=== PATIENT | female | born 1985 | race Caucasian/White ===

== ENCOUNTER 2020-09-11 11:59 | Emergency (ER) | payer SELFPAY ==
--- OUTSIDE RECORDS SUMMARY | 2020-09-11 12:02 | XMS REPORT | Continuity of Care Document ---
:1985 Author Organization [facility] t Address [address] [place] [address] Care Team Providers Name Role Phone Tosin Mahoney NP Attending Clinician [place] Ramos Attending Clinician Problems This patient has no known problems. Allergies, Adverse Reactions, Alerts This patient has no known allergies or adverse reactions. Medications This patient has no known medications. Procedures This patient has no known procedures. Encounters Start End Encounter Admission Attending Care Care Encounter Source Date/Time Date/Time Type Type Clinicians Facility Department ID 2020-05-13 2020-05-13 Emergency Maru [facility] [id number] 18:03:00 21:00:00 Neisha Downing [id number] [place] [id number] [place] [id number] 2020-03-10 2020-03-10 Routine KELSEA Palacio [id number] 12:49:29 13:21:29 R[place] [facility] [id number] Visit [facility] [id number] MATERNAL [id number] & CHILD [address] [place] [address] Results This patient has no known results.
--- NOTE | 2020-09-11 13:31 | EDPHYS ---
Physician Documentation [facility] Name: Hema Coombs Age: 34 yrs Sex: Female : 1985 Arrival Date: 09/11/2020 Time: 12:02 Bed Waiting Private MD: ED Physician Luis Quiñones HPI: 09/11 17:29 This 34 yrs old Female presents to ER via Ambulatory with complaints of Covid jr8 Test. 17:29 Associated signs and symptoms: Pertinent positives: cough. The patient has not jr8 experienced similar symptoms in the past. The patient has not recently seen a physician. Patient stated that she has had mild cough. Someone at her work tested positive for COVID which they were exposed to. Patient sent from work to be tested. Historical: - Allergies: 12:08 No Known Allergies; sv - Immunization history:: Client reports having NOT received the Covid vaccine. - Social history:: Smoking status: Patient denies any tobacco usage or history of. ROS: 17:29 Eyes: Negative for injury, pain, redness, and discharge, ENT: Negative for injury, jr8 pain, and discharge, Neck: Negative for injury, pain, and swelling, Cardiovascular: Negative for chest pain, palpitations, and edema, Abdomen/GI: Negative for abdominal pain, nausea, vomiting, diarrhea, and constipation, Back: Negative for injury and pain, MS/Extremity: Negative for injury and deformity, Skin: Negative for injury, rash, and discoloration, Neuro: Negative for headache, weakness, numbness, tingling, and seizure. 17:29 Respiratory: Positive for cough, Negative for shortness of breath, sputum production, wheezing. Exam: 17:29 Eyes: Pupils equal round and reactive to light, extra-ocular motions intact. Lids and jr8 lashes normal. Conjunctiva and sclera are non-icteric and not injected. Cornea within normal limits. Periorbital areas with no swelling, redness, or edema. ENT: Nares patent. No nasal discharge, no septal abnormalities noted. Tympanic membranes are normal and external auditory canals are clear. Oropharynx with no redness, swelling, or masses, exudates, or evidence of obstruction, uvula midline. Mucous membranes moist. Neck: Trachea midline, no thyromegaly or masses palpated, and no cervical lymphadenopathy. Supple, full range of motion without nuchal rigidity, or vertebral point tenderness. No Meningismus. Cardiovascular: Regular rate and rhythm with a normal S1 and S2. No gallops, murmurs, or rubs. Normal PMI, no JVD. No pulse deficits. Respiratory: Lungs have equal breath sounds bilaterally, clear to auscultation and percussion. No rales, rhonchi or wheezes noted. No increased work of breathing, no retractions or nasal flaring. Abdomen/GI: Soft, non-tender, with normal bowel sounds. No distension or tympany. No guarding or rebound. No evidence of tenderness throughout. Back: No spinal tenderness. No costovertebral tenderness. Full range of motion. Skin: Warm, dry with normal turgor. Normal color with no rashes, no lesions, and no evidence of cellulitis. MS/ Extremity: Pulses equal, no cyanosis. Neurovascular intact. Full, normal range of motion. Neuro: Awake and alert, GCS 15, oriented to person, place, time, and situation. Cranial nerves II-XII grossly intact. Motor strength 5/5 in all extremities. Sensory grossly intact. Cerebellar exam normal. Normal gait. Vital Signs: 12:09 BP 139 / 94; Pulse 74; Resp 16; Temp 98; Pulse Ox 99% ; Height 5 ft. 4 in. (162.56 cm); sv Pain 0/10; MDM: 12:18 Patient medically screened. [facility] 13:30 Data reviewed: vital signs, nurses notes, lab test result(s), and as a result, I will [facility] discharge patient. Data interpreted: Pulse oximetry: on room air is 99 %. Interpretation: normal. Counseling: I had a detailed discussion with the patient and/or guardian regarding: the historical points, exam findings, and any diagnostic results supporting the discharge/admit diagnosis, lab results, the need for outpatient follow up, a family practitioner, to return to the emergency department if symptoms worsen or persist or if there are any questions or concerns that arise at home. 09/11 12:13 Order name: COVID-19 : Document "Date of Symptom Onset" if Symptomatic. sv 09/11 13:28 Order name: SARS-COV-2 RT PCR; Complete Time: 13:30 EDMS Administered Medications: No medications were administered Disposition: 15:34 Co-signature as Attending Physician, Luis Quiñones MD. rn Disposition Summary: 09/11/20 13:31 Discharge Ordered Location: Home jr8 Problem: new jr8 Symptoms: have improved jr8 Condition: Stable jr8 Diagnosis - Cough jr8 Followup: jr8 - With: Private Physician - When: As needed - Reason: Recheck today's complaints, Continuance of care, Re-evaluation by your physician Discharge Instructions: - Discharge Summary Sheet jr8 - Cough, Adult jr8 Forms: - Medication Reconciliation Form jr8 - Thank You Letter jr8 - Antibiotic Education jr8 - Work release form jr8 - Prescription Opioid Use jr8 Signatures: Dispatcher [employer] EDMS Lisy Short RN RN sv Nieto, Roman, MD MD rn Roszak, Josh, PA PA jr8 Corrections: (The following items were deleted from the chart) 12:30 12:14 CORONAVIRUS ordered. EDMD EDMS
--- NOTE | 2020-09-11 13:31 | ER ---
Nurse's Notes [facility] Name: Hema Coombs Age: 34 yrs Sex: Female : 1985 Arrival Date: 09/11/2020 Time: 12:02 Bed Waiting Private MD: Diagnosis: Cough Presentation: 09/11 12:08 Chief complaint: Patient states: sent by work to get tested for COVID. No symptoms at sv this time. Coronavirus screen: Client denies travel out of the [place] in the last 14 days. Ebola Screen: No symptoms or risks identified at this time. Risk Assessment: Do you want to hurt yourself or someone else? Patient reports no desire to harm self or others. Onset of symptoms was September 11, 2020. 12:08 Method Of Arrival: Ambulatory sv 12:08 Acuity: [id number] 4 sv 12:09 Initial Sepsis Screen: Does the patient meet any 2 criteria? No. Patient's initial sv sepsis screen is negative. Does the patient have a suspected source of infection? No. Patient's initial sepsis screen is negative. Triage Assessment: 12:10 General: Appears in no apparent distress. comfortable, Behavior is calm, cooperative, sv appropriate for age. Pain: Denies pain. Neuro: Level of Consciousness is awake, alert, obeys commands. Respiratory: Respiratory effort is even, unlabored, Respiratory pattern is regular, symmetrical. Historical: - Allergies: 12:08 No Known Allergies; sv - Immunization history:: Client reports having NOT received the Covid vaccine. - Social history:: Smoking status: Patient denies any tobacco usage or history of. Screenin:48 Abuse screen: Denies threats or abuse. Denies injuries from another. Nutritional sv screening: No deficits noted. Tuberculosis screening: No symptoms or risk factors identified. Fall Risk None identified. Assessment: 13:48 Reassessment: Patient appears in no apparent distress at this time. No changes from sv previously documented assessment. See triage assessment. Vital Signs: 12:09 BP 139 / 94; Pulse 74; Resp 16; Temp 98; Pulse Ox 99% ; Height 5 ft. 4 in. (162.56 cm); sv Pain 0/10; ED Course: 12:02 Patient arrived in ED. rg4 12:08 Triage completed. sv 12:09 Arm band placed on. sv 12:13 Nurse Practitioner and/or Physician Stone Gluer to see patient. sv 12:18 [facility]. jr8 12:18 Luis Quiñones MD is Attending Physician. jr8 13:48 Lisy Short, RUTH is Primary Nurse. sv 13:48 Patient has correct armband on for positive identification. sv 13:48 No provider procedures requiring assistance completed. Patient did not have IV access sv during this emergency room visit. Administered Medications: No medications were administered Outcome: 13:31 Discharge ordered by MD. jr8 13:48 Patient left the ED. sv 13:48 Discharged to home ambulatory. sv 13:48 Condition: stable 13:48 Discharge instructions given to patient, Instructed on discharge instructions, follow up and referral plans. Demonstrated understanding of instructions, follow-up care. Signatures: Lisy Short RN RN Js Harrison PA PA jr8 Sabrina Hayes rg4 Corrections: (The following items were deleted from the chart) 12:11 12:09 Pulse 74bpm; Resp 16bpm; Pulse Ox 99%; Temp 98F; Height 5 ft. 4 in.; Pain 0/10; svsv
[2020-09-11 13:53] VITALS: BP 139/94; TEMP 98; O2SAT 99
== END 2020-09-11 13:48 | disposition home or self-care (01) ==
LOC: ER 11:59
DX: R05 Cough (principal); Z20.822 Contact with and (suspected) exposure to COVID-19
CPT/HCPCS: 99281; U0003

== ENCOUNTER 2021-02-23 11:08 | Emergency (ER) | payer OTHER ==
--- OUTSIDE RECORDS SUMMARY | 2021-02-23 11:15 | XMS REPORT | Continuity of Care Document ---
:1985 Author Organization [facility] t Address [address] [place] [address] Care Team Providers Name Role Phone Tosin Mahoney NP Attending Clinician Angeles PALACIO Attending Clinician Unavailable Severiano GALVIN R Attending Clinician JAMI Attending Clinician Unavailable Lab, Fam Pob I Attending Clinician Unavailable Jami GALVIN Attending Clinician Beth MIRANDA Attending Clinician Unavailable Doctor Unassigned, Name Attending Clinician Unavailable 5, [facility] Usg Room Attending Clinician Unavailable Thom GOOD, F Attending Clinician Sidney GOOD Attending Clinician Payers Payer Name Policy Type Policy Number Effective Date Expiration Date Ritesh EMMANUEL [id number] 2019 HEALTH 00:00:00 CIGNA II [id number] 2019 00:00:00 Problems Condition Condition Condition Status Onset Resolution Last Treating Co mments Source Name Details Category Date Date Treatment Clinician Date Disease Active 2019-03 Univers (spontaneo (spontaneo 2-11 it y [place] vaginal [place] delivery[place] 00 Medi aileen Branch Liveborn Liveborn Disease Active 2019-03 Unive rs by infant by 2-11 ity of vaginal vaginal 00:00: [place] delivery delivery 00 Medica l Branch Tubal Tubal Disease Active 2019-03 [facility] ligation ligation 2-11 ity of evaluation evaluation 00:00: [place] 00 Medical Branch 37 weeks 37 weeks Disease Active 2019-03 Unive rs gestation gestation 2-10 ity of of of 00:00: [place] 00 [facility] Branch Labor and Labor and Disease Active 2019-03 Uni vers delivery delivery 2-10 ity of indication indication 00:00: [place] for care for care 00 Medica l or or Branch interventi interventi on on Anemia of Anemia of Disease Active 2019-03 Uni vers mother in mother in 2-02 ity of , , 00:00: [place] antepartum antepartum 00 Ar dical Branch Abnormal Abnormal Disease Active 2019-03 Unive rs laboratory laboratory 0-01 it y of test test 00:00: [place] result result 00 Medical Branch Need for Need for Disease Active 2019-03 Unive rs Tdap Tdap 0-01 ity of vaccinatio vaccinatio 00:00: [place] n n 00 Medical Branch Class 1 Class 1 Disease Active 2019-03 Univers obesity obesity 0-01 ity of due to due to 00:00: [place] excess excess 00 Medical calories calories Branch with body with body mass index mass index (BMI) of (BMI) of 30.0 to 30.0 to 30.9 in 30.9 in adult, adult, unspecifie unspecifie d whether d whether serious serious comorbidit comorbidit y present y present BMI BMI Disease Active 2019-03 Univers 32.0-32.9, 32.0-32.9, 0-01 it y of adult adult 00:00: [place] 00 Medical Branch Maternal Maternal Disease Active 2020- Overview: Un eric varicella, varicella, 9- Address i ty of non-immune non-immune 00:00: in [place] 00 postpartu Medical m. Branch Overweight Overweight Disease Active 2020-0 U nivers (BMI (BMI 9-17 ity of 25.0-29.9) 25.0-29.9) 00:00: [place] 00 [place] [facility] Flu Flu Disease Active 2020- Univers vaccine vaccine 9-17 ity of need need 00:00: [place] 00 Medical Branch H/O: H/O: Disease Active 2020-0 Univers depression depression 9-17 it y of 00:00: [place] 00 Medical Branch History of History of Disease Active 2020-0 U nivers anemia anemia 9-17 ity of 00:00: [place] 00 Medical Branch Multiparit Multiparit Disease Active 2020-0 U nivers y y 9-17 ity of 00:00: [address] Screening Screening Disease Active Uni vers for viral for viral 11-21 ity of disease disease 00:00: [address] Insufficie Insufficie Disease Active U nivers nt nt 11-21 ity of 00:00: [place] care in care in 00 Medical third third Branch trimester trimester Supervisio Supervisio Disease Active U nivers n of high n of high 11-21 ity of risk risk 00:00: [place] 00 Medi aileen in third in third Branch trimester trimester Right-side Right-side Disease Active U nivers d low back d low back 11-21 it y of pain with pain with [place] right-[place] right-side 00 Me dical d d Branch sciatica, sciatica, unspecifie unspecifie d d chronicity chronicity Normal Normal Disease Active Univers delivery delivery 1-14 ity of 00:00: [address] Allergies, Adverse Reactions, Alerts Allergy Allergy Status Severity Reaction(s) Onset Inactive Treating Comm ents Source Name Type Date Date Clinician NO KNOWN Drug Active Univers ALLERGIE Class ity of S [facility] Social History Social Habit Start Date Stop Date Quantity Comments Source ASSERTION 2019-06-08 University 00:00:00 [facility] Exposure to Not sure [facility] SARS-CoV-2 [facility] [place] [facility] (event) Branch Tobacco use and 2020-05-13 2020-05-13 Never used Universit y of exposure 00:00:00 00:00:00 [facility] Alcohol intake 2020-05-13 2020-05-13 Ex-drinker [facility] 00:00:00 00:00:00 (finding) [facility] Sex [birth year] Universit y of 00:00:00 00:00:00 [facility] Smoking Status Start Date Stop Date Source Never smoker [facility] Medications Ordered Filled Start Stop Current Ordering Indication Dosage Frequency Signature Comments Components Source Medication Medication Date Date Medication? Clinician (SIG) Name Name furosemide 2020- No [id number] 20mg Take 1 Univers 20 mg 05-13 tablet by ity of tablet 00:00: 04:59 mouth [place] 00 :00 every Medical morning Branch for 5 days. 2019-03 Yes [id number] 1{tbl} Take 1 Univers vitamin 2-12 tablet by ity of w/FA tablet 00:00: mouth [place] 00 daily. Medical Branch docusate 2019-03 Yes [id number] 240mg Take 1 U nivers calcium 240 2-12 capsule by it y of mg capsule 00:00: mouth [place] 00 daily as Medical needed for Branch Constipati on. ferrous 2019-03 Yes [id number] 325mg Take 1 Un eric sulfate 325 2-12 tablet by ity of mg (65 mg 00:00: mouth 2 [place] iron) 00 (two) Medical tablet times Branch daily. ibuprofen 2019-03 Yes [id number] 600mg Take 1 Univers 600 mg 2-12 tablet by ity of tablet 00:00: mouth [place] 00 every 6 Medical (six) Branch hours as needed (Pain). Take with food or milk. 2019-03 Yes [id number] 1{tbl} Take 1 Univers vitamin 2-12 tablet by ity of w/FA tablet 00:00: mouth [place] 00 daily. Medical Branch docusate 2019-03 Yes [id number] 240mg Take 1 U nivers calcium 240 2-12 capsule by it y of mg capsule 00:00: mouth [place] 00 daily as Medical needed for Branch Constipati on. ferrous 2019-03 Yes [id number] 325mg Take 1 Un eric sulfate 325 2-12 tablet by ity of mg (65 mg 00:00: mouth 2 [place] iron) 00 (two) Medical tablet times Branch daily. ibuprofen 2019-03 Yes [id number] 600mg Take 1 Univers 600 mg 2-12 tablet by ity of tablet 00:00: mouth [place] 00 every 6 Medical (six) Branch hours as needed (Pain). Take with food or milk. 2019-03 Yes [id number] 1{tbl} Take 1 Univers vitamin 2-12 tablet by ity of w/FA tablet 00:00: mouth [place] 00 daily. Medical Branch docusate 2019-03 Yes [id number] 240mg Take 1 U nivers calcium 240 2-12 capsule by it y of mg capsule 00:00: mouth [place] 00 daily as Medical needed for Branch Constipati on. ferrous 2019- Yes [id number] 325mg Take 1 Un eric sulfate 325 2-12 tablet by ity of mg (65 mg 00:00: mouth 2 [place] iron) 00 (two) Medical tablet times Branch daily. ibuprofen 2019-03 Yes [id number] 600mg Take 1 Univers 600 mg 2-12 tablet by ity of tablet 00:00: mouth [place] 00 every 6 Medical (six) Branch hours as needed (Pain). Take with food or milk. 2019-03 Yes [id number] 1{tbl} Take 1 Univers vitamin 2-12 tablet by ity of w/FA tablet 00:00: mouth [place] 00 daily. Medical Branch docusate 2019-03 Yes [id number] 240mg Take 1 U nivers calcium 240 2-12 capsule by it y of mg capsule 00:00: mouth [place] 00 daily as Medical needed for Branch Constipati on. ferrous 2019-03 Yes [id number] 325mg Take 1 Un eric sulfate 325 2-12 tablet by ity of mg (65 mg 00:00: mouth 2 [place] iron) 00 (two) Medical tablet times Branch daily. ibuprofen 2019-03 Yes [id number] 600mg Take 1 Univers 600 mg 2-12 tablet by ity of tablet 00:00: mouth [place] 00 every 6 Medical (six) Branch hours as needed (Pain). Take with food or milk. ferrous 2019-03 Yes [id number] 325mg Take 1 Un eric sulfate 325 2-02 tablet by ity of mg (65 mg 00:00: mouth 2 [place] iron) 00 (two) Medical tablet times Branch daily. ferrous 2019-03 Yes [id number] 325mg Take 1 Un eric sulfate 325 2-02 tablet by ity of mg (65 mg 00:00: mouth 2 [place] iron) 00 (two) Medical tablet times Branch daily. ferrous 2019-03 Yes [id number] 325mg Take 1 Un eric sulfate 325 2-02 tablet by ity of mg (65 mg 00:00: mouth 2 [place] iron) 00 (two) Medical tablet times Branch daily. ferrous 2019-03 Yes [id number] 325mg Take 1 Un eric sulfate 325 2-02 tablet by ity of mg (65 mg 00:00: mouth 2 [place] iron) 00 (two) Medical tablet times Branch daily. 2019-03 Yes [id number] 1{packe Take 1 Univers vit 1-30 t} Packet by ity of 33-iron-fol 00:00: mouth [place] ic-dha 00 daily. Medical (SELECT-OB Branch + DHA) 29 mg iron-1 mg -250 mg combo pack ascorbic 2019-03 Yes [id number] 500mg Take 1 U nivers acid, 1-30 tablet by ity of vitamin C, 00:00: mouth 3 [place] 500 mg 00 (three) Medical tablet times Branch daily. 2019-03 Yes [id number] 1{packe Take 1 Univers vit 1-30 t} Packet by ity of 33-iron-fol 00:00: mouth [place] ic-dha 00 daily. Medical (SELECT-OB Branch + DHA) 29 mg iron-1 mg -250 mg combo pack ascorbic 2019-03 Yes [id number] 500mg Take 1 U nivers acid, 1-30 tablet by ity of vitamin C, 00:00: mouth 3 [place] 500 mg 00 (three) Medical tablet times Branch daily. 2019-03 Yes [id number] 1{packe Take 1 Univers vit 1-30 t} Packet by ity of 33-iron-fol 00:00: mouth [place] ic-dha 00 daily. Medical (SELECT-OB Branch + DHA) 29 mg iron-1 mg -250 mg combo pack ascorbic 2019-03 Yes [id number] 500mg Take 1 U nivers acid, 1-30 tablet by ity of vitamin C, 00:00: mouth 3 [place] 500 mg 00 (three) Medical tablet times Branch daily. 2019-03 Yes [id number] 1{packe Take 1 Univers vit 1-30 t} Packet by ity of 33-iron-fol 00:00: mouth [place] ic-dha 00 daily. Medical (SELECT-OB Branch + DHA) 29 mg iron-1 mg -250 mg combo pack ascorbic 2019-03 Yes [id number] 500mg Take 1 U nivers acid, 1-30 tablet by ity of vitamin C, 00:00: mouth 3 [place] 500 mg 00 (three) Medical tablet times Branch daily. 2020- Yes [id number] 1{packe Take 1 Univers vit 1-30 t} Packet by ity of 33-iron-fol 00:00: mouth [place] ic-dha 00 daily. Medical (SELECT-OB Branch + DHA) 29 mg iron-1 mg -250 mg combo pack ascorbic 2019-03 Yes [id number] 500mg Take 1 U nivers acid, 1-30 tablet by ity of vitamin C, 00:00: mouth 3 [place] 500 mg 00 (three) Medical tablet times Branch daily. 2019-03 Yes [id number] 1{packe Take 1 Univers vit 1-30 t} Packet by ity of 33-iron-fol 00:00: mouth [place] ic-dha 00 daily. Medical (SELECT-OB Branch + DHA) 29 mg iron-1 mg -250 mg combo pack ascorbic 2019-03 Yes [id number] 500mg Take 1 U nivers acid, 1-30 tablet by ity of vitamin C, 00:00: mouth 3 [place] 500 mg 00 (three) Medical tablet times Branch daily. 2019-03 Yes [id number] 1{packe Take 1 Univers vit 1-30 t} Packet by ity of 33-iron-fol 00:00: mouth [place] ic-dha 00 daily. Medical (SELECT-OB Branch + DHA) 29 mg iron-1 mg -250 mg combo pack ascorbic 2019-03 Yes [id number] 500mg Take 1 U nivers acid, 1-30 tablet by ity of vitamin C, 00:00: mouth 3 [place] 500 mg 00 (three) Medical tablet times Branch daily. 2019-03 Yes [id number] 1{packe Take 1 Univers vit 1-30 t} Packet by ity of 33-iron-fol 00:00: mouth [place] ic-dha 00 daily. Medical (SELECT-OB Branch + DHA) 29 mg iron-1 mg -250 mg combo pack ascorbic 2019-03 Yes [id number] 500mg Take 1 U nivers acid, 1-30 tablet by ity of vitamin C, 00:00: mouth 3 [place] 500 mg 00 (three) Medical tablet times Branch daily. 2019-03 Yes [id number] 1{packe Take 1 Univers vit 1-12 t} Packet by ity of 33-iron-fol 00:00: mouth [place] ic-dha 00 daily. Medical (SELECT-OB Branch + DHA) 29 mg iron-1 mg -250 mg combo pack 2019-03 Yes [id number] 1{packe Take 1 Univers vit 1-12 t} Packet by ity of 33-iron-fol 00:00: mouth [place] ic-dha 00 daily. Medical (SELECT-OB Branch + DHA) 29 mg iron-1 mg -250 mg combo pack 2019-03 Yes [id number] 1{packe Take 1 Univers vit 1-12 t} Packet by ity of 33-iron-fol 00:00: mouth [place] ic-dha 00 daily. Medical (SELECT-OB Branch + DHA) 29 mg iron-1 mg -250 mg combo pack 2019-03 Yes [id number] 1{packe Take 1 Univers vit 1-12 t} Packet by ity of 33-iron-fol 00:00: mouth [place] ic-dha 00 daily. Medical (SELECT-OB Branch + DHA) 29 mg iron-1 mg -250 mg combo pack 2019-03 Yes [id number] 1{packe Take 1 Univers vit 1-12 t} Packet by ity of 33-iron-fol 00:00: mouth [place] ic-dha 00 daily. Medical (SELECT-OB Branch + DHA) 29 mg iron-1 mg -250 mg combo pack 2019-03 Yes [id number] 1{packe Take 1 Univers vit 1-12 t} Packet by ity of 33-iron-fol 00:00: mouth [place] ic-dha 00 daily. Medical (SELECT-OB Branch + DHA) 29 mg iron-1 mg -250 mg combo pack 2019-03 Yes [id number] 1{packe Take 1 Univers vit 1-12 t} Packet by ity of 33-iron-fol 00:00: mouth [place] ic-dha 00 daily. Medical (SELECT-OB Branch + DHA) 29 mg iron-1 mg -250 mg combo pack 2019-03 Yes [id number] 1{packe Take 1 Univers vit 1-12 t} Packet by ity of 33-iron-fol 00:00: mouth [place] ic-dha 00 daily. Medical (SELECT-OB Branch + DHA) 29 mg iron-1 mg -250 mg combo pack 2019-03 Yes [id number] 1{packe Take 1 Univers vit 1-12 t} Packet by ity of 33-iron-fol 00:00: mouth [place] ic-dha 00 daily. Medical (SELECT-OB Branch + DHA) 29 mg iron-1 mg -250 mg combo pack 2019-03 Yes [id number] 1{packe Take 1 Univers vit 1-12 t} Packet by ity of 33-iron-fol 00:00: mouth [place] ic-dha 00 daily. Medical (SELECT-OB Branch + DHA) 29 mg iron-1 mg -250 mg combo pack 2019-03 Yes [id number] 1{packe Take 1 Univers vit 1-12 t} Packet by ity of 33-iron-fol 00:00: mouth [place] ic-dha 00 daily. Medical (SELECT-OB Branch + DHA) 29 mg iron-1 mg -250 mg combo pack 2019-03 Yes [id number] 1{packe Take 1 Univers vit 1-12 t} Packet by ity of 33-iron-fol 00:00: mouth [place] ic-dha 00 daily. Medical (SELECT-OB Branch + DHA) 29 mg iron-1 mg -250 mg combo pack 2019-03 Yes [id number] 1{packe Take 1 Univers vit 1-12 t} Packet by ity of 33-iron-fol 00:00: mouth [place] ic-dha 00 daily. Medical (SELECT-OB Branch + DHA) 29 mg iron-1 mg -250 mg combo pack SERTraline 2019-0 Yes [id number] 25mg Take 25 mg Univers 25 mg 9-17 by mouth ity of tablet 15:41: daily. [address] SERTraline 2020-0 Yes [id number] 25mg Take 25 mg Univers 25 mg 9-17 by mouth ity of tablet 15:41: daily. [address] SERTraline 2020-0 Yes [id number] 25mg Take 25 mg Univers 25 mg 9-17 by mouth ity of tablet 15:41: daily. [address] SERTraline 2020-0 Yes [id number] 25mg Take 25 mg Univers 25 mg 9-17 by mouth ity of tablet 15:41: daily. [address] SERTraline 2020-0 Yes [id number] 25mg Take 25 mg Univers 25 mg 9-17 by mouth ity of tablet 15:41: daily. [address] SERTraline 2020-0 Yes [id number] 25mg Take 25 mg Univers 25 mg 9-17 by mouth ity of tablet 15:41: daily. [address] SERTraline 2020-0 Yes [id number] 25mg Take 25 mg Univers 25 mg 9-17 by mouth ity of tablet 15:41: daily. [address] SERTraline 2020-0 Yes [id number] 25mg Take 25 mg Univers 25 mg 9-17 by mouth ity of tablet 15:41: daily. [address] SERTraline 2020-0 Yes [id number] 25mg Take 25 mg Univers 25 mg 9-17 by mouth ity of tablet 15:41: daily. [address] SERTraline 2020-0 Yes [id number] 25mg Take 25 mg Univers 25 mg 9-17 by mouth ity of tablet 15:41: daily. [address] SERTraline 2020-0 Yes [id number] 25mg Take 25 mg Univers 25 mg 9-17 by mouth ity of tablet 15:41: daily. [address] SERTraline 2019-0 Yes [id number] 25mg Take 25 mg Univers 25 mg 9-17 by mouth ity of tablet 15:41: daily. [address] SERTraline 2019-0 Yes [id number] 25mg Take 25 mg Univers 25 mg 9-17 by mouth ity of tablet 15:41: daily. [address] SERTraline 2019-0 Yes [id number] 25mg Take 25 mg Univers 25 mg 9-17 by mouth ity of tablet 15:41: daily. [address] SERTraline 2019-0 Yes [id number] 25mg Take 25 mg Univers 25 mg 9-17 by mouth ity of tablet 15:41: daily. [address] SERTraline 2019-0 Yes [id number] 25mg Take 25 mg Univers 25 mg 9-17 by mouth ity of tablet 15:41: daily. [address] SERTraline 2019-0 Yes [id number] 25mg Take 25 mg Univers 25 mg 9-17 by mouth ity of tablet 15:41: daily. [address] SERTraline 2019-0 Yes [id number] 25mg Take 25 mg Univers 25 mg 9-17 by mouth ity of tablet 15:41: daily. [address] SERTraline 2020-0 Yes [id number] 25mg Take 25 mg Univers 25 mg 9-17 by mouth ity of tablet 15:41: daily. [address] SERTraline 2020-0 Yes [id number] 25mg Take 25 mg Univers 25 mg 9-17 by mouth ity of tablet 15:41: daily. [address] SERTraline 2020-0 Yes [id number] 25mg Take 25 mg Univers 25 mg 9-17 by mouth ity of tablet 15:41: daily. [address] SERTraline 2019-0 Yes [id number] 25mg Take 25 mg Univers 25 mg 9-17 by mouth ity of tablet 15:41: daily. [address] SERTraline 2019-0 Yes [id number] 25mg Take 25 mg Univers 25 mg 9-17 by mouth ity of tablet 15:41: daily. [address] SERTraline 2019-0 Yes [id number] 25mg Take 25 mg Univers 25 mg 9-17 by mouth ity of tablet 15:41: daily. [address] SERTraline 2019-0 Yes [id number] 25mg Take 25 mg Univers 25 mg 9-17 by mouth ity of tablet 15:41: daily. [address] SERTraline 2019-0 Yes [id number] 25mg Take 25 mg Univers 25 mg 9-17 by mouth ity of tablet 15:41: daily. [address] SERTraline 2019-0 Yes [id number] 25mg Take 25 mg Univers 25 mg 9-17 by mouth ity of tablet 15:41: daily. [address] SERTraline 2019-0 Yes [id number] 25mg Take 25 mg Univers 25 mg 9-17 by mouth ity of tablet 15:41: daily. [address] SERTraline 2019-0 Yes [id number] 25mg Take 25 mg Univers 25 mg 9-17 by mouth ity of tablet 15:41: daily. [address] SERTraline 2019-0 Yes [id number] 25mg Take 25 mg Univers 25 mg 9-17 by mouth ity of tablet 15:41: daily. [address] SERTraline 2019-0 Yes [id number] 25mg Take 25 mg Univers 25 mg 9-17 by mouth ity of tablet 15:41: daily. [address] 2020-0 Yes [id number] 1{packe Take 1 Univers vit 9-17 t} Packet by ity of 33-iron-fol 00:00: mouth [place] ic-dha 00 daily. Medical (SELECT-OB Branch + DHA) 29 mg iron-1 mg -250 mg combo pack 2020-0 Yes [id number] 1{packe Take 1 Univers vit 9-17 t} Packet by ity of 33-iron-fol 00:00: mouth [place] ic-dha 00 daily. Medical (SELECT-OB Branch + DHA) 29 mg iron-1 mg -250 mg combo pack 2020-0 Yes [id number] 1{packe Take 1 Univers vit 9-17 t} Packet by ity of 33-iron-fol 00:00: mouth [place] ic-dha 00 daily. Medical (SELECT-OB Branch + DHA) 29 mg iron-1 mg -250 mg combo pack 2020-0 Yes [id number] 1{packe Take 1 Univers vit 9-17 t} Packet by ity of 33-iron-fol 00:00: mouth [place] ic-dha 00 daily. Medical (SELECT-OB Branch + DHA) 29 mg iron-1 mg -250 mg combo pack 2020-0 Yes [id number] 1{packe Take 1 Univers vit 9-17 t} Packet by ity of 33-iron-fol 00:00: mouth [place] ic-dha 00 daily. Medical (SELECT-OB Branch + DHA) 29 mg iron-1 mg -250 mg combo pack 2020-0 Yes [id number] 1{packe Take 1 Univers vit 9-17 t} Packet by ity of 33-iron-fol 00:00: mouth [place] ic-dha daily. Medical (SELECT-OB Branch + DHA) 29 mg iron-1 mg -250 mg combo pack 2020-0 Yes [id number] 1{packe Take 1 Univers vit 9-17 t} Packet by ity of 33-iron-fol 00:00: mouth [place] ic-dha 00 daily. Medical (SELECT-OB Branch + DHA) 29 mg iron-1 mg -250 mg combo pack 2020-0 Yes [id number] 1{packe Take 1 Univers vit 9-17 t} Packet by ity of 33-iron-fol 00:00: mouth [place] ic-dha 00 daily. Medical (SELECT-OB Branch + DHA) 29 mg iron-1 mg -250 mg combo pack 2020-0 Yes [id number] 1{packe Take 1 Univers vit 9-17 t} Packet by ity of 33-iron-fol 00:00: mouth [place] ic-dha 00 daily. Medical (SELECT-OB Branch + DHA) 29 mg iron-1 mg -250 mg combo pack 2020-0 Yes [id number] 1{packe Take 1 Univers vit 9-17 t} Packet by ity of 33-iron-fol 00:00: mouth [place] ic-dha 00 daily. Medical (SELECT-OB Branch + DHA) 29 mg iron-1 mg -250 mg combo pack 2020-0 Yes [id number] 1{packe Take 1 Univers vit 9-17 t} Packet by ity of 33-iron-fol 00:00: mouth [place] ic-dha 00 daily. Medical (SELECT-OB Branch + DHA) 29 mg iron-1 mg -250 mg combo pack 2020-0 Yes [id number] 1{packe Take 1 Univers vit 9-17 t} Packet by ity of 33-iron-fol 00:00: mouth [place] ic-dha 00 daily. Medical (SELECT-OB Branch + DHA) 29 mg iron-1 mg -250 mg combo pack 2020-0 Yes [id number] 1{packe Take 1 Univers vit 9-17 t} Packet by ity of 33-iron-fol 00:00: mouth [place] ic-dha 00 daily. Medical ([facility] Branch + DHA) 29 mg iron-1 mg -250 mg combo pack 2020-0 Yes [id number] 1{packe Take 1 Univers vit 9-17 t} Packet by ity of 33-iron-fol 00:00: mouth [place] ic-dha 00 daily. Medical (SELECT-OB Branch + DHA) 29 mg iron-1 mg -250 mg combo pack 2020-0 Yes [id number] 1{packe Take 1 Univers vit 9-17 t} Packet by ity of 33-iron-fol 00:00: mouth [place] ic-dha 00 daily. Medical (SELECT-OB Branch + DHA) 29 mg iron-1 mg -250 mg combo pack 2020-0 Yes [id number] 1{packe Take 1 Univers vit 9-17 t} Packet by ity of 33-iron-fol 00:00: mouth [place] ic-dha 00 daily. Medical (SELECT-OB Branch + DHA) 29 mg iron-1 mg -250 mg combo pack 2020-0 Yes [id number] 1{packe Take 1 Univers vit 9-17 t} Packet by ity of 33-iron-fol 00:00: mouth [place] ic-dha 00 daily. Medical (SELECT-OB Branch + DHA) 29 mg iron-1 mg -250 mg combo pack 2020-0 Yes [id number] 1{packe Take 1 Univers vit 9-17 t} Packet by ity of 33-iron-fol 00:00: mouth [place] ic-dha 00 daily. Medical (SELECT-OB Branch + DHA) 29 mg iron-1 mg -250 mg combo pack 2020- No [id number] 1{packe Take 1 Univers vit 9-17 11-12 t} Packet by ity of 33-iron-fol 00:00: 00:00 [place] ic-dha 00 :00 daily. Medical (SELECT-OB Branch + DHA) 29 mg iron-1 mg -250 mg combo pack Yes Take one Unive rs VIT-IRON 1-15 tablet by ity of FUMARATE-FA 00:00: mouth [place] 65-1 MG 00 daily Medical ORAL TAB Branch DOCUSATE Yes Take one Unive rs CALCIUM 240 1-15 capsule by it y of MG ORAL CAP 00:00: mouth [place] 00 daily as Medical needed for Branch constipati on FERROUS Yes Take one Univer s SULFATE 325 1-15 tablet by ity of MG (65 MG 00:00: mouth [place] IRON) ORAL 00 twice Medical TAB daily Branch IBUPROFEN Yes Take one Univ ers 600 MG ORAL 1-15 tablet by ity of TAB 00:00: mouth [place] 00 every six Medical hours as Branch needed for pain 2020- No Take one Univ ers VIT-IRON 1-15 09-17 tablet by ity o f FUMARATE-FA 00:00: 00:00 [place] 65-1 MG 00 :00 daily Medical ORAL TAB Branch DOCUSATE 2020- No Take one Univ ers CALCIUM 240 1-15 09-17 capsule by i ty of MG ORAL CAP 00:00: 00:00 [place] 00 :00 daily as Medical needed for Branch constipati on FERROUS 2020- No Take one Unive rs SULFATE 325 1-15 09-17 tablet by it y of MG (65 MG 00:00: 00:00 mouth [place] IRON) ORAL 00 :00 twice Medical TAB daily Branch IBUPROFEN 2020- No Take one Uni vers 600 MG ORAL 1-15 09-17 tablet by it y of TAB 00:00: 00:00 mouth [place] 00 :00 every six Medical hours as Branch needed for pain 2020- No Take one Univ ers VIT-IRON 1-15 09-17 tablet by ity o f FUMARATE-FA 00:00: 00:00 mouth [place] 65-1 MG 00 :00 daily Medical ORAL TAB Branch DOCUSATE 2019- No Take one Univ ers CALCIUM 240 -15 -17 capsule by i ty of MG ORAL CAP 00:00: 00:00 [place] 00 :00 daily as Medical needed for Branch constipati on FERROUS 2019- No Take one Unive rs SULFATE 325 -15 -17 tablet by it y of MG (65 MG 00:00: 00:00 mouth [place] IRON) ORAL 00 :00 twice Medical TAB daily Branch IBUPROFEN 2019- No Take one Uni vers 600 MG ORAL 15 -17 tablet by it y of TAB 00:00: 00:00 mouth [place] 00 :00 every six Medical hours as Branch needed for pain 2019- No Take one Univ ers VIT-IRON -15 -17 tablet by ity o f FUMARATE-FA 00:00: 00:00 [place] 65-1 MG 00 :00 daily Medical ORAL TAB Branch DOCUSATE 2019- No Take one Univ ers CALCIUM 240 -15 -17 capsule by i ty of MG ORAL CAP 00:00: 00:00 [place] 00 :00 daily as Medical needed for Branch constipati on FERROUS 2019- No Take one Unive rs SULFATE 325 -15 -17 tablet by it y of MG (65 MG 00:00: 00:00 mouth [place] IRON) ORAL 00 :00 twice Medical TAB daily Branch IBUPROFEN 2019- No Take one Uni vers 600 MG ORAL -15 -17 tablet by it y of TAB 00:00: 00:00 mouth [place] 00 :00 every six Medical hours as Branch needed for pain 2019- No Take one Univ ers VIT-IRON -15 -17 tablet by ity o f FUMARATE-FA 00:[place] 65-1 [place] 00 :00 daily Medical ORAL TAB Branch DOCUSATE 2019- No Take one Univ ers CALCIUM 240 -15 -17 capsule by i ty of MG ORAL CAP 00:00[place] :[place] daily as Medical needed for Branch constipati on FERROUS 2019- No Take one Unive rs SULFATE 325 -15 -17 tablet by it y of MG (65 MG 00:00: 00:00 mouth [place] IRON) ORAL 00 :00 twice Medical TAB daily Branch IBUPROFEN 2020- No Take one Uni vers 600 MG ORAL 03-21 tablet by it y of TAB 00:00: 00:00 mouth [place] 00 :00 every six Medical hours as Branch needed for pain Immunizations Ordered Filled Immunization Date Status Comments Sour e Immunization Name Name TDAP 2019-12-06 Completed University of 00:00:00 [facility] [place] [facility] Branch TDAP 2019-12-06 Completed University of 00:00:00 [facility] TDAP 2019-12-06 Completed University of 00:00:00 [facility] TDAP 2019-12-06 Completed University of 00:00:00 [facility] TDAP 2019-12-06 Completed University of 00:00:00 [facility] TDAP 2019-12-06 Completed University of 00:00:00 [facility] TDAP 2019-12-06 Completed University of 00:00:00 [facility] TDAP 2019-12-06 Completed University of 00:00:00 [facility] TDAP 2019-12-06 Completed University of 00:00:00 [facility] TDAP 2019-12-06 Completed University of 00:00:00 [facility] TDAP 2019-12-06 Completed University of 00:00:00 [facility] TDAP 2019-12-06 Completed University of 00:00:00 [facility] TDAP 2019-12-06 Completed University of 00:00:00 [facility] TDAP 2019-12-06 Completed University of 00:00:00 [facility] TDAP 2019-12-06 Completed University of 00:00:00 [facility] TDAP 2019-12-06 Completed University of 00:00:00 [facility] TDAP 2019-12-06 Completed University of 00:00:00 [facility] TDAP 2019-12-06 Completed University of 00:00:00 [facility] TDAP 2019-12-06 Completed University of 00:00:00 [facility] TDAP 2019-12-06 Completed University of 00:00:00 [facility] [place] [facility] TDAP 2019-12-06 Completed University of 00:00:00 [facility] TDAP 2019-12-06 Completed University of 00:00:00 [facility] TDAP 2019-12-06 Completed University of 00:00:00 [facility] TDAP 2019-12-06 Completed University of 00:00:00 [place] [facility] Influenza Virus 2019-11-22 Completed Universit y of Vaccine [facility] .5 mL 00:00:00 [place] [facility] IM 6+ MO Branch Influenza Virus 2019-11-22 Completed Universit y of [facility] [place] .5 mL 00:00:00 [place] [facility] IM 6+ MO Branch Influenza Virus 2019-11-22 Completed Universit y of [facility] [place] .5 mL 00:00:00 [place] [facility] IM 6+ MO Branch Influenza Virus 2019-11-22 Completed Universit y of [facility] [place] .5 mL 00:00:00 [place] [facility] IM 6+ MO Branch Influenza Virus 2019-11-22 Completed Universit y of [facility] [place] .5 mL 00:00:00 [place] [facility] IM 6+ MO Branch Influenza Virus 2019-11-22 Completed Universit y of [facility] [place] .5 mL 00:00:00 [place] [facility] IM 6+ MO Branch Influenza Virus 2019-11-22 Completed Universit y of [facility] [place] .5 mL 00:00:00 [place] [facility] IM 6+ MO Branch Influenza Virus 2019-11-22 Completed Universit y of Vaccine [facility] .5 mL 00:00:00 [place] [facility] IM 6+ MO Branch Influenza Virus 2019-11-22 Completed Universit y of [facility] [place] .5 mL 00:00:00 [place] [facility] IM 6+ MO Branch Influenza Virus 2019-11-22 Completed Universit y of [facility] [place] .5 mL 00:00:00 [place] [facility] IM 6+ MO Branch Influenza Virus 2019-11-22 Completed Universit y of [facility] [place] .5 mL 00:00:00 [place] [facility] 6+ MO Branch Influenza Virus 2019-11-22 Completed Universit y of [facility] .5 mL 00:00:00 [place] [facility] IM 6+ MO Branch Influenza Virus 2019-11-22 Completed Universit y of [facility] [place] .5 mL 00:00:00 [place] [facility] IM 6+ MO Branch Influenza Virus 2019-11-22 Completed Universit y of [facility] [place] .5 mL 00:00:00 [place] [facility] IM 6+ MO Branch Influenza Virus 2019-11-22 Completed Universit y of [facility] [place] .5 mL 00:00:00 [place] [facility] IM 6+ MO Branch Influenza Virus 2019-11-22 Completed Universit y of [facility] [place] .5 mL 00:00:00 [place] [facility] IM 6+ MO Branch Influenza Virus 2019-11-22 Completed Universit y of [facility] [place] .5 mL 00:00:00 [place] [facility] IM 6+ MO Branch Influenza Virus 2019-11-22 Completed Universit y of [facility] [place] .5 mL 00:00:00 [place] [facility] IM 6+ MO Branch Influenza Virus 2019-11-22 Completed Universit y of [facility] [place] .5 mL 00:00:00 [place] [facility] IM 6+ MO Branch Influenza Virus 2019-11-22 Completed Universit y of [facility] [place] .5 mL 00:00:00 [place] [facility] IM 6+ MO Branch Influenza Virus 2019-11-22 Completed Universit y of [facility] [place] .5 mL 00:00:00 [place] [facility] IM 6+ MO Branch Influenza Virus 2019-11-22 Completed Universit y of [facility] .5 mL 00:00:00 [place] [facility] IM 6+ MO Branch Influenza Virus 2019-11-22 Completed Universit y of [facility] .5 mL 00:00:00 [place] [facility] IM 6+ MO Branch Influenza Virus 2019-11-22 Completed Universit y of [facility] .5 mL 00:00:00 [place] [facility] IM 6+ MO Branch Influenza Virus 2019-11-22 Completed Universit y of [facility] .5 mL 00:00:00 [place] [facility] IM 6+ MO Branch Influenza Virus 2019-11-22 Completed Universit y of [facility] .5 mL 00:00:00 [place] [facility] IM 6+ MO Branch Influenza Virus 2019-11-22 Completed Universit y of [facility] [place] .5 mL 00:00:00 [place] [facility] IM 6+ MO Branch Influenza Virus 2019-11-22 Completed Universit y of [facility] .5 mL 00:00:00 [place] [facility] IM 6+ MO Branch Influenza Virus 2019-11-22 Completed Universit y of [facility] [place] .5 mL 00:00:00 [place] [facility] IM 6+ MO Branch Influenza Virus 2019-11-22 Completed Universit y of [facility] .5 mL 00:00:00 [place] [facility] IM 6+ MO Branch Influenza Virus 2019-11-22 Completed Universit y of [facility] [place] .5 mL 00:00:00 [place] [facility] IM 6+ MO Branch Influenza Virus 2019-11-22 Completed Universit y of [facility] [place] .5 mL 00:00:00 [place] [facility] IM 6+ MO Branch Influenza Virus 2019-11-22 Completed Universit y of [facility] .5 mL 00:00:00 [place] [facility] IM 6+ MO Branch Influenza Virus 2019-11-22 Completed Universit y of [facility] .5 mL 00:00:00 [place] [facility] IM 6+ MO Branch Influenza Virus 2019-11-22 Completed Universit y of [facility] [place] .5 mL 00:00:00 [facility] [place] [facility] 6+ MO Branch Influenza Virus 2016-11-12 Completed Universit y of Vaccine (3+ yrs) 00:00:00 [facility]ics[facility] Branch Influenza Virus 2016-11-12 Completed Universit y of Vaccine (3+ yrs) 00:00:00 [facility] Branch Influenza Virus 2016-11-12 Completed Universit y of Vaccine (3+ yrs) 00:00:00 [facility] Branch Influenza Virus 2016-11-12 Completed Universit y of Vaccine (3+ yrs) 00:00:00 [facility] Branch Influenza Virus 2016-11-12 Completed Universit y of Vaccine (3+ yrs) 00:00:00 [facility] Branch Influenza Virus 2016-11-12 Completed Universit y of Vaccine (3+ yrs) 00:00:00 [facility]ics[facility] Branch Influenza Virus 2016-11-12 Completed Universit y of Vaccine (3+ yrs) 00:00:00 [facility] Branch Influenza Virus 2016-11-12 Completed Universit y of Vaccine (3+ yrs) 00:00:00 [facility] dics[facility] Branch Influenza Virus 2016-11-12 Completed Universit y of Vaccine (3+ yrs) 00:00:00 [facility] Branch Influenza Virus 2016-11-12 Completed Universit y of Vaccine (3+ yrs) 00:00:00 [facility] dics[facility] Branch Influenza Virus 2016-11-12 Completed Universit y of Vaccine (3+ yrs) 00:00:00 [facility] Branch Influenza Virus 2016-11-12 Completed Universit y of Vaccine (3+ yrs) 00:00:00 [facility] dics[facility] Branch Influenza Virus 2016-11-12 Completed Universit y of Vaccine (3+ yrs) 00:00:00 [facility] Branch Influenza Virus 2016-11-12 Completed Universit y of Vaccine (3+ yrs) 00:00:00 [facility] Branch Influenza Virus 2016-11-12 Completed Universit y of Vaccine (3+ yrs) 00:00:00 [facility] Branch Influenza Virus 2016-11-12 Completed Universit y of Vaccine (3+ yrs) 00:00:00 [facility] Branch Influenza Virus 2016-11-12 Completed Universit y of Vaccine (3+ yrs) 00:00:00 [facility] Branch Influenza Virus 2016-11-12 Completed Universit y of Vaccine (3+ yrs) 00:00:00 [facility] Influenza Virus 2016-11-12 Completed Universit y of Vaccine (3+ yrs) 00:00:00 [facility] TDAP 2015-03-12 Completed University of 00:00:00 [facility] TDAP 2015-03-12 Completed University of 00:00:00 [facility] TDAP 2015-03-12 Completed University of 00:00:00 [facility] TDAP 2015-03-12 Completed University of 00:00:00 [facility] TDAP 2015-03-12 Completed University of 00:00:00 [facility] TDAP 2015-03-12 Completed University of 00:00:00 [facility] TDAP 2015-03-12 Completed University of 00:00:00 [facility] TDAP 2015-03-12 Completed University of 00:00:00 [facility] TDAP 2015-03-12 Completed University of 00:00:00 [facility] TDAP 2015-03-12 Completed University of 00:00:00 [facility] TDAP 2015-03-12 Completed University of 00:00:00 [facility] TDAP 2015-03-12 Completed University of 00:00:00 [facility] TDAP 2015-03-12 Completed University of 00:00:00 [facility] TDAP 2015-03-12 Completed University of 00:00:00 [facility] TDAP 2015-03-12 Completed University of 00:00:00 [facility] TDAP 2015-03-12 Completed University of 00:00:00 [facility] TDAP 2015-03-12 Completed University of 00:00:00 [facility] TDAP 2015-03-12 Completed University of 00:00:00 [facility] TDAP 2015-03-12 Completed University of 00:00:00 [facility] Influenza Virus 2015-01-13 Completed Universit y of Vaccine (3+ yrs) 00:00:00 [facility] Influenza Virus 2015-01-13 Completed Universit y of Vaccine (3+ yrs) 00:00:00 [facility] Influenza Virus 2015-01-13 Completed Universit y of Vaccine (3+ yrs) 00:00:00 [facility] Influenza Virus 2015-01-13 Completed Universit y of Vaccine (3+ yrs) 00:00:00 [place] [facility] Influenza Virus 2015-01-13 Completed Universit y of Vaccine (3+ yrs) 00:00:00 [facility] Influenza Virus 2015-01-13 Completed Universit y of Vaccine (3+ yrs) 00:00:00 [facility]ics[facility] Branch Influenza Virus 2015-01-13 Completed Universit y of Vaccine (3+ yrs) 00:00:00 [facility] Branch Influenza Virus 2015-01-13 Completed Universit y of Vaccine (3+ yrs) 00:00:00 [facility] Influenza Virus 2015-01-13 Completed Universit y of Vaccine (3+ yrs) 00:00:00 [facility] Branch Influenza Virus 2015-01-13 Completed Universit y of Vaccine (3+ yrs) 00:00:00 [facility] Influenza Virus 2015-01-13 Completed Universit y of Vaccine (3+ yrs) 00:00:00 [facility] Influenza Virus 2015-01-13 Completed Universit y of Vaccine (3+ yrs) 00:00:00 [facility] Influenza Virus 2015-01-13 Completed Universit y of Vaccine (3+ yrs) 00:00:00 [facility] Influenza Virus 2015-01-13 Completed Universit y of Vaccine (3+ yrs) 00:00:00 [facility] Influenza Virus 2015-01-13 Completed Universit y of Vaccine (3+ yrs) 00:00:00 [facility] Influenza Virus 2015-01-13 Completed Universit y of Vaccine (3+ yrs) 00:00:00 [facility] Influenza Virus 2015-01-13 Completed Universit y of Vaccine (3+ yrs) 00:00:00 [facility] Influenza Virus 2015-01-13 Completed Universit y of Vaccine (3+ yrs) 00:00:00 [facility] Influenza Virus 2015-01-13 Completed Universit y of Vaccine (3+ yrs) 00:00:00 [facility] Vital Signs Vital Name Observation Time Observation Value Comments Source Systolic blood 2020-05-14 00:01:00 146 mm[Hg] Univer sity of pressure [facility] Diastolic blood 2020-05-14 00:01:00 99 mm[Hg] Unive rsity of pressure [facility] Heart rate 2020-05-14 00:01:00 80 /min [facility] [place] [facility] Body temperature 2020-05-14 00:01:00 36.44 Angella Univ ers[facility] [place] [facility] Respiratory rate 2020-05-14 00:01:00 16 /min Univ ers[facility] [place] [facility] Body height 2020-05-14 00:01:00 165.1 cm [facility] [place] [facility] Body weight 2020-05-14 00:01:00 70.308 kg [facility] [place] [facility] BMI 2020-05-14 00:01:00 25.79 kg/m2 [facility] [place] [facility] Oxygen saturation in 2020-05-14 00:01:00 100 /min University of Arterial blood by [place] S[facility] aileen Pulse oximetry Branch Systolic blood 2020-05-14 00:01:00 146 mm[Hg] Univer sity of pressure [place] [facility] Diastolic blood 2020-05-14 00:01:00 99 mm[Hg] Unive rsity of pressure [place] [facility] Heart rate 2020-05-14 00:01:00 80 /min [facility] [place] [facility] Body temperature 2020-05-14 00:01:00 36.44 Angella Univ ers[facility] [place] [facility] Respiratory rate 2020-05-14 00:01:00 16 /min Univ ers[facility] [place] [facility] Body height 2020-05-14 00:01:00 165.1 cm [facility] [place] [facility] Body weight 2020-05-14 00:01:00 70.308 kg [facility] [place] [facility] BMI 2020-05-14 00:01:00 25.79 kg/m2 [facility] [place] [facility] Oxygen saturation in 2020-05-14 00:01:00 100 /min University of Arterial blood by [place] S[facility] aileen Pulse oximetry Branch Systolic blood 2020-03-10 19:05:00 118 mm[Hg] Univer sity of pressure [place] [facility] Diastolic blood 2020-03-10 19:05:00 78 mm[Hg] Unive rsity of pressure [place] [facility] Heart rate 2020-03-10 19:05:00 65 /min [facility] [place] [facility] Body temperature 2020-03-10 19:05:00 36.89 Angella Univ [facility] [place] [facility] Respiratory rate 2020-03-10 19:05:00 16 /min Univ ers[facility] [place] [facility] Body height 2020-03-10 19:05:00 162.6 cm [facility] [place] [facility] Body weight 2020-03-10 19:05:00 78.019 kg [facility] [place] [facility] BMI 2020-03-10 19:05:00 29.52 kg/m2 [facility] [place] [facility] Systolic blood 2020-03-10 19:05:00 118 mm[Hg] Univer sity of pressure [place] [facility] Diastolic blood 2020-03-10 19:05:00 78 mm[Hg] Unive rsity of pressure [place] [facility] Heart rate 2020-03-10 19:05:00 65 /min [facility] [place] [facility] Body temperature 2020-03-10 19:05:00 36.89 Angella [facility] [place] [facility] Respiratory rate 2020-03-10 19:05:00 16 /min Univ ers[facility] [place] [facility] Body height 2020-03-10 19:05:00 162.6 cm [facility] [place] [facility] Body weight 2020-03-10 19:05:00 78.019 kg [facility] [place] [facility] BMI 2020-03-10 19:05:00 29.52 kg/m2 [facility] [place] [facility] Systolic blood 2020-02-13 13:58:00 122 mm[Hg] Univer sity of pressure [place] [facility] Diastolic blood 2020-02-13 13:58:00 73 mm[Hg] Unive rsity of pressure [place] [facility] Heart rate 2020-02-13 13:58:00 88 /min [facility] [place] [facility] Body temperature 2020-02-13 13:58:00 36.28 Angella [facility] [place] [facility] Respiratory rate 2020-02-13 13:58:00 16 /min Univ ers[facility] [place] [facility] Body height 2020-02-13 13:58:00 162.6 cm [facility] [place] [facility] Body weight 2020-02-13 13:58:00 86.592 kg [facility] [place] [facility] BMI 2020-02-13 13:58:00 32.77 kg/m2 [facility] [place] [facility] Systolic blood 2020-02-06 17:11:00 135 mm[Hg] Univer sity of pressure [place] [facility] Diastolic blood 2020-02-06 17:11:00 73 mm[Hg] Unive rsity of pressure [place] [facility] Heart rate 2020-02-06 17:11:00 89 /min [facility] [place] [facility] Body temperature 2020-02-06 17:11:00 36.17 Angella [facility] [place] [facility] Respiratory rate 2020-02-06 17:11:00 16 /min Univ ers[facility] [place] [facility] Body height 2020-02-06 17:11:00 162.6 cm [facility] [place] [facility] Body weight 2020-02-06 17:11:00 85.548 kg [facility] [place] [facility] BMI 2020-02-06 17:11:00 32.37 kg/m2 [facility] [place] [facility] Systolic blood 2020-01-30 14:00:00 104 mm[Hg] Univer sity of pressure [place] [facility] Diastolic blood 2020-01-30 14:00:00 67 mm[Hg] Unive rsity of pressure [place] [facility] Heart rate 2020-01-30 14:00:00 82 /min [facility] [place] [facility] Body temperature 2020-01-30 14:00:00 36.17 Angella [facility] [place] [facility] Respiratory rate 2020-01-30 14:00:00 16 /min [facility] [place] [facility] Body height 2020-01-30 14:00:00 162.6 cm [facility] [place] [facility] Body weight 2020-01-30 14:00:00 85.503 kg [facility] [place] [facility] BMI 2020-01-30 14:00:00 32.36 kg/m2 [facility] [place] [facility] Systolic blood 2020-01-17 13:51:00 109 mm[Hg] Univer sity of pressure [place] [facility] Diastolic blood 2020-01-17 13:51:00 69 mm[Hg] Unive rsity of pressure [place] [facility] Heart rate 2020-01-17 13:51:00 84 /min [facility] [place] [facility] Body temperature 2020-01-17 13:51:00 36.78 Angella [facility] [place] [facility] Respiratory rate 2020-01-17 13:51:00 16 /min Univ [facility] [place] [facility] Body height 2020-01-17 13:51:00 162.6 cm [facility] [place] [facility] Body weight 2020-01-17 13:51:00 83.054 kg [facility] [place] [facility] BMI 2020-01-17 13:51:00 31.43 kg/m2 [facility] [place] [facility] Systolic blood 2020-01-03 12:58:00 120 mm[Hg] Univer sity of pressure [place] [facility] Diastolic blood 2020-01-03 12:58:00 75 mm[Hg] Unive rsity of pressure [place] [facility] Heart rate 2020-01-03 12:58:00 83 /min [facility] [place] [facility] Body temperature 2020-01-03 12:58:00 36.22 Angella [facility] [place] [facility] Respiratory rate 2020-01-03 12:58:00 16 /min Univ [facility] [place] [facility] Body height 2020-01-03 12:58:00 162.6 cm [facility] [place] [facility] Body weight 2020-01-03 12:58:00 82.781 kg [facility] [place] [facility] BMI 2020-01-03 12:58:00 31.33 kg/m2 [facility] [place] [facility] Systolic blood 2019-12-20 12:58:00 117 mm[Hg] Univer sity of pressure [place] [facility] Diastolic blood 2019-12-20 12:58:00 74 mm[Hg] Unive rsity of pressure [place] [facility] Heart rate 2019-12-20 12:58:00 84 /min [facility] [place] [facility] Body temperature 2019-12-20 12:58:00 36.5 Angella [facility] [place] [facility] Respiratory rate 2019-12-20 12:58:00 16 /min [facility] [place] [facility] Body height 2019-12-20 12:58:00 162.6 cm [facility] [place] [facility] Body weight 2019-12-20 12:58:00 82.583 kg [facility] [place] [facility] BMI 2019-12-20 12:58:00 31.25 kg/m2 [facility] [place] [facility] Systolic blood 2019-12-06 14:27:00 116 mm[Hg] Univer sity of pressure [place] [facility] Diastolic blood 2019-12-06 14:27:00 66 mm[Hg] Unive rsity of pressure [place] [facility] Heart rate 2019-12-06 14:27:00 75 /min [facility] [place] [facility] Body temperature 2019-12-06 14:27:[address] [facility] Res[facility] 2019-12-06 14:27:00 16 /min Univ ersity [facility] Body height 2019-12-06 14:27:00 162.6 cm Universi ty of [facility] Body weight 2019-12-06 14:27:00 81.421 kg Universi ty of [facility] BMI 2019-12-06 14:27:00 30.81 kg/m2 Universi ty [facility] Systolic blood 2019-11-22 15:01:00 118 mm[Hg] Univer sity of pressure [facility] Diastolic blood 2019-11-22 15:01:00 75 mm[Hg] Unive rsity of [facility] Heart rate 2019-11-22 15:01:00 79 /min Universi ty of [facility] Body temperature 2019-11-22 15:01:[address] [facility] Respiratory rate 2019-11-22 15:01:00 16 /min [facility] Body height 2019-11-22 15:01:00 162.6 cm Universi ty of [facility] Body weight 2019-11-22 15:01:00 77.111 kg Universi ty [facility] BMI 2019-11-22 15:01:00 29.18 kg/m2 Universi ty [facility] Procedures Procedure Date / Time Performing Clinician Source Performed URINALYSIS 2020-05-14 00:23:00 Neisha Mahoney [facility] NOTICE OF PRIVACY 2020-05-13 23:48:24 Doctor Unassigned, [facility] PRACTICES [facility] [address] CONSENT/REFUSAL FOR 2020-05-13 23:48:03 Doctor Unassigned, [facility] DIAGNOSIS AND TREATMENT [place] [facility] POCT URINALYSIS 2020-03-10 00:00:00 Amanda Palacio [facility] POCT URINALYSIS 2020-02-13 13:58:00 Amanda Palacio [facility] POCT URINALYSIS 2020-02-06 17:12:00 Amanda Palacio [facility] CBC WITH DIFF 2020-01-30 13:59:00 Amanda Palacio [facility] GROUP B STREPTOCOCCUS BY 2020-01-30 13:59:00 Amanda Palacio [facility] PCR [facility] SARS-COV-2 IGG 2020-01-30 13:59:00 Amanda Palacio [facility] LAB ONLY COVID 2020-01-30 13:59:00 Amanda Palacio [facility] INTERPRETATION [facility] POCT URINALYSIS 2020-01-30 00:00:00 Amanda Palacio [facility] POCT URINALYSIS 2020-01-17 00:00:00 Amanda Palacio [facility] POCT URINALYSIS 2020-01-03 00:00:00 Amanda Palacio [facility] POCT URINALYSIS 2019-12-20 12:59:00 Amanda Palacio [facility] EXTERNAL PROVIDER RECORDS 2019-12-17 05:01:00 Doctor Unassigned, [facility] TDAP VACCINE, >11 YRS, IM 2019-12-06 14:33:55 Amanda Palacio [facility] POCT URINALYSIS 2019-12-06 14:29:00 Amanda Palacio [facility] STERILIZATION CONSENT 2019-11-30 05:01:00 Doctor Unassigned, Uni [facility] FORM [place] [facility] FLU VACC ([id number]), 6+ 2019-11-22 15:02:27 Amanda Palacio [facility] MONTHS, IM, QUAD Medical Branch ASSIGNMENT OF BENEFITS 2019-11-22 14:24:48 [facility] [place] [facility] POCT TEST 2019-11-22 00:00:[address] [facility] POCT URINALYSIS W/O 2019-11-22 00:00:00 Amanda Palacio [facility] SPECIFIC GRAVITY [facility] Encounters Start End Encounter Admission Attending Care Care Encounter Source Date/Time Date/Time Type Type Clinicians Facility Department ID 2021-01-04 Emergency [facility] [id number] Univers 04:40:57 ity of [facility] 2021-01-03 Emergency [facility] [id number] Univers 10:32:20 ity of [facility] 2020-05-13 2020-05-13 Emergency [facility] [id number] Univers 18:03:00 21:00:00 Neisha Downing 350.1.13.10 ity [facility] 4.2.7.2.686 [facility] [id number] [address] 2020-05-13 2020-05-13 Emergency [facility] [id number] 18:03:00 21:00:00 Neisha Downing 350.1.13.10 [place] 4.2.7.2.686 [place] [phone] [facility] 2020-04-02 2020-04-02 [place] [facility] [id number] -20 Univers 09:15:00 09:15:00 ROSHUNDA [id number] ity o f [facility] 2020-04-02 2020-04-02 Outpatient [place] [facility] [id number] Univers 09:15:00 09:15:00 ROSHUNDA ity o f [facility] 2020-03-10 2020-03-10 [facility] 1.2.840.114 [id number] Univers 12:49:29 13:21:29 Roshunda R TELEGRAPH DISPATCHER 350.1.13.10 ity of Visit REGIONAL 4.2.7.2.686 Song as MATERNAL [id number] Med ical & CHILD [address] [place] [address] 2020-03-10 2020-03-10 [facility] 1.2.840.114 [id number] 69 12:49:29 13:21:29 Roshunda R TELEGRAPH DISPATCHER 350.1.13.10 Visit REGIONAL 4.2.7.2.686 MATERNAL [id number] & CHILD [address] [place] [address] 2020-03-10 2020-03-10 Outpatient [place] PALACIO [facility] [id number] Univers 12:45:00 12:45:00 ROSHUNDA ity o f [facility] 2020-03-09 2020-03-09 Outpatient R [facility] [id number] -20 Univers 17:20:00 17:20:00 [id number] [facility] 2020-03-09 2020-03-09 Outpatient R JAMI [facility] [id number] Univers 17:20:00 17:20:00 LEOBARDO [facility] 2020-03-09 2020-03-09 Laboratory Lab, Adc Fam Pob I [facility] 1.2. 840.114 [id number] Univers 16:59:53 17:19:53 [facility] 350.1.13.10 ity of [place] 4.2.7.2.686 Song as Professio [id number] [address] Office [facility] 2020-02-20 2020-02-20 Outpatient [facility] [id number] -20 Univers 09:30:00 09:30:00 ROSLALITONDA [id number] ity o [facility] 2020-02-20 2020-02-20 Outpatient [facility] [id number] Univers 09:30:00 09:30:00 ROSLALITONDA florentinwilian o [facility] 2020-02-13 2020-02-13 Routine [facility] 1.2.840.114 [id number] Univers 07:50:59 08:05:59 Roshunda R TELEGRAPH DISPATCHER 350.1.13.10 ity of [facility] 4.2.7.2.686 Song as MATERNAL [id number] Med ical & CHILD [address] [place] [address] 2020-02-13 2020-02-13 Outpatient [facility] [id number] -20 Univers 08:00:00 08:00:00 ROSLALITONDA ity o [facility] 2020-02-13 2020-02-13 Outpatient R [facility] [id number] Univers 08:00:00 08:00:00 ROSHUNDA ity o [facility] 2020-02-06 2020-02-06 [facility] 1.2.840.114 [id number] Univers 10:45:02 11:00:02 Roshunda R TELEGRAPH DISPATCHER 350.1.13.10 ity of Visit REGIONAL 4.2.7.2.686 Song as MATERNAL [id number] [facility] & CHILD [address] [place] [address] 2020-02-06 2020-02-06 Outpatient R SEVERIANO [facility] [id number] -20 Univers 11:00:00 11:00:00 ROSHUNDA [id number] ity o f [facility] 2020-02-06 2020-02-06 Outpatient [facility] [id number] Univers 11:00:00 11:00:00 ROSHUNDA ity o f [facility] 2020-02-06 2020-02-06 Telephone [facility] [id number] [id number] Univers 00:00:00 00:00:00 Roshunda R TELEGRAPH DISPATCHER 350.1.13.10 ity of REGIONAL 4.2.7.2.686 Song as MATERNAL [id number] [facility] & CHILD [address] [place] [address] 2020-02-04 2020-02-04 Telephone [facility] [id number] Univers 00:00:00 00:00:00 Roshunda R TELEGRAPH DISPATCHER 350.1.13.10 ity of REGIONAL 4.2.7.2.686 Song as MATERNAL [id number] [facility] & CHILD [address] [place] [address] 2020-02-01 2020-02-01 Nurse JOHNNY Campos 1.2.840.114 [id number] Univers 00:00:00 00:00:00 Triage Tootie TREVINO 350.1.13.10 it y of HOSPITAL 4.2.7.2.686 Song as [id number] [address] 2020-01-30 2020-01-30 Routine [facility] 1.2.840.114 [id number] Univers 07:46:26 08:13:08 Roshunda R TELEGRAPH DISPATCHER 350.1.13.10 ity of Visit REGIONAL 4.2.7.2.686 Song as MATERNAL [id number] [facility] & CHILD [address] [place] [address] 2020-01-30 2020-01-30 Outpatient R SEVERIANO, [facility] [id number] -20 Univers 07:45:00 07:45:00 ROSHUNDA [id number] itwilian o sania [facility] 2020-01-30 2020-01-30 Outpatient [place] PALACIO [facility] [id number] Univers 07:45:00 07:45:00 ROSHUNDA itwilian o [place]ia [facility] 2020-01-17 2020-01-17 Routine Severiano [facility] 1.2.840.114 [id number] Univers 07:46:03 08:01:03 Roshunda R TELEGRAPH DISPATCHER 350.1.13.10 ity of Visit REGIONAL 4.2.7.2.686 Song as MATERNAL [id number] [facility] ical & CHILD [address] [place] [address] 2020-01-17 2020-01-17 Outpatient [place] PALACIO [facility] [id number] -20 Univers 07:45:00 07:45:00 ANIKANDA [id number] itwilian o [place]ia [facility] 2020-01-17 2020-01-17 Outpatient [place] [facility] [id number] Univers 07:45:00 07:45:00 ANIKANDA martha o [place] [facility] 2020-01-09 2020-01-09 Refill Doctor [facility] 1.2.840.114 [id number] Univers 00:00:00 00:00:00 Unassigned, TELEGRAPH DISPATCHER 350.1.13.10 ity of [place] REGIONAL 4.2.7.2.686 Song as MATERNAL [id number] [facility] & CHILD [address] [place] [address] 2020-01-03 2020-01-03 Routine Severiano [facility] 1.2.840.114 [id number] Univers 07:45:38 08:00:38 Roshunda R TELEGRAPH DISPATCHER 350.1.13.10 ity of Visit REGIONAL 4.2.7.2.686 Song as MATERNAL [id number] [facility] ical & CHILD [address] [place] [address] 2020-01-03 2020-01-03 Outpatient [place] PALACIO [facility] [id number] -20 Univers 08:00:00 08:00:00 ROSHUNDA [id number] ity o [place] [facility] 2020-01-03 2020-01-03 Outpatient [place] PALACIO [facility] [id number] Univers 08:00:00 08:00:00 ROSHUNDA ity o f [facility] 2019-12-20 2019-12-20 Routine Severiano [facility] 1.2.840.114 [id number] Univers 07:49:45 08:16:05 Roshunda R TELEGRAPH DISPATCHER 350.1.13.10 ity of Visit REGIONAL 4.2.7.2.686 Song as MATERNAL [id number] [facility] ical & CHILD [address] [place] [address] 2019-12-20 2019-12-20 Outpatient [place] PALACIO [facility] [id number] -20 Univers 08:00:00 08:00:00 ROSHUNDA [id number] ity o [place] [facility] 2019-12-20 2019-12-20 Outpatient [place] PALACIO [facility] [id number] Univers 08:00:00 08:00:00 ROSHUNDA ity o [facility] 2019-12-17 2019-12-17 [facility] 1.2.840.114 [id number] Univers 00:00:00 00:00:00 Roshunda R TELEGRAPH DISPATCHER 350.1.13.10 ity of REGIONAL 4.2.7.2.686 Song as MATERNAL [id number] [facility] & CHILD [address] [place] [address] 2019-12-17 2019-12-17 Orders Doctor JOHNNY 1.2.840.114 [id number] Univers 00:00:00 00:00:00 Only Unassigned, BELINDA 350.1.13.10 ity of [place] [facility] 4.2.7.2.686 Song as [id number] [address] 2019-12-06 2019-12-06 [facility] 1.2.840.114 [id number] Univers 09:01:18 09:16:18 Roshunda R TELEGRAPH DISPATCHER 350.1.13.10 ity of Visit [facility] 4.2.7.2.686 Song as MATERNAL [id number] [facility] & CHILD [address] [place] [address] 2019-12-06 2019-12-06 Outpatient [place] [facility] [id number] -20 Univers 09:00:00 09:00:00 ANIKANDA ity o f [facility] 2019-12-06 2019-12-06 Outpatient R PALACIO [facility] [id number] Univers 09:00:00 09:00:00 ROSHUNDA ity o f [facility] 2019-12-05 2019-12-05 Telephone Severiano [facility] 1.2.133.357 [id number] Univers 00:00:00 00:00:00 Roslalitonda R TELEGRAPH DISPATCHER 350.1.13.10 ity of [facility] 4.2.7.2.686 Song as MATERNAL [id number] Med ical & CHILD [address] [facility] 2019-11-30 2019-11-30 Orders Doctor JOHNNY 1.2.840.114 [id number] Univers 00:00:00 00:00:00 Only Unassigned, BELINDA 350.1.13.10 ity of [place] [facility] 4.2.7.2.686 Song as [id number] [facility] [address] 2019-11-22 2019-11-22 Second [place] 5, [facility] Room UNIVERSIT 1 .2.840.114 [id number] Univers 13:00:10 14:00:10 Visit Anika Palaciodiogo R HEALTH 350.1.13.1 0 ity of [place] 4.2.7.2.686 [place] [id number] [facility] [address] 2019-11-22 2019-11-22 Initial Severiano [facility] 1.2.840.114 [id number] Univers 09:40:11 11:14:29 Anikanda R TELEGRAPH DISPATCHER 350.1.13.10 ity of Visit [facility] 4.2.7.2.686 Song as MATERNAL [id number] [facility] ica & CHILD [address] [place] [address] 2019-11-22 2019-11-22 Outpatient [place] PALACIO [facility] [id number] -20 Univers 10:30:00 10:30:00 AMANDA [id number] ity o f [facility] 2019-11-22 2019-11-22 Outpatient R SEVERIANO [facility] [id number] Univers 09:45:00 09:45:00 ANIKANDA ity o f [facility] 2019-11-22 2019-11-22 Letter JUSTO [facility] [id number] Univers 00:00:00 00:00:00 (Out) [facility] 350.1.13.10 ity of [facility] 4.2.7.2.[place] [id number] [facility] [address] 2019-11-22 2019-11-22 Abstract [facility] 1.2.840.114 [id number] Univers 00:00:00 00:00:00 Amanda R TELEGRAPH DISPATCHER 350.1.13.10 ity of [facility] 4.2.7.2.686 Song as MATERNAL [id number] [facility] ical & CHILD [address] [place] [address] 2019-11-22 2019-11-22 Abstract [facility] 1.2.840.114 [id number] Univers 00:00:00 00:00:00 Amanda R TELEGRAPH DISPATCHER 350.1.13.10 ity of [facility] 4.2.7.2.686 Song as MATERNAL [id number] [facility] & CHILD [address] [place] [address] 2019-11-22 2019-11-22 Orders Doctor JOHNNY 1.2.840.114 [id number] Univers 00:00:00 00:00:00 Only Unassigned, BELINDA 350.1.13.10 ity of [place] [facility] 4.2.7.2.686 Song as [id number] [address] 2019-11-13 2019-11-13 Outpatient [facility] [id number] -20 Univers 13:15:00 13:15:00 AMANDA [id number] ity o f [facility] Results Test Description Test Time Test Comments Results Result Comments Source Urinalysis 2020-05-14 00:52:30 Test Item Value Reference Range Interpretation Comme nts APPEARANCE (test code = Clear Clear 6493086346) COLOR (test code = 7784397846) Yellow Yellow PH (test code = 0004414277) 4.8-8.0 SP GRAVITY (test code = 1.003-1.030 1662871789) GLU U QUAL (test code = Normal Normal 5655849559) BLOOD (test code = 9875531834) 1+ Negative A KETONES (test code = 9456537754) Negative Negative PROTEIN (test code = 2887-8) Negative Negative UROBILIN (test code = 4.0 mg/dL Normal A 8928202714) BILIRUBIN (test code = Negative Negative 3423477923) NITRITE (test code = 0454144355) Negative Negative LEUK SURYA (test code = Negative Negative 5813619927) RBC/HPF (test code = 8864101600) See_Comment H [Automated message] The system which ge nerated this result transmit efrain reference range: 0 - 3 HP F. The reference range was not used to interpret th is result as normal/abnormal . WBC/HPF (test code = 0048165895) See_Comment [Automated message] The system which ge nerated this result transmit efrain reference range: 0 - 5 HP F. The reference range was not used to interpret th is result as normal/abnormal . BACTERIA (test code = Few Negative A 6467922787) MUCOUS (test code = 9989843386) Slight Negative LPF A SQ EPITH (test code = HPF 6383394846) Lab Interpretation (test code = Abnormal 92767-3) [facility] URINALYSIS W SPECIFIC [id number] 19:08:00 Test Item Value Reference Range Interpretation Comments POCT U SP GRAV (test code = . 1.005-1.025 A 3255) POCT PH U (test code = 3254) 5 mg/dl 5-8 POCT U LEUK EST (test code = trace Negative - Negative 3263) POCT U NIT (test code = 3262) neg Negative - Negative POCT U PROT (test code = 3259) trace Negative - Negative POCT U GLU (test code = 3256) neg Negative - Negative POCT U KETONE (test code = 3258) small Negative - Negative POCT U UROBILI (test code = . 0.2-1 3260) POCT U BILI (test code = 3261) . Negative - Negative POCT U BLD (test code = 3257) trace Negative - Negative POCT U COLOR (test code = 3266) POCT U APPEAR (test code = 3267) Lab Interpretation (test code = Abnormal 01710-8) [facility] URINALYSIS W SPECIFIC [id number] 19:08:00 Test Item Value Reference Range Interpretation Comments POCT U SP GRAV (test code = . 1.005-1.025 A 3255) POCT PH U (test code = 3254) 5 mg/dl 5-8 POCT U LEUK EST (test code = trace Negative - Negative 3263) POCT U NIT (test code = 3262) neg Negative - Negative POCT U PROT (test code = 3259) trace Negative - Negative POCT U GLU (test code = 3256) neg Negative - Negative POCT U KETONE (test code = 3258) small Negative - Negative POCT U UROBILI (test code = . 0.2-1 3260) POCT U BILI (test code = 3261) . Negative - Negative POCT U BLD (test code = 3257) trace Negative - Negative POCT U COLOR (test code = 3266) POCT U APPEAR (test code = 3267) Lab Interpretation (test code = Abnormal 64907-7) [facility] URINALYSIS W SPECIFIC [id number] 13:59:00 Test Item Value Reference Range Interpretation Comments POCT U SP GRAV (test code = . 1.005-1.025 3255) POCT PH U (test code = 3254) 6 mg/dl 5-8 POCT U LEUK EST (test code = 1+ Negative - Negative 3263) POCT U NIT (test code = 3262) neg Negative - Negative POCT U PROT (test code = 3259) trace Negative - Negative POCT U GLU (test code = 3256) neg Negative - Negative POCT U KETONE (test code = 3258) neg Negative - Negative POCT U UROBILI (test code = . 0.2-1 3260) POCT U BILI (test code = 3261) . Negative - Negative POCT U BLD (test code = 3257) neg Negative - Negative POCT U COLOR (test code = 3266) POCT U APPEAR (test code = 3267) Lab Interpretation (test code = Abnormal 02633-4) [facility] URINALYSIS W SPECIFIC [id number] 17:13:00 Test Item Value Reference Range Interpretation Comments POCT U SP GRAV (test code = 3255) . 1.005-1.025 POCT PH U (test code = 3254) 6 mg/dl 5-8 POCT U LEUK EST (test code = trace Negative - Negative 3263) POCT U NIT (test code = 3262) neg Negative - Negative POCT U PROT (test code = 3259) trace Negative - Negative POCT U GLU (test code = 3256) neg Negative - Negative POCT U KETONE (test code = 3258) neg Negative - Negative POCT U UROBILI (test code = 3260) . 0.2-1 POCT U BILI (test code = 3261) . Negative - Negative POCT U BLD (test code = 3257) neg Negative - Negative POCT U COLOR (test code = 3266) POCT U APPEAR (test code = 3267) [facility] [id number] 14:22:00COVID DMT InterpretationInterpretation/Recommendation: Tests (PCR) for Active Infection by SARS-CoV-2 Virus: This patient was never tested for an active infection with the SARS-CoV-2 virus by PCR. Tests for IgM and/or IgG Antibodies to SARS-CoV-2 Virus: A. Two or more blood samples collected from this patient at different moments in time revealed negative test results for IgG antibodies to the SARS-CoV-2 virus. If the patient experienced symptoms more than 2 to 3 weeks earlier, this most likely indicates that the patient was not infected with the SARS-CoV-2 virus. ? B. IgG antibodies to the SARS-CoV-2 virus often appear after the presence of IgM antibodies. Therefore, another possible explanationis that it may be too early in the course of this patient's infection for the IgG response to occur if symptoms were within the past 2 to 3 weeks. It would be informative to test the patient at least 3to 4 weeks post onset of symptoms for both IgG and IgM antibodies. IgM antibodies may have developedsince the first IgG antibody test was performed. ?At this time, it is not known if production of antibodies indicates whether the patient is immune to future infections with the SARS-CoV-2 virus. C. Some patients who have been positive for SARS-CoV-2 with a nasopharyngeal swab specimen do not generateIgG antibodies to the virus. It is possible that patients with a positive PCR test who have no symptoms or mild symptoms do not generate antibodies. It is also possible that the antibodies were not detected because they were not present at the time the blood sample was taken. D. Although it is uncommon, some patients cannot ever mount an antibody response to infectious agents, such as SARS-CoV-2. If there are persistently negative results for IgM and IgG antibodies, this may be the explanation. ----- Interpretation Result Comments:These interpretation comments are based upon aggregate COVID-19 test results in [facility]. They apply to the following tests offered at [facility] and assume the acceptable specimen type(s) were used: A. Tests for the Identification of SARS-CoV-2 RNA (Molecular NAAT Tests): ? ? ?- SARS-CoV-2 PCR assays including Scotts Aptima, Scotts Fusion, Hogue RealTime, and LettuceThinner Xpert Xpress. ? ? ?- SARS-CoV-2 Rapid IDNOW by the ID NOW assay. ? B. Tests for the Identification of SARS-CoV-2 Antibodies: ? ? ?- Chemilu minescent immunoassays including Access SARS-CoV-2 IgM (DXI 600), VITROS Wnrv-IJVE-PpU-2 IgG (Mohdcr0280 and Vitros 3600), and Hogue SARS-CoV-2 IgG (FISHER TRAP ?I System). These interpretations are autopopulated into [facility] based on computerized algorithms matching an interpretation code to the patient's set of test results, and a clinical pathologist evaluates the comments for accuracy. However, these comments do not consider testing a patient may have had outside of the [facility] system. If results forCOVID-19 infection continue to be negative in the context of a suspected viral respiratory illness, it is possible the patient may have an infection with another respiratory virus. Influenza testing and a respiratory pathogen panel if clinically indicated may be beneficial in this setting. [facility] LABORATORY SERVICESCOVID ResultsCoV-2 IgG (no units) ? ? Date ? Value ? 01/30/2020 ? Negative ? 11/22/2019 ? Negative ? ? ? [facility] STREPTOCOCCUS BY [id number] 19:13:00 Test Item Value Reference Range Interpretation Comments Group B Streptococcus by PCR (test Negative Negative code = 43103-2) Lab Interpretation (test code = Normal 93574-4) [facility]-2 [id number] 08:06:00 Test Item Value Reference Range Interpretation Comments CoV-2 IgG (test code Negative Negative Negativ e result = 71831-1) does not rule o al acute SARS-CoV- 2 infection. Clinical correlation as well as molecul ar diagnostic test are recommended to rule out acu te infection if clinically indicated. ESTRADA (test code = ESTRADA) This test has been approved by FDA for emergency use. Lab Interpretation Normal (test code = 67529-9) [facility] WITH [id number] 04:47:00 Test Item Value Reference Range Interpretation Comments WBC (test code = See_Comment [Automated 5590-2) message] The sy stem which generated this result transmitted reference range : 4.30 - 11.10 10*3/?L. The reference range was not used to interpret this result as normal/abnormal . RBC (test code = See_Comment L [Automated 079-8) message] The sy stem which generated this result transmitted reference range : 3.93 - 5.25 10*6/?L. The reference range was not used to interpret this result as normal/abnormal . HGB (test code = 8.5 g/dL 11.6-15 L 718-7) HCT (test code = 27.1 % 35.7-45.2 L 4544-3) MCV (test code = 88.6 fL 80.6-95.5 787-2) MCH (test code = 27.8 pg 25.9-32.8 785-6) MCHC (test code = 31.4 g/dL 31.6-35.1 L 786-4) RDW-SD (test code = 40.2 fL 39-49.9 18419-7) RDW-CV (test code = 12.5 % 12-15.5 788-0) PLT (test code = See_Comment [Automated 777-3) message] The sy stem which generated this result transmitted reference range : 166 - 358 10*3/ ?L. The reference r edmar was not used to interpret this result as normal/abnormal . MPV (test code = 9.9 fL 9.5-12.9 62460-0) NRBC/100 WBC (test See_Comment [Automat ed code = 7323838307) message] The system which generated this result transmitted reference range : 0.0 - 10.0 /100 WBCs. The refer ence range was not u sed to interpret th is result as normal/abnormal . NRBC x10^3 (test code <0.01 See_Comment [Auto mated = 3377801704) message] The s ystem which generated this result transmitted reference range : 10*3/?L. The reference range was not used to interpret this result as normal/abnormal . GRAN MAT (NEUT) % 69.5 % (test code = 770-8) IMM GRAN % (test code 0.80 % = 6026257590) LYMPH % (test code = 20.0 % 736-9) MONO % (test code = 7.2 % 5905-5) EOS % (test code = 2.0 % 713-8) BASO % (test code = 0.5 % 706-2) GRAN MAT x10^3(ANC) 5.54 10*3/uL 1.88-7.09 (test code = 4252272780) IMM GRAN x10^3 (test 0.06 10*3/uL 0-0.06 code = 2551553729) LYMPH x10^3 (test code 1.59 10*3/uL 1.32-3.29 = 731-0) MONO x10^3 (test code 0.57 10*3/uL 0.33-0.92 = 742-7) EOS x10^3 (test code = 0.16 10*3/uL 0.03-0.39 711-2) BASO x10^3 (test code 0.04 10*3/uL 0.01-0.07 = 704-7) Lab Interpretation Abnormal (test code = 17354-2) [facility] URINALYSIS W SPECIFIC [id number] 14:03:00 Test Item Value Reference Range Interpretation Comments POCT U SP GRAV (test code = 3255) . 1.005-1.025 POCT PH U (test code = 3254) . 5-8 POCT U LEUK EST (test code = 3263) . Negative - Negative POCT U NIT (test code = 3262) . Negative - Negative POCT U PROT (test code = 3259) trace Negative - Negative POCT U GLU (test code = 3256) neg Negative - Negative POCT U KETONE (test code = 3258) . Negative - Negative POCT U UROBILI (test code = 3260) . 0.2-1 POCT U BILI (test code = 3261) . Negative - Negative POCT U BLD (test code = 3257) . Negative - Negative POCT U COLOR (test code = 3266) POCT U APPEAR (test code = 3267) [facility] URINALYSIS W SPECIFIC [id number] 14:03:00 Test Item Value Reference Range Interpretation Comments POCT U SP GRAV (test code = 3255) . 1.005-1.025 POCT PH U (test code = 3254) . 5-8 POCT U LEUK EST (test code = 3263) . Negative - Negative POCT U NIT (test code = 3262) . Negative - Negative POCT U PROT (test code = 3259) trace Negative - Negative POCT U GLU (test code = 3256) neg Negative - Negative POCT U KETONE (test code = 3258) . Negative - Negative POCT U UROBILI (test code = 3260) . 0.2-1 POCT U BILI (test code = 3261) . Negative - Negative POCT U BLD (test code = 3257) . Negative - Negative POCT U COLOR (test code = 3266) POCT U APPEAR (test code = 3267) [facility] URINALYSIS W SPECIFIC [id number] 14:03:00 Test Item Value Reference Range Interpretation Comments POCT U SP GRAV (test code = 3255) . 1.005-1.025 POCT PH U (test code = 3254) . 5-8 POCT U LEUK EST (test code = 3263) . Negative - Negative POCT U NIT (test code = 3262) . Negative - Negative POCT U PROT (test code = 3259) trace Negative - Negative POCT U GLU (test code = 3256) neg Negative - Negative POCT U KETONE (test code = 3258) . Negative - Negative POCT U UROBILI (test code = 3260) . 0.2-1 POCT U BILI (test code = 3261) . Negative - Negative POCT U BLD (test code = 3257) . Negative - Negative POCT U COLOR (test code = 3266) POCT U APPEAR (test code = 3267) [facility] URINALYSIS W SPECIFIC [id number] 13:52:00 Test Item Value Reference Range Interpretation Comments POCT U SP GRAV (test code = 3255) . 1.005-1.025 POCT PH U (test code = 3254) . 5-8 POCT U LEUK EST (test code = 3263) . Negative - Negative POCT U NIT (test code = 3262) . Negative - Negative POCT U PROT (test code = 3259) trace Negative - Negative POCT U GLU (test code = 3256) neg Negative - Negative POCT U KETONE (test code = 3258) . Negative - Negative POCT U UROBILI (test code = 3260) . 0.2-1 POCT U BILI (test code = 3261) . Negative - Negative POCT U BLD (test code = 3257) . Negative - Negative POCT U COLOR (test code = 3266) POCT U APPEAR (test code = 3267) [facility] URINALYSIS W SPECIFIC [id number] 13:00:00 Test Item Value Reference Range Interpretation Comments POCT U SP GRAV (test code = 3255) . 1.005-1.025 POCT PH U (test code = 3254) . 5-8 POCT U LEUK EST (test code = 3263) . Negative - Negative POCT U NIT (test code = 3262) . Negative - Negative POCT U PROT (test code = 3259) TRACE Negative - Negative POCT U GLU (test code = 3256) NEG Negative - Negative POCT U KETONE (test code = 3258) . Negative - Negative POCT U UROBILI (test code = 3260) . 0.2-1 POCT U BILI (test code = 3261) . Negative - Negative POCT U BLD (test code = 3257) . Negative - Negative POCT U COLOR (test code = 3266) POCT U APPEAR (test code = 3267) [facility] URINALYSIS W SPECIFIC [id number] 13:00:00 Test Item Value Reference Range Interpretation Comments POCT U SP GRAV (test code = 3255) . 1.005-1.025 POCT PH U (test code = 3254) . 5-8 POCT U LEUK EST (test code = 3263) . Negative - Negative POCT U NIT (test code = 3262) . Negative - Negative POCT U PROT (test code = 3259) trace Negative - Negative POCT U GLU (test code = 3256) neg Negative - Negative POCT U KETONE (test code = 3258) . Negative - Negative POCT U UROBILI (test code = 3260) . 0.2-1 POCT U BILI (test code = 3261) . Negative - Negative POCT U BLD (test code = 3257) . Negative - Negative POCT U COLOR (test code = 3266) POCT U APPEAR (test code = 3267) [facility] URINALYSIS W SPECIFIC [id number] 13:00:00 Test Item Value Reference Range Interpretation Comments POCT U SP GRAV (test code = 3255) . 1.005-1.025 POCT PH U (test code = 3254) . 5-8 POCT U LEUK EST (test code = 3263) . Negative - Negative POCT U NIT (test code = 3262) . Negative - Negative POCT U PROT (test code = 3259) trace Negative - Negative POCT U GLU (test code = 3256) neg Negative - Negative POCT U KETONE (test code = 3258) . Negative - Negative POCT U UROBILI (test code = 3260) . 0.2-1 POCT U BILI (test code = 3261) . Negative - Negative POCT U BLD (test code = 3257) . Negative - Negative POCT U COLOR (test code = 3266) POCT U APPEAR (test code = 3267) [facility] URINALYSIS W SPECIFIC [id number] 14:30:00 Test Item Value Reference Range Interpretation Comments POCT U SP GRAV (test code = 3255) . 1.005-1.025 POCT PH U (test code = 3254) . 5-8 POCT U LEUK EST (test code = 3263) . Negative - Negative POCT U NIT (test code = 3262) . Negative - Negative POCT U PROT (test code = 3259) trace Negative - Negative POCT U GLU (test code = 3256) neg Negative - Negative POCT U KETONE (test code = 3258) . Negative - Negative POCT U UROBILI (test code = 3260) . 0.2-1 POCT U BILI (test code = 3261) . Negative - Negative POCT U BLD (test code = 3257) . Negative - Negative POCT U COLOR (test code = 3266) POCT U APPEAR (test code = 3267) [facility] [id number] 15:04:00 Test Item Value Reference Range Interpretation Comments POCT PREG (test code = 1605) Positive On board controls acceptable with C Yes Line (test code = 3574) POCT PREG LOT # (test code = 3575) POCT PREG TEST DATE (test code = 357) [facility] URINALYSIS W/O SPECIFIC [id number] 15:04:00 Test Item Value Reference Range Interpretation Comments POCT PH U (test code = 3254) 5 mg/dl 5-8 POCT U LEUK EST (test code = neg Negative - Negative 3263) POCT U NIT (test code = 3262) neg Negative - Negative POCT U PROT (test code = 3259) trace Negative - Negative POCT U GLU (test code = 3256) neg Negative - Negative POCT U KETONE (test code = 3258) neg Negative - Negative POCT U BLD (test code = 3257) neg Negative - Negative [facility] [id number] 15:04:00 Test Item Value Reference Range Interpretation Comments POCT PREG (test code = 1605) Positive On board controls acceptable with C Yes Line (test code = 3574) POCT PREG LOT # (test code = 3575) POCT PREG TEST DATE (test code = 357) [facility] URINALYSIS W/O SPECIFIC [id number] 15:04:00 Test Item Value Reference Range Interpretation Comments POCT PH U (test code = 3254) 5 mg/dl 5-8 POCT U LEUK EST (test code = neg Negative - Negative 3263) POCT U NIT (test code = 3262) neg Negative - Negative POCT U PROT (test code = 3259) trace Negative - Negative POCT U GLU (test code = 3256) neg Negative - Negative POCT U KETONE (test code = 3258) neg Negative - Negative POCT U BLD (test code = 3257) neg Negative - Negative [facility] [id number] 15:04:00 Test Item Value Reference Range Interpretation Comments POCT PREG (test code = 1605) Positive On board controls acceptable with C Yes Line (test code = 3574) POCT PREG LOT # (test code = 3575) POCT PREG TEST DATE (test code = 357) [facility] URINALYSIS W/O SPECIFIC [id number] 15:04:00 Test Item Value Reference Range Interpretation Comments POCT PH U (test code = 3254) 5 mg/dl 5-8 POCT U LEUK EST (test code = neg Negative - Negative 3263) POCT U NIT (test code = 3262) neg Negative - Negative POCT U PROT (test code = 3259) trace Negative - Negative POCT U GLU (test code = 3256) neg Negative - Negative POCT U KETONE (test code = 3258) neg Negative - Negative POCT U BLD (test code = 3257) neg Negative - Negative [facility] [id number] 15:04:00 Test Item Value Reference Range Interpretation Comments POCT PREG (test code = 1605) Positive On board controls acceptable with C Yes Line (test code = 3574) POCT PREG LOT # (test code = 3575) POCT PREG TEST DATE (test code = 3576) [facility] URINALYSIS W/O SPECIFIC [id number] 15:04:00 Test Item Value Reference Range Interpretation Comments POCT PH U (test code = 3254) 5 mg/dl 5-8 POCT U LEUK EST (test code = neg Negative - Negative 3263) POCT U NIT (test code = 3262) neg Negative - Negative POCT U PROT (test code = 3259) trace Negative - Negative POCT U GLU (test code = 3256) neg Negative - Negative POCT U KETONE (test code = 3258) neg Negative - Negative POCT U BLD (test code = 3257) neg Negative - Negative [facility]
[2021-02-23] MEDS ORDERED: NA CHLORIDE 0.9% 1,000 ML ONE (12:13)
[2021-02-23] MEDS ORDERED: FOLIC ACID 5 MG/ML VIAL ONE ×2 (12:17→14:00)
--- NOTE | 2021-02-23 12:38 | RAD REPORT ---
EXAM DESCRIPTION: US - CP - 02/23/2021 12:18 pm CLINICAL HISTORY: DIZZINESS COMPARISON: Ct Stroke Brain Wo Cont dated 02/23/2021 TECHNIQUE: Real-time sonographic evaluation of both carotid systems was performed. Doppler interroga tion was performed with waveform tracing bilaterally. FINDINGS: Normal high resistance waveforms are noted in both external carotid arteries. The common c arotid arteries and internal carotid arteries show normal low resistance waveforms. No significant plaque formation is seen. Peak systolic and end diastolic velocity values and the ICA/ CCA ratios are in the non-hemodynamically significant range. Antegrade flow seen in both vertebral arteries. IMPRESSION: No significant atherosclerotic changes noted. No evidence of a hemodynamically significant stenosis.
--- NOTE | 2021-02-23 12:38 | RAD REPORT ---
EXAM DESCRIPTION: CT - Ct Stroke Brain Wo Cont - 02/23/2021 12:23 pm CLINICAL HISTORY: DIZZINESS COMPARISON: No comparisons TECHNIQUE: Axial 5 millimeter thick images of the head were obtained without IV contrast. All CT scans are performed using dose optimization technique as appropriate and may include automated exposure control or mA/KV adjustment according to patient size. FINDINGS: No intracranial hemorrhage, mass, or cerebral edema. No acute infarction identifiable. No extra-axial fluid collections. Cazares matter-white matter differentiation is preserved. Visualized portions of the mastoid air cells, paranasal sinuses, and orbits are unremarkable. Findings telephoned to doctor Guillermo 12:34 p.m. IMPRESSION: No CT evidence of acute intracranial process.
--- NOTE | 2021-02-23 12:53 | RAD REPORT ---
EXAM DESCRIPTION: MRI - Brain Wo Cont - 02/23/2021 12:43 pm CLINICAL HISTORY: TIA, right-sided weakness COMPARISON: Ct Stroke Brain Wo Cont dated 02/23/2021 TECHNIQUE: Sagittal T1-weighted images were obtained along with axial PD, heavily T2-weighted and T2 -FLAIR images. Axial DWI and ADC mapping sequences were also obtained along with coronal heavily T2-w eighted images. FINDINGS: No intracranial hemorrhage, mass or acute infarction. There is no edema or shift of midlin e structures. No extra-axial fluid collections. Cazares-matter/white matter junction is preserved. Signa l voids are seen as a normal finding in the major intracranial vessels. No globe or orbital content abnormality. No sella or supra sella abnormality. No tonsillar ectopia. Mastoid air cells and paranasal sinuses are clear. IMPRESSION: Negative non-contrast MRI of the Brain.
--- NOTE | 2021-02-23 13:18 | RAD REPORT ---
EXAM DESCRIPTION: RAD - Chest Single View - 02/23/2021 12:54 pm CLINICAL HISTORY: COUGH COMPARISON: None TECHNIQUE: AP portable chest image was obtained 02/23/2021 12:54 pm . FINDINGS: Lungs are clear. Heart and vasculature are normal. No measurable pleural effusion and no p neumothorax. No acute bony abnormality seen. No acute aortic findings suspected. IMPRESSION: No acute cardiopulmonary process.
[2021-02-23 13:23] LABS: Absolute Lymphocytes (CBC) 0.4 K/uL (0.7-4.9); Basophils % 0.2 % (0-1.3); Hematocrit 37.7 % (36.0-45.0); Lymphocytes % 6.5 % (15.3-44.8); MPV 7.7 fL (7.6-11.3); RBC Red Blood Cell Count 4.34 M/uL (3.86-4.86)
[2021-02-23 13:28] LABS: Protime INR 0.97
[2021-02-23 13:44] LABS: ALT/SGPT 13 U/L (12-78); AST/SGOT 16 U/L (15-37); Albumin 3.6 g/dL (3.4-5.0); Alkaline Phosphatase 102 U/L (45-117); BUN Blood Urea Nitrogen 14 mg/dL (7-18); Bicarbonate 26 mmol/L (21-32); Bilirubin Direct 0.2 mg/dL (0-0.2); Bilirubin Total 0.9 mg/dL (0.2-1.0); C-Reactive Protein 5.86 mg/L (<3.00); Glucose Level 90 mg/dL (74-106); Magnesium 2.2 mg/dL (1.8-2.4); NT PRO-BNP 51 pg/mL (<125); Potassium 3.6 mmol/L (3.5-5.1); Protein, Total 8.7 g/dL (6.4-8.2); Sodium Level 136 mmol/L (136-145); Troponin (Emerg Dept Use Only) < 0.02 ng/mL (0.0-0.045)
--- NOTE | 2021-02-23 13:57 | ER ---
Nurse's Notes [facility] Name: Hema Coombs Age: 35 yrs Sex: Female : 1985 Arrival Date: 02/23/2021 Time: 11:13 Bed 7 Private MD: Diagnosis: Weakness;Paresthesia of skin;Essential (primary) hypertension Presentation: 02/23 11:35 Chief complaint: Patient states: Right side numbness from neck to elbow and right knee ww to calf that started today at 0630 and was evaluated by EMS and sent here. Also has 2 nose bleeds this morning. Coronavirus screen: Vaccine status: Patient reports being unvaccinated. Client denies travel out of the [place] in the last 14 days. Ebola Screen: Patient negative for fever greater than or equal to 101.5 degrees Fahrenheit, and additional compatible Ebola Virus Disease symptoms Patient denies exposure to infectious person. Patient denies travel to an Ebola-affected area in the 21 days before illness onset. Initial Sepsis Screen: Does the patient meet any 2 criteria? No. Patient's initial sepsis screen is negative. Does the patient have a suspected source of infection? No. Patient's initial sepsis screen is negative. Risk Assessment: Do you want to hurt yourself or someone else? Patient reports no desire to harm self or others. Onset of symptoms was February 23, 2021 at 06:30. 11:35 Method Of Arrival: Ambulatory ww 11:35 Acuity: АНДРЕЙ 3 ww Triage Assessment: 11:38 General: Appears in no apparent distress. well developed, well nourished, Behavior is ww calm, cooperative, appropriate for age. Pain: Complains of pain in scalp. EENT: No signs and/or symptoms were reported regarding the EENT system. Neuro: Level of Consciousness is awake, alert, obeys commands, Oriented to person, place, time, situation, Moves all extremities. Gait is steady, Speech is normal, Facial symmetry appears normal, Reports numbness photophobia. Cardiovascular: Denies chest pain, Capillary refill < 3 seconds. Respiratory: Reports Airway is patent Respiratory effort is even, unlabored, Respiratory pattern is regular, symmetrical. GI: No deficits noted. No signs and/or symptoms were reported involving the gastrointestinal system. : No deficits noted. No signs and/or symptoms were reported regarding the genitourinary system. Derm: No deficits noted. No signs and/or symptoms reported regarding the dermatologic system. Skin is intact, Skin is pink, warm \T\ dry. Skin temperature is warm. 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 - Social history:: Smoking status: Patient/guardian denies using tobacco. - Family history:: not pertinent. Screenin:00 The patient is alert, able to follow commands. The patient does not exhibit slurred or al4 garbled speech The patient is not exhibiting difficulty speaking. The patient does not exhibit difficulty understanding words. The patient is able to swallow own secretions with no drooling or need for suction. Patient tolerated one teaspoon of water. No drooling, immediate coughing, gurgling, or clearing of the throat was noted. The patient tolerated 90mL of water. No drooling, immediate coughing, gurgling, or clearing of the throat was noted. The patient passed the bedside swallow screening. Oral medications may be given as ordered. Contact Physician for further diet orders. 12:08 Abuse screen: Denies threats or abuse. Nutritional screening: No deficits noted. al4 Tuberculosis screening: No symptoms or risk factors identified. Fall Risk No fall in past 12 months (0 pts). No IV (0 pts). Ambulatory Aid- None/Bed Rest/Nurse Assist (0 pts). Gait- Normal/Bed Rest/Wheelchair (0 pts) Mental Status- Oriented to own ability (0 pts). Total Beltran Fall Scale indicates No Risk (0-24 pts). Assessment: 12:02 General: Appears in no apparent distress. Behavior is calm, cooperative. Pain: al4 Complains of pain in right side of neck Pain currently is 8 out of 10 on a pain scale. Is intermittent. Neuro: Level of Consciousness is awake, alert, obeys commands, Oriented to person, place, time, situation, Speech is normal, Reports light sensitivity, numbness and tingling in the right arm and leg . Cardiovascular: Heart tones present Capillary refill < 3 seconds Patient's skin is warm and dry. Respiratory: Airway is patent Respiratory effort is even, unlabored, Respiratory pattern is regular, symmetrical, Breath sounds are clear bilaterally. GI: No signs and/or symptoms were reported involving the gastrointestinal system. : No signs and/or symptoms were reported regarding the genitourinary system. EENT: No signs and/or symptoms were reported regarding the EENT system. Derm: Skin is intact, Skin is normal. Musculoskeletal: No signs and/or symptoms reported regarding the musculoskeletal system. 13:00 Reassessment: No changes from previously documented assessment. Patient is alert, al4 oriented x 3, equal unlabored respirations, skin warm/dry/pink. 14:00 Reassessment: No changes from previously documented assessment. Patient and/or family al4 updated on plan of care and expected duration. Pain level reassessed. Patient is alert, oriented x 3, equal unlabored respirations, skin warm/dry/pink. 14:09 Reassessment: waiting for bolus to be completed before discharge. al4 15:00 Reassessment: No changes from previously documented assessment. Patient and/or family al4 updated on plan of care and expected duration. Pain level reassessed. Patient is alert, oriented x 3, equal unlabored respirations, skin warm/dry/pink. Vital Signs: 11:35 BP 139 / 100; Pulse 81; Resp 18; Temp 98.9(O); Pulse Ox 100% ; Weight 83.91 kg; Height ww 5 ft. 5 in. (165.10 cm); 12:00 BP 148 / 93; Pulse 81; Resp 18 S; Pulse Ox 96% on R/A; al4 14:40 BP 120 / 69; Pulse 85; Resp 18 S; Pulse Ox 96% on R/A; al4 15:26 BP 147 / 96; Pulse 85; Resp 18 S; Pulse Ox 96% on R/A; al4 11:35 Body Mass Index 30.78 (83.91 kg, 165.10 cm) ww NIH Stroke Scale Scores: 12:00 NIHSS Score: 1 al4 ED Course: 11:13 Patient arrived in ED. am2 11:38 Triage completed. ww 11:38 Arm band placed on right wrist. ww 11:46 Otis Guillermo MD is Attending Physician. [facility] 11:55 Isaias Mariano is Primary Nurse. al4 12:08 Bed in low position. Call light in reach. Side rails up X 1. Pulse ox on. NIBP on. al4 12:18 US Carotid Artery Bilateral In Process Unspecified. EDMS 12:23 CT Stroke Brain w/o Contrast In Process Unspecified. EDMS 12:43 Brain Wo Cont In Process Unspecified. EDMS 12:54 XRAY Chest (1 view) In Process Unspecified. EDMS 13:42 C Spine Ap/Lat XRAY In Process Unspecified. EDMS 13:57 Angel Maldonado MD is Referral Physician. larry 15:32 No provider procedures requiring assistance completed. IV discontinued, intact, al4 bleeding controlled, No redness/swelling at site. Pressure dressing applied. Administered Medications: 14:08 Drug: Aspirin Chewable Tablet 324 mg Route: PO; al4 15:08 Follow up: Response: No adverse reaction al4 14:09 Drug: foLIC Acid 1 mg Route: IVPB; Site: right antecubital; al4 15:09 Follow up: Response: No adverse reaction; IV Status: Completed infusion al4 14:09 Drug: NS 0.9% 1000 ml Route: IV; Rate: 1 bolus; Site: right antecubital; al4 15:09 Follow up: Response: No adverse reaction; IV Status: Completed infusion al4 Outcome: 13:57 Discharge ordered by . larry 15:32 Discharged to home ambulatory. al4 15:32 Condition: stable 15:32 Discharge instructions given to patient, Instructed on discharge instructions, follow up and referral plans. medication usage, Demonstrated understanding of instructions, follow-up care, medications. 15:36 Patient left the ED. al4 NIH Stroke Scale - NIH Stroke Score Date: 02/23/2021 Time: 12:00 Total Score = 1 1a. Level of Consciousness (LOC) - 0(Alert) 1b. Level of Consciousness (LOC) (Month \T\ Age) - 0(Both) 1c. LOC Commands (Open \T\ Closes Eyes/Recreation Superintendent) - 0(Both) 2. Best Gaze (Lateral Gaze Paresis) - 0(Normal) 3. Visual Field Loss - 0(No visual loss) 4. Facial Palsy - 0(Normal) 5a. Left Arm: Motor (10-second hold) - 0(No drift) 5b. Right Arm: Motor (10-second hold) - 0(No drift) 6a. Left Leg: Motor (5-second hold - always test supine) - 0(No drift) 6b. Right Leg: Motor (5-second hold - always test supine) - 0(No drift) 7. Limb Ataxia (finger/nose \T\ heel/cha - test with eyes open) - 0(Absent) 8. Sensory Loss (pinprick arms/legs/face) - 1(Mild to moderate loss) 9. Best Language: Aphasia (description/naming/reading) - 0(No aphasia) 10. Dysarthria (speech clarity - read or repeat words) - 0(Normal) 11. Extinction and Inattention (visual/tactile/auditory/spatial/personal) - 0(No abnormality) Initials: al4 Signatures: Dispatcher [employer] Otis Gilliam MD MD cha Moreno, Amanda am2 Isaias Mariano al4 Apple Summers, RN RN ww
--- NOTE | 2021-02-23 13:57 | EDPHYS ---
Physician Documentation [facility] Name: Hema Coombs Age: 35 yrs Sex: Female : 1985 Arrival Date: 02/23/2021 Time: 11:13 Bed 7 Private MD: ED Physician Otis Guillermo HPI: 02/23 13:08 This 35 yrs old Female presents to ER via Ambulatory with complaints of larry Numbness - right side of neck to arm/knee to calf and back. 13:08 The patient's problem is reported as paresthesias, in right upper extremity, in right larry lower extremity. Onset: The symptoms/episode began/occurred today. Duration: The episode is continuous. Context: the episode(s) was witnessed, by co-worker(s). The symptoms are alleviated by nothing. The symptoms are aggravated by nothing. Associated signs and symptoms: The patient has no apparent associated signs or symptoms. Severity of symptoms: At their worst the symptoms were mild in the emergency department the symptoms are unchanged. Patient's baseline: Neuro: alert and fully oriented. The patient has not experienced similar symptoms in the past. 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 - Social history:: Smoking status: Patient/guardian denies using tobacco. - Family history:: not pertinent. ROS: 13:08 Constitutional: Negative for fever, chills, and weight loss, Eyes: Negative for injury, larry pain, redness, and discharge, ENT: Negative for injury, pain, and discharge, Cardiovascular: Negative for chest pain, palpitations, and edema, Respiratory: Negative for shortness of breath, cough, wheezing, and pleuritic chest pain, Abdomen/GI: Negative for abdominal pain, nausea, vomiting, diarrhea, and constipation, Back: Negative for injury and pain, : Negative for injury, bleeding, discharge, and swelling, MS/Extremity: Negative for injury and deformity, Skin: Negative for injury, rash, and discoloration, Psych: Negative for depression, anxiety, suicide ideation, homicidal ideation, and hallucinations, Allergy/Immunology: Negative for hives, rash, and allergies, Endocrine: Negative for neck swelling, polydipsia, polyuria, polyphagia, and marked weight changes, Hematologic/Lymphatic: Negative for swollen nodes, abnormal bleeding, and unusual bruising. 13:08 Neck: Positive for pain with movement. 13:08 Neuro: Positive for tingling, weakness, of the right arm and right leg. Exam: 13:08 Radiologist reports: negative larry 13:08 Constitutional: This is a well developed, well nourished patient who is awake, alert, and in no acute distress. Head/Face: Normocephalic, atraumatic. Eyes: Pupils equal round and reactive to light, extra-ocular motions intact. Lids and lashes normal. Conjunctiva and sclera are non-icteric and not injected. Cornea within normal limits. Periorbital areas with no swelling, redness, or edema. ENT: Nares patent. No nasal discharge, no septal abnormalities noted. Tympanic membranes are normal and external auditory canals are clear. Oropharynx with no redness, swelling, or masses, exudates, or evidence of obstruction, uvula midline. Mucous membranes moist. Neck: Trachea midline, no thyromegaly or masses palpated, and no cervical lymphadenopathy. Supple, full range of motion without nuchal rigidity, or vertebral point tenderness. No Meningismus. Chest/axilla: Normal chest wall appearance and motion. Nontender with no deformity. No lesions are appreciated. Cardiovascular: Regular rate and rhythm with a normal S1 and S2. No gallops, murmurs, or rubs. Normal PMI, no JVD. No pulse deficits. Respiratory: Lungs have equal breath sounds bilaterally, clear to auscultation and percussion. No rales, rhonchi or wheezes noted. No increased work of breathing, no retractions or nasal flaring. Abdomen/GI: Soft, non-tender, with normal bowel sounds. No distension or tympany. No guarding or rebound. No evidence of tenderness throughout. Back: No spinal tenderness. No costovertebral tenderness. Full range of motion. Skin: Warm, dry with normal turgor. Normal color with no rashes, no lesions, and no evidence of cellulitis. MS/ Extremity: Pulses equal, no cyanosis. Neurovascular intact. Full, normal range of motion. Neuro: Awake and alert, GCS 15, oriented to person, place, time, and situation. Cranial nerves II-XII grossly intact. Motor strength 5/5 in all extremities. Sensory grossly intact. Cerebellar exam normal. Normal gait. Psych: Awake, alert, with orientation to person, place and time. Behavior, mood, and affect are within normal limits. 13:57 ECG was reviewed by the Attending Physician. [facility] Vital Signs: 11:35 BP 139 / 100; Pulse 81; Resp 18; Temp 98.9(O); Pulse Ox 100% ; Weight 83.91 kg; Height ww 5 ft. 5 in. (165.10 cm); 12:00 BP 148 / 93; Pulse 81; Resp 18 S; Pulse Ox 96% on R/A; al4 14:40 BP 120 / 69; Pulse 85; Resp 18 S; Pulse Ox 96% on R/A; al4 15:26 BP 147 / 96; Pulse 85; Resp 18 S; Pulse Ox 96% on R/A; al4 11:35 Body Mass Index 30.78 (83.91 kg, 165.10 cm) ww NIH Stroke Scale Scores: 12:00 NIHSS Score: 1 al4 MDM: 11:46 Patient medically screened. larry 13:10 Differential diagnosis: CVA, TIA, paralysis. Data reviewed: vital signs, nurses notes, [facility] lab test result(s), EKG, radiologic studies, CT scan, doppler, MRI, plain films. Data interpreted: Pulse oximetry: on is 100 %. Test interpretation: by ED physician or midlevel provider: ECG, plain radiologic studies. Counseling: I had a detailed discussion with the patient and/or guardian regarding: the historical points, exam findings, and any diagnostic results supporting the discharge/admit diagnosis, the presence of at least one elevated blood pressure reading (>120/80) during this emergency department visit, radiology results, the need for outpatient follow up, for definitive care, a family practitioner, a neurologist. 02/23 11:57 Order name: Basic Metabolic Panel larry 02/23 11:57 Order name: CBC with Diff 02/23 11:57 Order name: LFT's 02/23 11:57 Order name: Magnesium larry 02/23 11:57 Order name: NT PRO-BNP larry 02/23 11:57 Order name: PT-INR [facility] 02/23 11:57 Order name: Troponin (emerg Dept Use Only); Complete Time: 13:53 [facility] 02/23 11:57 Order name: Sed Rate [facility] 02/23 11:57 Order name: CRP; Complete Time: 13:53 [facility] 02/23 11:57 Order name: Basic Metabolic Panel; Complete Time: 13:53 EDMD 02/23 11:57 Order name: CBC with Automated Diff EDMD 02/23 11:57 Order name: Liver (Hepatic) Function; Complete Time: 13:53 EDMD 02/23 11:57 Order name: Magnesium; Complete Time: 13:53 EDMD 02/23 11:57 Order name: NT PRO-BNP; Complete Time: 13:53 EDMD 02/23 11:57 Order name: XRAY Chest (1 view); Complete Time: 13:53 [facility] 02/23 11:57 Order name: EKG; Complete Time: 11:57 [facility] 02/23 11:57 Order name: Cardiac monitoring; Complete Time: 13:27 [facility] 02/23 11:57 Order name: EKG - Nurse/Tech; Complete Time: 13:54 [facility] 02/23 11:57 Order name: IV Saline Lock; Complete Time: 13:27 [facility] 02/23 11:57 Order name: Labs collected and sent; Complete Time: 13:27 [facility] 02/23 11:57 Order name: CT Stroke Brain w/o Contrast; Complete Time: 13:53 [facility] 02/23 11:57 Order name: US Carotid Artery Bilateral; Complete Time: 13:53 [facility] 02/23 11:57 Order name: Protime (+INR); Complete Time: 13:53 [facility] 02/23 12:28 Order name: Brain Wo Cont; Complete Time: 13:53 [facility] 02/23 13:08 Order name: C Spine Ap/Lat XRAY; Complete Time: 15:26 [facility] 02/23 13:26 Order name: CBC Smear Scan EDMD 02/23 11:57 Order name: O2 Per Protocol; Complete Time: 13:27 [facility] 02/23 11:57 Order name: O2 Sat Monitoring; Complete Time: 13:27 [facility] EC:57 Rate is 75 beats/min. Rhythm is regular. QRS [place] is Normal. FL interval is normal. QRS larry interval is normal. QT interval is normal. No Q waves. T waves are Normal. No ST changes noted. Clinical impression: NSR w/ Non-specific ST/T Changes and No evidence of ischemia. Interpreted by me. Reviewed by me. Administered Medications: 14:08 Drug: Aspirin Chewable Tablet 324 mg Route: PO; al4 15:08 Follow up: Response: No adverse reaction al4 14:09 Drug: foLIC Acid 1 mg Route: IVPB; Site: right antecubital; al4 15:09 Follow up: Response: No adverse reaction; IV Status: Completed infusion al4 14:09 Drug: NS 0.9% 1000 ml Route: IV; Rate: 1 bolus; Site: right antecubital; al4 15:09 Follow up: Response: No adverse reaction; IV Status: Completed infusion al4 Disposition Summary: 02/23/21 13:57 Discharge Ordered Location: Home larry Problem: new larry Symptoms: have improved larry Condition: Stable larry Diagnosis - Weakness larry - Paresthesia of skin larry - Essential (primary) hypertension larry Followup: larry - With: Private Physician - When: 2 - 3 days - Reason: Recheck today's complaints, Continuance of care, Re-evaluation by your physician Followup: larry - With: - When: 2 - 3 days - Reason: Recheck today's complaints, Re-evaluation by your physician Discharge Instructions: - Discharge Summary Sheet larry - Paresthesia larry - Weakness larry - Weakness, [id number] larry - Aspirin and Your Heart larry - Paresthesia, [id number] larry Forms: - Medication Reconciliation Form larry - Thank You Letter larry - Antibiotic Education larry - Prescription Opioid Use larry - Work release form [id number] Prescriptions: - Folic Acid 1 mg Oral Tablet - take 1 tablet by ORAL route once daily; 30 tablet; Refills: 0, Product larry Selection Permitted NIH Stroke Scale - NIH Stroke Score Date: 02/23/2021 Time: 12:00 Total Score = 1 1a. Level of Consciousness (LOC) - 0(Alert) 1b. Level of Consciousness (LOC) (Month \T\ Age) - 0(Both) 1c. LOC Commands (Open \T\ Closes Eyes/Facilities Engineering Manager) - 0(Both) 2. Best Gaze (Lateral Gaze Paresis) - 0(Normal) 3. Visual Field Loss - 0(No visual loss) 4. Facial Palsy - 0(Normal) 5a. Left Arm: Motor (10-second hold) - 0(No drift) 5b. Right Arm: Motor (10-second hold) - 0(No drift) 6a. Left Leg: Motor (5-second hold - always test supine) - 0(No drift) 6b. Right Leg: Motor (5-second hold - always test supine) - 0(No drift) 7. Limb Ataxia (finger/nose \T\ heel/cha - test with eyes open) - 0(Absent) 8. Sensory Loss (pinprick arms/legs/face) - 1(Mild to moderate loss) 9. Best Language: Aphasia (description/naming/reading) - 0(No aphasia) 10. Dysarthria (speech clarity - read or repeat words) - 0(Normal) 11. Extinction and Inattention (visual/tactile/auditory/spatial/personal) - 0(No abnormality) Initials: franklin Signatures: Dispatcher [employer] Otis Gilliam MD MD cha Ledbetter, Alexis al4 Wood, Whitney, RN RN ww Corrections: (The following items were deleted from the chart) 12:28 11:57 MR STROKE PROTOCOL+MRI.RAD.ALFONZO ordered. ED EDMS
[2021-02-23] MEDS ORDERED: ASPIRIN 81 MG CHEWABLE TABLET ONE (13:58)
--- NOTE | 2021-02-23 14:40 | RAD REPORT ---
EXAM DESCRIPTION: RAD - C Spine Ap/Lat - 02/23/2021 1:42 pm CLINICAL HISTORY: PAIN COMPARISON: No comparisons FINDINGS: Cervical bodies are normal in height and alignment. No fracture or acute bony process seen . C5-6 disc space narrowing is present. No measurable posterior endplate spurring. There is no prevertebral soft tissue thickening or other suspicious soft tissue finding. IMPRESSION: C5-6 disc space narrowing. No acute bone finding. Concerns for disc herniation, central canal abnormality or occult bone process can be addressed with MR imaging.
[2021-02-23 15:41] VITALS: TEMP 98.9
[2021-02-23 15:43] VITALS: O2SAT 96
[2021-02-23 15:47] VITALS: BP 147/96
[2021-02-23 16:45] LABS: Anisocytosis 1+; Blood Morphology Comment NOTED (NOT SEEN); Platelet Estimate ADEQ; Poikilocytosis 1+; White Blood Cell Scan OK (OK)
--- NOTE | 2021-02-24 07:36 | EKG ---
Test Date: 2021-02-23 Test Time: 13:44:36 Rake Operator: YUDY MEASUREMENT RESULTS: Intervals: Rate: 75 NE: 138 QRSD: 86 QT: 382 QTc: 426 [place]: P: 15 NE: 138 QRS: -27 T: 5 INTERPRETIVE STATEMENTS: Normal sinus rhythm Voltage criteria for left ventricular hypertrophy Abnormal ECG No previous ECG available for comparison Electronically Signed On 02-24-21 07:34:57 DIAMOND EXPERT by Fermín Yanez
== END 2021-02-23 15:36 | disposition home or self-care (01) ==
LOC: ER 11:08
DX: R53.1 Weakness (principal); I10 Essential (primary) hypertension
CPT/HCPCS: 96365; 93005; 85025; 80048; 36415; 83735; 85610; 80076; 85652; 84484; 83880; 86140; 70450; 71045; 72040; 93880; 70551; 99284; J7030

== ENCOUNTER 2021-11-18 21:27 | Emergency (ER) | payer OTHER ==
--- OUTSIDE RECORDS SUMMARY | 2021-11-18 21:37 | XMS REPORT | Continuity of Care Document ---
:1985 Author Organization [facility] t Address [address] [place] [id number] Care Team Providers Name Role Phone PCP, PATIENT DOES NOT HAVE A Primary Care Physician Unavaila vick BARRERA IIIHALINA Attending Clinician Unavailable Doctor Unassigned, [place] Attending Clinician Unavailable SUDHEER RAMIREZ Attending Clinician Unavailable Sudheer Carson Attending Clinician Nurse, [facility] Attending Clinician Unavailable Tori Benedict Attending Clinician TORI GALEANA Attending Clinician Unavailable Maru HEEL BUFFER, Neisha Leahy Attending Clinician AMANDA العلي Attending Clinician Unavailable Amanda Ramos Attending Clinician EARNESTINE FARRELL Attending Clinician Unavailable Lab, [facility] Attending Clinician Unavailable Earnestine Cabello Attending Clinician Beth MIRANDA, Tootie Attending Clinician Unavailable 5, [facility] Us Room Attending Clinician Unavailable Thom GOOD, Irving Walker Attending Clinician Sidney GOOD, Vandana Attending Clinician Payers Payer Name Policy Type Policy Number Effective Date Expiration Date Ritesh [employer] [id number] 2019 HEALTH 00:00:00 [facility] [id number] 2021 [facility] MEDICAID 00:00:00 CIGNA II [id number] 2019 00:00:00 Problems Condition Condition Condition Status Onset Resolution Last Treating Co mments Source Name Details Category Date Date Treatment Clinician Date Disease Active 2019-03 Univers (spontaneo (spontaneo 2-11 it y [place] vaginal [place] 00 [facility] Liveborn Liveborn Disease Active 2019-03 Unive rs by by 2-11 ity of vaginal vaginal 00:00: [place] delivery delivery 00 Medica l Branch Tubal Tubal Disease Active 2019-03 Univers ligation ligation 2-11 ity of evaluation evaluation 00:00: [place] 00 Medical Branch 37 weeks 37 weeks Disease Active 2019-03 Unive rs gestation gestation 2-10 ity of of of 00:00: [place] 00 [facility] Labor and Labor and Disease Active 2019-03 Uni vers delivery delivery 2-10 ity of indication indication 00:00: [place] for care for care 00 Medica l or or Branch interventi interventi on on Labor and Labor and Disease Active 2019-03 Uni vers delivery delivery 2-10 ity of indication indication 00:00: [place] for care for care 00 Medica l or or Branch interventi interventi on on Anemia of Anemia of Disease Active 2019-03 Uni vers mother in mother in 2-02 ity of , , 00:00: [place] antepartum antepartum 00 Ca dical Branch Abnormal Abnormal Disease Active 2019-03 [...] 0-01 it y of adult adult 00:00: [place] 00 Medical Branch Maternal Maternal Disease Active 2020-0 Overview: Un eric varicella, varicella, 9-21 Formattin ity of non-immune non-immune 00:00: g of this [place] 00 note Medical might be Branch different from the original. Address in postpartu m. Overweight Overweight Disease Active 2020-0 U nivers (BMI (BMI 9-17 ity of 25.0-29.9) 25.0-29.9) 00:00: [place] Flu Flu Disease Active 2020-0 Univers vaccine vaccine 17 ity of need need 00:00: [place] 00 Medical Branch H/O: H/O: Disease Active 2020-0 Univers depression depression 9-17 it y of 00:00: [place] [address] Medical Branch History of History of Disease Active 2020-0 U nivers anemia anemia 17 ity of 00:00: [address] Branch Multiparit Multiparit Disease Active 2020-0 U nivers y y -17 ity of 00:00: [address] Branch Screening Screening Disease Active 2020-0 Uni vers for viral for viral -17 ity of disease disease 00:00: [address] Branch Insufficie Insufficie Disease Active 2020-0 U nivers nt nt 9-17 ity of 00:00: [place] care in care in 00 Medical third third Branch trimester trimester Supervisio Supervisio Disease Active 2020-0 U nivers n of high n of high 9-17 ity of risk risk 00:00: [place] 00 Medi aileen in third in third Branch trimester trimester Right-side Right-side Disease Active 2020-0 U nivers d low back d low back 9-17 it y of pain with pain with 00:00: Óscar bahena right-side right-side 00 Me dical d d Branch sciatica, sciatica, unspecifie unspecifie d d chronicity chronicity Normal Normal Disease Active Univers delivery delivery 1-14 ity of 00:00: [place] [address] Medical Branch Allergies, Adverse Reactions, Alerts Allergy Allergy Status Severity Reaction(s) Onset Inactive Treating Comm ents Source Name Type Date Date Clinician NO KNOWN Drug Active Univers ALLERGIE Class ity of S [facility] Social History Social Habit Start Date Stop Date Quantity Comments Source ASSERTION 2019-06-08 University of 00:00:00 [facility] Exposure to Not sure University of SARS-CoV-2 [facility] (event) Branch Alcohol intake 2021-02-25 2021-02-25 Ex-drinker University 00:00:00 00:00:00 (finding) [facility] Tobacco use and 2019-11-22 2019-11-22 Never used Universit y of exposure 00:00:00 00:00:00 [facility] [birth year] Universit y of 00:00:00 00:00:00 [facility] Smoking Status Start Date Stop Date Source Never smoker [facility] Unknown if ever smoked [facility] Medications Ordered Filled Start Stop Current Ordering Indication Dosage Frequency Signature Comments Components Source Medication Medication Date Date Medication? Clinician (SIG) Name Name furosemide 2020- No [id number] 20mg Take 1 Univers 20 mg 3 03-15 tablet by ity of tablet 00:00: 04:59 mouth [place] 00 :00 every Medical morning Branch for 5 days. 2019-03 Yes [id number] 1{tbl} Take 1 Univers vitamin 2-12 tablet by ity of w/FA tablet 00:00: mouth [place] 00 daily. Medical Branch docusate 2019-03 Yes [id number] 240mg Take 1 U nivers calcium 240 2-12 capsule by it y of mg capsule 00:00: mouth [place] 00 daily as Medical needed for Branch Constipati on. ferrous 2019- Yes [id number] 325mg Take 1 Un eric sulfate 325 2-12 tablet by ity of mg (65 mg 00:00: mouth 2 [place] iron) 00 (two) Medical tablet times Branch daily. ibuprofen 2019-03 Yes [id number] 600mg Take 1 Univers 600 mg 2-12 tablet by ity of tablet 00:00: mouth [place] 00 every 6 Medical (six) Branch hours as needed (Pain). Take with food or milk. 2019-03 Yes [id number] 1{tbl} Take 1 Univers vitamin 2-12 tablet by ity of w/FA tablet 00:00: mouth [place] 00 daily. Medical Branch docusate 2019-03 Yes [id number] 240mg Take 1 U nivers calcium 240 2-12 capsule by it y of mg capsule 00:00: mouth [place] 00 daily as Medical needed for Branch Constipati on. ferrous 2019-03 Yes [id number] 325mg Take 1 Un eric sulfate 325 2-12 tablet by ity of mg (65 mg 00:00: mouth 2 [place] iron) 00 (two) Medical tablet times Branch daily. ibuprofen 2019-03 Yes [id number] 600mg Take 1 Univers 600 mg 2-12 tablet by ity of tablet 00:00: mouth [place] 00 every 6 Medical (six) Branch hours as needed (Pain). Take with food or milk. 2019-03 Yes [id number] 1{tbl} Take 1 Univers vitamin 2-12 tablet by ity of w/FA tablet 00:00: mouth [place] 00 daily. Medical Branch docusate 2019-03 Yes [id number] 240mg Take 1 U nivers calcium 240 2-12 capsule by it y of mg capsule 00:00: mouth once [place] 00 daily as Medical needed for Branch Constipati on. ferrous 2019-03 Yes [id number] 325mg Take 1 Un eric sulfate 325 2-12 tablet by ity of mg (65 mg 00:00: mouth 2 [place] iron) 00 (two) Medical tablet times Branch daily. ibuprofen 2019-03 Yes [id number] 600mg Take 1 Univers 600 mg 2-12 tablet by ity of tablet 00:00: mouth [place] 00 every 6 Medical (six) Branch hours as needed (Pain). Take with food or milk. 2019-03 Yes [id number] 1{tbl} Take 1 Univers vitamin 2-12 tablet by ity of w/FA tablet 00:00: mouth [place] 00 daily. Medical Branch docusate 2019-03 Yes [id number] 240mg Take 1 U nivers calcium 240 2-12 capsule by it y of mg capsule 00:00: mouth [place] 00 daily as Medical needed for Branch Constipati on. ferrous 2019-03 Yes [id number] 325mg Take 1 Un eric sulfate 325 2-12 tablet by ity of mg (65 mg 00:00: mouth 2 [place] iron) 00 (two) Medical tablet times Branch daily. ibuprofen 2019-03 Yes [id number] 600mg Take 1 Univers 600 mg 2-12 tablet by ity of tablet 00:00: mouth [place] 00 every 6 Medical (six) Branch hours as needed (Pain). Take with food or milk. 2019-03 Yes [id number] 1{tbl} Take 1 Univers vitamin 2-12 tablet by ity of w/FA tablet 00:00: mouth [place] 00 daily. Medical Branch docusate 2019-03 Yes [id number] 240mg Take 1 U nivers calcium 240 2-12 capsule by it y of mg capsule 00:00: mouth once [place] 00 daily as Medical needed for Branch Constipati on. ferrous 2019-03 Yes [id number] 325mg Take 1 Un eric sulfate 325 2-12 tablet by ity of mg (65 mg 00:00: mouth 2 [place] iron) 00 (two) Medical tablet times Branch daily. ibuprofen 2019-03 Yes [id number] 600mg Take 1 Univers 600 mg 2-12 tablet by ity of tablet 00:00: mouth [place] 00 every 6 Medical (six) Branch hours as needed (Pain). Take with food or milk. 2019-03 Yes [id number] 1{tbl} Take 1 Univers vitamin 2-12 tablet by ity of w/FA tablet 00:00: mouth [place] 00 daily. Medical Branch docusate 2019-03 Yes [id number] 240mg Take 1 U nivers calcium 240 2-12 capsule by it y of mg capsule 00:00: mouth once [place] 00 daily as Medical needed for Branch Constipati on. ferrous 2019-03 Yes [id number] 325mg Take 1 Un eric sulfate 325 2-12 tablet by ity of mg (65 mg 00:00: mouth 2 [place] iron) 00 (two) Medical tablet times Branch daily. ibuprofen 2019-03 Yes [id number] 600mg Take 1 Univers 600 mg 2-12 tablet by ity of tablet 00:00: mouth [place] 00 every 6 Medical (six) Branch hours as needed (Pain). Take with food or milk. 2019-03 Yes [id number] 1{tbl} Take 1 Univers vitamin 2-12 tablet by ity of w/FA tablet 00:00: mouth [place] 00 daily. Medical Branch docusate 2019-03 Yes [id number] 240mg Take 1 U nivers calcium 240 2-12 capsule by it y of mg capsule 00:00: mouth once [place] 00 daily as Medical needed for Branch Constipati on. ferrous 2019-03 Yes [id number] 325mg Take 1 Un eric sulfate 325 2-12 tablet by ity of mg (65 mg 00:00: mouth 2 [place] iron) 00 (two) Medical tablet times Branch daily. ibuprofen 2019-03 Yes [id number] 600mg Take 1 Univers 600 mg 2-12 tablet by ity of tablet 00:00: mouth [place] 00 every 6 Medical (six) Branch hours as needed (Pain). Take with food or milk. ferrous 2019-03 Yes 325mg Take 1 Un eric sulfate 325 2-02 tablet by ity of mg (65 mg 00:00: mouth 2 [place] iron) 00 (two) Medical tablet times Branch daily. ferrous 2019-03 Yes 325mg Take 1 Un eirc sulfate 325 2-02 tablet by ity of mg (65 mg 00:00: mouth 2 [place] iron) 00 (two) Medical tablet times Branch daily. ferrous 2019-03 Yes 325mg Take 1 Un eric sulfate 325 2-02 tablet by ity of mg (65 mg 00:00: mouth 2 [place] iron) 00 (two) Medical tablet times Branch daily. ferrous 2019-03 Yes 325mg Take 1 Un eric sulfate 325 2-02 tablet by ity of mg (65 mg 00:00: mouth 2 [place] iron) 00 (two) Medical tablet times Branch daily. 2019-03 Yes 1{packe Take 1 Univers vit 1-30 t} Packet by ity of 33-iron-fol 00:00: mouth [place] ic-dha 00 daily. Medical ([facility] Branch + DHA) 29 mg iron-1 mg -250 mg combo pack ascorbic 2019-03 Yes 500mg Take 1 U nivers acid, 1-30 tablet by ity of vitamin C, 00:00: [place] 00 (three) Medical tablet times Branch daily. 2019-03 Yes 1{packe Take 1 Univers vit 1-30 t} Packet by ity of 33-iron-fol 00:00: mouth [place] ic-dha 00 daily. Medical ([facility] Branch + DHA) 29 mg iron-1 mg -250 mg combo pack ascorbic 2019-03 Yes 500mg Take 1 U nivers acid, 1-30 tablet by ity of vitamin C, 00:00: mouth [place] mg 00 (three) Medical tablet times Branch daily. 2019-03 Yes 1{packe Take 1 Univers vit 1-30 t} Packet by ity of 33-iron-fol 00:00: mouth [place] ic-dha 00 daily. Medical ([facility] Branch + DHA) 29 mg iron-1 mg -250 mg combo pack ascorbic 2020 Yes [id number] 500mg Take 1 U nivers acid, 1-30 tablet by ity of vitamin C, 00:00: mouth 3 [place] 500 mg 00 (three) Medical tablet times Branch daily. 2020- Yes [id number] 1{packe Take 1 Univers vit 1-30 t} Packet by ity of 33-iron-fol 00:00: mouth [place] ic-dha 00 daily. Medical ([facility] Branch + DHA) 29 mg iron-1 mg -250 mg combo pack ascorbic 2019- Yes [id number] 500mg Take 1 U nivers acid, 1-30 tablet by ity of vitamin C, 00:00: mouth 3 [place] 500 mg 00 (three) Medical tablet times Branch daily. 2020- Yes [id number] 1{packe Take 1 Univers vit 1-30 t} Packet by ity of 33-iron-fol 00:00: mouth [place] ic-dha 00 daily. Medical ([facility] Branch + DHA) 29 mg iron-1 mg -250 mg combo pack ascorbic 2019-03 Yes [id number] 500mg Take 1 U nivers acid, 1-30 tablet by ity of vitamin C, 00:00: mouth 3 [place] 500 mg 00 (three) Medical tablet times Branch daily. 2020- Yes [id number] 1{packe Take 1 Univers vit 1-30 t} Packet by ity of 33-iron-fol 00:00: mouth [place] ic-dha 00 daily. Medical ([facility] Branch + DHA) 29 mg iron-1 mg -250 mg combo pack ascorbic 2019- Yes [id number] 500mg Take 1 U nivers acid, 1-30 tablet by ity of vitamin C, 00:00: mouth 3 [place] 500 mg 00 (three) Medical tablet times Branch daily. 2020- Yes [id number] 1{packe Take 1 Univers vit 1-30 t} Packet by ity of 33-iron-fol 00:00: mouth [place] ic-dha 00 daily. Medical ([facility] Branch + DHA) 29 mg iron-1 mg -250 mg combo pack ascorbic 2019- Yes [id number] 500mg Take 1 U nivers acid, 1-30 tablet by ity of vitamin C, 00:00: mouth 3 [place] 500 mg 00 (three) Medical tablet times Branch daily. 2019-03 Yes [id number] 1{packe Take 1 Univers vit 1-30 t} Packet by ity of 33-iron-fol 00:00: mouth [place] ic-dha 00 daily. Medical ([facility] Branch + DHA) 29 mg iron-1 mg -250 mg combo pack ascorbic 2020 Yes [id number] 500mg Take 1 U nivers acid, 1-30 tablet by ity of vitamin C, 00:00: mouth 3 [place] 500 mg 00 (three) Medical tablet times Branch daily. 2019-03 Yes [id number] 1{packe Take 1 Univers vit 1-12 t} Packet by ity of 33-iron-fol 00:00: mouth [place] ic-dha 00 daily. Medical ([facility] Branch + DHA) 29 mg iron-1 mg -250 mg combo pack 2019-03 Yes [id number] 1{packe Take 1 Univers vit 1-12 t} Packet by ity of 33-iron-fol 00:00: mouth [place] ic-dha 00 daily. Medical ([facility] Branch + DHA) 29 mg iron-1 mg -250 mg combo pack 2019-03 Yes [id number] 1{packe Take 1 Univers vit 1-12 t} Packet by ity of 33-iron-fol 00:00: mouth [place] ic-dha 00 daily. Medical ([facility] Branch + DHA) 29 mg iron-1 mg -250 mg combo pack 2019-03 Yes [id number] 1{packe Take 1 Univers vit 1-12 t} Packet by ity of 33-iron-fol 00:00: mouth [place] ic-dha 00 daily. Medical ([facility] Branch + DHA) 29 mg iron-1 mg -250 mg combo pack 2019-03 Yes [id number] 1{packe Take 1 Univers vit 1-12 t} Packet by ity of 33-iron-fol 00:00: mouth [place] ic-dha 00 daily. Medical ([facility] Branch + DHA) 29 mg iron-1 mg -250 mg combo pack 2019-03 Yes [id number] 1{packe Take 1 Univers vit 1-12 t} Packet by ity of 33-iron-fol 00:00: mouth [place] ic-dha 00 daily. Medical ([facility] Branch + DHA) 29 mg iron-1 mg -250 mg combo pack 2020- Yes [id number] 1{packe Take 1 Univers vit 1-12 t} Packet by ity of 33-iron-fol 00:00: mouth [place] ic-dha 00 daily. Medical ([facility] Branch + DHA) 29 mg iron-1 mg -250 mg combo pack 2020- Yes [id number] 1{packe Take 1 Univers vit 1-12 t} Packet by ity of 33-iron-fol 00:00: mouth [place] ic-dha 00 daily. Medical ([facility] Branch + DHA) 29 mg iron-1 mg -250 mg combo pack 2019- Yes [id number] 1{packe Take 1 Univers vit 1-12 t} Packet by ity of 33-iron-fol 00:00: mouth [place] ic-dha 00 daily. Medical ([facility] Branch + DHA) 29 mg iron-1 mg -250 mg combo pack 2019-03 Yes [id number] 1{packe Take 1 Univers vit 1-12 t} Packet by ity of 33-iron-fol 00:00: mouth [place] ic-dha 00 daily. Medical ([facility] Branch + DHA) 29 mg iron-1 mg -250 mg combo pack 2019- Yes [id number] 1{packe Take 1 Univers vit 1-12 t} Packet by ity of 33-iron-fol 00:00: mouth [place] ic-dha 00 daily. Medical ([facility] Branch + DHA) 29 mg iron-1 mg -250 mg combo pack 2020- Yes [id number] 1{packe Take 1 Univers vit 1-12 t} Packet by ity of 33-iron-fol 00:00: mouth [place] ic-dha 00 daily. Medical ([facility] Branch + DHA) 29 mg iron-1 mg -250 mg combo pack 2020- Yes [id number] 1{packe Take 1 Univers vit 1-12 t} Packet by ity of 33-iron-fol 00:00: mouth [place] ic-dha 00 daily. Medical ([facility] Branch + DHA) 29 mg iron-1 mg -250 mg combo pack SERTraline 2020-0 Yes [id number] 25mg Take 25 mg Univers 25 mg 9-17 by mouth ity of tablet 15:41: daily. [address] SERTraline 2020-0 Yes [id number] 25mg Take 25 mg Univers 25 mg 9-17 by mouth ity of tablet 15:41: daily. [address] SERTraline 2020-0 Yes [id number] 25mg Take 25 mg Univers 25 mg 9-17 by mouth ity of tablet 15:41: daily. [address] SERTraline 2020-0 Yes [id number] 25mg Take 25 mg Univers 25 mg 9-17 by mouth ity of tablet 15:41: daily. [address] SERTraline 2020-0 Yes [id number] 25mg Take 25 mg Univers 25 mg 9-17 by mouth ity of tablet 15:41: daily. [address] SERTraline 2019-0 Yes [id number] 25mg Take 25 mg Univers 25 mg 9-17 by mouth ity of tablet 15:41: daily. [address] SERTraline 2020-0 Yes [id number] 25mg Take 25 mg Univers 25 mg 9-17 by mouth ity of tablet 15:41: daily. [address] SERTraline 2019-0 Yes [id number] 25mg Take 25 mg Univers 25 mg 9-17 by mouth ity of tablet 15:41: daily. [address] SERTraline 2020-0 Yes [id number] 25mg Take 25 mg Univers 25 mg 9-17 by mouth ity of tablet 15:41: daily. [address] SERTraline 2020-0 Yes [id number] 25mg Take 25 mg Univers 25 mg 9-17 by mouth ity of tablet 15:41: daily. [address] SERTraline 2020-0 Yes [id number] 25mg Take 25 mg Univers 25 mg 9-17 by mouth ity of tablet 15:41: daily. [address] SERTraline 2020-0 Yes [id number] 25mg Take 25 mg Univers 25 mg 9-17 by mouth ity of tablet 15:41: daily. [address] SERTraline 2020-0 Yes [id number] 25mg Take 25 mg Univers 25 mg 9-17 by mouth ity of tablet 15:41: daily. [address] SERTraline 2020-0 Yes [id number] 25mg Take 25 mg Univers 25 mg 9-17 by mouth ity of tablet 15:41: daily. [address] SERTraline 2020-0 Yes [id number] 25mg Take 25 mg Univers 25 mg 9-17 by mouth ity of tablet 15:41: daily. [address] SERTraline 2020-0 Yes [id number] 25mg Take 25 mg Univers 25 mg 9-17 by mouth ity of tablet 15:41: daily. [address] SERTraline 2020-0 Yes [id number] 25mg Take 25 mg Univers 25 mg 9-17 by mouth ity of tablet 15:41: daily. [address] SERTraline 2020-0 Yes [id number] 25mg Take 25 mg Univers 25 mg 9-17 by mouth ity of tablet 15:41: daily. [address] SERTraline 2020-0 Yes [id number] 25mg Take 25 mg Univers 25 mg 9-17 by mouth ity of tablet 15:41: daily. [address] SERTraline 2019-0 Yes [id number] 25mg Take 25 mg Univers 25 mg 9-17 by mouth ity of tablet 15:41: daily. [address] SERTraline 2020-0 Yes [id number] 25mg Take 25 mg Univers 25 mg 9-17 by mouth ity of tablet 15:41: daily. [address] SERTraline 2020-0 Yes [id number] 25mg Take 25 mg Univers 25 mg 9-17 by mouth ity of tablet 15:41: daily. [address] SERTraline 2019-0 Yes [id number] 25mg Take 25 mg Univers 25 mg 9-17 by mouth ity of tablet 15:41: daily. [address] SERTraline 2020-0 Yes [id number] 25mg Take 25 mg Univers 25 mg 9-17 by mouth ity of tablet 15:41: daily. [address] SERTraline 2020-0 Yes [id number] 25mg Take 25 mg Univers 25 mg 9-17 by mouth ity of tablet 15:41: daily. [address] SERTraline 2020-0 Yes [id number] 25mg Take 25 mg Univers 25 mg 9-17 by mouth ity of tablet 15:41: daily. [address] SERTraline 2020-0 Yes [id number] 25mg Take 25 mg Univers 25 mg 9-17 by mouth ity of tablet 15:41: daily. [address] SERTraline 2020-0 Yes [id number] 25mg Take 25 mg Univers 25 mg 9-17 by mouth ity of tablet 15:41: daily. [address] SERTraline 2020-0 Yes [id number] 25mg Take 25 mg Univers 25 mg 9-17 by mouth ity of tablet 15:41: daily. [address] SERTraline 2020-0 Yes [id number] 25mg Take 25 mg Univers 25 mg 9-17 by mouth ity of tablet 15:41: daily. [address] SERTraline 2020-0 Yes [id number] 25mg Take 25 mg Univers 25 mg 9-17 by mouth ity of tablet 15:41: daily. [address] 2019-0 Yes [id number] 1{packe Take 1 Univers vit 9-17 t} Packet by ity of 33-iron-fol 00:00: mouth [place] ic-dha 00 daily. Medical ([facility] Branch + DHA) 29 mg iron-1 mg -250 mg combo pack 2019-0 Yes [id number] 1{packe Take 1 Univers vit 9-17 t} Packet by ity of 33-iron-fol 00:00: mouth [place] ic-dha 00 daily. [facility] 29 mg iron-1 mg -250 mg combo pack 2019-0 Yes [id number] 1{packe Take 1 Univers vit 9-17 t} Packet by ity of 33-iron-fol 00:00: mouth [place] ic-dha 00 daily. [facility] 29 mg iron-1 mg -250 mg combo pack 2019-0 Yes [id number] 1{packe Take 1 Univers vit 9-17 t} Packet by ity of 33-iron-fol 00:00: mouth [place] ic-dha 00 daily. [facility] 29 mg iron-1 mg -250 mg combo pack 2019-0 Yes [id number] 1{packe Take 1 Univers vit 9-17 t} Packet by ity of 33-iron-fol 00:00: mouth [place] ic-dha 00 daily. [facility] 29 mg iron-1 mg -250 mg combo pack 2019-0 Yes [id number] 1{packe Take 1 Univers vit 9-17 t} Packet by ity of 33-iron-fol 00:00: mouth [place] ic-dha 00 daily. Medical ([facility] Branch + DHA) 29 mg iron-1 mg -250 mg combo pack 2020-0 Yes [id number] 1{packe Take 1 Univers vit 9-17 t} Packet by ity of 33-iron-fol 00:00: mouth [place] ic-dha 00 daily. Medical ([facility] Branch + DHA) 29 mg iron-1 mg -250 mg combo pack 2020-0 Yes [id number] 1{packe Take 1 Univers vit 9-17 t} Packet by ity of 33-iron-fol 00:00: mouth [place] ic-dha 00 daily. Medical ([facility] Branch + DHA) 29 mg iron-1 mg -250 mg combo pack 2020-0 Yes [id number] 1{packe Take 1 Univers vit 9-17 t} Packet by ity of 33-iron-fol 00:00: mouth [place] ic-dha 00 daily. Medical ([facility] Branch + DHA) 29 mg iron-1 mg -250 mg combo pack 2020-0 Yes [id number] 1{packe Take 1 Univers vit 9-17 t} Packet by ity of 33-iron-fol 00:00: mouth [place] ic-dha 00 daily. Medical ([facility] Branch + DHA) 29 mg iron-1 mg -250 mg combo pack 2020-0 Yes [id number] 1{packe Take 1 Univers vit 9-17 t} Packet by ity of 33-iron-fol 00:00: mouth [place] ic-dha 00 daily. Medical ([facility] Branch + DHA) 29 mg iron-1 mg -250 mg combo pack 2020-0 Yes [id number] 1{packe Take 1 Univers vit 9-17 t} Packet by ity of 33-iron-fol 00:00: mouth [place] ic-dha 00 daily. Medical ([facility] Branch + DHA) 29 mg iron-1 mg -250 mg combo pack 2020-0 Yes [id number] 1{packe Take 1 Univers vit 9-17 t} Packet by ity of 33-iron-fol 00:00: mouth [place] ic-dha 00 daily. Medical ([facility] Branch + DHA) 29 mg iron-1 mg -250 mg combo pack 2020-0 Yes [id number] 1{packe Take 1 Univers vit 9-17 t} Packet by ity of 33-iron-fol 00:00: mouth [place] ic-dha 00 daily. Medical ([facility] Branch + DHA) 29 mg iron-1 mg -250 mg combo pack Yes [id number] 1{packe Take 1 Univers vit 9-17 t} Packet by ity of 33-iron-fol 00:00: mouth [place] ic-dha 00 daily. Medical ([facility] Branch + DHA) 29 mg iron-1 mg -250 mg combo pack Yes [id number] 1{packe Take 1 Univers vit 9-17 t} Packet by ity of 33-iron-fol 00:00: mouth [place] ic-dha 00 daily. Medical ([facility] Branch + DHA) 29 mg iron-1 mg -250 mg combo pack Yes [id number] 1{packe Take 1 Univers vit 9-17 t} Packet by ity of 33-iron-fol 00:00: mouth [place] ic-dha 00 daily. Medical ([facility] Branch + DHA) 29 mg iron-1 mg -250 mg combo pack Yes [id number] 1{packe Take 1 Univers vit 9-17 t} Packet by ity of 33-iron-fol 00:00: mouth [place] ic-dha 00 daily. Medical ([facility] Branch + DHA) 29 mg iron-1 mg -250 mg combo pack 2020- No [id number] 1{packe Take 1 Univers vit 9-17 11-12 [...] 2019- No Take one Univ ers VIT-IRON 1-15 -17 tablet by ity o f FUMARATE-FA [...] one Uni vers 600 MG ORAL 1-15 -17 tablet by it y of TAB 00:00: 00:00 mouth [place] 00 :00 every six Medical hours as Branch needed for pain 2020- No Take one Univ ers VIT-IRON 1-15 -17 tablet by ity o f FUMARATE-FA [...] one Uni vers 600 MG ORAL 1-15 -17 tablet by it y of TAB 00:00: 00:00 mouth [place] 00 :00 every six Medical hours as Branch needed for pain 2019- No Take one Univ ers VIT-IRON 1-15 -17 tablet by ity o f FUMARATE-FA 00:00: 00:00 [place] 65-1 [place] 00 :00 daily Medical ORAL TAB Branch DOCUSATE 2020- No Take one Univ ers CALCIUM 240 1-15 11-21 capsule by i ty of [place] ORAL CAP [place] needed for Branch constipati on FERROUS 2019- No Take one Unive rs SULFATE 325 15 11-21 tablet by it y of MG (65 MG 00:00: 00:00 mouth [place] IRON) ORAL 00 :00 twice Medical TAB daily Branch IBUPROFEN 2019- No Take one Uni vers 600 MG ORAL 03-21 tablet by it y of TAB 00:00: 00:00 mouth [place] 00 :00 every six Medical hours as Branch needed for pain 2019- No Take one Univ ers VIT-IRON 03-21 tablet by ity o f FUMARATE-FA 00:00: 00:[place] 65-1 MG 00 :00 daily Medical ORAL TAB Branch DOCUSATE 2019- No Take one Univ ers CALCIUM 240 15 11-21 capsule by i ty of [place] ORAL CAP 00:00[place] daily as Medical needed for Branch constipati on FERROUS 2019- No Take one Unive rs SULFATE 325 03-21 tablet by it y of MG (65 [...] Status Comments Sour e Immunization Name Name TD 2019-12-06 Completed University of 00:00:00 [facility] TDAP 2019-12-06 Completed University of 00:00: [facility] TDAP 2019-12-06 Completed University of 00:00:00 [facility] TDAP 2019-12-06 Completed University of 00:00: [facility] TDAP 2019-12-06 Completed University of 00:00:00 [facility] TDAP 2019-12-06 Completed University of 00:00:00 [facility] TDAP 2019-12-06 Completed University of 00:00:00 [facility] TDAP 2019-12-06 Completed University of 00:00:00 [facility] TDAP 2019-12-06 Completed University of 00:00:00 [facility] TDAP 2019-12-06 Completed University of 00:00:00 [facility] TDAP 2019-12-06 Completed University of 00:00:00 [facility] TDAP 2019-12-06 Completed University of 00:00:00 [facility] TDAP 2019-12-06 Completed University of 00:00:00 [facility] TDAP 2019-12-06 Completed University of 00:00:00 [facility] TDAP 2019-12-06 Completed University of 00:00:00 [facility] TDAP 2019-12-06 Completed University of 00:00:00 [facility] TDAP 2019-12-06 Completed University of 00:00:00 [facility] TDAP 2019-12-06 Completed University of 00:00:00 [facility] TDAP 2019-12-06 Completed University of 00:00:00 [facility] TDAP 2019-12-06 Completed University of 00:00:00 [facility] TDAP 2019-12-06 Completed University of 00:00:00 [facility] TDAP 2019-12-06 Completed University of 00:00:00 [facility] TDAP 2019-12-06 Completed University of 00:00:00 [facility] TDAP 2019-12-06 Completed University of 00:00:00 [facility] TDAP 2019-12-06 Completed University of 00:00:00 [facility] TDAP 2019-12-06 Completed University of 00:00:00 [facility] TDAP 2019-12-06 Completed University of 00:00:00 [facility] Influenza Virus 2019-11-22 Completed Universit y of Vaccine [place] .5 mL 00:00:00 [place] [facility] 6+ MO Branch Influenza Virus 2019-11-22 Completed Universit y of [facility] [place] .5 mL 00:00:00 [place] [facility] 6+ MO [facility] Influenza Virus 2019-11-22 Completed Universit y of [facility] [place] .5 mL 00:00:00 [place] [facility] 6+ MO Branch Influenza Virus 2019-11-22 Completed Universit y of [facility] [place] .5 mL 00:00:00 [place] [facility] 6+ MO [facility] Influenza Virus 2019-11-22 Completed Universit y of [facility] [place] .5 mL 00:00:00 [place] [facility] 6+ MO Branch Influenza Virus [...] y of Vaccine [place] .5 mL 00:00:00 [place] [facility] 6+ MO [facility] Influenza Virus 2019-11-22 Completed Universit y of [facility] [place] .5 mL 00:00:00 [place] [facility] 6+ MO Branch Influenza Virus 2019-11-22 Completed Universit y of [facility] [place] .5 mL 00:00:00 [place] [facility] 6+ MO Branch Influenza Virus 2019-11-22 Completed Universit y of [facility] [place] .5 mL 00:00:00 [place] [facility] 6+ MO Branch Influenza Virus 2019-11-22 Completed Universit y of [facility] [place] .5 mL 00:00:00 [facility] 6+ MO Branch Influenza Virus 2019-11-22 Completed Universit y of [place] .5 mL 00:00:00 [facility] 6+ MO Branch Influenza Virus 2019-11-22 Completed Universit y of [facility] [place] .5 mL 00:00:00 [facility] 6+ MO Branch Influenza Virus 2019-11-22 Completed Universit y of [facility] [place] .5 mL 00:00:00 [facility] 6+ MO Branch Influenza Virus 2019-11-22 Completed Universit y of [facility] [place] .5 mL 00:00:00 [facility] 6+ MO Branch Influenza Virus 2019-11-22 Completed Universit y of [facility] [place] .5 mL 00:00:00 [facility] 6+ MO Branch Influenza Virus 2019-11-22 Completed Universit y of [facility] [place] .5 mL 00:00:00 [place] [facility] 6+ MO Branch Influenza Virus 2019-11-22 Completed Universit y of [facility] [place] .5 mL 00:00:00 [facility] 6+ MO Branch Influenza Virus 2019-11-22 Completed Universit y of [facility] [place] .5 mL 00:00:00 [facility] 6+ MO Branch Influenza Virus 2019-11-22 Completed Universit y of [facility] [place] .5 mL 00:00:00 [facility] 6+ MO Branch Influenza Virus 2016-11-12 Completed Universit y of Vaccine (3+ yrs) 00:00:00 [facility] Influenza Virus 2016-11-12 Completed Universit y of Vaccine (3+ yrs) 00:00:00 [facility] Influenza Virus 2016-11-12 Completed Universit y of Vaccine (3+ yrs) 00:00:00 [facility] Influenza Virus 2016-11-12 Completed Universit y of Vaccine (3+ yrs) 00:00:00 [facility] Influenza Virus 2016-11-12 Completed Universit y of Vaccine (3+ yrs) 00:00:00 [facility] Influenza Virus 2016-11-12 Completed Universit y of Vaccine (3+ yrs) 00:00:00 [facility] Influenza Virus 2016-11-12 Completed Universit y of Vaccine (3+ yrs) 00:00:00 [facility] Influenza Virus 2016-11-12 Completed Universit y of Vaccine (3+ yrs) 00:00:00 [facility] Influenza Virus 2016-11-12 Completed Universit y of Vaccine (3+ yrs) 00:00:00 [facility] Influenza Virus 2016-11-12 Completed Universit y of Vaccine (3+ yrs) 00:00:00 [facility] Influenza Virus 2016-11-12 Completed Universit y of Vaccine (3+ yrs) 00:00:00 [facility] Influenza Virus 2016-11-12 Completed Universit y of Vaccine (3+ yrs) 00:00:00 [facility] Influenza Virus 2016-11-12 Completed Universit y of Vaccine (3+ yrs) 00:00:00 [facility] Influenza Virus 2016-11-12 Completed Universit y of Vaccine (3+ yrs) 00:00:00 [facility] Influenza Virus 2016-11-12 Completed Universit y of Vaccine (3+ yrs) 00:00:00 [facility] Influenza Virus 2016-11-12 Completed Universit y of Vaccine (3+ yrs) 00:00:00 [facility] Influenza Virus 2016-11-12 Completed Universit y of Vaccine (3+ yrs) 00:00:00 [facility] Influenza Virus 2016-11-12 Completed Universit y of Vaccine (3+ yrs) 00:00:00 [facility] Influenza Virus 2016-11-12 Completed Universit y of Vaccine (3+ yrs) 00:00:00 [facility] Influenza Virus 2016-11-12 Completed Universit y of Vaccine (3+ yrs) 00:00:00 [facility] Influenza Virus 2016-11-12 Completed Universit y of Vaccine (3+ yrs) 00:00:00 [facility] Influenza Virus 2016-11-12 Completed Universit y of Vaccine (3+ yrs) 00:00:00 [facility] TDAP 2015-03-12 Completed University of 00:00:00 [facility] TDAP 2015-03-12 Completed University of 00:00:00 [facility] TDAP 2015-03-12 Completed University of 00:00:00 [facility] TDAP 2015-03-12 Completed University of 00:00:00 [facility] TDAP 2015-03-12 Completed University of 00:00:00 [facility] TDAP 2015-03-12 Completed University of 00:00:00 [facility] TDAP 2015-03-12 Completed University of 00:00:00 [facility] TDAP 2015-03-12 Completed University of 00:00:00 [facility] TDAP 2015-03-12 Completed University of 00:00:00 [facility] TDAP 2015-03-12 Completed University of 00:00:00 [facility] TDAP 2015-03-12 Completed University of 00:00:00 [facility] TDAP 2015-03-12 Completed University of 00:00:00 [facility] TDAP 2015-03-12 Completed University of 00:00:00 [facility] TDAP 2015-03-12 Completed University of 00:00:00 [facility] TDAP 2015-03-12 Completed University of 00:00:00 [facility] TDAP 2015-03-12 Completed University of 00:00:00 [facility] TDAP 2015-03-12 Completed University of 00:00:00 [facility] TDAP 2015-03-12 Completed University of 00:00:00 [facility] TDAP 2015-03-12 Completed University of 00:00:00 [facility] TDAP 2015-03-12 Completed University of 00:00:00 [facility] TDAP 2015-03-12 Completed University of 00:00:00 [facility] TDAP 2015-03-12 Completed University of 00:00:00 [facility] Influenza Virus 2015-01-13 Completed Universit y of Vaccine (3+ yrs) 00:00:00 [facility] Influenza Virus 2015-01-13 Completed Universit y of Vaccine (3+ yrs) 00:00:00 [facility] Influenza Virus 2015-01-13 Completed Universit y of Vaccine (3+ yrs) 00:00:00 [facility] Branch Influenza Virus 2015-01-13 Completed Universit y of Vaccine (3+ yrs) 00:00:00 [facility] Branch Influenza Virus 2015-01-13 Completed Universit y of Vaccine (3+ yrs) 00:00:00 [facility] Branch Influenza Virus 2015-01-13 Completed Universit y of Vaccine (3+ yrs) 00:00:00 [facility] Influenza Virus 2015-01-13 Completed Universit y of Vaccine (3+ yrs) 00:00:00 [facility] Branch Influenza Virus 2015-01-13 Completed Universit y of Vaccine (3+ yrs) 00:00:00 [facility] Branch Influenza Virus 2015-01-13 Completed Universit y of Vaccine (3+ yrs) 00:00:00 [facility] Influenza Virus 2015-01-13 Completed Universit y of Vaccine (3+ yrs) 00:00:00 [facility] Influenza Virus 2015-01-13 Completed Universit y of Vaccine (3+ yrs) 00:00:00 [facility] Influenza Virus 2015-01-13 Completed Universit y of Vaccine (3+ yrs) 00:00:00 [facility] Influenza Virus 2015-01-13 Completed Universit y of Vaccine (3+ yrs) 00:00:00 [facility] Influenza Virus 2015-01-13 Completed Universit y of Vaccine (3+ yrs) 00:00:00 [facility] Influenza Virus 2015-01-13 Completed Universit y of Vaccine (3+ yrs) 00:00:00 [facility] Influenza Virus 2015-01-13 Completed Universit y of Vaccine (3+ yrs) 00:00:00 [facility] Influenza Virus 2015-01-13 Completed Universit y of Vaccine (3+ yrs) 00:00:00 [facility] Branch Influenza Virus 2015-01-13 Completed Universit y of Vaccine (3+ yrs) 00:00:00 [facility] Influenza Virus 2015-01-13 Completed Universit y of Vaccine (3+ yrs) 00:00:00 [facility] Branch Influenza Virus 2015-01-13 Completed Universit y of Vaccine (3+ yrs) 00:00:00 [facility] 2015-01-13 Completed Universit y of Vaccine (3+ yrs) 00:00:00 [facility] Branch Influenza Virus 2015-01-13 Completed Universit y of Vaccine (3+ yrs) 00:00:00 [facility] Vital Signs Vital Name Observation Time Observation Value Comments Source Systolic blood 2021-02-25 23:39:00 150 mm[Hg] Univer sity of pressure [facility] Diastolic blood 2021-02-25 23:39:00 98 mm[Hg] Unive rsity of pressure [facility] Heart rate 2021-02-25 23:39:00 75 /min Universi ty of [facility] Body temperature 2021-02-25 23:39:00 37.44 Angella Univ ersity of [facility] Respiratory rate 2021-02-25 23:39:00 18 /min Univ ersity of [facility] Body height 2021-02-25 23:39:00 165.1 cm Universi ty of [facility] [place] Body weight 2021-02-25 23:39:00 83.915 kg Universi ty of [place] [facility] BMI 2021-02-25 23:39:00 30.79 kg/m2 Universi ty of [place] [facility] Oxygen saturation in 2021-02-25 23:39:00 100 /min [facility] Arterial blood by [facility] Pulse oximetry Branch Systolic blood 2021-02-25 23:22:00 139 mm[Hg] Univer sity of pressure [facility] Diastolic blood 2021-02-25 23:22:00 91 mm[Hg] Unive rsity of pressure [facility] Heart rate 2021-02-25 23:21:00 73 /min Universi ty of [facility] Body temperature 2021-02-25 23:21:00 37.17 Angella Univ ersity of [facility] Respiratory rate 2021-02-25 23:21:00 19 /min Univ ersity of [facility] Body height 2021-02-25 23:21:00 165.1 cm Universi ty of [facility] Body weight 2021-02-25 23:21:00 83.915 kg Universi ty of [facility] BMI 2021-02-25 23:21:00 30.79 kg/m2 Universi [facility] of [place] [facility] Oxygen saturation in 2021-02-25 23:21:00 99 /min University of Arterial blood by [place] [facility] Pulse oximetry [facility] Systolic blood 2020-05-14 00:01:00 146 mm[Hg] Univer sity of pressure [facility] Diastolic blood 2020-05-14 00:01:00 99 mm[Hg] Unive rsity of pressure [facility] Heart rate 2020-05-14 00:01:00 80 /min Universi ty of [facility] Body temperature 2020-05-14 00:01:00 36.44 Angella Univ ersity of [place] [facility] Respiratory rate 2020-05-14 00:01:00 16 /min Univ ersity of [place] [facility] Body height 2020-05-14 00:01:00 165.1 cm Universi ty of [facility] Body weight 2020-05-14 00:01:00 70.308 kg Universi ty of [place] [facility] BMI 2020-05-14 00:01:00 25.79 kg/m2 Universi ty of [facility] Oxygen saturation in 2020-05-14 00:01:00 100 /min University of Arterial blood by [place] [facility] [facility] Pulse oximetry [facility] Systolic blood 2020-05-14 00:01:00 146 mm[Hg] Univer sity of pressure [facility] Diastolic blood 2020-05-14 00:01:00 99 mm[Hg] Unive rsity of pressure [facility] Heart rate 2020-05-14 00:01:00 80 /min Universi ty of [place] [facility] Body temperature 2020-05-14 00:01:00 36.44 Angella Univ ersity of [place] [facility] Respiratory rate 2020-05-14 00:01:00 16 /min Univ ersity of [place] [facility] Body height 2020-05-14 00:01:00 165.1 cm Universi ty of [place] [facility] Body weight 2020-05-14 00:01:00 70.308 kg Universi ty of [place] [facility] BMI 2020-05-14 00:01:00 25.79 kg/m2 Universi ty of [place] [facility] Oxygen saturation in 2020-05-14 00:01:00 100 /min University of Arterial blood by [place] [facility] Pulse oximetry [facility] Systolic blood 2020-03-10 19:05:00 118 mm[Hg] Univer sity of pressure [facility] Diastolic blood 2020-03-10 19:05:00 78 mm[Hg] Unive rsity of pressure [place] [facility] Heart rate 2020-03-10 19:05:00 65 /min Universi ty of [facility] Body temperature 2020-03-10 19:05:00 36.89 Angella Univ ersity of [facility] Respiratory rate 2020-03-10 19:05:00 16 /min Univ ersity of [facility] Body height 2020-03-10 19:05:00 162.6 cm Universi ty of [facility] Body weight 2020-03-10 19:05:00 78.019 kg Universi ty of [place] [facility] BMI 2020-03-10 19:05:00 29.52 kg/m2 Universi ty of [place] [facility] Systolic blood 2020-03-10 19:05:00 118 mm[Hg] Univer sity of pressure [facility] Diastolic blood 2020-03-10 19:05:00 78 mm[Hg] Unive rsity of pressure [facility] Heart rate 2020-03-10 19:05:00 65 /min Universi ty of [place] [facility] Body temperature 2020-03-10 19:05:00 36.89 Angella Univ ersity of [place] [facility] Respiratory rate 2020-03-10 19:05:00 16 /min Univ ersity of [facility] Body height 2020-03-10 19:05:00 162.6 cm Universi ty of [facility] Body weight 2020-03-10 19:05:00 78.019 kg Universi ty of [place] [facility] BMI 2020-03-10 19:05:00 29.52 kg/m2 Universi ty of [place] [facility] Systolic blood 2020-02-13 13:58:00 122 mm[Hg] Univer sity of pressure [place] [facility] Diastolic blood 2020-02-13 13:58:00 73 mm[Hg] Unive rsity of pressure [place] [facility] Heart rate 2020-02-13 13:58:00 88 /min Universi ty of [facility] Body temperature 2020-02-13 13:58:00 36.28 Angella Univ ersity of [facility] Respiratory rate 2020-02-13 13:58:00 16 /min Univ ersity of [place] [facility] Body height 2020-02-13 13:58:00 162.6 cm Universi ty of [facility] Body weight 2020-02-13 13:58:00 86.592 kg Universi ty of [place] [facility] BMI 2020-02-13 13:58:00 32.77 kg/m2 Univers[facility] ty of [place] [facility] Systolic blood 2020-02-06 17:11:00 135 mm[Hg] Univer sity of pressure [facility] Diastolic blood 2020-02-06 17:11:00 73 mm[Hg] Unive rsity of pressure [facility] Heart rate 2020-02-06 17:11:00 89 /min Universi ty of [place] [facility] Body temperature 2020-02-06 17:11:00 36.17 Angella Univ ersity of [place] [facility] Respiratory rate 2020-02-06 17:11:00 16 /min Univ ersity of [place] [facility] Body height 2020-02-06 17:11:00 162.6 cm Universi ty of [place] [facility] Body weight 2020-02-06 17:11:00 85.548 kg Universi ty of [place] [facility] BMI 2020-02-06 17:11:00 32.37 kg/m2 [facility] ty of [place] [facility] Systolic blood 2020-01-30 14:00:00 104 mm[Hg] Univer sity of pressure [facility] Diastolic blood 2020-01-30 14:00:00 67 mm[Hg] Unive rsity of pressure [facility] Heart rate 2020-01-30 14:00:00 82 /min Universi ty of [place] [facility] Body temperature 2020-01-30 14:00:00 36.17 Angella Univ ersity of [place] [facility] Respiratory rate 2020-01-30 14:00:00 16 /min Univ ersity of [place] [facility] Body height 2020-01-30 14:00:00 162.6 cm Universi ty of [place] [facility] Body weight 2020-01-30 14:00:00 85.503 kg [facility]i ty of [place] [facility] BMI 2020-01-30 14:00:00 32.36 kg/m2 [facility] ty [facility] [place] [facility] Systolic blood 2020-01-17 13:51:00 109 mm[Hg] Univer sity of pressure [facility] Diastolic blood 2020-01-17 13:51:00 69 mm[Hg] Unive rsity of pressure [facility] Heart rate 2020-01-17 13:51:00 84 /min Universi ty of [facility] Body temperature 2020-01-17 13:51:00 36.78 Angella Univ ersity of [facility] Respiratory rate 2020-01-17 13:51:00 16 /min Univ ersity of [facility] Body height 2020-01-17 13:51:00 162.6 cm [facility]i ty [facility] Body weight 2020-01-17 13:51:00 83.054 kg [facility]i ty of [facility] BMI 2020-01-17 13:51:00 31.43 kg/m2 [facility] Systolic blood 2020-01-03 12:58:00 120 mm[Hg] Univer sity of pressure [facility] Diastolic blood 2020-01-03 12:58:00 75 mm[Hg] Unive rsity of pressure [facility] Heart rate 2020-01-03 12:58:00 83 /min Universi ty of [facility] Body temperature 2020-01-03 12:58:00 36.22 Angella Univ ersity of [facility] Respiratory rate 2020-01-03 12:58:00 16 /min Univ ersity of [facility] Body height 2020-01-03 12:58:00 162.6 cm [facility]i ty of [facility] Body weight 2020-01-03 12:58:00 82.781 kg [facility]i ty of [facility] BMI 2020-01-03 12:58:00 31.33 kg/m2 [facility] ty [facility] Systolic blood 2019-12-20 12:58:00 117 mm[Hg] Univer sity of pressure [facility] Diastolic blood 2019-12-20 12:58:00 74 mm[Hg] Unive rsity of pressure [facility] Heart rate 2019-12-20 12:58:00 84 /min Universi ty of [facility] Body temperature 2019-12-20 12:58:00 36.5 Angella Univ ersity of [facility] Respiratory rate 2019-12-20 12:58:00 16 /min Univ ersity of [facility] Body height 2019-12-20 12:58:00 162.6 cm [facility]i ty of [facility] Body weight 2019-12-20 12:58:00 82.583 kg Universi ty of [facility] BMI 2019-12-20 12:58:00 31.25 kg/m2 [facility] ty [facility] Systolic blood 2019-12-06 14:27:00 116 mm[Hg] Univer sity of pressure [facility] Diastolic blood 2019-12-06 14:27:00 66 mm[Hg] Unive rsity of pressure [facility] Heart rate 2019-12-06 14:27:00 75 /min Universi ty of [facility] Body temperature 2019-12-06 14:27:00 36.5 Angella Univ ersity of [facility] Respiratory rate 2019-12-06 14:27:00 16 /min Univ ersity of [facility] Body height 2019-12-06 14:27:00 162.6 cm [facility]i ty of [facility] [place] Body weight 2019-12-06 14:27:00 81.421 kg Universi ty of [facility] BMI 2019-12-06 14:27:00 30.81 kg/m2 [facility]i ty [facility] Systolic blood 2019-11-22 15:01:00 118 mm[Hg] Univer sity of pressure [facility] Diastolic blood 2019-11-22 15:01:00 75 mm[Hg] Unive rsity of pressure [facility] Heart rate 2019-11-22 15:01:00 79 /min Universi ty of [facility] Body temperature 2019-11-22 15:01:00 36.72 Angella Univ ersity of [facility] Respiratory rate 2019-11-22 15:01:00 16 /min Univ ersity of [facility] Body height 2019-11-22 15:01:00 162.6 cm [facility]i ty of [facility] [place] Body weight 2019-11-22 15:01:00 77.111 kg Universi ty of [facility] BMI 2019-11-22 15:01:00 29.18 kg/m2 Universi ty of [facility] Procedures Procedure Date / Time Performing Clinician Source Performed ASSIGNMENT OF BENEFITS 2021-05-07 17:36:18 [facility]REFUSAL FOR 2021-02-25 23:18:45 Doctor Unassigned, [facility] DIAGNOSIS AND TREATMENT [facility] URINALYSIS 2020-05-14 00:23:00 Neisha Mahoney [facility] NOTICE OF PRIVACY 2020-05-13 23:48:24 Doctor Unassigned, [facility] CONSENT/REFUSAL FOR 2020-05-13 23:48:03 Doctor Unassigned, [facility] DIAGNOSIS AND TREATMENT [facility] [place] POCT URINALYSIS 2020-03-10 00:00:00 Amanda العلي [facility] POCT URINALYSIS 2020-02-13 13:58:00 Amanda العلي [facility] POCT URINALYSIS 2020-02-06 17:12:00 Amanda العلي [facility] CBC WITH DIFF 2020-01-30 13:59:00 Amanda العلي [facility] GROUP B STREPTOCOCCUS BY 2020-01-30 13:59:00 Amanda العلي [facility] SARS-COV-2 IGG 2020-01-30 13:59:00 Amanda العلي [facility] LAB ONLY COVID 2020-01-30 13:59:00 Amanda العلي [facility] INTERPRETATION [facility] POCT URINALYSIS 2020-01-30 00:00:00 Amanda العلي [facility] POCT URINALYSIS 2020-01-17 00:00:00 Amanda العلي [facility] POCT URINALYSIS 2020-01-03 00:00:00 Amanda العلي [facility] POCT URINALYSIS 2019-12-20 12:59:00 Amanda العلي [facility] EXTERNAL PROVIDER RECORDS 2019-12-17 05:01:00 Doctor Gabby, [facility] [place] [facility] TDAP VACCINE, >11 YRS, IM 2019-12-06 14:33:55 Amanda العلي [facility] POCT URINALYSIS 2019-12-06 14:29:00 Amanda العلي [facility] STERILIZATION CONSENT 2019-11-30 05:01:00 Doctor Unassigned, [facility] FORM [facility] [place] FLU VACC ([id number]), 6+ 2019-11-22 15:02:27 Amanda العلي [facility] MONTHS, IM, QUAD Medical Branch ASSIGNMENT OF BENEFITS 2019-11-22 14:24:48 [facility], [facility] [place] [facility] POCT TEST 2019-11-22 00:00:00 [facility] POCT URINALYSIS W/O 2019-11-22 00:00:00 [facility] SPECIFIC GRAVITY [facility] Encounters Start End Encounter Admission Attending Care Care Encounter Source Date/Time Date/Time Type Type Clinicians Facility Department ID 2021-01-04 Emergency [facility] [id number] Univers 04:40:57 ity [facility] 2021-01-03 Emergency [facility] [id number] Univers 10:32:20 ity [facility] 2021-05-07 2021-05-07 Outpatient R [facility] [id number] -[id number] Univers 11:40:00 11:40:00 [id number] ity [facility] 2021-05-07 2021-05-07 Outpatient R [facility] [id number] Univers 11:40:00 11:40:00 HALINA ity [facility] 2021-05-07 2021-05-07 Orders Doctor TURNER 1.2.840.114 [id number] Univers 00:00:00 00:00:00 Only Unassigned, BELINDA 350.1.13.10 ity of [place] [facility] 4.2.7.2.686 Song as [phone] [facility] 009 Branch 2021-02-25 2021-02-25 Emergency X [facility] ERT [id number] Univers 17:40:00 18:13:00 SUDHEER ity [facility] 2021-02-25 2021-02-25 Emergency [facility] [id number] [id number] Univers 17:40:00 18:13:00 Sudheer SHAY 350.1.13.10 i ty [place] [phone] [facility] 084 Branch 2021-02-25 2021-02-25 Outpatient R [facility] [id number] -[id number] Univers 17:40:00 17:40:00 [id number] [facility] 2021-02-25 2021-02-25 Nurse Nurse, [facility] 1.2.840.114 [id number] Univers 17:00:00 17:25:39 Visit Tori Galeana [facility] 350.1.13.10 ity of [place] 4.2.7.2.686 Song as NORAH?BLEA [phone] [address] MEDICAL OFFICE BUILDING 2021-02-25 2021-02-25 Outpatient R ALAINA [facility] [id number] Univers 17:00:00 17:00:00 [facility] 2020-05-13 2020-05-13 Emergency [facility] [id number] Univers 18:03:00 21:00:00 Neisha Shay 350.1.13.10 ity of [place] 4.2.7.2.686 [facility] [phone] [address] 2020-05-13 2020-05-13 Emergency [facility] [id number] [id number] 18:03:00 21:00:00 Neisha Shay 350.1.13.10 [place] 4.2.7.2.686 [place] [id number] 084 2020-04-02 2020-04-02 Outpatient R [facility] [id number] -[id number] Univers 09:15:00 09:15:00 ANIKANDA [id number] ity o f [facility] 2020-04-02 2020-04-02 Outpatient R [facility] [id number] Univers 09:15:00 09:15:00 ROSHUNDA ity o f [facility] 2020-03-10 2020-03-10 [facility] 1.2.840.114 [id number] Univers 12:49:29 13:21:29 Rosangelonda R [place] 350.1.13.10 ity of Visit [facility] 4.2.7.2.686 Song as MATERNAL [phone] Med ical & CHILD [address] [place] [address] 2020-03-10 2020-03-10 [facility] 1.2.840.114 [id number] 12:49:29 13:21:29 Roshunda R [place] 350.1.13.10 Visit REGIONAL 4.2.7.2.686 MATERNAL [phone] & CHILD [address] [place] [address] 2020-03-10 2020-03-10 Outpatient R [facility] [id number] Univers 12:45:00 12:45:00 ROSHUNDA ity o [facility] 2020-03-09 2020-03-09 Outpatient R [facility] [id number] -[id number] Univers 17:20:00 17:20:00 [id number] [facility] 2020-03-09 2020-03-09 Outpatient R [facility] [id number] Univers 17:20:00 17:20:00 [facility] 2020-03-09 2020-03-09 Laboratory Lab, [facility] Fam Pob I [facility] 1.2. 840.114 [id number] Univers 16:59:53 17:19:53 Only [facility] 350.1.13.10 ity [facility] 4.2.7.2.686 Song as Professio [phone] [address] Office Building One 2020-02-20 2020-02-20 Outpatient R [facility] [id number] -20 Univers 09:30:00 09:30:00 ROSHUNDA [id number] ity o [facility] 2020-02-20 2020-02-20 Outpatient R [facility] [id number] Univers 09:30:00 09:30:00 ROSHUNDA ity o [facility] 2020-02-13 2020-02-13 Routine [facility] 1.2.840.114 [id number] Univers 07:50:59 08:05:59 Roshunda R [place] 350.1.13.10 ity of Visit REGIONAL 4.2.7.2.686 Song as MATERNAL [phone] Med ical & CHILD [address] [place] [address] [place] 2020-02-13 2020-02-13 Outpatient [place] العلي [facility] [id number] -[id number] Univers 08:00:00 08:00:00 ANIKANDA itwilian o sania [facility] 2020-02-13 2020-02-13 Outpatient [place] [facility] [id number] Univers 08:00:00 08:00:00 ANIKANDA martha o [place] [facility] 2020-02-06 2020-02-06 Routine [facility] 1.2.840.114 [id number] Univers 10:45:02 11:00:02 Roshunda R [place] 350.1.13.10 ity of Visit REGIONAL 4.2.7.2.686 Song as MATERNAL [phone] [facility] & [address] 2020-02-06 2020-02-06 Outpatient [place] العلي [facility] [id number] -20 Univers 11:00:00 11:00:00 ANIKANDA itwilian o sania [facility] 2020-02-06 2020-02-06 Outpatient [place] [facility] [id number] Univers 11:00:00 11:00:00 ANIKANDA martha o [place] [facility] 2020-02-06 2020-02-06 Telephone [facility] 1.2.177.231 [id number] Univers 00:00:00 00:00:00 Roshunda R [place] 350.1.13.10 ity of REGIONAL 4.2.7.2.686 Song as MATERNAL [phone] [facility] & [address] 2020-02-04 2020-02-04 Telephone [facility] [id number] Univers 00:00:00 00:00:00 Roshunda R [place] 350.1.13.10 ity of REGIONAL 4.2.7.2.686 Song as MATERNAL [phone] [facility] & CHILD [address] [place] [address] 2020-02-01 2020-02-01 Nurse JOHNNY Campos 1.2.840.114 [id number] Univers 00:00:00 00:00:00 Triage Tootie TREVINO 350.1.13.10 it y of HOSPITAL 4.2.7.2.686 Song as [phone] [address] 2020-01-30 2020-01-30 Routine [facility] 1.2.840.114 [id number] Univers 07:46:26 08:13:08 Roshunda R [place] 350.1.13.10 ity of Visit REGIONAL 4.2.7.2.686 Song as MATERNAL [phone] [facility] ical & CHILD [address] [place] [address] 2020-01-30 2020-01-30 Outpatient R SEVERIANO [facility] [id number] -[id number] Univers 07:45:00 07:45:00 ANIKANDDax [id number] ity o [facility] 2020-01-30 2020-01-30 Outpatient [place] العلي [facility] [id number] Univers 07:45:00 07:45:00 LANANDA martha o [facility] 2020-01-17 2020-01-17 Routine [facility] 1.2.840.114 [id number] Univers 07:46:03 08:01:03 Roshunda R [place] 350.1.13.10 ity of Visit REGIONAL 4.2.7.2.686 Song as MATERNAL [phone] [facility] & [address] 2020-01-17 2020-01-17 Outpatient [place] العلي [facility] [id number] -20 Univers 07:45:00 07:45:00 ANIKANDDax [id number] ity o f [facility] 2020-01-17 2020-01-17 Outpatient R SEVERIANO [facility] [id number] Univers 07:45:00 07:45:00 ROSNDA ity o [facility] 2020-01-09 2020-01-09 Refill Doctor [facility] 1.2.840.114 [id number] Univers 00:00:00 00:00:00 Unassigned, [place] 350.1.13.10 ity of [place] REGIONAL 4.2.7.2.686 Song as MATERNAL [id number] [facility] ical & CHILD [address] [place] [address] 2020-01-03 2020-01-03 Routine Severiano [facility] 1.2.840.114 [id number] Univers 07:45:38 08:00:38 Roshunda R [place] 350.1.13.10 ity of Visit REGIONAL 4.2.7.2.686 Song as MATERNAL [id number] Med ical & CHILD [address] [place] [address] 2020-01-03 2020-01-03 Outpatient R [facility] [id number] -[id number] Univers 08:00:00 08:00:00 ROSHUNDA [id number] ity o f [facility] 2020-01-03 2020-01-03 Outpatient R SEVERIANO [facility] [id number] Univers 08:00:00 08:00:00 ROSHUNDA ity o f [facility] 2019-12-20 2019-12-20 Routine [facility] 1.2.840.114 [id number] Univers 07:49:45 08:16:05 Roshunda R [place] 350.1.13.10 ity of Visit REGIONAL 4.2.7.2.686 Song as MATERNAL [id number] [facility] ical & CHILD [address] [place] [address] 2019-12-20 2019-12-20 Outpatient R [facility] [id number] -[id number] Univers 08:00:00 08:00:00 ROSHUNDA [id number] ity o sania [facility] 2019-12-20 2019-12-20 Outpatient R [facility] [id number] Univers 08:00:00 08:00:00 ROSHUNDA ity o [facility] 2019-12-17 2019-12-17 Abstract [facility] 1.2.840.114 [id number] Univers 00:00:00 00:00:00 Roshunda R [place] 350.1.13.10 ity of REGIONAL 4.2.7.2.686 Song as MATERNAL [id number] [facility] ical & CHILD [address] [place] [address] 2019-12-17 2019-12-17 Orders Doctor TURNER 1.2.840.114 [id number] Univers 00:00:00 00:00:00 Only Unassigned, BELINDA 350.1.13.10 ity of [place] [facility] 4.2.7.2.686 Song as [phone] [facility] 009 [place] 2019-12-06 2019-12-06 Routine [facility] 1.2.840.114 [id number] Univers 09:01:18 09:16:18 Roshunda R [place] 350.1.13.10 ity of Visit REGIONAL 4.2.7.2.686 Song as MATERNAL [id number] [facility] ical & CHILD [address] [place] [address] 2019-12-06 2019-12-06 Outpatient R [facility] [id number] -20 Univers 09:00:00 09:00:00 ROSHUNDA ity o f [facility] 2019-12-06 2019-12-06 Outpatient R [facility] [id number] Univers 09:00:00 09:00:00 ROSHUNDA ity o f [facility] 2019-12-05 2019-12-05 [facility] [id number] [id number] Univers 00:00:00 00:00:00 Roshunda R [place] 350.1.13.10 ity of REGIONAL 4.2.7.2.686 Song as MATERNAL [id number] [facility] CHILD [address] [place] [address] 2019-11-30 2019-11-30 Orders Doctor JOHNNY 1.2.840.114 [id number] Univers 00:00:00 00:00:00 Only Unassigned, BELINDA 350.1.13.10 ity of [place] [facility] 4.2.7.2.686 Song as [id number] [facility] 00[address] [place] 2019-11-22 2019-11-22 Film Editor 5, [facility] Us Room UNIVERSIT 1 .2.840.114 [id number] Univers 13:00:10 14:00:10 Visit Amanda العلي R Y HEALTH 350.1.13.1 0 ity of [place] [facility] 4.2.7.2.686 [place] [phone] [facility] 104 [place] 2019-11-22 2019-11-22 Initial [facility] 1.2.840.114 [id number] Univers 09:40:11 11:14:29 Roshunda R [place] 350.1.13.10 ity of Visit REGIONAL 4.2.7.2.686 Song as MATERNAL [phone] [facility] & CHILD [address] [place] [address] 2019-11-22 2019-11-22 Outpatient R SEVERIANO [facility] [id number] -[id number] Univers 10:30:00 10:30:00 AMANDA [id number] ity o f [facility] 2019-11-22 2019-11-22 Outpatient R [facility] [id number] Univers 09:45:00 09:45:00 FORESTA ity o f [facility] 2019-11-22 2019-11-22 Letter JUSTO [facility] 1.2.382.338 [id number] Univers 00:00:00 00:00:00 (Out) [facility] 350.1.13.10 ity of [place] [id number] [facility] 104 [place] 2019-11-22 2019-11-22 Abstract [facility] 1.2.840.114 [id number] Univers 00:00:00 00:00:00 Rosnda R [place] 350.1.13.10 ity of REGIONAL 4.2.7.2.686 Song as MATERNAL [phone] [facility] & CHILD [address] [place] [address] 2019-11-22 2019-11-22 Kathryn [facility] 1.2.840.114 [id number] Univers 00:00:00 00:00:00 Rosnda R [place] 350.1.13.10 ity of REGIONAL 4.2.7.2.686 Song as MATERNAL [id number] [facility] & CHILD [address] [place] [address] 2019-11-22 2019-11-22 Orders Doctor TURNER 1.2.840.114 [id number] Univers 00:00:00 00:00:00 Only Unassigned, BELINDA 350.1.13.10 ity of [place] [facility] 4.2.7.2.686 Song as [phone] [facility] 00[address] [place] 2019-11-13 2019-11-13 Outpatient R [facility] [id number] -20 Univers 13:15:00 13:15:00 AMANDA [id number] ity o f [facility] Results Test Description Test Time Test Comments Results Result Comments Source Urinalysis 2020-05-14 00:52:30 Test Item Value Reference Range Interpretation Comme nts APPEARANCE (test code = Clear Clear 0581153923) COLOR (test code = 7680530198) Yellow Yellow PH (test code = 1968203601) 4.8-8.0 SP GRAVITY (test code = 1.003-1.030 2281417919) GLU U QUAL (test code = Normal Normal 9051886126) BLOOD (test code = 6099345463) 1+ Negative A KETONES (test code = 4636045901) Negative Negative PROTEIN (test code = 2887-8) Negative Negative UROBILIN (test code = 4.0 mg/dL Normal A 7916349242) BILIRUBIN (test code = Negative Negative 3894927566) NITRITE (test code = 1335330206) Negative Negative LEUK SURYA (test code = Negative Negative 3709071439) RBC/HPF (test code = 8223692712) See_Comment H [Automated message] The system which ge nerated this result transmit efrain reference range: 0 - 3 HP F. The reference range was not used to interpret th is result as normal/abnormal . WBC/HPF (test code = 0306645037) See_Comment [Automated message] The system which ge nerated this result transmit efrain reference range: 0 - 5 HP F. The reference range was not used to interpret th is result as normal/abnormal . BACTERIA (test code = Few Negative A 2781165489) MUCOUS (test code = 7532428791) Slight Negative LPF A SQ EPITH (test code = HPF 9878696200) Lab Interpretation (test code = Abnormal 03384-0) [facility] [id number] 19:08:00 Test Item Value Reference Range Interpretation [...] 3267) Lab Interpretation (test code = Abnormal 22779-2) [facility] URINALYSIS W SPECIFIC [id number] 19:08:00 Test Item Value Reference Range Interpretation [...] 3267) Lab Interpretation (test code = Abnormal 45700-9) [facility] URINALYSIS W SPECIFIC [id number] 13:59:00 Test Item Value Reference Range Interpretation [...] 3267) Lab Interpretation (test code = Abnormal 85077-8) [facility] W SPECIFIC [id number] 17:13:00 Test Item Value Reference Range Interpretation [...] POCT U APPEAR (test code = 3267) [facility] COVID [id number] 14:22:00COVID DMT InterpretationInterpretation/Recommendation: Tests (PCR) for Active [...] presence of IgM antibodies. Therefore, another possible explanation is that it may be too early in the course of this patient's infection for the IgG response to occur if symptoms were within the past 2 to 3 weeks. It would be informative to test the patient at least 3 to 4 weeks post onset of symptoms for both IgG and IgM antibodies. IgM antibodies may have developed since the first IgG antibody test was performed. ?At this time, it is not known if production of antibodies indicates whether the patient is immune to future infections with the SARS-CoV-2 virus. C. Some patients who have been positive for SARS-CoV-2 with a nasopharyngeal swab specimen do not generate IgG antibodies to the virus. It is possible [...] IgG antibodies, this may be the explanation. ------ Interpretation Result Comments:These interpretation comments are based upon aggregate COVID-19 test results in [facility]. They apply to thefollowing tests offered at [facility] and assume the acceptable specimen type(s) were used: A. Tests for the Identification of SARS-CoV-2 RNA (Molecular NAAT Tests): ? ? ?- SARS-CoV-2 PCR assays including [place] Aptima, [place] Fusion, Hogue RealTime, and CloudByte Xpert Xpress. ? ? ?- SARS-CoV-2 Rapid ID NOW by the ID NOW assay. ? B. Tests for the Identification of SARS-CoV-2 Antibodies: ? ? ?- Chemilumine scent immunoassays including Access SARS-CoV-2 IgM (DXI 600), VITROS Xxum-MNYF-RwZ-2 IgG (Vitros 5600 and Vitros 3600), and Hogue SARS-CoV-2 IgG (MOVIE EXTRA ?I System). These interpretations are autopopulated into e[employer]eter based on computerized algorithms matching an interpretation code to the patient's set of test results, and a clinical pathologist evaluates the comments for accuracy. However, these comments do not consider testing a patient may have had outside of the [facility] system. If results for COVID-19 infection continue to be negative in the context of a suspected viral respiratory illness, it ispossible the patient may have an infection with another respiratory virus. Influenza testing and a re spiratory pathogen panel if clinically indicated may be beneficial in this setting. [facility] LABORATORY SERVICESCOVID ResultsCoV-2 IgG (no units) ? ? Date ? Value ? 01/30/2020? Negative ? 11/22/2019 ? Negative ? ? ? [facility]ORAT[facility] SERVICES [facility] B STREPTOCOCCUS BY [id number] 19:13:00 Test Item Value Reference Range Interpretation Comments Group B Streptococcus by PCR (test Negative Negative code = 62655-8) Lab Interpretation (test code = Normal 91424-0) [facility] Hospital[facility]ARS-COV-2 [id number] 08:06:00 Test Item Value Reference Range Interpretation Comments CoV-2 IgG (test code Negative Negative Negativ e result = 46668-5) does not rule o vt acute SARS-CoV- 2 infection. Clinical correlation as well as molecul ar diagnostic test are recommended to rule out acu te infection if clinically indicated. ESTRADA (test code = ESTRADA) This test has been approved by FDA for emergency use. Lab Interpretation Normal (test code = 46109-2) [facility] WITH [id number] 04:47:00 Test Item Value Reference Range Interpretation Comments WBC (test code = See_Comment [Automated 3797-2) message] The sy stem which generated this result transmitted reference range : 4.30 - 11.10 10*3/?L. The reference range was not used to interpret this result as normal/abnormal . RBC (test code = See_Comment L [Automated 652-8) message] The sy stem which generated this [...] RDW-SD (test code = 40.2 fL 39-49.9 61593-5) RDW-CV (test code = 12.5 % 12-15.5 788-0) PLT (test code = See_Comment [Automated 777-3) message] The sy stem which generated this result transmitted reference range : 166 - 358 10*3/ ?L. The reference r edmar was not used to interpret this result as normal/abnormal . MPV (test code = 9.9 fL 9.5-12.9 66516-5) NRBC/100 WBC (test See_Comment [Automat ed code = 1891729162) message] The system which generated this result transmitted reference range : 0.0 - 10.0 /100 WBCs. The refer ence range was not u sed to interpret th is result as normal/abnormal . NRBC x10^3 (test code <0.01 See_Comment [Auto mated = 3525274847) message] The s ystem which generated this result transmitted reference range : 10*3/?L. The reference range was not used to interpret this result as normal/abnormal . GRAN MAT (NEUT) % 69.5 % (test code = 770-8) IMM GRAN % (test code 0.80 % = 6004564368) LYMPH % (test code = 20.0 % 736-9) MONO % (test code = 7.2 % 5905-5) EOS % (test code = 2.0 % 713-8) BASO % (test code = 0.5 % 706-2) GRAN MAT x10^3(ANC) 5.54 10*3/uL 1.88-7.09 (test code = 8046195053) IMM GRAN x10^3 (test 0.06 10*3/uL 0-0.06 code = 6683931346) LYMPH x10^3 (test code 1.59 10*3/uL 1.32-3.29 = 731-0) MONO x10^3 (test code 0.57 10*3/uL 0.33-0.92 = 742-7) EOS x10^3 (test code = 0.16 10*3/uL 0.03-0.39 711-2) BASO x10^3 (test code 0.04 10*3/uL 0.01-0.07 = 704-7) Lab Interpretation Abnormal (test code = 00080-4) [facility] URINALYSIS W SPECIFIC [id number] 14:03:00 Test Item Value Reference Range Interpretation [...] POCT U APPEAR (test code = 3267) [facility] URINALYSIS W SPECIFIC [id number] 14:03:00 Test Item Value Reference Range Interpretation [...] POCT U APPEAR (test code = 3267) [facility] URINALYSIS W SPECIFIC [id number] 14:03:00 Test Item Value Reference Range Interpretation [...] POCT U APPEAR (test code = 3267) [facility] URINALYSIS W SPECIFIC [id number] 13:52:00 Test Item Value Reference Range Interpretation [...] POCT U APPEAR (test code = 3267) [facility] URINALYSIS W SPECIFIC [id number] 13:00:00 Test Item Value Reference Range Interpretation [...] POCT U APPEAR (test code = 3267) [facility] URINALYSIS W SPECIFIC [id number] 13:00:00 Test Item Value Reference Range Interpretation [...] POCT U APPEAR (test code = 3267) [facility] URINALYSIS W SPECIFIC [id number] 13:00:00 Test Item Value Reference Range Interpretation [...] POCT U APPEAR (test code = 3267) [facility] URINALYSIS W SPECIFIC [id number] 14:30:00 Test Item Value Reference Range Interpretation [...] POCT U APPEAR (test code = 3267) [facility] [id number] 15:04:00 Test Item Value Reference Range Interpretation Comments POCT PREG (test code = 1605) Positive On board controls acceptable with C Yes Line (test code = 3574) POCT PREG LOT # (test code = 3575) POCT PREG TEST DATE (test code = 3576) [facility] URINALYSIS W/O SPECIFIC [id number] 15:04:00 Test Item Value Reference Range Interpretation [...] code = 3257) neg Negative - Negative [facility] [id number] 15:04:00 Test Item Value Reference Range Interpretation Comments POCT PREG (test code = 1605) Positive On board controls acceptable with C Yes Line (test code = 3574) POCT PREG LOT # (test code = 3575) POCT PREG TEST DATE (test code = 357) [facility] URINALYSIS W/O SPECIFIC [id number] 15:04:00 Test Item Value Reference Range Interpretation [...] code = 3257) neg Negative - Negative [facility] [id number] 15:04:00 Test Item Value Reference Range Interpretation Comments POCT PREG (test code = 1605) Positive On board controls acceptable with C Yes Line (test code = 3574) POCT PREG LOT # (test code = 3575) POCT PREG TEST DATE (test code = 357) [facility] URINALYSIS W/O SPECIFIC [id number] 15:04:00 Test Item Value Reference Range Interpretation [...] code = 3257) neg Negative - [id number] 15:04:00 Test Item Value Reference Range Interpretation Comments POCT PREG (test code = 1605) Positive On board controls acceptable with C Yes Line (test code = 3574) POCT PREG LOT # (test code = 3575) POCT PREG TEST DATE (test code = 3576) [facility] [id number] 15:04:00 Test Item Value Reference Range Interpretation [...] code = 3257) neg Negative - Negative [facility]
--- NOTE | 2021-11-18 23:24 | ER ---
Nurse's Notes [facility] Name: Hema Coombs Age: 35 yrs Sex: Female : 1985 Arrival Date: 11/18/2021 Time: 21:29 Bed 6 Private MD: Diagnosis: Acute upper respiratory infection, unspecified Presentation: 11/18 21:40 Chief complaint: Patient states: Pt reports dry cough, body aches, chills, sore throat kb3 x5 days. Pt reports diarrhea x1 episode that began today. Unknown fever. Coronavirus screen: Vaccine status: Patient reports being unvaccinated. Client denies travel out of the [place] in the last 14 days. chills, congestion, cough unrelated to allergies, diarrhea, fatigue, headache, muscle pain, shaking with chills, sore throat, Client presents with at least one sign or symptom that may indicate coronavirus-19. Standard/surgical mask placed on the client. Ebola Screen: Patient negative for fever greater than or equal to 101.5 degrees Fahrenheit, and additional compatible Ebola Virus Disease symptoms Patient denies exposure to infectious person. Patient denies travel to an Ebola-affected area in the 21 days before illness onset. No symptoms or risks identified at this time. Initial Sepsis Screen: Does the patient meet any 2 criteria? No. Patient's initial sepsis screen is negative. Does the patient have a suspected source of infection? No. Patient's initial sepsis screen is negative. Risk Assessment: Do you want to hurt yourself or someone else? Patient reports no desire to harm self or others. Onset of symptoms was November 14, 2021. 21:40 Method Of Arrival: Ambulatory kb3 21:40 Acuity: АНДРЕЙ 4 kb3 Triage Assessment: 21:43 General: Appears in no apparent distress. uncomfortable, Behavior is calm, cooperative. kb3 Pain: Complains of pain in head, chest, abdomen, right arm, left arm, right leg and left leg Pain does not radiate. EENT: Throat is clear is pink. BUNG REMOVER: 21:43 LMP 11/11/2021 kb3 Historical: - Allergies: 21:43 No Known Allergies; kb3 - Home Meds: 21:43 None [Active]; kb3 - PMHx: 21:43 None; kb3 - PSHx: 21:43 None; kb3 - Immunization history:: Adult Immunizations up to date, Client reports having NOT received the Covid vaccine. Last tetanus immunization: unknown. - Social history:: Smoking status: Patient denies any tobacco usage or history of. Screenin:42 Abuse screen: Denies threats or abuse. Denies injuries from another. ha1 22:42 Nutritional screening: No deficits noted. Tuberculosis screening: No symptoms or risk ha1 factors identified. Fall Risk None identified. Assessment: 22:48 General: Appears in no apparent distress. Behavior is calm, cooperative. Neuro: Level ha1 of Consciousness is awake, alert, obeys commands, Oriented to person, place, time, situation. Respiratory: Airway is patent Respiratory effort is even, unlabored, Breath sounds are clear bilaterally. 23:38 Reassessment: Patient appears in no apparent distress at this time. Patient and/or ha1 family updated on plan of care and expected duration. Pain level reassessed. Patient is alert, oriented x 3, equal unlabored respirations, skin warm/dry/pink. Vital Signs: 21:40 BP 167 / 113; Pulse 81; Resp 20; Temp 98.2; Pulse Ox 100% ; Weight 88.45 kg; Height 5 kb3 ft. 4 in. (162.56 cm); Pain 8/10; 22:48 BP 150 / 101; Pulse 67; Resp 19; Pulse Ox 100% on R/A; ha1 22:50 BP 140 / 97; ha1 23:39 BP 144 / 99; Pulse 67; Resp 17 S; Pulse Ox 99% on R/A; ha1 21:40 Body Mass Index 33.47 (88.45 kg, 162.56 cm) kb3 ED Course: 21:29 Patient arrived in ED. jj6 21:42 Gertrude Dunaway FNP-C [facility] kb 21:42 Pacheco August MD is Attending Physician. kb 21:43 Triage completed. kb3 21:43 Arm band placed on right wrist. kb3 21:51 Strep Sent. kb3 21:51 COVID-19 SARS RT PCR (Document "Date of Onset" if Symptomatic) Sent. kb3 21:51 Flu Sent. kb3 22:42 Patient has correct armband on for positive identification. Bed in low position. Call ha1 light in reach. Side rails up X 1. 22:46 Yokasta Mcgregor, RN is Primary Nurse. ha1 23:40 No provider procedures requiring assistance completed. Patient did not have IV access ha1 during this emergency room visit. Administered Medications: No medications were administered Medication: 23:41 VIS not applicable for this client. ha1 Outcome: 23:23 Discharge ordered by . kb 23:38 Patient left the ED. ha1 23:40 Discharged to home ambulatory. ha1 23:40 Condition: stable 23:40 Discharge instructions given to patient, Instructed on discharge instructions, follow up and referral plans. Demonstrated understanding of instructions, follow-up care. Signatures: Gertrude Dunaway, NEW AUTOS DELIVERY DRIVER-C NEW AUTOS DELIVERY DRIVER-Ckb Pallavi Simpson [email or web address] Yokasta Mcgregor, RN RN 1 Lesvia Garber, RUTH RN kb3
--- NOTE | 2021-11-18 23:24 | EDPHYS ---
Physician Documentation [facility] Name: Hema Coombs Age: 35 yrs Sex: Female : 1985 Arrival Date: 11/18/2021 Time: 21:29 Bed 6 Private MD: ED Physician Pacheco August HPI: 11/19 00:52 This 35 yrs old Female presents to ER via Ambulatory with complaints of Cough, Sore kb Throat, Chest Tightness. 00:52 The patient or guardian reports cough, that is intermittent, described as mild, flu kb symptoms, myalgias. Onset: The symptoms/episode began/occurred 5 day(s) ago. Severity of symptoms: At their worst the symptoms were moderate, in the emergency department the symptoms are unchanged. Modifying factors: The symptoms are alleviated by nothing, the symptoms are aggravated by nothing. Associated signs and symptoms: Pertinent positives: diarrhea, rhinorrhea, sore throat. The patient has not experienced similar symptoms in the past. The patient has not recently seen a physician. Patient reports cough, body aches, chills, sore throat for 5 days. Reports diarrhea x1 today.. 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 Last tetanus immunization: unknown. - Social history:: Smoking status: Patient denies any tobacco usage or history of. ROS: 11/19 00:51 Cardiovascular: Negative for chest pain, palpitations, and edema. kb Constitutional: Positive for body aches, chills, fatigue, malaise. ENT: Positive for sinus congestion, sore throat. Respiratory: Positive for cough. Abdomen/GI: Positive for diarrhea. All other systems are negative. Exam: 00:50 Constitutional: This is a well developed, well nourished patient who is awake, alert, kb and in no acute distress. Head/Face: Normocephalic, atraumatic. ENT: Moist Mucous membranes Cardiovascular: Regular rate and rhythm with a normal S1 and S2. No gallops, murmurs, or rubs. No pulse deficits. Respiratory: Respirations even and unlabored. No increased work of breathing. Talking in full sentences Abdomen/GI: Soft, non-tender. No distention Skin: Warm, dry with normal turgor. Normal color. MS/ Extremity: Pulses equal, no cyanosis. Neurovascular intact. Full, normal range of motion. Neuro: Awake and alert, GCS 15, oriented to person, place, time, and situation. Moves all extremities. Normal gait. Psych: Awake, alert, with orientation to person, place and time. Behavior, mood, and affect are within normal limits. Vital Signs: 11/18 21:40 BP 167 / 113; Pulse 81; Resp 20; Temp 98.2; Pulse Ox 100% ; Weight 88.45 kg; Height 5 kb3 ft. 4 in. (162.56 cm); Pain 8/10; 22:48 BP 150 / 101; Pulse 67; Resp 19; Pulse Ox 100% on R/A; ha1 22:50 BP 140 / 97; ha1 23:39 BP 144 / 99; Pulse 67; Resp 17 S; Pulse Ox 99% on R/A; ha1 21:40 Body Mass Index 33.47 (88.45 kg, 162.56 cm) kb3 MDM: 21:42 Patient medically screened. kb 11/19 00:50 Data reviewed: vital signs, nurses notes. Data interpreted: Pulse oximetry: on room air kb is 99 %. Interpretation: normal. Counseling: I had a detailed discussion with the patient and/or guardian regarding: the historical points, exam findings, and any diagnostic results supporting the discharge/admit diagnosis, lab results, the need for outpatient follow up, a family practitioner, to return to the emergency department if symptoms worsen or persist or if there are any questions or concerns that arise at home. 11/18 21:46 Order name: Flu; Complete Time: 23:16 kb 11/18 21:46 Order name: COVID-19 SARS RT PCR (Document "Date of Onset" if Symptomatic); Complete kb Time: 23:11 11/18 21:46 Order name: Strep; Complete Time: 23:15 kb 11/18 23:17 Order name: Throat Culture EDMS Administered Medications: No medications were administered Disposition: 05:54 Co-signature as Attending Physician, Pacheco August MD I agree with the assessment and kdr plan of care. Disposition Summary: 11/18/21 23:23 Discharge Ordered Location: Home kb Condition: Stable kb Diagnosis - Acute upper respiratory infection, unspecified kb Followup: kb - With: Emergency Department - When: As needed - Reason: Worsening of condition Followup: kb - With: Private Physician - When: 2 - 3 days - Reason: Recheck today's complaints, Continuance of care, Re-evaluation by your physician Discharge Instructions: - Discharge Summary Sheet kb - Upper Respiratory Infection, Adult, [id number] kb - Viral Respiratory Infection, [id number] kb - Form - Return To Work bb - Form - Late to Work or School ha1 Forms: - Medication Reconciliation Form kb - Thank You Letter kb - Antibiotic Education kb - Prescription Opioid Use kb - Work release form bb Signatures: Dispatcher [employer] EDMS Gertrude Dunaway, CO FOUNDER AND CHAIRMAN-C CO FOUNDER AND CHAIRMAN-Pacheco Thompson MD MD kdr Bradberry, Kelly, RN RN kb3
[2021-11-20 00:48] VITALS: TEMP 98.2; O2SAT 100
[2021-11-20 01:24] VITALS: BP 140/97
== END 2021-11-18 23:38 | disposition home or self-care (01) ==
LOC: ER 21:27
DX: J06.9 Acute upper respiratory infection, unspecified (principal); Z20.822 Contact with and (suspected) exposure to COVID-19
CPT/HCPCS: 87070; 87081; 87804 ×2; 99283; U0003

== ENCOUNTER 2021-12-01 16:43 | Emergency (ER) | payer OTHER ==
--- OUTSIDE RECORDS SUMMARY | 2021-12-01 16:51 | XMS REPORT | Continuity of Care Document ---
:1985 Author Organization [facility] t Address [address] [place] [address] Dr. Panchal [address] [place] [id number] Care Team Providers Name Role Phone Pcp, Patient Does Not Have A Primary Care Physician +[phone] 00-0000 CLARKE VALERIO Attending Clinician Unavailable ELENA LEE Attending Clinician Unavailable Elena Lee MD Attending Clinician HALINA BARRERA III Attending Clinician Unavailable Doctor Unassigned, [place] Attending Clinician Unavailable SUDHEER RAMIREZ Attending Clinician Unavailable Sudheer Carson Attending Clinician Nurse, [facility] Attending Clinician Unavailable Tori Benedict Attending Clinician TORI GALEANA Attending Clinician Unavailable Neisha Mahoney NP Attending Clinician AMANDA العلي Attending Clinician Unavailable Amanda Ramos Attending Clinician EARNESTINE FARRELL Attending Clinician Unavailable Lab, [facility] Attending Clinician Unavailable Earnestine Cabello Attending Clinician Beth MIRANDA, Tootie Attending Clinician Unavailable 5, [facility] Us Room Attending Clinician Unavailable Irving Tomas MD Attending Clinician Vandana Little MD Attending Clinician Payers Payer Name Policy Type Policy Number Effective Date Expiration Date S elie SÁNCHEZS [id number] 2019 HEALTH 00:00:00 [facility] HEALTH [id number] 2021 [place] STAR 00:00:00 MICHELLE PETER [id number] 2019 00:00:00 Problems Condition Condition Condition Status Onset Resolution Last Treating Co mments Source Name Details Category Date Date Treatment Clinician Date Disease Active 2019-03 Univers (spontaneo (spontaneo 2-11 [place] vaginal [place] 00 [facility] Liveborn Liveborn Disease Active 2019-03 Unive rs by by 2-11 ity of vaginal vaginal 00:00: [place] delivery delivery 00 Medica l Branch Tubal Tubal Disease Active 2019-03 [facility] ligation ligation 2-11 [place] of evaluation [place] 00 Medical Branch 37 weeks 37 weeks Disease Active 2019-03 Unive rs gestation gestation 2-10 ity of of of 00:00: [place] 00 [facility] Labor and Labor and Disease Active 2019-03 [...] , [place] antepartum antepartum 00 Me dical Branch Abnormal Abnormal Disease Active 2019-03 [...] present y present BMI BMI Disease Active 2019- Univers 32.0-32.9, 32.0-32.9, 0-01 it y of adult adult 00:00: [place] [address] Medical Branch Maternal Maternal Disease Active Overview: Un eric varicella, varicella, 9-21 Formattin ity of non-immune non-immune 00:00: g of this [place] 00 note Medical might be Branch different from the original. Address in postpartu m. Overweight Overweight Disease Active 2020-0 U nivers (BMI (BMI 9-17 ity of 25.0-29.9) 25.0-29.9) [place] Flu Flu Disease Active Univers vaccine vaccine 9-17 ity of need need 00:00: [place] [address] Medical Branch H/O: H/O: Disease Active 2020-0 Univers depression depression 9-17 it y of 00:00: [place] [address] Medical Branch History of History of Disease Active 2020-0 U nivers anemia anemia 9-17 ity of 00:00: [place] [address] Medical Branch Multiparit Multiparit Disease Active 2020-0 U nivers y y 9-17 ity of 00:00: [place] [address] Medical Branch Screening Screening Disease Active Uni vers for viral for viral 9-17 ity of disease disease 00:00: [address] Insufficie Insufficie Disease Active 2020-0 U nivers nt nt 9-17 ity of 00:00: [place] care in care in 00 Medical third third Branch trimester trimester Supervisio Supervisio Disease Active 2020-0 U nivers n of high n of high 9-17 ity of risk risk 00:00: [place] 00 Medi aileen in third in third Branch trimester trimester Right-side Right-side Disease Active 2020-0 U nivers d low back d low back 9-17 it y of pain with pain with 00:00: [place] s right-side right-side 00 Me dical d d Branch sciatica, sciatica, unspecifie unspecifie d d chronicity chronicity Normal Normal Disease Active Univers delivery delivery 1-14 ity of 00:00: [place] [address] Medical Branch Allergies, Adverse Reactions, Alerts Allergy Allergy Status Severity Reaction(s) Onset Inactive Treating Comm ents Source Name Type Date Date Clinician NO KNOWN Drug Active [facility] ALLERGIE Class ity of S [facility] Social History Social Habit Start Date Stop Date Quantity Comments Source ASSERTION 2019-06-08 [facility] 00:00:00 [facility] Exposure to 2021-11-15 2021-11-25 Not sure [facility] SARS-CoV-2 00:00:00 18:50:00 [facility] (event) [place] Tobacco use and 2021-11-25 2021-11-25 Smokeless tobacco Un iversity of exposure 00:00:00 00:00:00 non-user [facility] Alcohol intake 2021-11-25 2021-11-25 Ex-drinker [facility] 00:00:00 00:00:00 (finding) [facility] Sex [birth year] [facility] y of 00:00:00 00:00:00 [facility] Smoking Status Start Date Stop Date Source Never smoked tobacco [facility] Unknown if ever smoked [facility] Medications Ordered Filled Start Stop Current Ordering Indication Dosage Frequency Signature Comments Components Source Medication Medication Date Date Medication? Clinician (SIG) Name Name albuterol Yes [id number] 2{puff} Inhale 2 Univers 90 9-21 Puffs ity of mcg/actuati 00:00: every 6 [place] as on inhaler 00 (six) Medical hours as Branch needed for Wheezing. guaiFENesin Yes [id number] 400mg Take 1 Univers 400 mg 9-21 tablet by ity of tablet 00:00: mouth [place] 00 every 4 Medical (four) Branch hours as needed for Cough. promethazin Yes [id number] 5mL Take 5 mL Univers e-dextromet 9-21 by mouth 4 it y of horphan 00:00: (four) [place] 6.25-15 00 times Medical mg/5 mL daily as Branch syrup needed for Cough. famotidine Yes [id number] 40mg Take 1 U nivers 40 mg 9-21 tablet by ity of tablet 00:00: mouth in [place] 00 the Medical morning. Branch albuterol Yes [id number] 2{puff} Inhale 2 Univers 90 9-21 Puffs ity of mcg/actuati 00:00: every 6 [place] as on inhaler 00 (six) Medical hours as Branch needed for Wheezing. guaiFENesin 2022-0 Yes [id number] 400mg Take 1 Univers 400 mg 9-21 tablet by ity of tablet 00:00: mouth [place] 00 every 4 Medical (four) Branch hours as needed for Cough. promethazin 2022-0 Yes [id number] 5mL Take 5 mL Univers e-dextromet 9-21 by mouth 4 it y of horphan 00:00: (four) [place] 6.25-15 00 times Medical mg/5 mL daily as Branch syrup needed for Cough. famotidine 2-0 Yes [id number] 40mg Take 1 U nivers 40 mg 9-21 tablet by ity of tablet 00:00: mouth in [place] 00 the Medical morning. Branch albuterol 2021-0 Yes [id number] 2{puff} Inhale 2 Univers 90 9-21 Puffs ity of mcg/actuati 00:00: every 6 [place] on inhaler 00 (six) Medical hours as Branch needed for Wheezing. guaiFENesin 2-0 Yes [id number] 400mg Take 1 Univers 400 mg 9-21 tablet by ity of tablet 00:00: mouth [place] 00 every 4 Medical (four) Branch hours as needed for Cough. promethazin 2-0 Yes [id number] 5mL Take 5 mL Univers e-dextromet 9-21 by mouth 4 it y of horphan 00:00: (four) [place] 6.25-15 00 times Medical mg/5 mL daily as Branch syrup needed for Cough. famotidine 2-0 Yes [id number] 40mg Take 1 U nivers 40 mg 9-21 tablet by ity of tablet 00:00: mouth in [place] 00 the Medical morning. Branch ondansetron 2-0 Yes [id number] 4mg Take 1 Univers 4 mg tablet 3-03 tablet by ity of 00:00: mouth [place] 00 every 8 Medical (eight) Branch hours as needed for Nausea and Vomiting (N/V). ondansetron 2022-0 Yes [id number] 4mg Take 1 Univers 4 mg tablet 3-03 tablet by ity of 00:00: mouth [place] 00 every 8 Medical (eight) Branch hours as needed for Nausea and Vomiting (N/V). ondansetron 2022-0 Yes [id number] 4mg Take 1 Univers 4 mg tablet 3-03 tablet by ity of 00:00: mouth [place] 00 every 8 Medical (eight) Branch hours as needed for Nausea and Vomiting (N/V). furosemide 2020-0 202- No [id number] 20mg Take 1 Univers 20 mg 3-09 03-15 tablet by ity of tablet 00:00: 04:59 mouth [place] 00 :00 every Medical morning Branch for 5 days. 2019-03 Yes [id number] 1{tbl} Take 1 Univers vitamin 2-12 tablet by ity of w/FA tablet 00:00: mouth [place] 00 daily. Medical Branch docusate 2019-03 Yes [id number] 240mg Take 1 U nivers calcium 240 2-12 capsule by it y of mg capsule 00:00: mouth [place] 00 daily as Medical needed for Branch Constipati on. ferrous 2019-03 Yes [id number] 325mg Take 1 Un eric sulfate 325 2-12 tablet by ity of mg (65 mg 00:00: mouth 2 [place] iron) 00 (two) Medical tablet times Branch daily. ibuprofen 2019-03 Yes [id number] 600mg Take 1 Univers 600 mg 2-12 tablet by ity of tablet 00:00: mouth [place] 00 every 6 Medical (six) Branch hours as needed (Pain). Take with food or milk. 2019-03 Yes [id number] 1{tbl} Take 1 Univers vitamin 2-12 tablet by ity of w/FA tablet 00:00: mouth [place] 00 daily. Medical Branch docusate 2019-03 Yes [id number] 240mg Take 1 U nivers calcium 240 2-12 capsule by it y of mg capsule 00:00: mouth [place] 00 daily as Medical needed for Branch Constipati on. ferrous 2019-03 Yes [id number] 325mg Take 1 Un eric sulfate 325 2-12 tablet by ity of mg (65 mg 00:00: mouth 2 [place] iron) 00 (two) Medical tablet times Branch daily. ibuprofen 2019-03 Yes [id number] 600mg Take 1 Univers 600 mg 2-12 tablet by ity of tablet 00:00: mouth [place] 00 every 6 Medical (six) Branch hours as needed (Pain). Take with food or milk. 2019-03 Yes [id number] 1{tbl} Take 1 Univers vitamin 2-12 tablet by ity of w/FA tablet 00:00: mouth [place] 00 daily. Medical Branch docusate 2019-03 Yes [id number] 240mg Take 1 U nivers calcium 240 2-12 capsule by it y of mg capsule 00:00: mouth [place] 00 daily as Medical needed for Branch Constipati on. ferrous 2019-03 Yes [id number] 325mg Take 1 Un eric sulfate 325 2-12 tablet by ity of mg (65 mg 00:00: mouth 2 [place] iron) 00 (two) Medical tablet times Branch daily. ibuprofen 2019-03 Yes [id number] 600mg Take 1 Univers 600 mg 2-12 tablet by ity of tablet 00:00: mouth [place] 00 every 6 Medical (six) Branch hours as needed (Pain). Take with food or milk. 2019-03 Yes [id number] 1{tbl} Take 1 Univers vitamin 2-12 tablet by ity of w/FA tablet 00:00: mouth [place] 00 daily. Medical Branch docusate 2019-03 Yes [id number] 240mg Take 1 U nivers calcium 240 2-12 capsule by it y of mg capsule 00:00: mouth [place] 00 daily as Medical needed for Branch Constipati on. ferrous 2019-03 Yes [id number] 325mg Take 1 Un eric sulfate 325 2-12 tablet by ity of mg (65 mg 00:00: mouth 2 [place] iron) 00 (two) Medical tablet times Branch daily. ibuprofen 2019-03 Yes [id number] 600mg Take 1 Univers 600 mg 2-12 tablet by ity of tablet 00:00: mouth [place] 00 every 6 Medical (six) Branch hours as needed (Pain). Take with food or milk. 2019-03 Yes [id number] 1{tbl} Take 1 Univers vitamin 2-12 tablet by ity of w/FA tablet 00:00: mouth [place] 00 daily. Medical Branch docusate 2019-03 Yes [id number] 240mg Take 1 U nivers calcium 240 2-12 capsule by it y of mg capsule 00:00: mouth [place] 00 daily as Medical needed for Branch Constipati on. ferrous 2019-03 Yes [id number] 325mg Take 1 Un eric sulfate 325 2-12 tablet by ity of mg (65 mg 00:00: mouth 2 [place] iron) 00 (two) Medical tablet times Branch daily. ibuprofen 2019-03 Yes [id number] 600mg Take 1 Univers 600 mg 2-12 tablet by ity of tablet 00:00: mouth [place] 00 every 6 Medical (six) Branch hours as needed (Pain). Take with food or milk. 2019-03 Yes [id number] 1{tbl} Take 1 Univers vitamin 2-12 tablet by ity of w/FA tablet 00:00: mouth [place] 00 daily. Medical Branch docusate 2019-03 Yes [id number] 240mg Take 1 U nivers calcium 240 2-12 capsule by it y of mg capsule 00:00: mouth [place] 00 daily as Medical needed for Branch Constipati on. ferrous 2019-03 Yes [id number] 325mg Take 1 Un eric sulfate 325 2-12 tablet by ity of mg (65 mg 00:00: mouth 2 [place] iron) 00 (two) Medical tablet times Branch daily. ibuprofen 2019-03 Yes [id number] 600mg Take 1 Univers 600 mg 2-12 tablet by ity of tablet 00:00: mouth [place] 00 every 6 Medical (six) Branch hours as needed (Pain). Take with food or milk. 2019-03 Yes [id number] 1{tbl} Take 1 Univers vitamin 2-12 tablet by ity of w/FA tablet 00:00: mouth [place] 00 daily. Medical Branch docusate 2019-03 Yes [id number] 240mg Take 1 U nivers calcium 240 2-12 capsule by it y of mg capsule 00:00: mouth once [place] 00 daily as Medical needed for Branch Constipati on. ferrous 2019-03 Yes [id number] 325mg Take 1 Un eric sulfate 325 2-12 tablet by ity of mg (65 mg 00:00: mouth 2 [place] iron) 00 (two) Medical tablet times Branch daily. ibuprofen 2019-03 Yes [id number] 600mg Take 1 Univers 600 mg 2-12 tablet by ity of tablet 00:00: mouth [place] 00 every 6 Medical (six) Branch hours as needed (Pain). Take with food or milk. 2019-03 Yes [id number] 1{tbl} Take 1 Univers vitamin 2-12 tablet by ity of w/FA tablet 00:00: mouth [place] 00 daily. Medical Branch docusate 2019-03 Yes [id number] 240mg Take 1 U nivers calcium 240 2-12 capsule by it y of mg capsule 00:00: mouth [place] 00 daily as Medical needed for Branch Constipati on. ferrous 2019-03 Yes [id number] 325mg Take 1 Un eric sulfate 325 2-12 tablet by ity of mg (65 mg 00:00: mouth 2 [place] iron) 00 (two) Medical tablet times Branch daily. ibuprofen 2019-03 Yes [id number] 600mg Take 1 Univers 600 mg 2-12 tablet by ity of tablet 00:00: mouth [place] 00 every 6 Medical (six) Branch hours as needed (Pain). Take with food or milk. 2019-03 Yes [id number] 1{tbl} Take 1 Univers vitamin 2-12 tablet by ity of w/FA tablet 00:00: mouth [place] 00 daily. Medical Branch docusate 2019-03 Yes [id number] 240mg Take 1 U nivers calcium 240 2-12 capsule by it y of mg capsule 00:00: mouth once [place] 00 daily as Medical needed for Branch Constipati on. ferrous 2019-03 Yes [id number] 325mg Take 1 Un eric sulfate 325 2-12 tablet by ity of mg (65 mg 00:00: mouth 2 [place] iron) 00 (two) Medical tablet times Branch daily. ibuprofen 2019-03 Yes [id number] 600mg Take 1 Univers 600 mg 2-12 tablet by ity of tablet 00:00: mouth [place] 00 every 6 Medical (six) Branch hours as needed (Pain). Take with food or milk. 2019-03 Yes [id number] 1{tbl} Take 1 Univers vitamin 2-12 tablet by ity of w/FA tablet 00:00: mouth [place] 00 daily. Medical Branch docusate 2019-03 Yes [id number] 240mg Take 1 U nivers calcium 240 2-12 capsule by it y of mg capsule 00:00: mouth once [place] 00 daily as Medical needed for Branch Constipati on. ferrous 2019-03 Yes [id number] 325mg Take 1 Un eric sulfate 325 2-12 tablet by ity of mg (65 mg 00:00: mouth 2 [place] iron) 00 (two) Medical tablet times Branch daily. ibuprofen 2019-03 Yes [id number] 600mg Take 1 Univers 600 mg 2-12 tablet by ity of tablet 00:00: mouth [place] 00 every 6 Medical (six) Branch hours as needed (Pain). Take with food or milk. ferrous 2019-03 Yes [id number] 325mg Take 1 Un eric sulfate 325 2-02 tablet by ity of mg (65 mg 00:00: mouth 2 [place] iron) 00 (two) Medical tablet times Branch daily. ferrous 2020 Yes [id number] 325mg Take 1 Un eric sulfate 325 2-02 tablet by ity of mg (65 mg 00:00: mouth 2 [place] iron) 00 (two) Medical tablet times Branch daily. ferrous 2020- Yes [id number] 325mg Take 1 Un eric sulfate 325 2-02 tablet by ity of mg (65 mg 00:00: mouth 2 [place] iron) 00 (two) Medical tablet times Branch daily. ferrous 2019-03 Yes [id number] 325mg Take 1 Un eric sulfate 325 2-02 tablet by ity of mg (65 mg 00:00: mouth 2 [place] iron) 00 (two) Medical tablet times Branch daily. 2019-03 Yes 1{packe Take 1 Univers vit 1-30 t} Packet by ity of 33-iron-fol 00:00: mouth [place] ic-dha 00 daily. Medical (SELECT-OB Branch + DHA) 29 mg iron-1 mg -250 mg combo pack ascorbic 2019-03 Yes [id number] 500mg Take 1 U nivers acid, 1-30 tablet by ity of vitamin C, 00:00: [place] 500 mg 00 (three) Medical tablet times Branch daily. 2019-03 Yes [id number] 1{packe Take 1 Univers vit 1-30 t} Packet by ity of 33-iron-fol 00:00: mouth [place] ic-dha 00 daily. Medical (SELECT-OB Branch + DHA) 29 mg iron-1 mg -250 mg combo pack ascorbic 2019-03 Yes [id number] 500mg Take 1 U nivers acid, 1-30 tablet by ity of vitamin C, 00:00: mouth [place] 500 mg 00 (three) Medical tablet times Branch daily. 2019-03 Yes [id number] 1{packe Take 1 Univers vit 1-30 t} Packet by ity of 33-iron-fol 00:00: mouth [place] ic-dha 00 daily. Medical (SELECT-OB Branch + DHA) 29 mg iron-1 mg -250 mg combo pack ascorbic 2019-03 Yes [id number] 500mg Take 1 U nivers acid, 1-30 tablet by ity of vitamin C, 00:00: mouth [place] 500 mg 00 (three) Medical tablet times Branch daily. 2020 Yes 1{packe Take 1 Univers vit 1-30 t} Packet by ity of 33-iron-fol 00:00: mouth [place] ic-dha 00 daily. Medical (SELECT-OB Branch + DHA) 29 mg iron-1 mg -250 mg combo pack ascorbic 2019-03 Yes [id number] 500mg Take 1 U nivers acid, 1-30 tablet by ity of vitamin C, 00:00: mouth 3 [place] 500 mg 00 (three) Medical tablet times Branch daily. 2019-03 Yes [id number] 1{packe Take 1 Univers vit 1-30 t} Packet by ity of 33-iron-fol 00:00: mouth [place] ic-dha 00 daily. Medical (SELECT-OB Branch + DHA) 29 mg iron-1 mg -250 mg combo pack ascorbic 2019-03 Yes [id number] 500mg Take 1 U nivers acid, 1-30 tablet by ity of vitamin C, 00:00: mouth 3 [place] 500 mg 00 (three) Medical tablet times Branch daily. 2019-03 Yes 1{packe Take 1 Univers vit 1-30 t} Packet by ity of 33-iron-fol 00:00: mouth [place] ic-dha 00 daily. Medical (SELECT-OB Branch + DHA) 29 mg iron-1 mg -250 mg combo pack ascorbic 2019-03 Yes [id number] 500mg Take 1 U nivers acid, 1-30 tablet by ity of vitamin C, 00:00: mouth 3 [place] 500 mg 00 (three) Medical tablet times Branch daily. 2019-03 Yes 1{packe Take 1 Univers vit 1-30 t} Packet by ity of 33-iron-fol 00:00: mouth [place] ic-dha 00 daily. Medical (SELECT-OB Branch + DHA) 29 mg iron-1 mg -250 mg combo pack ascorbic 2019-03 Yes [id number] 500mg Take 1 U nivers acid, 1-30 tablet by ity of vitamin C, 00:00: mouth 3 [place] 500 mg 00 (three) Medical tablet times Branch daily. 2019-03 Yes [id number] 1{packe Take 1 Univers vit 1-30 t} Packet by ity of 33-iron-fol 00:00: mouth [place] ic-dha 00 daily. Medical (SELECT-OB Branch + DHA) 29 mg iron-1 mg -250 mg combo pack ascorbic 2019- Yes [id number] 500mg Take 1 U nivers acid, 1-30 tablet by ity of vitamin C, 00:00: mouth 3 [place] 500 mg 00 (three) Medical tablet times Branch daily. 2019-03 Yes [id number] 1{packe Take 1 Univers vit 1-12 t} Packet by ity of 33-iron-fol 00:00: mouth [place] ic-dha daily. Medical (SELECT-OB Branch + DHA) 29 mg iron-1 mg -250 mg combo pack 2019-03 Yes [id number] 1{packe Take 1 Univers vit 1-12 t} Packet by ity of 33-iron-fol 00:00: mouth [place] ic-dha daily. Medical (SELECT-OB Branch + DHA) 29 mg iron-1 mg -250 mg combo pack 2019-03 Yes [id number] 1{packe Take 1 Univers vit 1-12 t} Packet by ity of 33-iron-fol 00:00: mouth [place] ic-dha daily. Medical (SELECT-OB Branch + DHA) 29 mg iron-1 mg -250 mg combo pack 2019-03 Yes [id number] 1{packe Take 1 Univers vit 1-12 t} Packet by ity of 33-iron-fol 00:00: mouth [place] ic-dha daily. Medical (SELECT-OB Branch + DHA) 29 mg iron-1 mg -250 mg combo pack 2019-03 Yes [id number] 1{packe Take 1 Univers vit 1-12 t} Packet by ity of 33-iron-fol 00:00: mouth [place] ic-dha daily. Medical (SELECT-OB Branch + DHA) 29 mg iron-1 mg -250 mg combo pack 2019-03 Yes [id number] 1{packe Take 1 Univers vit 1-12 t} Packet by ity of 33-iron-fol 00:00: mouth [place] ic-dha 00 daily. Medical (SELECT-OB Branch + DHA) 29 mg iron-1 mg -250 mg combo pack 2019-03 Yes [id number] 1{packe Take 1 Univers vit 1-12 t} Packet by ity of 33-iron-fol 00:00: mouth [place] ic-dha 00 daily. Medical (SELECT-OB Branch + DHA) 29 mg iron-1 mg -250 mg combo pack 2020- Yes [id number] 1{packe Take 1 Univers vit 1-12 t} Packet by ity of 33-iron-fol 00:00: mouth [place] ic-dha 00 daily. [facility] 29 mg iron-1 mg -250 mg combo pack 2020- Yes [id number] 1{packe Take 1 Univers vit 1-12 t} Packet by ity of 33-iron-fol 00:00: mouth [place] ic-dha 00 daily. [facility] 29 mg iron-1 mg -250 mg combo pack 2020 Yes [id number] 1{packe Take 1 Univers vit 1-12 t} Packet by ity of 33-iron-fol 00:00: mouth [place] ic-dha 00 daily. [facility] 29 mg iron-1 mg -250 mg combo pack 2019-03 Yes [id number] 1{packe Take 1 Univers vit 1-12 t} Packet by ity of 33-iron-fol 00:00: mouth [place] ic-dha 00 daily. [facility] 29 mg iron-1 mg -250 mg combo pack 2019-03 Yes [id number] 1{packe Take 1 Univers vit 1-12 t} Packet by ity of 33-iron-fol 00:00: mouth [place] ic-dha 00 daily. [facility] 29 mg iron-1 mg -250 mg combo pack 2020 Yes [id number] 1{packe Take 1 Univers vit 1-12 t} Packet by ity of 33-iron-fol 00:00: mouth [place] ic-dha 00 daily. [facility] 29 mg iron-1 mg -250 mg combo pack SERTraline 2020-0 Yes [id number] 25mg Take 25 mg Univers 25 mg 9-17 by mouth ity of tablet 15:41: daily. [address] SERTraline 2020-0 Yes [id number] 25mg Take 25 mg Univers 25 mg 9-17 by mouth ity of tablet 15:41: daily. [address] SERTraline 2020-0 Yes [id number] 25mg Take 25 mg Univers 25 mg 9-17 by mouth ity of tablet 15:41: daily. [address] SERTraline 2020-0 Yes [id number] 25mg Take 25 mg Univers 25 mg 9-17 by mouth ity of tablet 15:41: daily. [address] SERTraline 2020-0 Yes [id number] 25mg Take 25 mg Univers 25 mg 9-17 by mouth ity of tablet 15:41: daily. [address] SERTraline 2020-0 Yes [id number] 25mg Take 25 mg Univers 25 mg 9-17 by mouth ity of tablet 15:41: daily. [address] SERTraline 2020-0 Yes [id number] 25mg Take 25 mg Univers 25 mg 9-17 by mouth ity of tablet 15:41: daily. [address] SERTraline 2019-0 Yes [id number] 25mg Take 25 mg Univers 25 mg 9-17 by mouth ity of tablet 15:41: daily. [address] SERTraline 2019-0 Yes [id number] 25mg Take 25 mg Univers 25 mg 9-17 by mouth ity of tablet 15:41: daily. [address] SERTraline 2019-0 Yes [id number] 25mg Take 25 mg Univers 25 mg 9-17 by mouth ity of tablet 15:41: daily. [address] SERTraline 2020-0 Yes [id number] 25mg Take 25 mg Univers 25 mg 9-17 by mouth ity of tablet 15:41: daily. [address] SERTraline 2019-0 Yes [id number] 25mg Take 25 mg Univers 25 mg 9-17 by mouth ity of tablet 15:41: daily. [address] SERTraline 2020-0 Yes [id number] 25mg Take 25 mg Univers 25 mg 9-17 by mouth ity of tablet 15:41: daily. [address] SERTraline 2020-0 Yes [id number] 25mg Take 25 mg Univers 25 mg 9-17 by mouth ity of tablet 15:41: daily. [address] SERTraline 2020-0 Yes [id number] 25mg Take 25 mg Univers 25 mg 9-17 by mouth ity of tablet 15:41: daily. [address] SERTraline 2020-0 Yes [id number] 25mg Take 25 mg Univers 25 mg 9-17 by mouth ity of tablet 15:41: daily. [address] SERTraline 2020-0 Yes [id number] 25mg Take 25 mg Univers 25 mg 9-17 by mouth ity of tablet 15:41: daily. [address] SERTraline 2020-0 Yes [id number] 25mg Take 25 mg Univers 25 mg 9-17 by mouth ity of tablet 15:41: daily. [address] SERTraline 2020-0 Yes [id number] 25mg Take 25 mg Univers 25 mg 9-17 by mouth ity of tablet 15:41: daily. [address] SERTraline 2019-0 Yes [id number] 25mg Take 25 mg Univers 25 mg 9-17 by mouth ity of tablet 15:41: daily. [address] SERTraline 2019-0 Yes [id number] 25mg Take 25 mg Univers 25 mg 9-17 by mouth ity of tablet 15:41: daily. [address] SERTraline 2019-0 Yes [id number] 25mg Take 25 mg Univers 25 mg 9-17 by mouth ity of tablet 15:41: daily. [address] SERTraline 2019-0 Yes [id number] 25mg Take 25 mg Univers 25 mg 9-17 by mouth ity of tablet 15:41: daily. [address] SERTraline 2019-0 Yes [id number] 25mg Take 25 mg Univers 25 mg 9-17 by mouth ity of tablet 15:41: daily. [address] SERTraline 2019-0 Yes [id number] 25mg Take 25 mg Univers 25 mg 9-17 by mouth ity of tablet 15:41: daily. [address] SERTraline 2020-0 Yes [id number] 25mg Take 25 mg Univers 25 mg 9-17 by mouth ity of tablet 15:41: daily. [address] SERTraline 2020-0 Yes [id number] 25mg Take 25 mg Univers 25 mg 9-17 by mouth ity of tablet 15:41: daily. [address] SERTraline 2020-0 Yes [id number] 25mg Take 25 mg Univers 25 mg 9-17 by mouth ity of tablet 15:41: daily. [address] SERTraline 2019-0 Yes [id number] 25mg Take 25 mg Univers 25 mg 9-17 by mouth ity of tablet 15:41: daily. [address] SERTraline 2020-0 Yes [id number] 25mg Take 25 mg Univers 25 mg 9-17 by mouth ity of tablet 15:41: daily. [address] SERTraline 2020-0 Yes [id number] 25mg Take 25 mg Univers 25 mg 9-17 by mouth ity of tablet 15:41: daily. [address] 2020-0 Yes [id number] 1{packe Take 1 Univers vit 9-17 t} Packet by ity of 33-iron-fol 00:00: mouth [place] [facility]dha 00 [facility]. [facility] 29 mg iron-1 mg -250 mg combo pack 2020-0 Yes [id number] 1{packe Take 1 [facility] vit 9-17 t} Packet by ity of 33-iron-fol 00:00: mouth [place] ic-dha 00 daily. [facility] 29 mg iron-1 mg -250 mg combo pack 2020-0 Yes [id number] 1{packe Take 1 Univers vit 9-17 t} Packet by ity of 33-iron-fol 00:00: mouth [place] ic-dha 00 daily. [facility] 29 mg iron-1 mg -250 mg combo pack 2020-0 Yes [id number] 1{packe Take 1 Univers vit 9-17 t} Packet by ity of 33-iron-fol 00:00: mouth [place] ic-dha 00 daily. [facility] 29 mg iron-1 mg -250 mg combo pack 2020-0 Yes [id number] 1{packe Take 1 [facility] vit 9-17 t} Packet by ity of 33-iron-fol 00:00: mouth [place] ic-dha 00 daily. [facility] 29 mg iron-1 mg -250 mg combo pack 2020-0 Yes [id number] 1{packe Take 1 Univers vit 9-17 t} Packet by ity of 33-iron-fol 00:00: mouth [place] ic-dha 00 daily. [facility] 29 mg iron-1 mg -250 mg combo pack 2020-0 Yes [id number] 1{packe Take 1 Univers vit 9-17 t} Packet by ity of 33-iron-fol 00:00: mouth [place] ic-dha 00 daily. [facility] 29 mg iron-1 mg -250 mg combo pack 2020-0 Yes [id number] 1{packe Take 1 [facility] vit 9-17 t} Packet by ity of 33-iron-fol 00:00: mouth [place] ic-dha 00 daily. [facility] ([facility] + [facility]) 29 mg iron-1 mg -250 mg combo pack 2020-0 Yes [id number] 1{packe Take 1 [facility] vit 9-17 t} Packet by ity of 33-iron-fol 00:00: mouth [place] ic-dha 00 daily. [facility] ([facility] + [facility]) 29 mg iron-1 mg -250 mg combo pack 2020-0 Yes [id number] 1{packe Take 1 [facility] vit 9-17 t} Packet by ity of 33-iron-fol 00:00: mouth [place] ic-dha 00 daily. [facility] ([facility] + [facility]) 29 mg iron-1 mg -250 mg combo pack 2020-0 Yes [id number] 1{packe Take 1 [facility] vit 9-17 t} Packet by ity of 33-iron-fol 00:00: mouth [place] ic-dha 00 daily. [facility] ([facility] + [facility]) 29 mg iron-1 mg -250 mg combo pack 2020-0 Yes [id number] 1{packe Take 1 [facility] vit 9-17 t} Packet by ity of 33-iron-fol 00:00: mouth [place] ic-dha 00 daily. [facility] ([facility] + [facility]) 29 mg iron-1 mg -250 mg combo pack 2020-0 Yes [id number] 1{packe Take 1 [facility] vit 9-17 t} Packet by ity of 33-iron-fol 00:00: mouth [place] ic-dha 00 daily. Medical ([facility] + D[facility]) 29 mg iron-1 mg -250 mg combo pack 2020-0 Yes [id number] 1{packe Take 1 [facility] vit 9-17 t} Packet by ity of 33-iron-fol 00:00: mouth [place] ic-dha 00 daily. Medical ([facility] + D[facility]) 29 mg iron-1 mg -250 mg combo pack 2020-0 Yes [id number] 1{packe Take 1 [facility] vit 9-17 t} Packet by ity of 33-iron-fol 00:00: mouth [place] ic-dha 00 daily. Medical ([facility] + D[facility]) 29 mg iron-1 mg -250 mg combo pack Yes [id number] 1{packe Take 1 [facility] vit 9-17 t} Packet by ity of 33-iron-fol 00:00: mouth [place] ic-dha 00 daily. Medical ([facility] + D[facility]) 29 mg iron-1 mg -250 mg combo pack Yes [id number] 1{packe Take 1 [facility] vit 9-17 t} Packet by ity of 33-iron-fol 00:00: mouth [place] ic-dha 00 daily. Medical ([facility] + D[facility]) 29 mg iron-1 mg -250 mg combo pack Yes [id number] 1{packe Take 1 [facility] vit 9-17 t} Packet by ity of 33-iron-fol 00:00: mouth [place] ic-dha 00 daily. Medical ([facility] + D[facility]) 29 mg iron-1 mg -250 mg combo pack 2020- No [id number] 1{packe Take 1 Univers vit 9-17 11-12 [...] 2019- No Take one Univ ers VIT-IRON 15 11-21 tablet by ity o f FUMARATE-FA 00:00: [place]1 [place] 00 :00 daily Medical ORAL TAB Branch DOCUSATE 2019- No Take one Univ ers CALCIUM 240 15 - capsule by i ty of MG ORAL [...] No Take one Univ ers CALCIUM 240 03-21 capsule by i ty of MG ORAL [...] Name TDAP 2019-12-06 Completed University of 00:00:00 [facility] TDAP 2019-12-06 Completed University of 00:00:00 [facility] TDAP 2019-12-06 Completed University of 00:00:00 [facility] TDAP 2019-12-06 Completed University of 00:00:00 [facility] TDAP 2019-12-06 Completed University of 00:00:00 [facility] TDAP 2019-12-06 Completed University of 00:00:00 [facility] TDAP 2019-12-06 Completed University of 00:00:00 [facility] TDAP 2019-12-06 Completed University of 00:00:00 [facility] TDAP 2019-12-06 Completed University of 00:00:00 [facility] TDAP 2019-12-06 Completed University of 00:00:00 [facility] TDAP 2019-12-06 Completed University of 00:00:00 [facility] TDAP 2019-12-06 Completed University of 00:00:00 [facility] TDAP 2019-12-06 Completed University of 00:00:00 [facility] TDAP 2019-12-06 Completed University of 00:00:00 [facility] TDAP 2019-12-06 Completed University of 00:00:00 [facility] TDAP 2019-12-06 Completed University of 00:00:00 [facility] TDAP 2019-12-06 Completed University of 00:00:00 [facility] TDAP 2019-12-06 Completed University of 00:00:00 [facility] TDAP 2019-12-06 Completed University of 00:00:00 [facility] TDAP 2019-12-06 Completed University of 00:00:00 [facility] TDAP 2019-12-06 Completed University of 00:00:00 [facility] TDAP 2019-12-06 Completed University of 00:00:00 [facility] TDAP 2019-12-06 Completed University of 00:00:00 [facility] TDAP 2019-12-06 Completed University of 00:00:00 [facility] TDAP 2019-12-06 Completed University of 00:00:00 [facility] TDAP 2019-12-06 Completed University of 00:00:00 [facility] TDAP 2019-12-06 Completed University of 00:00:00 [facility] TDAP 2019-12-06 Completed University of 00:00:00 [facility] TDAP 2019-12-06 Completed University of 00:00:00 [facility] TDAP 2019-12-06 Completed University of 00:00:00 [facility] Influenza Virus 2019-11-22 Completed Universit y of Vaccine Quad .5 mL 00:00:00 [place] [facility] 6+ MO Branch Influenza Virus [...] y of Vaccine Quad .5 mL 00:00:00 [place] [facility] 6+ MO [facility] Influenza Virus 2019-11-22 [...] Medical IM 6+ MO Branch Influenza Virus 2016-11-12 Completed Universit y of Vaccine (3+ yrs) 00:00:00 [facility] Influenza Virus 2016-11-12 Completed Universit y of Vaccine (3+ yrs) 00:00:00 [facility] Influenza Virus 2016-11-12 Completed Universit y of Vaccine (3+ yrs) 00:00:00 [facility] Influenza Virus 2016-11-12 Completed Universit y of Vaccine (3+ yrs) 00:00:00 [facility] Influenza Virus 2016-11-12 Completed Universit y of Vaccine (3+ yrs) 00:00:00 [facility] Influenza Virus 2016-11-12 Completed Universit y of Vaccine (3+ yrs) 00:00:00 [facility] Influenza Virus 2016-11-12 Completed Universit y of Vaccine (3+ yrs) 00:00:00 [facility] Influenza Virus 2016-11-12 Completed Universit y of Vaccine (3+ yrs) 00:00:00 [facility] Influenza Virus 2016-11-12 Completed Universit y of Vaccine (3+ yrs) 00:00:00 [facility] Influenza Virus 2016-11-12 Completed Universit y of Vaccine (3+ yrs) 00:00:00 [facility] Influenza Virus 2016-11-12 Completed Universit y of Vaccine (3+ yrs) 00:00:00 [facility] Influenza Virus 2016-11-12 Completed Universit y of Vaccine (3+ yrs) 00:00:00 [facility] Influenza Virus 2016-11-12 Completed Universit y of Vaccine (3+ yrs) 00:00:00 [facility] Influenza Virus 2016-11-12 Completed Universit y of Vaccine (3+ yrs) 00:00:00 [facility] Influenza Virus 2016-11-12 Completed Universit y of Vaccine (3+ yrs) 00:00:00 [facility] Influenza Virus 2016-11-12 Completed Universit y of Vaccine (3+ yrs) 00:00:00 [facility] Influenza Virus 2016-11-12 Completed Universit y of Vaccine (3+ yrs) 00:00:00 [facility] Influenza Virus 2016-11-12 Completed Universit y of Vaccine (3+ yrs) 00:00:00 [facility] Influenza Virus 2016-11-12 Completed Universit y of Vaccine (3+ yrs) 00:00:00 [facility] Influenza Virus 2016-11-12 Completed Universit y of Vaccine (3+ yrs) 00:00:00 [facility] Influenza Virus 2016-11-12 Completed Universit y of Vaccine (3+ yrs) 00:00:00 [facility] Influenza Virus 2016-11-12 Completed Universit y of Vaccine (3+ yrs) 00:00:00 [facility] Influenza Virus 2016-11-12 Completed Universit y of Vaccine (3+ yrs) 00:00:00 [facility] Influenza Virus 2016-11-12 Completed Universit y of Vaccine (3+ yrs) 00:00:00 [facility] Influenza Virus 2016-11-12 Completed Universit y of Vaccine (3+ yrs) 00:00:00 [facility] TDAP 2015-03-12 Completed University of 00:00:00 [facility] TDAP 2015-03-12 Completed University of 00:00:00 [facility] TDAP 2015-03-12 Completed University of 00:00:00 [facility] TDAP 2015-03-12 Completed University of 00:00:00 [facility] TDAP 2015-03-12 Completed University of 00:00:00 [facility] TDAP 2015-03-12 Completed University of 00:00:00 [facility] TDAP 2015-03-12 Completed University of 00:00:00 [facility] TDAP 2015-03-12 Completed University of 00:00:00 [facility] TDAP 2015-03-12 Completed University of 00:00:00 [facility] TDAP 2015-03-12 Completed University of 00:00:00 [facility] TDAP 2015-03-12 Completed University of 00:00:00 [facility] TDAP 2015-03-12 Completed University of 00:00:00 [facility] TDAP 2015-03-12 Completed University of 00:00:00 [facility] TDAP 2015-03-12 Completed University of 00:00:00 [facility] TDAP 2015-03-12 Completed University of 00:00:00 [facility] TDAP 2015-03-12 Completed University of 00:00:00 [facility] TDAP 2015-03-12 Completed University of 00:00:00 [facility] TDAP 2015-03-12 Completed University of 00:00:00 [facility] TDAP 2015-03-12 Completed University of 00:00:00 [facility] TDAP 2015-03-12 Completed University of 00:00:00 [facility] TDAP 2015-03-12 Completed University of 00:00:00 [facility] TDAP 2015-03-12 Completed University of 00:00:00 [facility] TDAP 2015-03-12 Completed University of 00:00:00 [facility] TDAP 2015-03-12 Completed University of 00:00:00 [facility] TDAP 2015-03-12 Completed University of 00:00:00 [facility] Influenza Virus 2015-01-13 Completed Universit y of Vaccine (3+ yrs) 00:00:00 [facility] Influenza Virus 2015-01-13 Completed Universit y of Vaccine (3+ yrs) 00:00:00 [facility] Influenza Virus 2015-01-13 Completed Universit y of Vaccine (3+ yrs) 00:00:00 [facility] Influenza Virus 2015-01-13 Completed Universit y of Vaccine (3+ yrs) 00:00:00 [facility] Influenza Virus 2015-01-13 Completed Universit y of Vaccine (3+ yrs) 00:00:00 [facility] Influenza Virus 2015-01-13 Completed Universit y of Vaccine (3+ yrs) 00:00:00 [facility] Influenza Virus 2015-01-13 Completed Universit y of Vaccine (3+ yrs) 00:00:00 [facility] Influenza Virus 2015-01-13 Completed Universit y of Vaccine (3+ yrs) 00:00:00 [facility] Influenza Virus 2015-01-13 Completed Universit y of Vaccine (3+ yrs) 00:00:00 [facility] Influenza Virus 2015-01-13 Completed Universit y of Vaccine (3+ yrs) 00:00:00 [facility] Influenza Virus 2015-01-13 Completed Universit y of Vaccine (3+ yrs) 00:00:00 [facility] Influenza Virus 2015-01-13 Completed Universit y of Vaccine (3+ yrs) 00:00:00 [facility] Influenza Virus 2015-01-13 Completed Universit y of Vaccine (3+ yrs) 00:00:00 [facility] Influenza Virus 2015-01-13 Completed Universit y of Vaccine (3+ yrs) 00:00:00 [facility] Branch Influenza Virus 2015-01-13 Completed Universit y of Vaccine (3+ yrs) 00:00:00 [facility] Influenza Virus 2015-01-13 Completed Universit y of Vaccine (3+ yrs) 00:00:00 [facility] Influenza Virus 2015-01-13 Completed Universit y of Vaccine (3+ yrs) 00:00:00 [facility] Influenza Virus 2015-01-13 Completed Universit y of Vaccine (3+ yrs) 00:00:00 [facility] [place] [facility] Branch Influenza Virus 2015-01-13 Completed Universit y of Vaccine (3+ yrs) 00:00:00 [facility] Influenza Virus 2015-01-13 Completed Universit y of Vaccine (3+ yrs) 00:00:00 [facility] Influenza Virus 2015-01-13 Completed Universit y of Vaccine (3+ yrs) 00:00:00 [facility] Influenza Virus 2015-01-13 Completed Universit y of Vaccine (3+ yrs) 00:00:00 [facility] Influenza Virus 2015-01-13 Completed Universit y of Vaccine (3+ yrs) 00:00:00 [facility] Influenza Virus 2015-01-13 Completed Universit y of Vaccine (3+ yrs) 00:00:00 [facility] Influenza Virus 2015-01-13 Completed Universit y of Vaccine (3+ yrs) 00:00:00 [facility] Vital Signs Vital Name Observation Time Observation Value Comments Source Systolic blood 2021-11-25 23:56:00 128 mm[Hg] Univer sity of pressure [facility] Diastolic blood 2021-11-25 23:56:00 94 mm[Hg] Unive rsity of pressure [facility] Heart rate 2021-11-25 23:55:00 95 /min [facility] Body temperature 2021-11-25 23:55:00 36.78 Angella [facility] ersity of [facility] Respiratory rate 2021-11-25 23:55:00 18 /min Univ ersity [facility] Body height 2021-11-25 23:55:00 162.6 cm Universi ty [facility] [place] [facility] Body weight 2021-11-25 23:55:00 89.841 kg [facility] [place] [facility] BMI 2021-11-25 23:55:00 34.00 kg/m2 [facility] [place] [facility] Oxygen saturation in 2021-11-25 23:55:00 97 /min University of Arterial blood by [facility] Pulse oximetry Branch Systolic blood 2021-02-25 23:39:00 150 mm[Hg] Univer sity of pressure [place] [facility] Diastolic blood 2021-02-25 23:39:00 98 mm[Hg] Unive rsity of pressure [place] [facility] Heart rate 2021-02-25 23:39:00 75 /min Universi [facility] [place] [facility] Body temperature 2021-02-25 23:39:00 37.44 Angella Univ ersity of [place] [facility] Respiratory rate 2021-02-25 23:39:00 18 /min Univ ersity of [place] [facility] Body height 2021-02-25 23:39:00 165.1 cm [facility] [place] [facility] Body weight 2021-02-25 23:39:00 83.915 kg [facility] [place] [facility] BMI 2021-02-25 23:39:00 30.79 kg/m2 [facility] [place] [facility] Oxygen saturation in 2021-02-25 23:39:00 100 /min University of Arterial blood by [facility] Pulse oximetry Branch Systolic blood 2021-02-25 23:22:00 139 mm[Hg] Univer sity of pressure [facility] Diastolic blood 2021-02-25 23:22:00 91 mm[Hg] Unive rsity of pressure [facility] Heart rate 2021-02-25 23:21:00 73 /min [facility] [place] [facility] Body temperature 2021-02-25 23:21:00 37.17 Angella Univ ersity [facility] [place] [facility] Respiratory rate 2021-02-25 23:21:00 19 /min Univ ersity of [place] [facility] Body height 2021-02-25 23:21:00 165.1 cm [facility] [place] [facility] Body weight 2021-02-25 23:21:00 83.915 kg [facility] [place] [facility] BMI 2021-02-25 23:21:00 30.79 kg/m2 [facility] [place] [facility] Oxygen saturation in 2021-02-25 23:21:00 99 /min [facility]terial blood by [place] [facility] Systolic blood 2020-05-14 00:01:00 146 mm[Hg] Univer sity of pressure [place] [facility] Diastolic blood 2020-05-14 00:01:00 99 mm[Hg] Unive rsity of pressure [place] [facility] Heart rate 2020-05-14 00:01:00 80 /min [facility]i ty [facility] [place] [facility] Body temperature 2020-05-14 00:01:00 36.44 Angella Univ ersity of [place] [facility] Respiratory rate 2020-05-14 00:01:00 16 /min Univ ersity of [place] [facility] Body height 2020-05-14 00:01:00 165.1 cm [facility]i [facility] [place] [facility] Body weight 2020-05-14 00:01:00 70.308 kg [facility] [place] [facility] BMI 2020-05-14 00:01:00 25.79 kg/m2 [facility] [place] [facility] Oxygen saturation in 2020-05-14 00:01:00 100 /min University of Arterial blood by [place] [facility] Systolic blood 2020-05-14 00:01:00 146 mm[Hg] Univer sity of pressure [place] [facility] Diastolic blood 2020-05-14 00:01:00 99 mm[Hg] Unive rsity of pressure [place] [facility] Heart rate 2020-05-14 00:01:00 80 /min [facility]i [facility] [place] [facility] Body temperature 2020-05-14 00:01:00 36.44 Angella Univ ersity [facility] [place] [facility] Respiratory rate 2020-05-14 00:01:00 16 /min Univ ersity [facility] [place] [facility] Body height 2020-05-14 00:01:00 165.1 cm [facility] [place] [facility] Body weight 2020-05-14 00:01:00 70.308 kg [facility] [place] [facility] BMI 2020-05-14 00:01:00 25.79 kg/m2 [facility] [place] [facility] Oxygen saturation in 2020-05-14 00:01:00 100 /min University of Arterial blood by [place] [facility] Pulse oxim[facility] Systolic blood 2020-03-10 19:05:00 118 mm[Hg] Univer sity of pressure [place] [facility] Diastolic blood 2020-03-10 19:05:00 78 mm[Hg] Unive rsity of pressure [place] [facility] Heart rate 2020-03-10 19:05:00 65 /min [facility]i [facility] [place] [facility] Body temperature 2020-03-10 19:05:00 36.89 Angella Univ ersity of [place] [facility] Respiratory rate 2020-03-10 19:05:00 16 /min Univ ersity [facility] [place] [facility] Body height 2020-03-10 19:05:00 162.6 cm [facility] [place] [facility] Body weight 2020-03-10 19:05:00 78.019 kg [facility] [place] [facility] BMI 2020-03-10 19:05:00 29.52 kg/m2 [facility] [place] [facility] Systolic blood 2020-03-10 19:05:00 118 mm[Hg] Univer sity of pressure [facility] Diastolic blood 2020-03-10 19:05:00 78 mm[Hg] Unive rsity of pressure [facility] Heart rate 2020-03-10 19:05:00 65 /min [facility]i [facility] [place] [facility] Body temperature 2020-03-10 19:05:00 36.89 Angella Univ ersity [facility] [place] [facility] Respiratory rate 2020-03-10 19:05:00 16 /min Univ ersity [facility] [place] [facility] Body height 2020-03-10 19:05:00 162.6 cm [facility] [place] [facility] Body weight 2020-03-10 19:05:00 78.019 kg [facility] [place] [facility] BMI 2020-03-10 19:05:00 29.52 kg/m2 [facility] [place] [facility] Systolic blood 2020-02-13 13:58:00 122 mm[Hg] Univer sity of pressure [place] [facility] Diastolic blood 2020-02-13 13:58:00 73 mm[Hg] Unive rsity of pressure [place] [facility] Heart rate 2020-02-13 13:58:00 88 /min [facility] [place] [facility] Body temperature 2020-02-13 13:58:00 36.28 Angella Univ ersity [facility] [place] [facility] Respiratory rate 2020-02-13 13:58:00 16 /min Univ ersity [facility] [place] [facility] Body height 2020-02-13 13:58:00 162.6 cm [facility] [place] [facility] Body weight 2020-02-13 13:58:00 86.592 kg [facility] [place] [facility] BMI 2020-02-13 13:58:00 32.77 kg/m2 [facility] [place] [facility] Systolic blood 2020-02-06 17:11:00 135 mm[Hg] Univer sity of pressure [facility] Diastolic blood 2020-02-06 17:11:00 73 mm[Hg] Unive rsity of pressure [facility] Heart rate 2020-02-06 17:11:00 89 /min [facility] [place] [facility] Body temperature 2020-02-06 17:11:00 36.17 Angella Univ ersity [facility] [place] [facility] Respiratory rate 2020-02-06 17:11:00 16 /min Univ ersity [facility] [place] [facility] Body height 2020-02-06 17:11:00 162.6 cm [facility] [place] [facility] Body weight 2020-02-06 17:11:00 85.548 kg [facility] [place] [facility] BMI 2020-02-06 17:11:00 32.37 kg/m2 [facility] [place] [facility] Systolic blood 2020-01-30 14:00:00 104 mm[Hg] Univer sity of pressure [facility] Diastolic blood 2020-01-30 14:00:00 67 mm[Hg] Unive rsity of pressure [facility] Heart rate 2020-01-30 14:00:00 82 /min [facility] [place] [facility] Body temperature 2020-01-30 14:00:00 36.17 Angella Univ ersity [facility] [place] [facility] Respiratory rate 2020-01-30 14:00:00 16 /min Univ ersity [facility] [place] [facility] Body height 2020-01-30 14:00:00 162.6 cm [facility] [place] [facility] Body weight 2020-01-30 14:00:00 85.503 kg [facility] [place] [facility] BMI 2020-01-30 14:00:00 32.36 kg/m2 [facility] [place] [facility] Systolic blood 2020-01-17 13:51:00 109 mm[Hg] Univer sity of pressure [facility] Diastolic blood 2020-01-17 13:51:00 69 mm[Hg] Unive rsity of pressure [facility] Heart rate 2020-01-17 13:51:00 84 /min [facility] [place] [facility] Body temperature 2020-01-17 13:51:00 36.78 Angella Univ ersity [facility] [place] [facility] Respiratory rate 2020-01-17 13:51:00 16 /min Univ ersity of [facility] Body height 2020-01-17 13:51:00 162.6 cm [facility] Body weight 2020-01-17 13:51:00 83.054 kg [facility] [place] [facility] BMI 2020-01-17 13:51:00 31.43 kg/m2 [facility] [place] [facility] Systolic blood 2020-01-03 12:58:00 120 mm[Hg] Univer sity of pressure [facility] Diastolic blood 2020-01-03 12:58:00 75 mm[Hg] Unive rsity of pressure [facility] Heart rate 2020-01-03 12:58:00 83 /min [facility] [place] [facility] Body temperature 2020-01-03 12:58:00 36.22 Angella Univ ersity [facility] [place] [facility] Respiratory rate 2020-01-03 12:58:00 16 /min Univ ersity of [facility] Body height 2020-01-03 12:58:00 162.6 cm [facility] [place] [facility] Body weight 2020-01-03 12:58:00 82.781 kg [facility] [place] [facility] BMI 2020-01-03 12:58:00 31.33 kg/m2 [facility] Systolic blood 2019-12-20 12:58:00 117 mm[Hg] Univer sity of pressure [facility] Diastolic blood 2019-12-20 12:58:00 74 mm[Hg] Unive rsity of pressure [facility] Heart rate 2019-12-20 12:58:00 84 /min [facility] Body temperature 2019-12-20 12:58:00 36.5 Angella Univ ersity [facility] Respiratory rate 2019-12-20 12:58:00 16 /min Univ ersity [facility] Body height 2019-12-20 12:58:00 162.6 cm [facility] [place] [facility] Body weight 2019-12-20 12:58:00 82.583 kg [facility] [place] [facility] BMI 2019-12-20 12:58:00 31.25 kg/m2 [facility] [place] [facility] Systolic blood 2019-12-06 14:27:00 116 mm[Hg] [facility] [place] [facility] Diastolic blood 2019-12-06 14:27:00 66 mm[Hg] [facility] [place] [facility] Heart rate 2019-12-06 14:27:00 75 /min [facility] [place] [facility] Body temperature 2019-12-06 14:27:00 36.5 Angella [facility] [place] [facility] Respiratory rate 2019-12-06 14:27:00 16 /min [facility] [place] [facility] Body height 2019-12-06 14:27:00 162.6 cm [facility] [place] [facility] Body weight 2019-12-06 14:27:00 81.421 kg [facility] [place] [facility] BMI 2019-12-06 14:27:00 30.81 kg/m2 [facility] [place] [facility] Systolic blood 2019-11-22 15:01:00 118 mm[Hg] [facility] [place] [facility] Diastolic blood 2019-11-22 15:01:00 75 mm[Hg] [facility] [place] [facility] Heart rate 2019-11-22 15:01:00 79 /min [facility] [place] [facility] Body temperature 2019-11-22 15:01:00 36.72 Angella [facility] [place] [facility] Respiratory rate 2019-11-22 15:01:00 16 /min [facility] [place] [facility] Body height 2019-11-22 15:01:00 162.6 cm [facility] [place] [facility] Body weight 2019-11-22 15:01:00 77.111 kg [facility] [place] [facility] BMI 2019-11-22 15:01:00 29.18 kg/m2 [facility] [place] [facility] Procedures Procedure Date / Time Performing Clinician Source Performed XR CHEST 2 VW 2021-11-26 00:20:00 Elena Lee o f [facility] ASSIGNMENT OF BENEFITS 2021-05-07 17:36:18 Doctor Unassigned, [facility] [place] [facility] [place] CONSENT/REFUSAL FOR 2021-02-25 23:18:45 Doctor Unassigned, Unive [facility] DIAGNOSIS AND TREATMENT [place] [facility] URINALYSIS 2020-05-14 00:23:00 Neisha Mah[facility] NOTICE OF PRIVACY 2020-05-13 23:48:24 Doctor Unassigned, [facility]US[facility] FOR 2020-05-13 23:48:03 Doctor Unassigned, [facility] 2020-03-10 00:00:00 Amanda العلي [facility] POCT URINALYSIS 2020-02-13 13:58:00 Amanda العلي [facility] POCT URINALYSIS 2020-02-06 17:12:00 Amanda العلي [facility] CBC WITH DIFF 2020-01-30 13:59:00 Amanda العلي [facility] GROUP B STREPTOCOCCUS BY 2020-01-30 13:59:00 Amanda العلي [facility] SARS-COV-2 IGG 2020-01-30 13:59:00 Amanda العلي [facility] LAB ONLY COVID 2020-01-30 13:59:00 Amanda العلي [facility] INTERPRETATION [facility] POCT URINALYSIS 2020-01-30 00:00:00 Amanda العلي [facility] POCT URINALYSIS 2020-01-17 00:00:00 Amanda لاعلي [facility] POCT URINALYSIS 2020-01-03 00:00:00 Amanda العلي [facility] POCT URINALYSIS 2019-12-20 12:59:00 Amanda العلي [facility] EXTERNAL PROVIDER RECORDS 2019-12-17 05:01:00 Doctor Unassigned, [facility] TDAP VACCINE, >11 YRS, IM 2019-12-06 14:33:55 Amanda العلي [facility] POCT URINALYSIS 2019-12-06 14:29:00 Amanda العلي [facility] STERILIZATION CONSENT 2019-11-30 05:01:00 Doctor Unassigned, [facility] [place] [facility] [place] [facility] [place] FLU VACC ([phone]), 6+ 2019-11-22 15:02:27 Amanda العلي [facility] MONTHS, IM, QUAD Medical Branch ASSIGNMENT OF BENEFITS 2019-11-22 14:24:48 Doctor Unassigned, [facility] [place] [facility] POCT TEST 2019-11-22 00:00:00 [facility] URINALYSIS W/O 2019-11-22 00:00:00 Amanda [facility]ي [facility] SPECIFIC GRAVITY [facility] Encounters Start End Encounter Admission Attending Care Care Encounter Source Date/Time Date/Time Type Type Clinicians Facility Department ID 2021-01-04 Emergency [facility] [id number] Univers 04:40:57 ity [facility] 2021-01-03 Emergency [facility] [id number] Univers 10:32:20 ity [facility] 2021-12-25 2021-12-25 [facility] [id number] -[id number] Univers 13:00:00 13:00:00 CLARKE [id number] ity [facility] 2021-11-25 2021-11-25 Outpatient [facility] [id number] Univers 19:06:37 23:59:00 ELENA ity [facility] 2021-11-25 2021-11-25 [facility] 1.2.840.114 [id number] Univers 19:06:37 23:59:00 [facility] 350.1.13.10 ity of [place] 4.2.7.2.686 Song as NORAH?BLEA [id number] Fl len TIJERINA [address] [place] MEDICAL OFFICE BUILDING 2021-11-25 2021-11-25 Urgent [facility] 1.2.840.114 [id number] Univers 18:40:00 19:09:40 Care Elena HEALTH 350.1.13.10 it y of [place] 4.2.7.2.686 Song as NORAH?BLEA [id number] Fl dical [address] MEDICAL OFFICE BUILDING 2021-11-25 2021-11-25 Outpatient R [facility] [id number] -[id number] Univers 18:40:00 18:40:00 [id number] ity [facility] 2021-05-07 2021-05-07 Outpatient R [facility] [id number] -[id number] Univers 11:40:00 11:40:00 [id number] ity [facility] 2021-05-07 2021-05-07 Outpatient R [facility] [id number] Univers 11:40:00 11:40:00 HALINA ity [facility] 2021-05-07 2021-05-07 Orders Doctor JOHNNY 1.2.840.114 [id number] Univers 00:00:00 00:00:00 Only Unassigned, BELINDA 350.1.13.10 ity of [place] [facility] 4.2.7.2.686 Song as [phone] [address] 2021-02-25 2021-02-25 Emergency X [facility] [id number] Univers 17:40:00 18:13:00 [facility] 2021-02-25 2021-02-25 Emergency [facility] [id number] Univers 17:40:00 18:13:00 Sudheer SHAY 350.1.13.10 i [facility] 4.2.7.2.686 [place] [facility] [id number] [place] [id number] [place] 2021-02-25 2021-02-25 Outpatient R [facility] [id number] -[id number] Univers 17:40:00 17:40:00 [id number] ity [facility] 2021-02-25 2021-02-25 Nurse Nurse, [facility] 1.2.840.114 [id number] Univers 17:00:00 17:25:39 Visit Tori Galeana [facility] 350.1.13.10 itwilian [facility] 4.2.7.2.686 Song as NORAH?BLEA [id number] Fl len [address] MEDICAL OFFICE [facility] 2021-02-25 2021-02-25 Outpatient R [facility] [id number] Univers 17:00:00 17:00:00 MARINAIA ity [facility] 2020-05-13 2020-05-13 Emergency [facility] [id number] Univers 18:03:00 21:00:00 Neisha Shay 350.1.13.10 ity of [place] 4.2.7.2.686 [facility] [place] [id number] [address] 2020-05-13 2020-05-13 Emergency [facility] [id number] 18:03:00 21:00:00 Neisha Shay 350.1.13.10 [place] 4.2.7.2.686 [place] [id number] [facility] 2020-04-02 2020-04-02 Outpatient Angeles [facility] [id number] -[id number] Univers 09:15:00 09:15:[address] [id number] mar[address] o [facility] 2020-04-02 2020-04-02 Outpatient [place] [facility] [id number] Univers 09:15:00 09:15:[address] [facility] 2020-03-10 2020-03-10 [facility] 1.2.840.114 [id number] Univers 12:49:29 13:21:29 Roshunda R RISK AND COMPLIANCE ANALYTICS DIRECTOR 350.1.13.10 ity of Visit REGIONAL 4.2.7.2.686 Song as MATERNAL [id number] Med ical & CHILD [address] [place] [address] 2020-03-10 2020-03-10 [facility] 1.2.840.114 [id number] 12:49:29 13:21:29 Roshunda R RISK AND COMPLIANCE ANALYTICS DIRECTOR 350.1.13.10 Visit REGIONAL 4.2.7.2.686 MATERNAL [phone] & CHILD [address] [place] [address] 2020-03-10 2020-03-10 Outpatient [place] [facility] [id number] Univers 12:45:00 12:45:[address] [facility] 2020-03-09 2020-03-09 Outpatient R [facility] [id number] -[id number] Univers 17:20:00 17:20:00 [id number] itwilian [facility] 2020-03-09 2020-03-09 Outpatient R JAMI [facility] [id number] Univers 17:20:00 17:20:00 [facility] 2020-03-09 2020-03-09 Laboratory Lab, Adc Fam Pob I [facility] 1.2. [id number] [id number] Univers 16:59:53 17:19:53 [facility] 350.1.13.10 ity [facility] 4.2.7.2.686 Song as Professio [id number] Fl dic[address] Office [facility] 2020-02-20 2020-02-20 Outpatient [facility] [id number] -[id number] Univers 09:30:00 09:30:00 [address]ITONDA [id number] ity o [facility] 2020-02-20 2020-02-20 Outpatient [facility] [id number] Univers 09:30:00 09:30:[address] [facility] 2020-02-13 2020-02-13 [facility] 1.2.840.114 [id number] Univers 07:50:59 08:05:59 Roshunda R RISK AND COMPLIANCE ANALYTICS DIRECTOR 350.1.13.10 ity of Visit [facility] 4.2.7.2.686 Song as MATERNAL [phone] Med ical & CHILD [address] [place] [address] 2020-02-13 2020-02-13 Outpatient R SEVERIANO [facility] [id number] -[id number] Univers 08:00:00 08:00:[address] [facility] 2020-02-13 2020-02-13 Outpatient [facility] [id number] Univers 08:00:00 08:00:[address] [facility] 2020-02-06 2020-02-06 Routine [facility] 1.2.840.114 [id number] Univers 10:45:02 11:00:02 Roshunda R RISK AND COMPLIANCE ANALYTICS DIRECTOR 350.1.13.10 ity of Visit REGIONAL 4.2.7.2.686 Song as MATERNAL [phone] [facility] & CHILD [address] [place] [address] 2020-02-06 2020-02-06 Outpatient R SEVERIANO [facility] [id number] -[id number] Univers 11:00:00 11:00:00 ROSHUNDA [id number] ity o f [facility] 2020-02-06 2020-02-06 Outpatient R SEVERIANO [facility] [id number] Univers 11:00:00 11:00:00 ROSHUNDA ity o f [facility] 2020-02-06 2020-02-06 Telephone [facility] [id number] Univers 00:00:00 00:00:00 Roslalitonda R RISK AND COMPLIANCE ANALYTICS DIRECTOR 350.1.13.10 ity of [facility] 4.2.7.2.686 Song as MATERNAL [phone] [address] 2020-02-04 2020-02-04 Tele[facility] [id number] Univers 00:00:00 00:00:00 Roshunda R RISK AND COMPLIANCE ANALYTICS DIRECTOR 350.1.13.10 ity of REGIONAL 4.2.7.2.686 Song as MATERNAL [phone] [facility] & [address] 2020-02-01 2020-02-01 Nurse JOHNNY Campos 1.2.840.114 [id number] Univers 00:00:00 00:00:00 Triage Tootie TREVINO 350.1.13.10 it y of HOSPITAL 4.2.7.2.686 Song as [id number] [address] 2020-01-30 2020-01-30 Routine [facility] 1.2.840.114 [id number] Univers 07:46:26 08:13:08 Roshunda R RISK AND COMPLIANCE ANALYTICS DIRECTOR 350.1.13.10 ity of Visit [facility] 4.2.7.2.686 Song as MATERNAL [id number] [facility] & CHILD [address] [place] [address] 2020-01-30 2020-01-30 Outpatient Angeles العلي [facility] [id number] -[id number] Univers 07:45:00 07:45:00 ROSHUWARD [id number] ity o sania [facility] 2020-01-30 2020-01-30 Outpatient Angeles العلي [facility] [id number] Univers 07:45:00 07:45:[address] [facility] 2020-01-17 2020-01-17 Routine Severiano [facility] 1.2.840.114 [id number] Univers 07:46:03 08:01:03 Roshunda R RISK AND COMPLIANCE ANALYTICS DIRECTOR 350.1.13.10 ity of Visit [facility] 4.2.7.2.686 Song as MATERNAL [id number] [facility] & CHILD [address] [place] [address] 2020-01-17 2020-01-17 Outpatient Angeles العلي [facility] [id number] -[id number] Univers 07:45:00 07:45:00 AMANDA [id number] itwilian o sania [facility] 2020-01-17 2020-01-17 Outpatient Angeles العلي [facility] [id number] Univers 07:45:00 07:45:[address] [facility] 2020-01-09 2020-01-09 Refill Doctor [facility] 1.2.840.114 [id number] Univers 00:00:00 00:00:00 Unassigned, RISK AND COMPLIANCE ANALYTICS DIRECTOR 350.1.13.10 ity of [place] [facility] 4.2.7.2.686 Song as MATERNAL [id number] [facility] & [address] 2020-01-03 2020-01-03 Routine Severiano [facility] 1.2.840.114 [id number] Univers 07:45:38 08:00:38 Roshunda R RISK AND COMPLIANCE ANALYTICS DIRECTOR 350.1.13.10 ity of Visit [facility] 4.2.7.2.686 Song as MATERNAL [id number] [facility] & CHILD [address] [place] [address] 2020-01-03 2020-01-03 Outpatient Angeles العلي [facility] [id number] Univers 08:00:00 08:00:[address] AMANDA [id number] itwilian o [facility] 2020-01-03 2020-01-03 Outpatient [place] [facility] [id number] Univers 08:00:00 08:00:00 ROSHUNDA ity o f [facility] 2019-12-20 2019-12-20 Routine [facility] 1.2.840.114 [id number] Univers 07:49:45 08:16:05 Roshunda R RISK AND COMPLIANCE ANALYTICS DIRECTOR 350.1.13.10 ity of Visit REGIONAL 4.2.7.2.686 Song as MATERNAL [id number] [facility] ical & CHILD [address] [place] [address] 2019-12-20 2019-12-20 Out[facility] [id number] -[id number] Univers 08:00:00 08:00:00 ANIK[address]Dax [id number] ity o [facility] 2019-12-20 2019-12-20 Outpatient [place] [facility] [id number] Univers 08:00:00 08:00:[address] [facility] 2019-12-17 2019-12-17 Abstract [facility] 1.2.840.114 [id number] Univers 00:00:00 00:00:00 Roshunda R RISK AND COMPLIANCE ANALYTICS DIRECTOR 350.1.13.10 ity of REGIONAL 4.2.7.2.686 Song as MATERNAL [id number] [facility] & CHILD [address] [place] [address] 2019-12-17 2019-12-17 Orders Doctor JOHNNY 1.2.840.114 [id number] Univers 00:00:00 00:00:00 Only Unassigned, BELINDA 350.1.13.10 ity of [place] [facility] 4.2.7.2.686 Song as [id number] [address] 2019-12-06 2019-12-06 Routine [facility] 1.2.840.114 [id number] Univers 09:01:18 09:16:18 Roshunda R RISK AND COMPLIANCE ANALYTICS DIRECTOR 350.1.13.10 ity of Visit REGIONAL 4.2.7.2.686 Song as MATERNAL [id number] [facility] & CHILD [address] [place] [address] 2019-12-06 2019-12-06 Outpatient [facility] [id number] -[id number] Univers 09:00:00 09:00:00 ANIKANDA ity o f [facility] 2019-12-06 2019-12-06 Outpatient R SEVERIANO [facility] [id number] Univers 09:00:00 09:00:00 ROSHUNDA ity o f [facility] 2019-12-05 2019-12-05 Telephone Severiano [facility] [id number] Univers 00:00:00 00:00:00 Roslalitonda R RISK AND COMPLIANCE ANALYTICS DIRECTOR 350.1.13.10 ity of [facility] 4.2.7.2.686 Song as MATERNAL [id number] Med ical & CHILD [address] [place] [address] 2019-11-30 2019-11-30 Orders Doctor JOHNNY 1.2.840.114 [id number] Univers 00:00:00 00:00:00 Only Unassigned, BELINDA 350.1.13.10 ity of [place] [facility] 4.2.7.2.686 Song as [phone] [facility] [address] [place] 2019-11-22 2019-11-22 Product Safety Technician 5, [facility] Room UNIVERSIT 1 .2.840.114 [id number] Univers 13:00:10 14:00:10 Visit Amanda العلي [facility] 350.1.13.1 0 ity of [place] T[place] [facility] 4.2.7.2.686 [place] [id number] [facility] [address] [place] 2019-11-22 2019-11-22 Initial Severiano [facility] 1.2.840.114 [id number] Univers 09:40:11 11:14:29 Roslalitonda R RISK AND COMPLIANCE ANALYTICS DIRECTOR 350.1.13.10 ity of Visit [facility] 4.2.7.2.686 Song as MATERNAL [id number] [facility] & CHILD [address] [place] [address] 2019-11-22 2019-11-22 Outpatient R العلي [facility] [id number] -[id number] Univers 10:30:00 10:30:00 ANIKANDA [id number] ity o sania [facility] 2019-11-22 2019-11-22 Outpatient R SEVERIANO [facility] [id number] Univers 09:45:00 09:45:00 ROSHUNDA ity o f [facility] 2019-11-22 2019-11-22 Letter Little, UNIVERSIT [id number] Univers 00:00:00 00:00:00 (Out) [facility] 350.1.13.10 ity of CLINICS 4.2.7.2.[place] [id number] [facility] [address] [place] 2019-11-22 2019-11-22 Abstract [facility] 1.2.840.114 [id number] Univers 00:00:00 00:00:00 Amanda R RISK AND COMPLIANCE ANALYTICS DIRECTOR 350.1.13.10 ity of [facility] 4.2.7.2.686 Song as MATERNAL [phone] [facility] & CHILD [address] [place] [address] 2019-11-22 2019-11-22 Abstract [facility] 1.2.840.114 [id number] Univers 00:00:00 00:00:00 Amanda Reynoso RISK AND COMPLIANCE ANALYTICS DIRECTOR 350.1.13.10 ity of [facility] 4.2.7.2.686 Song as MATERNAL [id number] [facility] & CHILD [address] [place] [address] 2019-11-22 2019-11-22 Orders Doctor JOHNNY 1.2.840.114 [id number] Univers 00:00:00 00:00:00 Only Unassigned, BELINDA 350.1.13.10 ity of [place] [facility] 4.2.7.2.686 Song as [id number] [address] 2019-11-13 2019-11-13 Out[facility] [id number] -[id number] Univers 13:15:00 13:15:00 AMANDA [id number] ity o f [facility] Results Test Description Test Time Test Comments Results Result Comments Source Urinalysis 2020-05-14 00:52:30 Test Item Value Reference Range Interpretation Comme nts APPEARANCE (test code = Clear Clear 9165674196) COLOR (test code = 1939085116) Yellow Yellow PH (test code = 1604801123) 4.8-8.0 SP GRAVITY (test code = 1.003-1.030 4611832850) GLU U QUAL (test code = Normal Normal 8697457863) BLOOD (test code = 3339851342) 1+ Negative A KETONES (test code = 8322972811) Negative Negative PROTEIN (test code = 2887-8) Negative Negative UROBILIN (test code = 4.0 mg/dL Normal A 6529693128) BILIRUBIN (test code = Negative Negative 8447954782) NITRITE (test code = 8900938300) Negative Negative LEUK SURYA (test code = Negative Negative 8074977910) RBC/HPF (test code = 0276290674) See_Comment H [Automated message] The system which ge nerated this result transmit efrain reference range: 0 - 3 HP F. The reference range was not used to interpret th is result as normal/abnormal . WBC/HPF (test code = 8528600619) See_Comment [Automated message] The system which ge nerated this result transmit efrain reference range: 0 - 5 HP F. The reference range was not used to interpret th is result as normal/abnormal . BACTERIA (test code = Few Negative A 7957452894) MUCOUS (test code = 8386715695) Slight Negative LPF A SQ EPITH (test code = HPF 2287425979) Lab Interpretation (test code = Abnormal 96301-3) [facility] URINALYSIS W SPECIFIC [id number] 19:08:00 Test Item Value Reference Range Interpretation [...] 3267) Lab Interpretation (test code = Abnormal 06536-3) [facility] URINALYSIS W SPECIFIC [id number] 19:08:00 Test Item Value Reference Range Interpretation [...] 3267) Lab Interpretation (test code = Abnormal 05590-8) [facility] URINALYSIS W SPECIFIC [id number] 13:59:00 Test Item Value Reference Range Interpretation [...] 3267) Lab Interpretation (test code = Abnormal 05777-9) [facility] URINALYSIS W SPECIFIC [id number] 17:13:00 Test Item Value Reference Range Interpretation [...] POCT U APPEAR (test code = 3267) [facility] COVID [id number] 14:22:00COVID DMT InterpretationInterpretation/Recommendation: Tests (PCR) for Active [...] based upon aggregate COVID-19 test results in [facility]. They apply to thefollowing tests offered at [facility] and assume the acceptable specimen type(s) were used: A. Tests for the Identification of SARS-CoV-2 RNA (Molecular NAAT Tests): ? ? ?- SARS-CoV-2 PCR assays including Shiloh Aptima, Shiloh Fusion, Hogue RealTime, and Cinetraffic Xpert Xpress. ? ? ?- SARS-CoV-2 Rapid ID NOW by the ID NOW assay. ? B. Tests for the Identification of SARS-CoV-2 Antibodies: ? ? ?- Chemilumine scent immunoassays including Access SARS-CoV-2 IgM (DXI 600), VITROS Uadm-WMAU-QoW-2 IgG (Vitros 5600 and Vitros 3600), and Hogue SARS-CoV-2 IgG (TEA LEAF READER ?I System). These interpretations are autopopulated into waygum based on computerized algorithms matching an interpretation code to the patient's set of test results, and a clinical pathologist evaluates the comments for accuracy. However, these comments do not consider testing a patient may have had outside of the [facility] system. If results for COVID-19 infection continue to be negative in the context of a suspected viral respiratory illness, it ispossible the patient may have an infection with another respiratory virus. Influenza testing and a re spiratory pathogen panel if clinically indicated may be beneficial in this setting. [facility] LABORATORY SERVICESCOVID ResultsCoV-2 IgG (no units) ? ? Date ? Value ? 01/30/2020? Negative ? 11/22/2019 ? Negative ? ? ? [facility] LABORATORY SERVICES [facility] B STREPTOCOCCUS BY [id number] 19:13:00 Test Item Value Reference Range Interpretation Comments Group B Streptococcus by PCR (test Negative Negative code = 23915-4) Lab Interpretation (test code = Normal 95672-2) [facility]ville[facility]ARS-[facility]OV-2 [id number] 08:06:00 Test Item Value Reference Range Interpretation Comments CoV-2 IgG (test code Negative Negative Negativ e result = 38008-0) does not rule o fl acute SARS-CoV- 2 infection. Clinical correlation as well as molecul ar diagnostic test are recommended to rule out acu te infection if clinically indicated. ESTRADA (test code = ESTRADA) This test has been approved by FDA for emergency use. Lab Interpretation Normal (test code = 21092-1) [facility] WITH [id number] 04:47:00 Test Item Value Reference Range Interpretation Comments WBC (test code = See_Comment [Automated 9290-2) message] The sy stem which generated this result transmitted reference range : 4.30 - 11.10 10*3/?L. The reference range was not used to interpret this result as normal/abnormal . RBC (test code = See_Comment L [Automated 319-8) message] The sy stem which generated this [...] RDW-SD (test code = 40.2 fL 39-49.9 31538-4) RDW-CV (test code = 12.5 % 12-15.5 788-0) PLT (test code = See_Comment [Automated 777-3) message] The sy stem which generated this result transmitted reference range : 166 - 358 10*3/ ?L. The reference r edmar was not used to interpret this result as normal/abnormal . MPV (test code = 9.9 fL 9.5-12.9 34836-7) NRBC/100 WBC (test See_Comment [Automat ed code = [id number]) message] The system which generated this result transmitted reference range : 0.0 - 10.0 /100 WBCs. The refer ence range was not u sed to interpret th is result as normal/abnormal . NRBC x10^3 (test code <0.01 See_Comment [Auto mated = [id number]) message] The s ystem which generated this result transmitted reference range : 10*3/?L. The reference range was not used to interpret this result as normal/abnormal . GRAN MAT (NEUT) % 69.5 % (test code = 770-8) IMM GRAN % (test code 0.80 % = 3685547201) LYMPH % (test code = 20.0 % 736-9) MONO % (test code = 7.2 % 5905-5) EOS % (test code = 2.0 % 713-8) BASO % (test code = 0.5 % 706-2) GRAN MAT x10^3(ANC) 5.54 10*3/uL 1.88-7.09 (test code = 7926877284) IMM GRAN x10^3 (test 0.06 10*3/uL 0-0.06 code = 5977660820) LYMPH x10^3 (test code 1.59 10*3/uL 1.32-3.29 = 731-0) MONO x10^3 (test code 0.57 10*3/uL 0.33-0.92 = 742-7) EOS x10^3 (test code = 0.16 10*3/uL 0.03-0.39 711-2) BASO x10^3 (test code 0.04 10*3/uL 0.01-0.07 = 704-7) Lab Interpretation Abnormal (test code = 21055-4) [facility] URINALYSIS W SPECIFIC [id number] 14:03:00 Test Item Value Reference Range Interpretation [...] POCT U APPEAR (test code = 3267) [facility] URINALYSIS W SPECIFIC [id number] 14:03:00 Test Item Value Reference Range Interpretation [...] POCT U APPEAR (test code = 3267) [facility] URINALYSIS W SPECIFIC [id number] 14:03:00 Test Item Value Reference Range Interpretation [...] POCT U APPEAR (test code = 3267) [facility] URINALYSIS W SPECIFIC [id number] 13:52:00 Test Item Value Reference Range Interpretation [...] POCT U APPEAR (test code = 3267) [facility] URINALYSIS W SPECIFIC [id number] 13:00:00 Test Item Value Reference Range Interpretation [...] POCT U APPEAR (test code = 3267) [facility] URINALYSIS W SPECIFIC [id number] 13:00:00 Test Item Value Reference Range Interpretation [...] POCT U APPEAR (test code = 3267) [facility] URINALYSIS W SPECIFIC [id number] 13:00:00 Test Item Value Reference Range Interpretation [...] POCT U APPEAR (test code = 3267) [facility] URINALYSIS W SPECIFIC [id number] 14:30:00 Test Item Value Reference Range Interpretation [...] POCT U APPEAR (test code = 3267) [facility] [id number] 15:04:00 Test Item Value Reference Range Interpretation Comments POCT PREG (test code = 1605) Positive On board controls acceptable with C Yes Line (test code = 3574) POCT PREG LOT # (test code = 3575) POCT PREG TEST DATE (test code = 3576) [facility] URINALYSIS W/O SPECIFIC [id number] 15:04:00 Test Item Value Reference Range Interpretation [...] code = 3257) neg Negative - Negative [facility] [id number] 15:04:00 Test Item Value Reference Range Interpretation Comments POCT PREG (test code = 1605) Positive On board controls acceptable with C Yes Line (test code = 3574) POCT PREG LOT # (test code = 3575) POCT PREG TEST DATE (test code = 3576) [facility] URINALYSIS W/O SPECIFIC [id number] 15:04:00 Test Item Value Reference Range Interpretation [...] code = 3257) neg Negative - Negative [facility] [id number] 15:04:00 Test Item Value Reference Range Interpretation Comments POCT PREG (test code = 1605) Positive On board controls acceptable with C Yes Line (test code = 3574) POCT PREG LOT # (test code = 3575) POCT PREG TEST DATE (test code = 357) [facility] URINALYSIS W/O SPECIFIC [id number] 15:04:00 Test Item Value Reference Range Interpretation [...] code = 3257) neg Negative - Negative [facility] [id number] 15:04:00 Test Item Value Reference Range Interpretation Comments POCT PREG (test code = 1605) Positive On board controls acceptable with C Yes Line (test code = 3574) POCT PREG LOT # (test code = 3575) POCT PREG TEST DATE (test code = 3576) [facility] URINALYSIS W/O SPECIFIC [id number] 15:04:00 Test Item Value Reference Range Interpretation Comments POCT PH U (test code = 3254) 5 mg/dl 5-8 POCT U LEUK EST (test code = neg Negative - Negative 3263) POCT U NIT (test code = 3262) neg Negative - Negative POCT U PROT (test code = 3259) trace Negative - Negative POCT U GLU (test code = 1136) neg Negative - Negative POCT U KETONE (test code = 3648) neg Negative - Negative POCT U BLD (test code = 3257) neg Negative - Negative [facility]
[2021-12-01] MEDS ORDERED: HYDROCODONE/CHLORPHEN 5 ML/OSYR ONE (18:03)
--- NOTE | 2021-12-01 18:38 | RAD REPORT ---
EXAM DESCRIPTION: Mathieu Cardoso And Lat (2 Views)12/01/2021 6:15 pm CLINICAL HISTORY: Cough COMPARISON: 2020 FINDINGS: Lung bases are not entirely included in the field of view on frontal film. The visualized lungs appear clear of acute infiltrate. The heart is normal size
[2021-12-01] MEDS ORDERED: IPRATROPIUM BROM 0.5MG/2.5ML ONE (19:02)
[2021-12-01] MEDS ORDERED: ALBUTEROL 2.5 MG/3 ML NEB SOL ONE (19:02)
[2021-12-01] MEDS ORDERED: dexAMETHasone 10 MG/ML VIAL ONE (19:02)
--- NOTE | 2021-12-01 20:29 | ER ---
Nurse's Notes [facility] Name: Hema Coombs Age: 36 yrs Sex: Female : 1985 Arrival Date: 12/01/2021 Time: 16:47 Bed 10 Private MD: Diagnosis: Acute upper respiratory infection, unspecified Presentation: 12/01 17:18 Chief complaint: Patient states: I have had a cough and been short of breath for two bm7 weeks. I came here and they gave me medication but its not working. Coronavirus screen: Client presents with at least one sign or symptom that may indicate coronavirus-19. Standard/surgical mask placed on the client. Ebola Screen: No symptoms or risks identified at this time. Initial Sepsis Screen: Does the patient meet any 2 criteria? No. Patient's initial sepsis screen is negative. Does the patient have a suspected source of infection? No. Patient's initial sepsis screen is negative. Risk Assessment: Do you want to hurt yourself or someone else? Patient reports no desire to harm self or others. Onset of symptoms is unknown. 17:18 Method Of Arrival: Ambulatory 7 17:18 Acuity: АНДРЕЙ 4 bm7 Triage Assessment: 17:20 General: Appears in no apparent distress. uncomfortable, Behavior is calm, cooperative, bm7 appropriate for age. Pain: Complains of pain in face, back and neck. EENT: No deficits noted. No signs and/or symptoms were reported regarding the EENT system. Neuro: No deficits noted. Cardiovascular: No deficits noted. Respiratory: Reports cough that is productive, hacking, persistent pain with cough pain with respiration Airway is patent Respiratory effort is even, unlabored, Respiratory pattern is regular, symmetrical, Breath sounds are clear bilaterally. GI: No deficits noted. No signs and/or symptoms were reported involving the gastrointestinal system. : No deficits noted. No signs and/or symptoms were reported regarding the genitourinary system. Derm: No deficits noted. No signs and/or symptoms reported regarding the dermatologic system. Musculoskeletal: Reports pain in face, back and neck. 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 - Social history:: Smoking status: Patient denies any tobacco usage or history of. Screenin:08 Abuse screen: Denies threats or abuse. Denies injuries from another. Nutritional hb screening: No deficits noted. Tuberculosis screening: No symptoms or risk factors identified. Fall Risk None identified. Assessment: 18:08 General: Appears in no apparent distress. Behavior is calm, cooperative. Pain: Denies hb pain. Neuro: Level of Consciousness is awake, alert, obeys commands, Oriented to person, place, time, situation. Cardiovascular: Patient's skin is warm and dry. Respiratory: Reports shortness of breath cough that is Respiratory effort is even, unlabored, Respiratory pattern is regular, symmetrical. GI: No signs and/or symptoms were reported involving the gastrointestinal system. : No signs and/or symptoms were reported regarding the genitourinary system. EENT: No signs and/or symptoms were reported regarding the EENT system. Derm: Skin is pink, warm \\T\\ dry. Musculoskeletal: No signs and/or symptoms reported regarding the musculoskeletal system. 20:46 Reassessment: Patient is alert, oriented x 3, equal unlabored respirations, skin bb warm/dry/pink. pt verbalized understanding of and agrees to plan of care discharge instructions given pt ambulated with steady gait to exit. Vital Signs: 17:18 BP 138 / 90; Pulse 88; Resp 18; Temp 97.9(TE); Pulse Ox 100% on R/A; Weight 90.26 kg bm7 (R); Height 5 ft. 4 in. (162.56 cm); Pain 10/10; 17:18 Body Mass Index 34.16 (90.26 kg, 162.56 cm) bm7 ED Course: 16:47 Patient arrived in ED. mr 17:20 Triage completed. bm7 17:20 Arm band placed on right wrist. bm7 17:34 John Chadwick NP is PHCP. pm1 17:34 Otis Guillermo MD is Attending Physician. pm1 18:08 Patient has correct armband on for positive identification. hb 18:12 Jennifer Robison, RUTH is Primary Nurse. hb 18:16 Chest Pa And Lat (2 Views) XRAY In Process Unspecified. EDMS 19:21 COVID-19 SARS RT PCR (Document "Date of Onset" if Symptomatic) Sent. hb 19:21 Flu Sent. hb 20:46 No provider procedures requiring assistance completed. Patient did not have IV access bb during this emergency room visit. Administered Medications: 18:08 Drug: Tussionex Pennkinetic ER (chlorpheniramine-hydrocodone) Suspension 5 ml Route: PO;hb 19:20 Follow up: Response: No adverse reaction hb 19:11 Drug: Decadron (dexamethasone) 10 mg Route: IM; Site: right deltoid; hb 19:11 Drug: Albuterol - atroVENT (ipratropium) (3:1) (2.5 mg - 0.5 mg) 3 ml Route: Nebulizer; hb Medication: 18:08 VIS not applicable for this client. hb Outcome: 20:28 Discharge ordered by MD. pm1 20:47 Discharged to home ambulatory. bb 20:47 Condition: stable 20:47 Discharge instructions given to patient, Instructed on discharge instructions, follow up and referral plans. medication usage, Demonstrated understanding of instructions, follow-up care, medications, Prescriptions given X 3. 20:47 Patient left the ED. bb Signatures: Dispatcher [employer] EDCO ZuletaJeny mr Isis Ellis RN RN bb John Chadwick, GAS MAKER HELPER GAS MAKER HELPER pm1 Jennifer Robison RN RN Bianka Jaeger, RUTH RN bm7 Corrections: (The following items were deleted from the chart) 17:20 17:20 Home Meds: Unable to obtain; bm7 bm7
--- NOTE | 2021-12-01 20:29 | EDPHYS ---
Physician Documentation [facility] Name: Hema Coombs Age: 36 yrs Sex: Female : 1985 Arrival Date: 12/01/2021 Time: 16:47 Bed 10 Private MD: ED Physician Otis Guillermo HPI: 12/01 18:39 This 36 yrs old Female presents to ER via Ambulatory with complaints of Cough. pm1 18:39 The patient or guardian reports cough. Onset: The symptoms/episode began/occurred 1 pm1 month(s) ago. Severity of symptoms: in the emergency department the symptoms are actually worse. Modifying factors: The symptoms are alleviated by nothing, the symptoms are aggravated by nothing. Associated signs and symptoms: Pertinent positives: chest pain, with cough, Pertinent negatives: fever. The patient has been recently seen at the [facility] Department, a couple of weeks ago, for similar complaints. 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 - Social history:: Smoking status: Patient denies any tobacco usage or history of. ROS: 18:39 Constitutional: Negative for fever, chills, and weight loss. pm1 18:39 Abdomen/GI: Negative for abdominal pain, nausea, vomiting, diarrhea, and constipation, Back: Negative for injury and pain, MS/Extremity: Negative for injury and deformity, Skin: Negative for injury, rash, and discoloration, Neuro: Negative for headache, weakness, numbness, tingling, and seizure. 18:39 Cardiovascular: Positive for chest pain, with cough. 18:39 Respiratory: Positive for cough, "sounds productive", Negative for shortness of breath. 18:39 All other systems are negative. Exam: 18:39 Constitutional: This is a well developed, well nourished patient who is awake, alert, pm1 and in no acute distress. Head/Face: Normocephalic, atraumatic. 18:39 Back: No spinal tenderness. No costovertebral tenderness. Full range of motion. Skin: Warm, dry with normal turgor. Normal color with no rashes, no lesions, and no evidence of cellulitis. MS/ Extremity: Pulses equal, no cyanosis. Neurovascular intact. Full, normal range of motion. 18:39 Eyes: Exam is negative for acute changes, Periorbital structures: appear normal, Pupils: no acute changes, Extraocular movements: no acute changes, Conjunctiva: no acute changes. 18:39 ENT: Exam is negative for acute changes, Mouth: no acute changes, Lips: normal, moist, Oral mucosa: normal, pink and intact, moist. 18:39 Cardiovascular: Exam negative for acute changes, Rate: normal, Rhythm: regular, Pulses: no pulse deficits are appreciated. 18:39 Respiratory: Exam negative for acute changes, respiratory distress, shortness of breath, Breath sounds: bronchial sounds, that are mild, are heard diffusely. 18:39 Neuro: Exam negative for acute changes, Orientation: is normal, Mentation: is normal, Motor: is normal, moves all fours. Vital Signs: 17:18 BP 138 / 90; Pulse 88; Resp 18; Temp 97.9(TE); Pulse Ox 100% on R/A; Weight 90.26 kg bm7 (R); Height 5 ft. 4 in. (162.56 cm); Pain 10/10; 17:18 Body Mass Index 34.16 (90.26 kg, 162.56 cm) bm7 MDM: 17:35 Patient medically screened. [facility] 20:26 Data reviewed: vital signs. Data interpreted: Pulse oximetry: on room air is 100 %. pm1 Interpretation: normal. Counseling: I had a detailed discussion with the patient and/or guardian regarding: the historical points, exam findings, and any diagnostic results supporting the discharge/admit diagnosis, lab results, radiology results, the need for outpatient follow up, to return to the emergency department if symptoms worsen or persist or if there are any questions or concerns that arise at home, Patient is feeling better with the medications given here and will therefore send her home with similar medication . 12/01 18:39 Order name: COVID-19 (Coronavirus) Document "Date of Onset" if Symptomatic pm1 12/01 18:39 Order name: Flu; Complete Time: 20:11 pm1 12/01 17:26 Order name: Chest Pa And Lat (2 Views) XRAY; Complete Time: 18:43 pm1 12/01 19:05 Order name: COVID-19 SARS RT PCR (Document "Date of Onset" if Symptomatic); Complete pm1 Time: 20:11 Administered Medications: 18:08 Drug: Tussionex Pennkinetic ER (chlorpheniramine-hydrocodone) Suspension 5 ml Route: PO;hb 19:20 Follow up: Response: No adverse reaction hb 19:11 Drug: Decadron (dexamethasone) 10 mg Route: IM; Site: right deltoid; hb 19:11 Drug: Albuterol - atroVENT (ipratropium) (3:1) (2.5 mg - 0.5 mg) 3 ml Route: Nebulizer; hb Disposition Summary: 12/01/21 20:28 Discharge Ordered Location: Home pm1 Problem: new pm1 Symptoms: have improved pm1 Condition: Stable pm1 Diagnosis - Acute upper respiratory infection, unspecified pm1 Followup: pm1 - With: Emergency Department - When: As needed - Reason: Worsening of condition Followup: pm1 - With: Private Physician - When: 2 - 3 days - Reason: Recheck today's complaints, Continuance of care, Re-evaluation by your physician Discharge Instructions: - Discharge Summary Sheet pm1 - Upper Respiratory Infection, Adult pm1 Forms: - Medication Reconciliation Form pm1 - Thank You Letter pm1 - Antibiotic Education pm1 - Prescription Opioid Use pm1 Prescriptions: - Ventolin HFA 90 mcg/actuation Inhalation HFA aerosol inhaler - inhale 2 puff by INHALATION route every 4-6 hours As needed; 1 Inhaler; pm1 Refills: 0, Product Selection Permitted - Medrol (Danny) 4 mg Oral Tablets, Dose Pack - take 1 tablet by ORAL route as directed - follow package instructions; 1 pm1 packet; Refills: 0, Product Selection Permitted - Guaifenesin AC 10-100 mg/5 mL Oral Liquid - take 10 milliliters by ORAL route every 4 hours As needed; 240 milliliter; pm1 Refills: 0, Product Selection Permitted Signatures: Dispatcher [employer] EDOtis Morejon MD MD cha Marinas, Patrick, NP RAILROAD DESIGN CONSULTANT pm1 Jennifer Robison RN RN Bianka Jaeger RN RN bm7 Corrections: (The following items were deleted from the chart) 17:20 17:20 Home Meds: Unable to obtain; bmCodie bm7
[2021-12-04 00:41] VITALS: BP 138/90; TEMP 97.9; O2SAT 100
== END 2021-12-01 20:47 | disposition home or self-care (01) ==
LOC: ER 16:43
DX: J06.9 Acute upper respiratory infection, unspecified (principal); Z20.822 Contact with and (suspected) exposure to COVID-19
CPT/HCPCS: 87804 ×2; 71046; U0003; J1100; 94640; 96372; 99284

== ENCOUNTER 2022-03-14 23:33 | Inpatient (IN) | payer OTHER ==
--- OUTSIDE RECORDS SUMMARY | 2022-03-14 23:39 | XMS REPORT | Continuity of Care Document ---
:1985 Author Organization [facility] t Address [address] Panchal [address] [place] [id number] Care Team Providers Name Role Phone PCP, PATIENT DOES NOT HAVE A Primary Care Physician UnavailCLARKE Mendoza Attending Clinician Unavailable Elena Lee MD Attending Clinician ELENA LEE Attending Clinician Unavailable HALINA BARRERA III Attending Clinician Unavailable Doctor Unassigned, [place] Attending Clinician Unavailable SUDHEER RAMIREZ Attending Clinician Unavailable Sudheer Carson Attending Clinician Nurse, [facility] Attending Clinician Unavailable EbTori Schneider Attending Clinician TORI GALEANA Attending Clinician Unavailable Maru MELGOZA, Neisha Leahy Attending Clinician AMANDA العلي Attending Clinician Unavailable Amanda Ramos Attending Clinician EARNESTINE FARRELL Attending Clinician Unavailable Lab, [facility] Attending Clinician Unavailable Earnestine Cabello Attending Clinician Beth MIRANDA, Tootie Attending Clinician Unavailable 5, [facility] Attending Clinician Unavailable Irving Tomas MD Attending Clinician Vandana Little MD Attending Clinician Payers Payer Name Policy Type Policy Number Effective Date Expiration Date Rtiesh SÁNCHEZS [id number] 2019 HEALTH 00:00:00 [facility] [id number] 2021 CHOICE [place] STAR 00:00:00 CIGNA II [id number] 2019 00:00:00 Problems Condition Condition Condition Status Onset Resolution Last Treating Co mments Source Name Details Category Date Date Treatment Clinician Date Disease Active 2019-03 Univers (spontaneo (spontaneo 2-11 [place] vaginal [place] 00 [facility] Liveborn Liveborn Disease Active 2019-03 Unive rs by by 2-11 ity of vaginal vaginal 00:00: [place] delivery delivery [facility] Tubal Tubal Disease Active 2019-03 [facility] ligation ligation 2-11 [place] [facility] 37 weeks 37 weeks Disease Active 2019-03 Unive rs gestation gestation 2-10 ity of of of 00:00: [place] 00 [facility] Labor and Labor and Disease Active 2019-03 [...] , 00:00[place] antepartum antepartum 00 Vt dical Branch Abnormal Abnormal Disease Active 2019-03 [...] present y present BMI BMI Disease Active 2020- Univers 32.0-32.9, 32.0-32.9, 0-01 it y of adult adult 00:00: [place] 00 Medical Branch Maternal Maternal Disease Active 2020-0 Overview: Un eric varicella, varicella, 9-21 Formattin ity of non-immune non-immune 00:00: g of this [place] 00 note Medical might be Branch different from the original. Address in postpartu m. Overweight Overweight Disease Active 2020-0 U nivers (BMI (BMI 9-17 ity of 25.0-29.9) 25.0-29.9) [place] 00 [place] Flu Flu Disease Active 0 Univers vaccine vaccine 17 ity of need need 00:00: [place] 00 Medical Branch H/O: H/O: Disease Active 2020-0 Univers depression depression 9-17 it y of 00:00: [place] [address] Medical Branch History of History of Disease Active 2020-0 U nivers anemia anemia -17 ity of 00:00: [place] [address] Medical Branch Multiparit Multiparit Disease Active 2020-0 U nivers y y 9-17 ity of 00:00: [place] [address] Medical Branch Screening Screening Disease Active 2019-0 Uni vers for viral for viral 9-17 ity of disease disease 00:00: [address] Branch Insufficie Insufficie Disease Active 2020-0 [...] Univers delivery delivery 1-14 ity of 00:00: [place] [address] Medical Branch Allergies, Adverse Reactions, Alerts Allergy Allergy Status Severity Reaction(s) Onset Inactive Treating Comm ents Source Name Type Date Date Clinician NO KNOWN Drug Active Univers ALLERGIE Class ity of S [facility] Social History Social Habit Start Date Stop Date Quantity Comments Source ASSERTION 2019-06-08 [facility] 00:00:00 [facility] Exposure to 2021-11-15 2021-11-25 Not sure [facility] SARS-CoV-2 00:00:00 18:50:00 [facility] (event) [place] Tobacco use and 2021-11-25 2021-11-25 Smokeless tobacco Un iversity of exposure 00:00:00 00:00:00 non-user [facility] Alcohol intake 2021-11-25 2021-11-25 Ex-drinker [facility] 00:00:00 00:00:00 (finding) [facility] Sex Ass[birth year] At [birth year] Univers y of 00:00:00 00:00:00 [facility] Smoking Status Start Date Stop Date Source Never smoked tobacco [facility] Unknown if ever smoked [facility] Medications Ordered Filled Start Stop Current Ordering Indication Dosage Frequency Signature Comments Components Source Medication Medication Date Date Medication? Clinician (SIG) Name Name albuterol Yes [id number] 2{puff} Inhale 2 Univers 90 9-21 Puffs ity of mcg/actuati 00:00: every 6 [place] as on inhaler 00 (six) Medical hours as Branch needed for Wheezing. guaiFENesin Yes [id number] 400mg Take 1 Univers 400 mg 9-21 tablet by ity of tablet 00:00: mouth [place] 00 every 4 Medical (four) Branch hours as needed for Cough. promethazin Yes [id number] 5mL Take 5 mL Univers e-dextromet 9-21 by mouth 4 it y of horphan 00:00: (four) [place] 6.25-15 00 times Medical mg/5 mL daily as Branch syrup needed for Cough. famotidine Yes [id number] 40mg Take 1 U nivers 40 mg 9-21 tablet by ity of tablet 00:00: mouth in [place] 00 the Medical morning. Branch albuterol Yes [id number] 2{puff} Inhale 2 Univers 90 9-21 Puffs ity of mcg/actuati 00:00: every 6 [place] as on inhaler 00 (six) Medical hours as Branch needed for Wheezing. guaiFENesin 2021-0 Yes [id number] 400mg Take 1 Univers 400 mg 9-21 tablet by ity of tablet 00:00: mouth [place] 00 every 4 Medical (four) Branch hours as needed for Cough. promethazin 2-0 Yes [id number] 5mL Take 5 mL Univers e-dextromet 9-21 by mouth 4 it y of horphan 00:00: (four) [place] 6.25-15 00 times Medical mg/5 mL daily as Branch syrup needed for Cough. famotidine 2-0 Yes [id number] 40mg Take 1 U nivers 40 mg 9-21 tablet by ity of tablet 00:00: mouth in [place] 00 the Medical morning. Branch albuterol 2021-0 Yes [id number] 2{puff} Inhale 2 Univers 90 9-21 Puffs ity of mcg/actuati 00:00: every 6 [place] on inhaler 00 (six) Medical hours as Branch needed for Wheezing. guaiFENesin 2-0 Yes [id number] 400mg Take 1 Univers 400 mg 9-21 tablet by ity of tablet 00:00: mouth [place] 00 every 4 Medical (four) Branch hours as needed for Cough. promethazin 2-0 Yes [id number] 5mL Take 5 mL Univers e-dextromet 9-21 by mouth 4 it y of horphan 00:00: (four) [place] 6.25-15 00 times Medical mg/5 mL daily as Branch syrup needed for Cough. famotidine 2-0 Yes [id number] 40mg Take 1 U nivers 40 mg 9-21 tablet by ity of tablet 00:00: mouth in [place] 00 the Medical morning. Branch ondansetron 2-0 Yes [id number] 4mg Take 1 Univers 4 mg tablet 3-03 tablet by ity of 00:00: mouth [place] 00 every 8 Medical (eight) Branch hours as needed for Nausea and Vomiting (N/V). ondansetron 2022-0 Yes [id number] 4mg Take 1 Univers 4 mg tablet 3-03 tablet by ity of 00:00: mouth [place] 00 every 8 Medical (eight) Branch hours as needed for Nausea and Vomiting (N/V). ondansetron 2022-0 Yes [id number] 4mg Take 1 Univers 4 mg tablet 3-03 tablet by ity of 00:00: mouth [place] 00 every 8 Medical (eight) Branch hours as needed for Nausea and Vomiting (N/V). furosemide 2020-0 2020- No [id number] 20mg Take 1 Univers 20 mg 3-09 03-15 tablet by ity of tablet 00:00: 04:59 mouth [place] 00 :00 every Medical morning Branch for 5 days. 2019-03 Yes [id number] 1{tbl} Take 1 Univers vitamin 2-12 tablet by ity of w/FA tablet 00:00: mouth [place] 00 daily. Medical Branch docusate 2019-03 Yes [id number] 240mg Take 1 U nivers calcium 240 2-12 capsule by it y of mg capsule 00:00: mouth [place] 00 daily as Medical needed for Branch Constipati on. ferrous 2019-03 Yes [id number] 325mg Take 1 Un eric sulfate 325 2-12 tablet by ity of mg (65 mg 00:00: mouth 2 [place] iron) 00 (two) Medical tablet times Branch daily. ibuprofen 2019-03 Yes [id number] 600mg Take 1 Univers 600 mg 2-12 tablet by ity of tablet 00:00: mouth [place] 00 every 6 Medical (six) Branch hours as needed (Pain). Take with food or milk. 2019-03 Yes [id number] 1{tbl} Take 1 Univers vitamin 2-12 tablet by ity of w/FA tablet 00:00: mouth [place] 00 daily. Medical Branch docusate 2019-03 Yes [id number] 240mg Take 1 U nivers calcium 240 2-12 capsule by it y of mg capsule 00:00: mouth [place] 00 daily as Medical needed for Branch Constipati on. ferrous 2019-03 Yes [id number] 325mg Take 1 Un eric sulfate 325 2-12 tablet by ity of mg (65 mg 00:00: mouth 2 [place] iron) 00 (two) Medical tablet times Branch daily. ibuprofen 2019-03 Yes [id number] 600mg Take 1 Univers 600 mg 2-12 tablet by ity of tablet 00:00: mouth [place] 00 every 6 Medical (six) Branch hours as needed (Pain). Take with food or milk. 2019-03 Yes [id number] 1{tbl} Take 1 Univers vitamin 2-12 tablet by ity of w/FA tablet 00:00: mouth [place] 00 daily. Medical Branch docusate 2019-03 Yes [id number] 240mg Take 1 U nivers calcium 240 2-12 capsule by it y of mg capsule 00:00: mouth [place] 00 daily as Medical needed for Branch Constipati on. ferrous 2020 Yes [id number] 325mg Take 1 Un eric sulfate 325 2-12 tablet by ity of mg (65 mg 00:00: mouth 2 [place] iron) 00 (two) Medical tablet times Branch daily. ibuprofen 2019-03 Yes [id number] 600mg Take 1 Univers 600 mg 2-12 tablet by ity of tablet 00:00: mouth [place] 00 every 6 Medical (six) Branch hours as needed (Pain). Take with food or milk. 2019-03 Yes [id number] 1{tbl} Take 1 Univers vitamin 2-12 tablet by ity of w/FA tablet 00:00: mouth [place] 00 daily. Medical Branch docusate 2019-03 Yes [id number] 240mg Take 1 U nivers calcium 240 2-12 capsule by it y of mg capsule 00:00: mouth [place] 00 daily as Medical needed for Branch Constipati on. ferrous 2019-03 Yes [id number] 325mg Take 1 Un eric sulfate 325 2-12 tablet by ity of mg (65 mg 00:00: mouth 2 [place] iron) 00 (two) Medical tablet times Branch daily. ibuprofen 2019-03 Yes [id number] 600mg Take 1 Univers 600 mg 2-12 tablet by ity of tablet 00:00: mouth [place] 00 every 6 Medical (six) Branch hours as needed (Pain). Take with food or milk. 2019-03 Yes [id number] 1{tbl} Take 1 Univers vitamin 2-12 tablet by ity of w/FA tablet 00:00: mouth [place] 00 daily. Medical Branch docusate 2019-03 Yes [id number] 240mg Take 1 U nivers calcium 240 2-12 capsule by it y of mg capsule 00:00: mouth [place] 00 daily as Medical needed for Branch Constipati on. ferrous 2019-03 Yes [id number] 325mg Take 1 Un eric sulfate 325 2-12 tablet by ity of mg (65 mg 00:00: mouth 2 [place] iron) 00 (two) Medical tablet times Branch daily. ibuprofen 2019-03 Yes [id number] 600mg Take 1 Univers 600 mg 2-12 tablet by ity of tablet 00:00: mouth [place] 00 every 6 Medical (six) Branch hours as needed (Pain). Take with food or milk. 2019-03 Yes [id number] 1{tbl} Take 1 Univers vitamin 2-12 tablet by ity of w/FA tablet 00:00: mouth [place] 00 daily. Medical Branch docusate 2019-03 Yes [id number] 240mg Take 1 U nivers calcium 240 2-12 capsule by it y of mg capsule 00:00: mouth once [place] 00 daily as Medical needed for Branch Constipati on. ferrous 2019-03 Yes [id number] 325mg Take 1 Un eric sulfate 325 2-12 tablet by ity of mg (65 mg 00:00: mouth 2 [place] iron) 00 (two) Medical tablet times Branch daily. ibuprofen 2019-03 Yes [id number] 600mg Take 1 Univers 600 mg 2-12 tablet by ity of tablet 00:00: mouth [place] 00 every 6 Medical (six) Branch hours as needed (Pain). Take with food or milk. 2019-03 Yes [id number] 1{tbl} Take 1 Univers vitamin 2-12 tablet by ity of w/FA tablet 00:00: mouth [place] 00 daily. Medical Branch docusate 2019-03 Yes [id number] 240mg Take 1 U nivers calcium 240 2-12 capsule by it y of mg capsule 00:00: mouth once [place] 00 daily as Medical needed for Branch Constipati on. ferrous 2019-03 Yes [id number] 325mg Take 1 Un eric sulfate 325 2-12 tablet by ity of mg (65 mg 00:00: mouth 2 [place] iron) 00 (two) Medical tablet times Branch daily. ibuprofen 2019-03 Yes [id number] 600mg Take 1 Univers 600 mg 2-12 tablet by ity of tablet 00:00: mouth [place] 00 every 6 Medical (six) Branch hours as needed (Pain). Take with food or milk. 2019-03 Yes [id number] 1{tbl} Take 1 Univers vitamin 2-12 tablet by ity of w/FA tablet 00:00: mouth [place] 00 daily. Medical Branch docusate 2019-03 Yes [id number] 240mg Take 1 U nivers calcium 240 2-12 capsule by it y of mg capsule 00:00: mouth once [place] 00 daily as Medical needed for Branch Constipati on. ferrous 2019- Yes [id number] 325mg Take 1 Un eric sulfate 325 2-12 tablet by ity of mg (65 mg 00:00: mouth 2 [place] iron) 00 (two) Medical tablet times Branch daily. ibuprofen 2019-03 Yes [id number] 600mg Take 1 Univers 600 mg 2-12 tablet by ity of tablet 00:00: mouth [place] 00 every 6 Medical (six) Branch hours as needed (Pain). Take with food or milk. 2019-03 Yes [id number] 1{tbl} Take 1 Univers vitamin 2-12 tablet by ity of w/FA tablet 00:00: mouth [place] 00 daily. Medical Branch docusate 2019-03 Yes [id number] 240mg Take 1 U nivers calcium 240 2-12 capsule by it y of mg capsule 00:00: mouth once [place] 00 daily as Medical needed for Branch Constipati on. ferrous 2019-03 Yes [id number] 325mg Take 1 Un eric sulfate 325 2-12 tablet by ity of mg (65 mg 00:00: mouth 2 [place] iron) 00 (two) Medical tablet times Branch daily. ibuprofen 2019-03 Yes [id number] 600mg Take 1 Univers 600 mg 2-12 tablet by ity of tablet 00:00: mouth [place] 00 every 6 Medical (six) Branch hours as needed (Pain). Take with food or milk. 2019-03 Yes [id number] 1{tbl} Take 1 Univers vitamin 2-12 tablet by ity of w/FA tablet 00:00: mouth [place] 00 daily. Medical Branch docusate 2019-03 Yes [id number] 240mg Take 1 U nivers calcium 240 2-12 capsule by it y of mg capsule 00:00: mouth once [place] 00 daily as Medical needed for Branch Constipati on. ferrous 2019-03 Yes [id number] 325mg Take 1 Un eric sulfate 325 2-12 tablet by ity of mg (65 mg 00:00: mouth 2 [place] iron) 00 (two) Medical tablet times Branch daily. ibuprofen 2019-03 Yes [id number] 600mg Take 1 Univers 600 mg 2-12 tablet by ity of tablet 00:00: mouth [place] 00 every 6 Medical (six) Branch hours as needed (Pain). Take with food or milk. ferrous 2019-03 Yes [id number] 325mg Take 1 Un eric sulfate 325 2-02 tablet by ity of mg (65 mg 00:00: mouth 2 [place] iron) 00 (two) Medical tablet times Branch daily. ferrous 2019-03 Yes [id number] 325mg Take 1 Un eric sulfate 325 2-02 tablet by ity of mg (65 mg 00:00: mouth 2 [place] iron) 00 (two) Medical tablet times Branch daily. ferrous 2019-03 Yes [id number] 325mg Take 1 Un eric sulfate 325 2-02 tablet by ity of mg (65 mg 00:00: mouth 2 [place] iron) 00 (two) Medical tablet times Branch daily. ferrous 2019-03 Yes [id number] 325mg Take 1 Un eric sulfate 325 2-02 tablet by ity of mg (65 mg 00:00: mouth 2 [place] iron) 00 (two) Medical tablet times Branch daily. 2019-03 Yes [id number] 1{packe Take 1 Univers vit 1-30 t} Packet by ity of 33-iron-fol 00:00: mouth [place] ic-dha 00 daily. Medical ([facility] Branch + DHA) 29 mg iron-1 mg -250 mg combo pack ascorbic 2019-03 Yes [id number] 500mg Take 1 U nivers acid, 1-30 tablet by ity of vitamin C, 00:00: [place] 500 mg 00 (three) Medical tablet times Branch daily. 2019-03 Yes [id number] 1{packe Take 1 Univers vit 1-30 t} Packet by ity of 33-iron-fol 00:00: mouth [place] ic-dha 00 daily. Medical ([facility]-OB Branch + DHA) 29 mg iron-1 mg -250 mg combo pack ascorbic 2019-03 Yes [id number] 500mg Take 1 U nivers acid, 1-30 tablet by ity of vitamin C, 00:00: [place] 500 mg 00 (three) Medical tablet times Branch daily. 2019-03 Yes [id number] 1{packe Take 1 Univers vit 1-30 t} Packet by ity of 33-iron-fol 00:00: mouth [place] ic-dha 00 daily. Medical ([facility] Branch + DHA) 29 mg iron-1 mg -250 mg combo pack ascorbic 2019-03 Yes [id number] 500mg Take 1 U nivers acid, 1-30 tablet by ity of vitamin C, 00:00: mouth 3 [place] 500 mg 00 (three) Medical tablet times Branch daily. 2019-03 Yes [id number] 1{packe Take 1 Univers vit 1-30 t} Packet by ity of 33-iron-fol 00:00: mouth [place] ic-dha 00 daily. Medical ([facility] Branch + DHA) 29 mg iron-1 mg -250 mg combo pack ascorbic 2019-03 Yes [id number] 500mg Take 1 U nivers acid, 1-30 tablet by ity of vitamin C, 00:00: mouth 3 [place] 500 mg 00 (three) Medical tablet times Branch daily. 2019-03 Yes 1{packe Take 1 Univers vit 1-30 t} Packet by ity of 33-iron-fol 00:00: mouth [place] ic-dha 00 daily. Medical ([facility] Branch + DHA) 29 mg iron-1 mg -250 mg combo pack ascorbic 2019-03 Yes [id number] 500mg Take 1 U nivers acid, 1-30 tablet by ity of vitamin C, 00:00: mouth 3 [place] 500 mg 00 (three) Medical tablet times Branch daily. 2019-03 Yes 1{packe Take 1 Univers vit 1-30 t} Packet by ity of 33-iron-fol 00:00: mouth [place] ic-dha 00 daily. Medical ([facility] Branch + DHA) 29 mg iron-1 mg -250 mg combo pack ascorbic 2019-03 Yes [id number] 500mg Take 1 U nivers acid, 1-30 tablet by ity of vitamin C, 00:00: mouth 3 [place] 500 mg 00 (three) Medical tablet times Branch daily. 2019-03 Yes 1{packe Take 1 Univers vit 1-30 t} Packet by ity of 33-iron-fol 00:00: mouth [place] ic-dha 00 daily. Medical ([facility] Branch + DHA) 29 mg iron-1 mg -250 mg combo pack ascorbic 2019-03 Yes [id number] 500mg Take 1 U nivers acid, 1-30 tablet by ity of vitamin C, 00:00: mouth 3 [place] 500 mg 00 (three) Medical tablet times Branch daily. 2020 Yes [id number] 1{packe Take 1 Univers vit 1-30 t} Packet by ity of 33-iron-fol 00:00: mouth [place] ic-dha 00 daily. Medical ([facility] Branch + DHA) 29 mg iron-1 mg -250 mg combo pack ascorbic 2019-03 Yes [id number] 500mg Take 1 U nivers acid, 1-30 tablet by ity of vitamin C, 00:00: mouth 3 [place] 500 mg 00 (three) Medical tablet times Branch daily. 2019-03 Yes [id number] 1{packe Take 1 Univers vit 1-12 t} Packet by ity of 33-iron-fol 00:00: mouth [place] ic-dha daily. Medical ([facility] Branch + DHA) 29 mg iron-1 mg -250 mg combo pack 2019-03 Yes [id number] 1{packe Take 1 Univers vit 1-12 t} Packet by ity of 33-iron-fol 00:00: mouth [place] ic-dha daily. Medical ([facility] Branch + DHA) 29 mg iron-1 mg -250 mg combo pack 2019-03 Yes [id number] 1{packe Take 1 Univers vit 1-12 t} Packet by ity of 33-iron-fol 00:00: mouth [place] ic-dha daily. [facility] 29 mg iron-1 mg -250 mg combo pack 2019-03 Yes [id number] 1{packe Take 1 Univers vit 1-12 t} Packet by ity of 33-iron-fol 00:00: mouth [place] ic-dha daily. [facility] 29 mg iron-1 mg -250 mg combo pack 2019-03 Yes [id number] 1{packe Take 1 Univers vit 1-12 t} Packet by ity of 33-iron-fol 00:00: mouth [place] ic-dha daily. Medical ([facility] Branch + DHA) 29 mg iron-1 mg -250 mg combo pack 2019-03 Yes [id number] 1{packe Take 1 Univers vit 1-12 t} Packet by ity of 33-iron-fol 00:00: mouth [place] ic-dha 00 daily. Medical ([facility] Branch + DHA) 29 mg iron-1 mg -250 mg combo pack 2019-03 Yes [id number] 1{packe Take 1 Univers vit 1-12 t} Packet by ity of 33-iron-fol 00:00: mouth [place] ic-dha 00 daily. Medical ([facility] Branch + DHA) 29 mg iron-1 mg -250 mg combo pack 2019- Yes [id number] 1{packe Take 1 Univers vit 1-12 t} Packet by ity of 33-iron-fol 00:00: mouth [place] ic-dha 00 daily. [facility] 29 mg iron-1 mg -250 mg combo pack 2020- Yes [id number] 1{packe Take 1 Univers vit 1-12 t} Packet by ity of 33-iron-fol 00:00: mouth [place] ic-dha 00 daily. [facility] 29 mg iron-1 mg -250 mg combo pack 2020- Yes [id number] 1{packe Take 1 Univers vit 1-12 t} Packet by ity of 33-iron-fol 00:00: mouth [place] ic-dha 00 daily. [facility] 29 mg iron-1 mg -250 mg combo pack 2019-03 Yes [id number] 1{packe Take 1 Univers vit 1-12 t} Packet by ity of 33-iron-fol 00:00: mouth [place] ic-dha 00 daily. [facility] 29 mg iron-1 mg -250 mg combo pack 2020- Yes [id number] 1{packe Take 1 Univers vit 1-12 t} Packet by ity of 33-iron-fol 00:00: mouth [place] ic-dha 00 daily. Medical [facility] 29 mg iron-1 mg -250 mg combo pack 2020- Yes [id number] 1{packe Take 1 Univers vit 1-12 t} Packet by ity of 33-iron-fol 00:00: mouth [place] ic-dha 00 daily. [facility] 29 mg iron-1 mg -250 mg combo pack SERTraline 2020-0 Yes [id number] 25mg Take 25 mg Univers 25 mg 9-17 by mouth ity of tablet 15:41: daily. [address] SERTraline 2020-0 Yes [id number] 25mg Take 25 mg Univers 25 mg 9-17 by mouth ity of tablet 15:41: daily. [address] SERTraline 2020-0 Yes [id number] 25mg Take 25 mg Univers 25 mg 9-17 by mouth ity of tablet 15:41: daily. [address] SERTraline 2020-0 Yes [id number] 25mg Take 25 mg Univers 25 mg 9-17 by mouth ity of tablet 15:41: daily. [address] SERTraline 2020-0 Yes [id number] 25mg Take 25 mg Univers 25 mg 9-17 by mouth ity of tablet 15:41: daily. [address] SERTraline 2020-0 Yes [id number] 25mg Take 25 mg Univers 25 mg 9-17 by mouth ity of tablet 15:41: daily. [address] SERTraline 2019-0 Yes [id number] 25mg Take 25 mg Univers 25 mg 9-17 by mouth ity of tablet 15:41: daily. [address] SERTraline 2019-0 Yes [id number] 25mg Take 25 mg Univers 25 mg 9-17 by mouth ity of tablet 15:41: daily. [address] SERTraline 2019-0 Yes [id number] 25mg Take 25 mg Univers 25 mg 9-17 by mouth ity of tablet 15:41: daily. [address] SERTraline 2019-0 Yes [id number] 25mg Take 25 mg Univers 25 mg 9-17 by mouth ity of tablet 15:41: daily. [address] SERTraline 2019-0 Yes [id number] 25mg Take 25 mg Univers 25 mg 9-17 by mouth ity of tablet 15:41: daily. [address] SERTraline 2019-0 Yes [id number] 25mg Take 25 mg Univers 25 mg 9-17 by mouth ity of tablet 15:41: daily. [address] SERTraline 2020-0 Yes [id number] 25mg Take 25 mg Univers 25 mg 9-17 by mouth ity of tablet 15:41: daily. [address] SERTraline 2020-0 Yes [id number] 25mg Take 25 mg Univers 25 mg 9-17 by mouth ity of tablet 15:41: daily. [address] SERTraline 2020-0 Yes [id number] 25mg Take 25 mg Univers 25 mg 9-17 by mouth ity of tablet 15:41: daily. [address] SERTraline 2019-0 Yes [id number] 25mg Take 25 mg Univers 25 mg 9-17 by mouth ity of tablet 15:41: daily. [address] SERTraline 2020-0 Yes [id number] 25mg Take 25 mg Univers 25 mg 9-17 by mouth ity of tablet 15:41: daily. [address] SERTraline 2020-0 Yes [id number] 25mg Take 25 mg Univers 25 mg 9-17 by mouth ity of tablet 15:41: daily. [address] SERTraline 2020-0 Yes [id number] 25mg Take 25 mg Univers 25 mg 9-17 by mouth ity of tablet 15:41: daily. [address] SERTraline 2019-0 Yes [id number] 25mg Take 25 mg Univers 25 mg 9-17 by mouth ity of tablet 15:41: daily. [address] SERTraline 2019-0 Yes [id number] 25mg Take 25 mg Univers 25 mg 9-17 by mouth ity of tablet 15:41: daily. [address] SERTraline 2019-0 Yes [id number] 25mg Take 25 mg Univers 25 mg 9-17 by mouth ity of tablet 15:41: daily. [address] SERTraline 2019-0 Yes [id number] 25mg Take 25 mg Univers 25 mg 9-17 by mouth ity of tablet 15:41: daily. [address] SERTraline 2019-0 Yes [id number] 25mg Take 25 mg Univers 25 mg 9-17 by mouth ity of tablet 15:41: daily. [address] SERTraline 2019-0 Yes [id number] 25mg Take 25 mg Univers 25 mg 9-17 by mouth ity of tablet 15:41: daily. [address] SERTraline 2019-0 Yes [id number] 25mg Take 25 mg Univers 25 mg 9-17 by mouth ity of tablet 15:41: daily. [address] SERTraline 2020-0 Yes [id number] 25mg Take 25 mg Univers 25 mg 9-17 by mouth ity of tablet 15:41: daily. [address] SERTraline 2020-0 Yes [id number] 25mg Take 25 mg Univers 25 mg 9-17 by mouth ity of tablet 15:41: daily. [address] SERTraline 2019-0 Yes [id number] 25mg Take 25 mg Univers 25 mg 9-17 by mouth ity of tablet 15:41: daily. [address] SERTraline 2019-0 Yes [id number] 25mg Take 25 mg Univers 25 mg 9-17 by mouth ity of tablet 15:41: daily. [address] Branch SERTraline 2020-0 Yes [id number] 25mg Take 25 mg Univers 25 mg 9-17 by mouth ity of tablet 15:41: daily. [place] [address] Medical Branch 2020-0 Yes [id number] 1{packe Take 1 Univers vit 9-17 t} Packet by ity of 33-iron-fol 00:00: mouth [place] ic-dha 00 daily. Medical (SELECT-OB Branch + DHA) 29 mg iron-1 mg -250 mg combo pack 2020-0 Yes [id number] 1{packe Take 1 Univers vit 9-17 t} Packet by ity of 33-iron-fol 00:00: mouth [place] ic-dha 00 daily. Medical ([facility] + DHA) 29 mg iron-1 mg -250 mg combo pack 2020-0 Yes [id number] 1{packe Take 1 Univers vit 9-17 t} Packet by ity of 33-iron-fol 00:00: mouth [place] ic-dha daily. Medical ([facility] Branch + DHA) 29 mg iron-1 mg -250 mg combo pack 2020-0 Yes [id number] 1{packe Take 1 Univers vit 9-17 t} Packet by ity of 33-iron-fol 00:00: mouth [place] ic-dha 00 daily. Medical ([facility] + DHA) 29 mg iron-1 mg -250 mg combo pack 2020-0 Yes [id number] 1{packe Take 1 Univers vit 9-17 t} Packet by ity of 33-iron-fol 00:00: mouth [place] ic-dha 00 daily. Medical ([facility] Branch + DHA) 29 mg iron-1 mg -250 mg combo pack 2020-0 Yes [id number] 1{packe Take 1 Univers vit 9-17 t} Packet by ity of 33-iron-fol 00:00: mouth [place] ic-dha 00 daily. Medical ([facility] Branch + DHA) 29 mg iron-1 mg -250 mg combo pack 2020-0 Yes [id number] 1{packe Take 1 Univers vit 9-17 t} Packet by ity of 33-iron-fol 00:00: mouth [place] ic-dha 00 daily. Medical ([facility] Branch + DHA) 29 mg iron-1 mg -250 mg combo pack 2020-0 Yes [id number] 1{packe Take 1 Univers vit 9-17 t} Packet by ity of 33-iron-fol 00:00: mouth [place] ic-dha 00 daily. Medical ([facility] Branch + DHA) 29 mg iron-1 mg -250 mg combo pack 2020-0 Yes [id number] 1{packe Take 1 Univers vit 9-17 t} Packet by ity of 33-iron-fol 00:00: mouth [place] ic-dha 00 daily. Medical ([facility] Branch + DHA) 29 mg iron-1 mg -250 mg combo pack 2020-0 Yes [id number] 1{packe Take 1 Univers vit 9-17 t} Packet by ity of 33-iron-fol 00:00: mouth [place] ic-dha 00 daily. Medical ([facility] Branch + DHA) 29 mg iron-1 mg -250 mg combo pack 2020-0 Yes [id number] 1{packe Take 1 Univers vit 9-17 t} Packet by ity of 33-iron-fol 00:00: mouth [place] ic-dha 00 daily. Medical ([facility] Branch + DHA) 29 mg iron-1 mg -250 mg combo pack 2020-0 Yes [id number] 1{packe Take 1 Univers vit 9-17 t} Packet by ity of 33-iron-fol 00:00: mouth [place] ic-dha 00 daily. Medical ([facility] Branch + DHA) 29 mg iron-1 mg -250 mg combo pack 2020-0 Yes [id number] 1{packe Take 1 Univers vit 9-17 t} Packet by ity of 33-iron-fol 00:00: mouth [place] ic-dha 00 daily. Medical ([facility] Branch + DHA) 29 mg iron-1 mg -250 mg combo pack 2020-0 Yes [id number] 1{packe Take 1 Univers vit 9-17 t} Packet by ity of 33-iron-fol 00:00: mouth [place] ic-dha 00 daily. Medical ([facility] Branch + DHA) 29 mg iron-1 mg -250 mg combo pack 2020-0 Yes [id number] 1{packe Take 1 Univers vit 9-17 t} Packet by ity of 33-iron-fol 00:00: mouth [place] ic-dha 00 daily. Medical ([facility] + DHA) 29 mg iron-1 mg -250 mg combo pack Yes [id number] 1{packe Take 1 Univers vit 9-17 t} Packet by ity of 33-iron-fol 00:00: mouth [place] ic-dha 00 daily. Medical ([facility] Branch + DHA) 29 mg iron-1 mg -250 mg combo pack Yes [id number] 1{packe Take 1 Univers vit 9-17 t} Packet by ity of 33-iron-fol 00:00: mouth [place] ic-dha 00 daily. Medical ([facility] Branch + DHA) 29 mg iron-1 mg -250 mg combo pack Yes [id number] 1{packe Take 1 Univers vit 9-17 t} Packet by ity of 33-iron-fol 00:00: mouth [place] ic-dha 00 daily. Medical ([facility] Branch + DHA) 29 mg iron-1 mg -250 mg combo pack 2020- No [id number] 1{packe Take 1 Univers vit 9-17 11-12 [...] Take one Unive rs SULFATE 325 1-15 -17 tablet by it y of MG [...] Name TDAP 2019-12-06 Completed University of 00:00:00 [facility] TDAP 2019-12-06 Completed University of 00:00:00 [facility] TDAP 2019-12-06 Completed University of 00:00:00 [facility] TDAP 2019-12-06 Completed University of 00:00:00 [facility] TDAP 2019-12-06 Completed University of 00:00:00 [facility] TDAP 2019-12-06 Completed University of 00:00:00 [facility] TDAP 2019-12-06 Completed University of 00:00:00 [facility] TDAP 2019-12-06 Completed University of 00:00:00 [facility] TDAP 2019-12-06 Completed University of 00:00:00 [facility] TDAP 2019-12-06 Completed University of 00:00:00 [facility] TDAP 2019-12-06 Completed University of 00:00:00 [facility] TDAP 2019-12-06 Completed University of 00:00:00 [facility] TDAP 2019-12-06 Completed University of 00:00:00 [facility] TDAP 2019-12-06 Completed University of 00:00:00 [place] [...] Branch TDAP 2019-12-06 Completed University of 00:00:00 [facility] Influenza Virus 2019-11-22 Completed Universit y of [...] Universit y of Vaccine (3+ yrs) 00:00:00 [facility] [place] [facility] Influenza Virus 2016-11-12 Completed Universit y of Vaccine (3+ yrs) 00:00:00 [facility] [place] [facility] Influenza Virus 2016-11-12 Completed Universit y of Vaccine (3+ yrs) 00:00:00 [facility] Influenza Virus 2016-11-12 Completed Universit y of Vaccine (3+ yrs) 00:00:00 [facility] [place] [facility] Influenza Virus 2016-11-12 Completed Universit y of Vaccine (3+ yrs) 00:00:00 [facility] [place] [facility] Influenza Virus 2016-11-12 Completed Universit y of Vaccine (3+ yrs) 00:00:00 [facility] [place] [facility] Influenza Virus 2016-11-12 Completed Universit y of Vaccine (3+ yrs) 00:00:00 [facility] Influenza Virus 2016-11-12 Completed Universit y of Vaccine (3+ yrs) 00:00:00 [facility] Influenza Virus 2016-11-12 Completed Universit y of Vaccine (3+ yrs) 00:00:00 [facility] Influenza Virus 2016-11-12 Completed Universit y of Vaccine (3+ yrs) 00:00:00 [facility] Influenza Virus 2016-11-12 Completed Universit y of Vaccine (3+ yrs) 00:00:00 [facility] Influenza Virus 2016-11-12 Completed Universit y of Vaccine (3+ yrs) 00:00:00 [facility] Influenza Virus 2016-11-12 Completed Universit y of Vaccine (3+ yrs) 00:00:00 [facility] Influenza Virus 2016-11-12 Completed Universit y of Vaccine (3+ yrs) 00:00:00 [facility] Influenza Virus 2016-11-12 Completed Universit y of Vaccine (3+ yrs) 00:00:00 [facility] [place] [facility] Influenza Virus 2016-11-12 Completed Universit y of Vaccine (3+ yrs) 00:00:00 [facility] Influenza Virus 2016-11-12 Completed Universit y of Vaccine (3+ yrs) 00:00:00 [facility] Influenza Virus 2016-11-12 Completed Universit y of Vaccine (3+ yrs) 00:00:00 [facility] Influenza Virus 2016-11-12 Completed Universit y of Vaccine (3+ yrs) 00:00:00 [facility] Influenza Virus 2016-11-12 Completed Universit y of Vaccine (3+ yrs) 00:00:00 [facility] Influenza Virus 2016-11-12 Completed Universit y of Vaccine (3+ yrs) 00:00:00 [facility] Influenza Virus 2016-11-12 Completed Universit y of Vaccine (3+ yrs) 00:00:00 [facility] Influenza Virus 2016-11-12 Completed Universit y of Vaccine (3+ yrs) 00:00:00 [facility] Influenza Virus 2016-11-12 Completed Universit y of Vaccine (3+ yrs) 00:00:00 [facility] Influenza Virus 2016-11-12 Completed Universit y of Vaccine (3+ yrs) 00:00:00 [facility] TDAP 2015-03-12 Completed University of 00:00:00 [facility] TDAP 2015-03-12 Completed University of 00:00:00 [facility] TDAP 2015-03-12 Completed University of 00:00:00 [facility] TDAP 2015-03-12 Completed University of 00:00:00 [facility] TDAP 2015-03-12 Completed University of 00:00:00 [facility] TDAP 2015-03-12 Completed University of 00:00:00 [facility] TDAP 2015-03-12 Completed University of 00:00:00 [facility] TDAP 2015-03-12 Completed University of 00:00:00 [facility] TDAP 2015-03-12 Completed University of 00:00:00 [facility] TDAP 2015-03-12 Completed University of 00:00:00 [facility] TDAP 2015-03-12 Completed University of 00:00:00 [facility] TDAP 2015-03-12 Completed University of 00:00:00 [facility] TDAP 2015-03-12 Completed University of 00:00:00 [facility] TDAP 2015-03-12 Completed University of 00:00:00 [facility] TDAP 2015-03-12 Completed University of 00:00:00 [facility] TDAP 2015-03-12 Completed University of 00:00:00 [facility] TDAP 2015-03-12 Completed University of 00:00:00 [facility] TDAP 2015-03-12 Completed University of 00:00:00 [facility] TDAP 2015-03-12 Completed University of 00:00:00 [facility] TDAP 2015-03-12 Completed University of 00:00:00 [facility] TDAP 2015-03-12 Completed University of 00:00:00 [facility] TDAP 2015-03-12 Completed University of 00:00:00 [facility] TDAP 2015-03-12 Completed University of 00:00:00 [facility] TDAP 2015-03-12 Completed University of 00:00:00 [facility] TDAP 2015-03-12 Completed University of 00:00:00 [facility] Influenza Virus 2015-01-13 Completed Universit y of Vaccine (3+ yrs) 00:00:00 [facility] Influenza Virus 2015-01-13 Completed Universit y of Vaccine (3+ yrs) 00:00:00 [facility] Influenza Virus 2015-01-13 Completed Universit y of Vaccine (3+ yrs) 00:00:00 [facility] Influenza Virus 2015-01-13 Completed Universit y of Vaccine (3+ yrs) 00:00:00 [facility] Influenza Virus 2015-01-13 Completed Universit y of Vaccine (3+ yrs) 00:00:00 [facility] Influenza Virus 2015-01-13 Completed Universit y of Vaccine (3+ yrs) 00:00:00 [facility] Influenza Virus 2015-01-13 Completed Universit y of Vaccine (3+ yrs) 00:00:00 [facility] Influenza Virus 2015-01-13 Completed Universit y of Vaccine (3+ yrs) 00:00:00 [facility] Influenza Virus 2015-01-13 Completed Universit y of Vaccine (3+ yrs) 00:00:00 [facility] Influenza Virus 2015-01-13 Completed Universit y of Vaccine (3+ yrs) 00:00:00 [facility] Influenza Virus 2015-01-13 Completed Universit y of Vaccine (3+ yrs) 00:00:00 [facility] Influenza Virus 2015-01-13 Completed Universit y of Vaccine (3+ yrs) 00:00:00 [facility] Influenza Virus 2015-01-13 Completed Universit y of Vaccine (3+ yrs) 00:00:00 [facility] [place] [facility] Influenza Virus 2015-01-13 Completed Universit y of Vaccine (3+ yrs) 00:00:00 [facility]ma Branch Influenza Virus 2015-01-13 Completed Universit y of Vaccine (3+ yrs) 00:00:00 [facility] [place] [facility] Influenza Virus 2015-01-13 Completed Universit y of Vaccine (3+ yrs) 00:00:00 [facility] [place] [facility] Influenza Virus 2015-01-13 Completed Universit y of Vaccine (3+ yrs) 00:00:00 [facility] [place] [facility] Influenza Virus 2015-01-13 Completed Universit y of Vaccine (3+ yrs) 00:00:00 [facility] Branch Influenza Virus 2015-01-13 Completed Universit y of Vaccine (3+ yrs) 00:00:00 [facility] [place] [facility] Influenza Virus 2015-01-13 Completed Universit y of Vaccine (3+ yrs) 00:00:00 [facility] [place] [facility] Influenza Virus 2015-01-13 Completed Universit y of Vaccine (3+ yrs) 00:00:00 [facility] [place] [facility] Influenza Virus 2015-01-13 Completed Universit y of Vaccine (3+ yrs) 00:00:00 [facility] [place] [facility] Influenza Virus 2015-01-13 Completed Universit y of Vaccine (3+ yrs) 00:00:00 [facility] [place] [facility] Influenza Virus 2015-01-13 Completed Universit y of Vaccine (3+ yrs) 00:00:00 [facility] Influenza Virus 2015-01-13 Completed Universit y of Vaccine (3+ yrs) 00:00:00 [facility] Vital Signs Vital Name Observation Time Observation Value Comments Source Systolic blood 2021-11-25 23:56:00 128 mm[Hg] Univer sity of pressure [facility] Diastolic blood 2021-11-25 23:56:00 94 mm[Hg] Unive rsity of pressure [facility] Heart rate 2021-11-25 23:55:00 95 /min [facility] Body temperature 2021-11-25 23:55:00 36.78 Angella [facility] rate 2021-11-25 23:55:00 18 /min [facility] Body height 2021-11-25 23:55:00 162.6 cm [facility] [place] [facility] Body weight 2021-11-25 23:55:00 89.841 kg [facility] [place] [facility] BMI 2021-11-25 23:55:00 34.00 kg/m2 [facility] [place] [facility] Oxygen saturation in 2021-11-25 23:55:00 97 /min University of Arterial blood by [facility] Pulse oximetry Branch Systolic blood 2021-02-25 23:39:00 150 mm[Hg] Univer sity of pressure [place] [facility] Diastolic blood 2021-02-25 23:39:00 98 mm[Hg] Unive rsity of pressure [place] [facility] Heart rate 2021-02-25 23:39:00 75 /min [facility] [place] [facility] Body temperature 2021-02-25 23:39:00 37.44 Angella Univ ersity [facility] [place] [facility] Respiratory rate 2021-02-25 23:39:00 18 /min Univ ers[facility] [place] [facility] Body height 2021-02-25 23:39:00 165.1 cm [facility] [place] [facility] Body weight 2021-02-25 23:39:00 83.915 kg [facility] [place] [facility] BMI 2021-02-25 23:39:00 30.79 kg/m2 [facility] [place] [facility] Oxygen saturation in 2021-02-25 23:39:00 100 /min University of Arterial blood by [facility] Pulse oximetry Branch Systolic blood 2021-02-25 23:22:00 139 mm[Hg] Univer sity of pressure [place] [facility] Diastolic blood 2021-02-25 23:22:00 91 mm[Hg] Unive rsity of pressure [place] [facility] Heart rate 2021-02-25 23:21:00 73 /min [facility] [place] [facility] Body temperature 2021-02-25 23:21:00 37.17 Angella Univ ers[facility] [place] [facility] Respiratory rate 2021-02-25 23:21:00 19 [...] 2020-05-14 00:01:00 70.308 kg [facility] [place] [facility] BMI 2020-05-14 00:01:00 25.79 kg/m2 [...] 2020-05-14 00:01:00 70.308 kg [facility] [place] [facility] BMI 2020-05-14 00:01:00 25.79 kg/m2 [...] 2020-03-10 19:05:00 65 /min [facility] [place] [facility] Body temperature 2020-03-10 19:05:00 36.89 Angella [facility] [place] [facility] Respiratory rate 2020-03-10 19:05:00 16 [...] 2020-03-10 19:05:00 65 /min [facility] [place] [facility] Body temperature 2020-03-10 19:05:00 36.89 [...] 2020-02-13 13:58:00 88 /min [facility] [place] [facility] Body temperature 2020-02-13 13:58:00 36.28 Angella [facility] [place] [facility] Respiratory rate 2020-02-13 13:58:00 16 /min Univ ersity [facility] [place] [facility] Body height 2020-02-13 13:58:00 162.6 [...] 13:51:00 69 mm[Hg] Unive rsity of pressure [place] [facility] Heart rate 2020-01-17 13:51:00 84 /min [facility] [place] [facility] Body temperature 2020-01-17 13:51:00 36.78 Angella [facility] [place] [facility] Respiratory rate 2020-01-17 13:51:00 16 /min Univ [facility] [place] [facility] Body height 2020-01-17 13:51:00 162.6 cm [facility] [place] [facility] Body weight 2020-01-17 13:51:00 83.054 kg [facility] [place] [facility] BMI 2020-01-17 13:51:00 31.43 kg/m2 [facility] [place] [facility] Systolic blood 2020-01-03 12:58:00 120 mm[Hg] Univer sity of pressure [place] [facility] Diastolic blood 2020-01-03 12:58:00 75 mm[Hg] Unive rsity of pressure [place] [facility] Heart rate 2020-01-03 12:58:00 83 /min [facility] [place] [facility] Body temperature 2020-01-03 12:58:00 36.22 Angella Univ ers[facility] [place] [facility] Respiratory rate 2020-01-03 12:58:00 16 /min Univ ers[facility] [place] [facility] Body height 2020-01-03 12:58:00 162.6 cm [facility] [place] [facility] Body weight 2020-01-03 12:58:00 82.781 kg [facility] [place] [facility] BMI 2020-01-03 12:58:00 31.33 kg/m2 [...] 2019-12-20 12:58:00 82.583 kg [facility] [place] [facility] BMI 2019-12-20 12:58:00 31.25 kg/m2 [facility] [place] [facility] Systolic blood 2019-12-06 14:27:00 116 mm[Hg] Univer sity of pressure [place] [facility] Diastolic blood 2019-12-06 14:27:00 66 mm[Hg] Unive rsity of pressure [place] [facility] Heart rate 2019-12-06 14:27:00 75 /min Universi ty of [facility] Body temperature 2019-12-06 14:27:00 36.5 Angella Univ ersity of [facility] Respiratory rate 2019-12-06 14:27:00 16 /min [...] VW 2021-11-26 00:20:00 Elena Lee o f [facility] ASSIGNMENT OF BENEFITS 2021-05-07 17:36:18 [facility] CONSENT/REFUSAL FOR 2021-02-25 23:18:45 Doctor Unassigned, Unive [facility] [place] DIAGNOSIS AND TREATMENT [facility] URINALYSIS 2020-05-14 00:23:00 Neisha Mahoney [facility] NOTICE OF PRIVACY 2020-05-13 23:48:24 Doctor Unassigned, [facility] PRACTICES [facility] CONSENT/REFUSAL FOR 2020-05-13 23:48:03 Doctor Unassigned, [facility] DIAGNOSIS AND TREAT[facility] 2020-03-10 00:00:[address] [facility] POCT URINALYSIS 2020-02-13 13:58:[address] [facility] POCT URINALYSIS 2020-02-06 17:12:[address] [facility] CBC WITH DIFF 2020-01-30 13:59:[address] [facility] GROUP B STREPTOCOCCUS BY 2020-01-30 13:59:00 Amanda العلي [facility] SARS-COV-2 IGG 2020-01-30 13:59:[address] [facility] LAB ONLY COVID 2020-01-30 13:59:00 Amanda العلي [facility] INTERPRETATION [facility] POCT URINALYSIS 2020-01-30 00:00:[address] [facility] POCT URINALYSIS 2020-01-17 00:00:[address] [facility] POCT URINALYSIS 2020-01-03 00:00:[address] [facility] POCT URINALYSIS 2019-12-20 12:59:[address] [facility] EXTERNAL PROVIDER RECORDS 2019-12-17 05:01:00 Doctor Unassigned, [facility] Name [facility] TDAP VACCINE, >11 YRS, IM 2019-12-06 14:33:55 Amanda العلي [facility] POCT URINALYSIS 2019-12-06 14:29:[address] [facility] STERILIZATION CONSENT 2019-11-30 05:01:00 Doctor Unassigned, Uni [facility] [place] FORM [facility] FLU VACC ([id number]), 6+ 2019-11-22 15:02:27 Amanda العلي [facility] MONTHS, IM, QUAD Medical Branch ASSIGNMENT OF BENEFITS 2019-11-22 14:24:48 Doctor Unassigned, Un [facility] [place] [facility] POCT TEST 2019-11-22 00:00:00 [facility]INALYSIS W/O 2019-11-22 00:00:00 [facility] [place] SPECIFIC GRAVITY [facility] Encounters Start End Encounter Admission Attending Care Care Encounter Source Date/Time Date/Time Type Type Clinicians Facility Department ID 2021-01-04 Emergency [facility] [id number] Univers 04:40:[address] [facility] 2021-01-03 Emergency [facility] [id number] Univers 10:32:[address] [facility] 2021-12-25 2021-12-25 [id number] Univers 13:00:00 13:00:00 [facility] 2021-11-25 2021-11-25 [facility] [id number] Univers 19:06:37 23:59:00 Encounter Elena HEALTH [id number] ity of [place] [id number] Song as NORAH?BLEA [id number] Vt len TIJERINA [address] MEDICAL OFFICE BUILDING 2021-11-25 2021-11-25 [facility] [id number] Univers 18:40:00 19:09:[address] [facility] 2021-11-25 2021-11-25 [facility] [id number] Univers 18:40:00 19:09:40 Care Elena HEALTH [id number] it y of [place] [id number] Song as NORAH?BLEA [id number] Vt len MURRAY [address] MEDICAL OFFICE BUILDING 2021-05-07 2021-05-07 Outpatient R BRUCE III, [facility] [id number] Univers 11:40:00 11:40:00 HALINA ity of [facility] 2021-05-07 2021-05-07 Orders Doctor JOHNNY [id number] Univers 00:00:00 00:00:00 Only Unassigned, BELINDA [id number] ity of [place] [facility] [id number] Song as [id number] [address] 2021-02-25 2021-02-25 Emergency X [facility] ERT [id number] Univers 17:40:00 18:13:00 SUDHEER ity of [facility] 2021-02-25 2021-02-25 Emergency [facility] [id number] Univers 17:40:00 18:13:00 Sudheer SHAY [id number] i ty of [place] 4.2.7.2.686 [facility] [id number] [address] 2021-02-25 2021-02-25 Nurse Nurse, [facility] [id number] Univers 17:00:00 17:25:39 Visit Tori Galeana [facility] [id number] ity of [place] [id number] Song as NORAH?BLEA [id number] [address] MEDICAL OFFICE BUILDING 2021-02-25 2021-02-25 Outpatient R ALAINA [facility] [id number] Univers 17:00:00 17:00:[address] [facility] 2020-05-13 2020-05-13 Emergency [facility] [id number] Univers 18:03:00 21:00:00 Neisha Shay [id number] ity of [place] 4.2.7.2.686 [facility] [id number] [address] 2020-05-13 2020-05-13 Emergency [facility] [id number] 18:03:00 21:00:00 Neisha Leahy [place] [id number] [place] 4.2.7.2.686 [place] [id number] 2020-04-02 2020-04-02 Outpatient R SEVERIANO [facility] [id number] Univers 09:15:00 09:15:00 ROSLALITONDA ity o f [facility] 2020-03-10 2020-03-10 [facility]ine [facility] [id number] Univers 12:49:29 13:21:29 Roshunda R PHYSICAL LABORATORY ASSISTANT [id number] ity of Visit [facility] [id number] Song as MATERNAL [id number] Med ical & CHILD [address] [place] [address] 2020-03-10 2020-03-10 [facility] 1.2.840.114 [id number] 12:49:29 13:21:29 Roshunda R PHYSICAL LABORATORY ASSISTANT 350.1.13.10 Visit [facility] 4.2.7.2.686 MATERNAL [phone] & CHILD [address] [place] [address] 2020-03-10 2020-03-10 Outpatient R SEVERIANO [facility] [id number] Univers 12:45:00 12:45:00 FORESTA martha o [facility] 2020-03-09 2020-03-09 Outpatient R JAMI [facility] [id number] Univers 17:20:00 17:20:00 [facility] 2020-03-09 2020-03-09 Laboratory Lab, Adc Fam Pob I [facility] 1.2. 840.114 [id number] Univers 16:59:53 17:19:53 [facility].13.10 [facility] 4.2.7.2.686 Song as Professio [phone] [address] Office Building One 2020-02-20 2020-02-20 Outpatient Angeles العلي [facility] [id number] Univers 09:30:00 09:30:00 FORESTA florentiny o f [facility] 2020-02-13 2020-02-13 [facility] 1.2.840.114 [id number] Univers 07:50:59 08:05:59 Roshunda R PHYSICAL LABORATORY ASSISTANT 350.1.13.10 ity of Visit REGIONAL 4.2.7.2.686 Song as MATERNAL [phone] [facility] ical & CHILD [address] [place] [address] 2020-02-13 2020-02-13 [facility] [id number] Univers 08:00:00 08:00:00 ROSHUNDA ity o f [facility] 2020-02-06 2020-02-06 [facility] 1.2.840.114 [id number] Univers 10:45:02 11:00:02 Roshunda R PHYSICAL LABORATORY ASSISTANT 350.1.13.10 ity of Visit REGIONAL 4.2.7.2.686 Song as MATERNAL [phone] [facility] & [address] 2020-02-06 2020-02-06 [facility] [place] [facility] [id number] Univers 11:00:00 11:00:00 ROSHUNDA ity o f [facility] 2020-02-06 2020-02-06 Telephone [facility] 1.2.991.920 [id number] Univers 00:00:00 00:00:00 Roshunda R PHYSICAL LABORATORY ASSISTANT 350.1.13.10 ity of REGIONAL 4.2.7.2.686 Song as MATERNAL [phone] [facility] & CHILD [address] [place] [address] 2020-02-04 2020-02-04 [facility] 1.2.925.750 [id number] Univers 00:00:00 00:00:00 Roshunda R PHYSICAL LABORATORY ASSISTANT 350.1.13.10 ity of REGIONAL 4.2.7.2.686 Song as MATERNAL [id number] [facility] & CHILD [address] [place] [address] 2020-02-01 2020-02-01 Nurse JOHNNY Campos 1.2.840.114 [id number] Univers 00:00:00 00:00:00 Triage Tootie TREVINO 350.1.13.10 it y of [facility] 4.2.7.2.686 Song as [phone] [address] 2020-01-30 2020-01-30 [facility] 1.2.840.114 [id number] Univers 07:46:26 08:13:08 Roshunda R PHYSICAL LABORATORY ASSISTANT 350.1.13.10 ity of Visit REGIONAL 4.2.7.2.686 Song as MATERNAL [phone] [facility] & CHILD [address] [place] [address] 2020-01-30 2020-01-30 [facility] [id number] Univers 07:45:00 07:45:00 ROSHUNDA ity o f [facility] 2020-01-17 2020-01-17 [facility] 1.2.840.114 [id number] Univers 07:46:03 08:01:03 Roshunda R PHYSICAL LABORATORY ASSISTANT 350.1.13.10 ity of Visit REGIONAL 4.2.7.2.686 Song as MATERNAL [phone] [address] 2020-01-17 2020-01-17 Outpatient [place] [facility] [id number] Univers 07:45:00 07:45:00 ROSHUNDA ity o f [facility] 2020-01-09 2020-01-09 Refill Doctor [facility] 1.2.840.114 [id number] Univers 00:00:00 00:00:00 Unassigned, PHYSICAL LABORATORY ASSISTANT 350.1.13.10 ity of [place] REGIONAL 4.2.7.2.686 Song as MATERNAL [phone] [address] 2020-01-03 2020-01-03 Routine [facility] 1.2.840.114 [id number] Univers 07:45:38 08:00:38 Roshunda R PHYSICAL LABORATORY ASSISTANT 350.1.13.10 ity of Visit REGIONAL 4.2.7.2.686 Song as MATERNAL [phone] [facility] & [address] 2020-01-03 2020-01-03 Out[facility] [id number] Univers 08:00:00 08:00:00 ROSHUNDA ity o f [facility] 2019-12-20 2019-12-20 Routine [facility] 1.2.840.114 [id number] Univers 07:49:45 08:16:05 Roshunda R PHYSICAL LABORATORY ASSISTANT 350.1.13.10 ity of Visit [facility] 4.2.7.2.686 Song as MATERNAL [id number] [facility] ical & CHILD [address] [place] [address] 2019-12-20 2019-12-20 Outpatient R العلي [facility] [id number] Univers 08:00:00 08:00:00 ROSHUNDA ity o f [facility] 2019-12-17 2019-12-17 Abstract [facility] 1.2.840.114 [id number] Univers 00:00:00 00:00:00 Roshunda R 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 [facility] ical & CHILD [address] [place] [address] 2019-12-06 2019-12-06 [facility] [id number] Univers 09:00:00 09:00:00 ROSHUNDA ity o f [facility] 2019-12-05 2019-12-05 Telephone [facility] 1.2.759.449 [id number] Univers 00:00:00 00:00:00 Roshunda R PHYSICAL LABORATORY ASSISTANT 350.1.13.10 ity of REGIONAL 4.2.7.2.686 Song as MATERNAL [id number] Med ical & CHILD 107 [facility] 2019-11-30 2019-11-30 Orders Doctor JOHNNY 1.2.840.114 [id number] Univers 00:00:00 00:00:00 Only Unassigned, BELINDA 350.1.13.10 ity of [place] [facility] 4.2.7.2.686 Song as [phone] [address] 2019-11-22 2019-11-22 Manager Cleaning 5, [facility] 1 .2.840.114 [id number] Univers 13:00:10 14:00:10 Visit Amanda العلي R [facility] 350.1.13.1 0 ity of [place] [facility] 4.2.7.2.686 [place] [id number] [address] 2019-11-22 2019-11-22 Initial Severiano [facility] 1.2.840.114 [id number] Univers 09:40:11 11:14:29 Roslalitonda R PHYSICAL LABORATORY ASSISTANT 350.1.13.10 ity of Visit REGIONAL 4.2.7.2.686 Song as MATERNAL [phone] [facility] ical & CHILD [address] [place] [address] 2019-11-22 2019-11-22 Outpatient R SEVERIANO HIJESSICA [facility] [id number] Univers 09:45:00 09:45:00 ROSLALITONDA ity o f [facility] 2019-11-22 2019-11-22 Letter [place] 1.2.128.489 [id number] Univers 00:00:00 00:00:00 (Out) Vandana Y HEALTH 350.1.13.10 ity of CL[place] [id number] [address] 2019-11-22 2019-11-22 Abstract Severiano [facility] 1.2.840.114 [id number] Univers 00:00:00 00:00:00 Roshunda R PHYSICAL LABORATORY ASSISTANT 350.1.13.10 ity of REGIONAL 4.2.7.2.686 Song as MATERNAL [id number] Med ical & CHILD [address] [place] [address] 2019-11-22 2019-11-22 Abstract KELSEA العلي 1.2.840.114 [id number] Univers 00:00:00 00:00:00 Amanda Reynoso PHYSICAL LABORATORY ASSISTANT 350.1.13.10 ity of [facility] 4.2.7.2.686 Song as MATERNAL [phone] Med ical & CHILD 107 [facility] 2019-11-22 2019-11-22 Orders Doctor JOHNNY 1.2.840.114 [id number] Univers 00:00:00 00:00:00 Only Unassigned, BELINDA 350.1.13.10 ity of [place] [facility] 4.2.7.2.686 Song as [phone] [address] Results Test Description Test Time Test Comments Results Result Comments Source Urinalysis 2020-05-14 00:52:30 Test Item Value Reference Range Interpretation Comme nts APPEARANCE (test code = Clear Clear 1782392897) COLOR (test code = 0795431919) Yellow Yellow PH (test code = 2834885711) 4.8-8.0 SP GRAVITY (test code = 1.003-1.030 5606254650) GLU U QUAL (test code = Normal Normal 1940859719) BLOOD (test code = 5879516905) 1+ Negative A KETONES (test code = 4392471514) Negative Negative PROTEIN (test code = 2887-8) Negative Negative UROBILIN (test code = 4.0 mg/dL Normal A 7966235565) BILIRUBIN (test code = Negative Negative 9524628404) NITRITE (test code = 5723974062) Negative Negative LEUK SURYA (test code = Negative Negative 0874256141) RBC/HPF (test code = 2042488431) See_Comment H [Automated message] The system which ge nerated this result transmit efrain reference range: 0 - 3 HP F. The reference range was not used to interpret th is result as normal/abnormal . WBC/HPF (test code = 9198908832) See_Comment [Automated message] The system which ge nerated this result transmit efrain reference range: 0 - 5 HP F. The reference range was not used to interpret th is result as normal/abnormal . BACTERIA (test code = Few Negative A 9709605879) MUCOUS (test code = 2867500099) Slight Negative LPF A SQ EPITH (test code = HPF 7865884816) Lab Interpretation (test code = Abnormal 06825-9) [facility] SPECIFIC [id number] 19:08:00 Test Item Value Reference Range Interpretation [...] 3267) Lab Interpretation (test code = Abnormal 10183-6) [facility] URINALYS[facility] W SPECIFIC [id number] 19:08:00 Test Item Value Reference Range Interpretation [...] 3267) Lab Interpretation (test code = Abnormal 93706-2) [facility] URINALYSIS W SPECIFIC [id number] 13:59:00 Test Item Value Reference Range Interpretation [...] 3267) Lab Interpretation (test code = Abnormal 07200-8) [facility] URINALYSIS W SPECIFIC [id number] 17:13:00 Test Item Value Reference Range Interpretation [...] POCT U APPEAR (test code = 3267) [facility] [id number] 14:22:00COVID DMT InterpretationInterpretation/Recommendation: Tests (PCR) for Active [...] based upon aggregate COVID-19 test results in [facility]. They apply to thefollowing tests offered at [facility] and assume the acceptable specimen type(s) were used: A. Tests for the Identification of SARS-CoV-2 RNA (Molecular NAAT Tests): ? ? ?- SARS-CoV-2 PCR assays including Sumter Aptima, Sumter Fusion, Hogue RealTime, and Cepheid Xpert Xpress. ? ? ?- SARS-CoV-2 Rapid ID NOW by the ID NOW assay. ? B. Tests for the Identification of SARS-CoV-2 Antibodies: ? ? ?- Chemilumine scent immunoassays including Access SARS-CoV-2 IgM (DXI 600), VITROS Klmz-YBHV-RxM-2 IgG (Vitros 5600 and Vitros 3600), and Hogue SARS-CoV-2 IgG (HORTICULTURE SUPERINTENDENT ?I System). These interpretations are autopopulated into [employer] based on computerized algorithms matching an interpretation code to the patient's set of test results, and a clinical pathologist evaluates the comments for accuracy. However, these comments do not consider testing a patient may have had outside of the [facility] system. If results for COVID-19 infection continue to be negative in the context of a suspected viral respiratory illness, it ispossible the patient may have an infection with another respiratory virus. Influenza testing and a re spiratory pathogen panel if clinically indicated may be beneficial in this setting. [facility] LABORATORY SERVICESCOVID ResultsCoV-2 IgG (no units) ? ? Date ? Value ? 01/30/2020? Negative ? 11/22/2019 ? Negative ? ? ? [facility] LABORATORY SERVICES [facility] B STREPTOCOCCUS BY [id number] 19:13:00 Test Item Value Reference Range Interpretation Comments Group B Streptococcus by PCR (test Negative Negative code = 48146-2) Lab Interpretation (test code = Normal 08157-4) [facility]OV-2 [id number] 08:06:00 Test Item Value Reference Range Interpretation Comments CoV-2 IgG (test code Negative Negative Negativ e result = 10851-7) does not rule o mi acute SARS-CoV- 2 infection. Clinical correlation as well as molecul ar diagnostic test are recommended to rule out acu te infection if clinically indicated. ESTRADA (test code = ESTRADA) This test has been approved by FDA for emergency use. Lab Interpretation Normal (test code = 47601-9) [facility] WITH [id number] 04:47:00 Test Item Value Reference Range Interpretation Comments WBC (test code = See_Comment [Automated 6690-2) message] The sy stem which generated this result transmitted reference range : 4.30 - 11.10 10*3/?L. The reference range was not used to interpret this result as normal/abnormal . RBC (test code = See_Comment L [Automated 789-8) message] The sy stem which generated this [...] RDW-SD (test code = 40.2 fL 39-49.9 87474-4) RDW-CV (test code = 12.5 % 12-15.5 788-0) PLT (test code = See_Comment [Automated 777-3) message] The sy stem which generated this result transmitted reference range : 166 - 358 10*3/ ?L. The reference r edmar was not used to interpret this result as normal/abnormal . MPV (test code = 9.9 fL 9.5-12.9 30317-4) NRBC/100 WBC (test See_Comment [Automat ed code = 4789793002) message] The system which generated this result transmitted reference range : 0.0 - 10.0 /100 WBCs. The refer ence range was not u sed to interpret th is result as normal/abnormal . NRBC x10^3 (test code <0.01 See_Comment [Auto mated = 1766421700) message] The s ystem which generated this result transmitted reference range : 10*3/?L. The reference range was not used to interpret this result as normal/abnormal . GRAN MAT (NEUT) % 69.5 % (test code = 770-8) IMM GRAN % (test code 0.80 % = 9836653117) LYMPH % (test code = 20.0 % 736-9) MONO % (test code = 7.2 % 5905-5) EOS % (test code = 2.0 % 713-8) BASO % (test code = 0.5 % 706-2) GRAN MAT x10^3(ANC) 5.54 10*3/uL 1.88-7.09 (test code = 3488533096) IMM GRAN x10^3 (test 0.06 10*3/uL 0-0.06 code = 3338987553) LYMPH x10^3 (test code 1.59 10*3/uL 1.32-3.29 = 731-0) MONO x10^3 (test code 0.57 10*3/uL 0.33-0.92 = 742-7) EOS x10^3 (test code = 0.16 10*3/uL 0.03-0.39 711-2) BASO x10^3 (test code 0.04 10*3/uL 0.01-0.07 = 704-7) Lab Interpretation Abnormal (test code = 46251-0) [facility] UR[facility] W SPECIFIC [id number] 14:03:00 Test Item Value Reference Range Interpretation [...] POCT U APPEAR (test code = 3267) [facility] URINALYSIS W SPECIFIC [id number] 14:03:00 Test Item Value Reference Range Interpretation [...] POCT U APPEAR (test code = 3267) [facility] URINALYSIS W SPECIFIC [id number] 14:03:00 Test Item Value Reference Range Interpretation [...] POCT U APPEAR (test code = 3267) [facility] URINALYSIS W SPECIFIC [id number] 13:52:00 Test Item Value Reference Range Interpretation [...] POCT U APPEAR (test code = 3267) [facility] URINALYSIS W SPECIFIC [id number] 13:00:00 Test Item Value Reference Range Interpretation [...] POCT U APPEAR (test code = 3267) [facility] URINALYSIS W SPECIFIC [id number] 13:00:00 Test Item Value Reference Range Interpretation [...] POCT U APPEAR (test code = 3267) [facility] URINALYSIS W SPECIFIC [id number] 13:00:00 Test Item Value Reference Range Interpretation [...] POCT U APPEAR (test code = 3267) [facility] URINALYSIS W SPECIFIC [id number] 14:30:00 Test Item Value Reference Range Interpretation [...] POCT U APPEAR (test code = 3267) [facility] [id number] 15:04:00 Test Item Value Reference Range Interpretation Comments POCT PREG (test code = 1605) Positive On board controls acceptable with C Yes Line (test code = 3574) POCT PREG LOT # (test code = 3575) POCT PREG TEST DATE (test code = 357) [facility] URIN[facility]YSIS W/O SPECIFIC [id number] 15:04:00 Test Item Value Reference Range Interpretation [...] code = 3257) neg Negative - Negative [facility] [id number] 15:04:00 Test Item Value Reference Range Interpretation Comments POCT PREG (test code = 1605) Positive On board controls acceptable with C Yes Line (test code = 3574) POCT PREG LOT # (test code = 3575) POCT PREG TEST DATE (test code = 357) [facility] URIN[facility]YSIS W/O SPECIFIC [id number] 15:04:00 Test Item Value Reference Range Interpretation [...] code = 3257) neg Negative - [facility] [id number] 15:04:00 Test Item Value Reference Range Interpretation Comments POCT PREG (test code = 1605) Positive On board controls acceptable with C Yes Line (test code = 3574) POCT PREG LOT # (test code = 3575) POCT PREG TEST DATE (test code = 357) [facility] URINALYSIS W/O SPECIFIC [id number] 15:04:00 Test Item Value Reference Range Interpretation [...] code = 3257) neg Negative - Negative [facility] [id number] 15:04:00 Test Item Value Reference Range Interpretation Comments POCT PREG (test code = 1605) Positive On board controls acceptable with C Yes Line (test code = 3574) POCT PREG LOT # (test code = 3575) POCT PREG TEST DATE (test code = 3576) [facility] W/O SPECIFIC [id number] 15:04:00 Test Item Value Reference Range Interpretation [...] code = 3257) neg Negative - Negative [facility]
[2022-03-15] MEDS ORDERED: ACETAMINOPHEN 500 MG TAB ONE ×2 (00:48→01:14)
[2022-03-15] MEDS ORDERED: MORPHINE 4 MG/ML SYR ONE ×2 (00:49→03:02)
[2022-03-15] MEDS ORDERED: ONDANSETRON 4 MG/2 ML VIAL ONE (00:49)
[2022-03-15] MEDS ORDERED: CEFTRIAXONE 2000 MG/VIAL ONE (00:49)
[2022-03-15] MEDS ORDERED: NA CHLORIDE 0.9% 1,000 ML ONE (00:49)
[2022-03-15] MEDS ORDERED: NA CHLORIDE 0.9% 50 ML IV ONE (00:50)
[2022-03-15 01:07] LABS: Absolute Lymphocytes (CBC) 0.4 K/uL (0.7-4.9); Hematocrit 30.3 % (36.0-45.0); Lymphocytes % 4.2 % (15.3-44.8); MCV 82.3 fL (80-100); MPV 7.9 fL (7.6-11.3); RBC Red Blood Cell Count 3.68 M/uL (3.86-4.86)
[2022-03-15 01:08] LABS: Protime INR 1.09
[2022-03-15 01:22] LABS: Albumin 3.4 g/dL (3.4-5.0); Bilirubin Total 1.2 mg/dL (0.2-1.0); Potassium 3.1 mmol/L (3.5-5.1); Protein, Total 8.3 g/dL (6.4-8.2)
[2022-03-15 01:24] LABS: Urine Blood 3+ (Negative); Urine Glucose Negative (Negative); Urine Protein 3+ (Negative); Urine Specific Gravity 1.015 (1.005-1.030); Urine pH 5.5 (5.0-7.0)
[2022-03-15 01:40] LABS: Renal Epithelial 20-50 /HPF (None Seen); Urine Bacteria <20 /HPF (<20); Urine Mucus Slight /HPF (None Seen); Urine RBC 21-50 /HPF (None Seen); Urine WBC Clump Rare /HPF (None Seen)
[2022-03-15 01:57] LABS: SARS-COV-2 RT PCR NEGATIVE (NEGATIVE)
--- NOTE | 2022-03-15 02:36 | EDPHYS ---
Physician Documentation [facility] Name: Hema Coombs Age: 36 yrs Sex: Female : 1985 Arrival Date: 03/14/2022 Time: 23:35 Bed 20 Private MD: ED Physician Tom Plascencia HPI: 03/15 00:27 This 36 yrs old Female presents to ER via Ambulatory with complaints of Abdominal Pain, rt Back Pain. 00:27 The patient presents with pain that is acute. Onset: The symptoms/episode rt began/occurred 1 week(s) ago. Presents to the ED with a generalized abdominal pain radiating to the back started by 1 week ago, progressively worsening. Patient now complains of chills, myalgias. Reports nausea without vomiting. Denies other acute complaints at this time. Symptoms are moderate severity, no other aggravating alleviating factors.. 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 Last tetanus immunization: unknown. - Social history:: Smoking status: Patient denies any tobacco usage or history of. ROS: 00:28 Eyes: Negative for injury, pain, redness, and discharge, ENT: Negative for injury, rt pain, and discharge, Cardiovascular: Negative for chest pain, palpitations, and edema, Respiratory: Negative for shortness of breath, cough, wheezing, and pleuritic chest pain, MS/Extremity: Negative for injury and deformity, Skin: Negative for injury, rash, and discoloration, Neuro: Negative for headache, weakness, numbness, tingling, and seizure, Psych: Negative for depression, anxiety, suicide ideation, homicidal ideation, and hallucinations. 00:28 Constitutional: Positive for body aches, chills. 00:28 Abdomen/GI: Positive for abdominal pain, nausea. 00:28 Back: Positive for pain at rest, Negative for injury or acute deformity. 00:28 : Positive for urinary frequency, Negative for bladder incontinence. Exam: 00:28 Constitutional: This is a well developed, well nourished patient who is awake, alert, rt and in no acute distress. Head/Face: Normocephalic, atraumatic. Eyes: Pupils equal round and reactive to light, extra-ocular motions intact. Lids and lashes normal. Conjunctiva and sclera are non-icteric and not injected. Cornea within normal limits. Periorbital areas with no swelling, redness, or edema. ENT: Nares patent. No nasal discharge, no septal abnormalities noted. Tympanic membranes are normal and external auditory canals are clear. Oropharynx with no redness, swelling, or masses, exudates, or evidence of obstruction, uvula midline. Mucous membranes moist. Chest/axilla: Normal chest wall appearance and motion. Nontender with no deformity. No lesions are appreciated. Cardiovascular: Regular rate and rhythm with a normal S1 and S2. No gallops, murmurs, or rubs. Normal PMI, no JVD. No pulse deficits. Respiratory: Lungs have equal breath sounds bilaterally, clear to auscultation and percussion. No rales, rhonchi or wheezes noted. No increased work of breathing, no retractions or nasal flaring. Skin: Warm, dry with normal turgor. Normal color with no rashes, no lesions, and no evidence of cellulitis. MS/ Extremity: Pulses equal, no cyanosis. Neurovascular intact. Full, normal range of motion. Neuro: Awake and alert, GCS 15, oriented to person, place, time, and situation. Cranial nerves II-XII grossly intact. Motor strength 5/5 in all extremities. Sensory grossly intact. Cerebellar exam normal. Normal gait. Psych: Awake, alert, with orientation to person, place and time. Behavior, mood, and affect are within normal limits. 00:28 Abdomen/GI: mild abdominal tenderness diffusely without rebound, guarding, distention.. 00:28 Back: Rest of the bilateral paraspinal regions, no midline tenderness, no step-offs. 02:32 ECG was reviewed by the Attending Physician. rt Vital Signs: 03/14 23:54 BP 145 / 89; Pulse 95; Resp 20 S; Pulse Ox 100% on R/A; ha1 23:58 BP 159 / 100; Pulse 124; Resp 26; Temp 103.1; Pulse Ox 100% ; Weight 83.91 kg; Height 5 kb3 ft. 5 in. (165.10 cm); Pain 10/10; 03/15 01:00 BP 132 / 80; Pulse 98; Resp 19 S; Pulse Ox 100% on R/A; ha1 02:00 BP 141 / 79; Pulse 96; Resp 18 S; Temp 100.1; Pain 5/10; ha1 02:50 BP 145 / 90; Pulse 90; Resp 18 S; Temp 98.8(O); Pulse Ox 100% on R/A; ha1 03/14 23:58 Body Mass Index 30.79 (83.91 kg, 165.10 cm) kb3 MDM: 03/14 23:55 Patient medically screened. rt 03/15 02:35 Differential diagnosis: Hello, UTI, sepsis, appendicitis, cholecystitis, bowel rt obstruction, pancreatitis. Data reviewed: vital signs, nurses notes, lab test result(s), EKG, radiologic studies. ED course: Presents to the ED with a back pain, abdominal pain. She has dilation of the right ureter without evidence of nephrolithiasis. That in conjunction with elevated WBCs in the urine when has evidence for pyelonephritis. Will treat empirically. She does meet SIRS criteria with fever, tachycardia, patient is criteria for sepsis. IV fluids were given. She does not meet criteria for septic shock, lactate was normal. The rest of the work-up is benign, labs are unremarkable. She is going to be admitted to the hospital for further management.. 03/15 00:09 Order name: CBC with Diff; Complete Time: 01:54 rt 03/15 00:09 Order name: CMP; Complete Time: :54 rt 03/15 00:09 Order name: Lactate w/ 2H reflex if indic.; Complete Time: 01:54 rt 03/15 00:09 Order name: Blood Culture Adult (2) rt 03/15 00:09 Order name: CBC with Diff rt 03/15 00:09 Order name: CMP rt 03/15 00:09 Order name: Lactate w/ 2H reflex if indic. rt 03/15 00:09 Order name: Protime (+inr); Complete Time: 01:54 rt 03/15 00:09 Order name: Ptt, Activated; Complete Time: 01:54 rt 03/15 00:09 Order name: Urine Culture rt 01/09 00:09 Order name: Urine Microscopic Only; Complete Time: 01:54 rt 03/15 00:09 Order name: Test, Serum; Complete Time: 01:54 rt 03/15 00:28 Order name: COVID-19/FLU A+B; Complete Time: 02:44 rt 03/15 00:09 Order name: Chest Single View XRAY rt 03/15 00:09 Order name: EKG; Complete Time: 00:11 rt 03/15 00:09 Order name: Accucheck; Complete Time: 01:30 rt 03/15 00:09 Order name: Cardiac monitoring; Complete Time: 00:43 rt 03/15 00:09 Order name: EKG - Nurse/Tech; Complete Time: 02:50 rt 03/15 00:09 Order name: CT Abd/Pelvis - IV Contrast Only rt 03/15 01:24 Order name: Urine Dipstick-Ancillary; Complete Time: 01:54 EDMS 03/15 01:41 Order name: Glucose, Ancillary Testing; Complete Time: 01:54 EDMS 03/15 00:09 Order name: IV Saline Lock - Large Bore; Complete Time: 00:43 rt 03/15 00:09 Order name: Labs collected and sent; Complete Time: 00:43 rt 03/15 00:09 Order name: O2 Per Protocol; Complete Time: 01:17 rt 03/15 00:09 Order name: O2 Sat Monitoring; Complete Time: 01:17 rt 03/15 00:09 Order name: Vital Signs; Complete Time: 01:17 rt EC:32 Rate is 84 beats/min. Rhythm is regular, Normal Sinus Rhythm with No ectopy. QRS [place] rt is Normal. [place] interval is normal. QRS interval is normal. QT interval is normal. No Q waves. T waves are Normal. No ST changes noted. Interpreted by me. Administered Medications: 00:45 Drug: Zofran (Ondansetron) 4 mg Route: IVP; Site: right antecubital; ha1 01:20 Follow up: Response: No adverse reaction ha1 00:47 Drug: Acetaminophen 1000 mg Route: PO; ha1 02:56 Follow up: Response: Temperature is decreased ha1 00:48 Drug: NS 0.9% 1000 ml Route: IV; Rate: 1 bolus; Site: right antecubital; ha1 02:00 Follow up: Response: No adverse reaction; IV Status: Completed infusion; IV Intake: ha1 1000ml 00:50 Drug: Rocephin (cefTRIAXone) 2 grams Route: IV; Rate: calculated rate; Site: right 1 antecubital; 01:20 Follow up: Response: No adverse reaction; IV Status: Completed infusion; IV Intake: [id number] 00:56 Drug: morphine 4 mg Route: IVP; Infused Over: 4 mins; Site: right antecubital; ha1 01:20 Follow up: Response: No adverse reaction; Pain is decreased; RASS: Alert and Calm (0) ha1 02:56 Drug: Lactated Ringers Solution 1000 ml Route: IV; Rate: 150 ml/hr; Site: right ha1 antecubital; 02:58 Drug: morphine 4 mg Route: IVP; Infused Over: 4 mins; Site: right antecubital; ha1 03:20 Follow up: Response: No adverse reaction; Pain is decreased; RASS: Alert and Calm (0) ha1 03:14 Drug: Potassium Effervescent Tablet 50 mEq Route: PO; ha1 03:48 Follow up: Response: No adverse reaction ha1 Disposition Summary: 03/15/22 02:35 Hospitalization Ordered Hospitalization Status: Inpatient Admission rt Provider: Mando Quiñones rt Location: Telemetry/MedSur (Inpatient) rt Condition: Stable rt Problem: new rt Symptoms: have improved rt Bed/Room Type: Standard rt Room Assignment: 426(03/15/22 02:58) cg Diagnosis - Pyelonephritis acute rt - Sepsis, unspecified organism rt Forms: - Medication Reconciliation Form rt - SBAR form rt Critical care time excluding procedures: 02:35 Critical care time: Bedside Care: 30 minutes, Consultation: 5 minutes. Total time: 35 rt minutes Signatures: Dispatcher [employer] EDGarrett Donald FNP-C FNP-Cla1 Rhoda Hayes RN RN Yokasta Mcgregor RN RN ha1 Lesvia Garber RN RN kb3 Tom Plascencia MD MD rt Corrections: (The following items were deleted from the chart) 02:58 02:35 rt cg
--- NOTE | 2022-03-15 02:36 | ER ---
Nurse's Notes [facility] Name: Hema Coombs Age: 36 yrs Sex: Female : 1985 Arrival Date: 03/14/2022 Time: 23:35 Bed 20 Private MD: Diagnosis: Pyelonephritis acute;Sepsis, unspecified organism Presentation: 03/14 23:58 Chief complaint: Patient states: Bilateral flank pain and lower abdominal pain x 5 days kb3 with associated urinary frequency. Pt reports chills began today. Coronavirus screen: Vaccine status: Patient reports being unvaccinated. Client denies travel out of the [place] in the last 14 days. Ebola Screen: Patient negative for fever greater than or equal to 101.5 degrees Fahrenheit, and additional compatible Ebola Virus Disease symptoms Patient denies exposure to infectious person. Patient denies travel to an Ebola-affected area in the 21 days before illness onset. Initial Sepsis Screen: Does the patient meet any 2 criteria? RR > 20 per min. Temp <36.0*C (96.8*F)) or > 38.3*C (100.9*F). HR > 90 bpm. Yes Does the patient have a suspected source of infection? No. Patient's initial sepsis screen is negative. Risk Assessment: Do you want to hurt yourself or someone else? Patient reports no desire to harm self or others. Onset of symptoms was March 09, 2022. 23:58 Method Of Arrival: Ambulatory kb3 23:58 Acuity: АНДРЕЙ 2 kb3 Triage Assessment: 03/15 00:00 General: Appears uncomfortable, ill, Behavior is calm, cooperative. Pain: Complains of kb3 pain in left low back, right low back, suprapubic area, right lower quadrant and left lower quadrant Pain does not radiate. Pain currently is 10 out of 10 on a pain scale. GI: Reports lower abdominal pain. HAT FORMER: 00:00 LMP 03/08/2021 kb3 Historical: - Allergies: 00:00 No Known Allergies; kb3 - Home Meds: 00:00 None [Active]; kb3 - PMHx: 00:00 None; kb3 - PSHx: 00:00 None; kb3 - Immunization history:: Adult Immunizations up to date, Client reports having NOT received the Covid vaccine. Last tetanus immunization: unknown. - Social history:: Smoking status: Patient denies any tobacco usage or history of. Screenin:00 [facility] ED Fall Risk Assessment (Adult) History of falling in the last 3 months, ha1 including since admission No falls in past 3 months (0 pts) Confusion or Disorientation No (0 pts) Intoxicated or Sedated No (0 pts) Impaired Gait No (0 pts) Mobility Assist Device Used No (0 pt) Altered Elimination No (0 pt) Score/Fall Risk Level 0 - 2 = Low Risk Oriented to surroundings, Maintained a safe environment, Educated pt \T\ family on fall prevention, incl call for assistance when getting out of bed, Hourly rounding (assess needs \T\ fall precautionary measures) done. 00:12 Abuse screen: Denies threats or abuse. Denies injuries from another. Nutritional ha1 screening: No deficits noted. Tuberculosis screening: No symptoms or risk factors identified. Assessment: 03/14 23:51 General: Appears uncomfortable, Behavior is cooperative, anxious. Pain: Denies pain. ha1 Pain: Complains of pain in abdomen and back Pain does not radiate. Pain at worst was 10 out of 10 on a pain scale. Quality of pain is described as Pain began suddenly. Neuro: Level of Consciousness is awake, alert, obeys commands, Oriented to person, place, time, situation. Cardiovascular: Patient's skin is warm and dry. Respiratory: Airway is patent Trachea midline Respiratory effort is even, unlabored, Respiratory pattern is regular, symmetrical, Breath sounds are clear bilaterally. GI: Abdomen is flat, non-distended, Bowel sounds present X 4 quads. Abd is soft and non tender X 4 quads. Reports lower abdominal pain. : No signs and/or symptoms were reported regarding the genitourinary system. EENT: No deficits noted. No signs and/or symptoms were reported regarding the EENT system. Derm: Skin is pink, warm \T\ dry. Musculoskeletal: Circulation, motion, and sensation intact. Range of motion: intact in all extremities. 03/15 00:42 Reassessment: Patient and/or family updated on plan of care and expected duration. Pain ha1 level reassessed. Patient is alert, oriented x 3, equal unlabored respirations, skin warm/dry/pink. 12/14. 01:40 Reassessment: Patient and/or family updated on plan of care and expected duration. Pain ha1 level reassessed. Patient is alert, oriented x 3, equal unlabored respirations, skin warm/dry/pink. Patient states feeling better. 02:00 Reassessment: Patient and/or family updated on plan of care and expected duration. Pain ha1 level reassessed. Patient is alert, oriented x 3, equal unlabored respirations, skin warm/dry/pink. 02:50 Reassessment: Patient and/or family updated on plan of care and expected duration. Pain ha1 level reassessed. Patient is alert, oriented x 3, equal unlabored respirations, skin warm/dry/pink. pain 11/14. 03:20 Reassessment: Patient and/or family updated on plan of care and expected duration. Pain ha1 level reassessed. Patient is alert, oriented x 3, equal unlabored respirations, skin warm/dry/pink. pain /10. Vital Signs: 03/14 23:54 BP 145 / 89; Pulse 95; Resp 20 S; Pulse Ox 100% on R/A; ha1 23:58 BP 159 / 100; Pulse 124; Resp 26; Temp 103.1; Pulse Ox 100% ; Weight 83.91 kg; Height 5 kb3 ft. 5 in. (165.10 cm); Pain 12/14; 03/15 01:00 BP 132 / 80; Pulse 98; Resp 19 S; Pulse Ox 100% on R/A; ha1 02:00 BP 141 / 79; Pulse 96; Resp 18 S; Temp 100.1; Pain 5/10; ha1 02:50 BP 145 / 90; Pulse 90; Resp 18 S; Temp 98.8(O); Pulse Ox 100% on R/A; ha1 03/14 23:58 Body Mass Index 30.79 (83.91 kg, 165.10 cm) kb3 ED Course: 03/14 23:35 Patient arrived in ED. ja2 23:55 Tom Plascencia MD is Attending Physician. rt 03/15 00:00 Triage completed. kb3 00:00 Arm band placed on. kb3 00:09 Yokasta Mcgregor, RUTH is Primary Nurse. ha1 00:10 Door closed. Noise minimized. Lights dimmed. ha1 00:12 Patient has correct armband on for positive identification. Placed in gown. Bed in low ha1 position. Call light in reach. Side rails up X 1. 00:40 Inserted saline lock: 20 gauge in right antecubital area, using aseptic technique. ha1 Blood collected. 00:43 CBC with Diff Sent. ha1 00:43 Lactate w/ 2H reflex if indic. Sent. ha1 00:52 Chest Single View XRAY In Process Unspecified. EDMS 01:13 COVID-19/FLU A+B Sent. ha1 01:17 CMP Sent. ha1 01:54 CT Abd/Pelvis - IV Contrast Only In Process Unspecified. EDMS 02:33 Mando Quiñones MD is Hospitalizing Provider. rt 03:50 No provider procedures requiring assistance completed. Patient admitted, IV remains in ha1 place. Administered Medications: 00:45 Drug: Zofran (Ondansetron) 4 mg Route: IVP; Site: right antecubital; ha1 01:20 Follow up: Response: No adverse reaction ha1 00:47 Drug: Acetaminophen 1000 mg Route: PO; ha1 02:56 Follow up: Response: Temperature is decreased ha1 00:48 Drug: NS 0.9% 1000 ml Route: IV; Rate: 1 bolus; Site: right antecubital; ha1 02:00 Follow up: Response: No adverse reaction; IV Status: Completed infusion; IV Intake: ha1 1000ml 00:50 Drug: Rocephin (cefTRIAXone) 2 grams Route: IV; Rate: calculated rate; Site: right [facility] antecubital; 01:20 Follow up: Response: No adverse reaction; IV Status: Completed infusion; IV Intake: [id number] 00:56 Drug: morphine 4 mg Route: IVP; Infused Over: 4 mins; Site: right antecubital; ha1 01:20 Follow up: Response: No adverse reaction; Pain is decreased; RASS: Alert and Calm (0) ha1 02:56 Drug: Lactated Ringers Solution 1000 ml Route: IV; Rate: 150 ml/hr; Site: right 1 antecubital; 02:58 Drug: morphine 4 mg Route: IVP; Infused Over: 4 mins; Site: right antecubital; ha1 03:20 Follow up: Response: No adverse reaction; Pain is decreased; RASS: Alert and Calm (0) ha1 03:14 Drug: Potassium Effervescent Tablet 50 mEq Route: PO; ha1 03:48 Follow up: Response: No adverse reaction ha1 Medication: 04:15 VIS not applicable for this client. ha1 Intake: 01:20 IV: 50ml; Total: 50ml. ha1 02:00 IV: 1000ml; Total: 1050ml. ha1 Outcome: 02:35 Decision to Hospitalize by Provider. rt 04:15 Condition: stable ha1 04:15 Admitted to Med/surg accompanied by lamonte, room 402, with chart. ha1 04:15 Discharge instructions given to patient, Instructed on the need for admit, Demonstrated understanding of instructions. 04:15 Admitted to Med/surg Report called to RUTH Barnes ha1 04:20 Patient left the ED. ha1 Signatures: Dispatcher [employer] EDMS Kylie Frazier Heidy, RN RN ha1 Lesvia Garber RN RN kb3 Tom Plascencia MD MD rt Corrections: (The following items were deleted from the chart) 00:01 08 23:58 Initial Sepsis Screen: Does the patient meet any 2 criteria? No. Patient's kb3 initial sepsis screen is negative. Does the patient have a suspected source of infection? No. Patient's initial sepsis screen is negative. kb3 03/15 02:51 01:20 Response: No adverse reaction ha1 ha1 02:52 02:51 Response: No adverse reaction; Pain is decreased; RASS: Alert and Calm (0) ha1 ha1 03:17 02:50 BP 145 / 90; Pulse 90bpm; Resp 18bpm; Spontaneous; Pulse Ox 100% RA; ha1 ha1 05:09 04:15 Discharge instructions given to patient, Instructed on the need for admit, ha1 Demonstrated understanding of instructions, ha1 05:09 04:40 Patient left the ED. ha1 ha1
[2022-03-15] MEDS ORDERED: Ringers Lactate 1,000 ML IV ONE (03:01)
--- NOTE | 2022-03-15 03:01 | P.HP ---
Certification for Inpatient Patient admitted to: Inpatient With expected LOS: >2 Midnights Patient will require the following post-hospital care: None Practitioner: I am a practitioner with admitting privileges, knowledge of patient current condition, hospital course, and medical plan of care. Services: Services provided to patient in accordance with Admission requirements found in Title 42 Section 412.3 of the Code of Federal Regulations <Garrett Hardy Dax Lentz - Last Filed: 03/15/22 02:57> Patient History Date of Service: 03/15/22 Reason for admission: Pyelonephritis, sepsis History of Present Illness: 36-year-old otherwise healthy female presents emergency department for chills, back pain. She reports that she began having sensation of urinary retention on Tuesday, Tuesday felt better next couple days developed back pain on Tuesday followed by fever/chills today. She was evaluated here in the emergency department upon presentation to the emergency department she was febrile, tachypneic and tachycardic meeting SIRS criteria, suspected source infection was UTI. Patient meets criteria for sepsis without severe sepsis or septic shock. No previous urine cultures available for review patient denies frequent urinary tract infections. She was placed on Rocephin, will admit for further evaluation and management of pyonephritis, sepsis. - Past Medical/Surgical History -: None -: None Psychosocial/ Personal History: Patient is unemployed, lives at home with her children - Family History Family History: Reviewed- Non-Contributory - Social History Smoking Status: Never smoker Alcohol use: Yes CD- Drugs: No Caffeine use: No Place of Residence: Home <Garrett Hardy - Last Filed: 03/15/22 02:57> Date of Service: 03/15/22 <Mando Quiñones - Last Filed: 03/15/22 21:04> Review of Systems 10-point ROS is otherwise unremarkable General: Fever, Chills Genitourinary: Dysuria Musculoskeletal: Back Pain <Garrett Hardy - Last Filed: 03/15/22 02:57> Physical Examination - Physical Exam General: Alert, In no apparent distress, Oriented x3 HEENT: Atraumatic, PERRLA, Mucous membr. moist/pink, EOMI, Sclerae nonicteric Neck: Supple, 2+ carotid pulse no bruit, No LAD, Without JVD or thyroid abnormality Respiratory: Clear to auscultation bilaterally, Normal air movement Cardiovascular: Regular rate/rhythm, Normal S1 S2 Capillary refill: <2 Seconds Gastrointestinal: Normal bowel sounds, Tenderness (Mild lower abdominal tenderne ss, moderate bilateral CVA tenderness) Musculoskeletal: No tenderness Integumentary: No rashes Neurological: Normal speech, Normal strength at 5/5 x4 extr, Normal tone, Normal affect - Studies Laboratory Data (last 24 hrs) 03/15/22 00:35: PT 12.0, INR 1.09, APTT 29.1 03/15/22 00:35: Sodium 138, Potassium 3.1 L, BUN 9, Creatinine 0.97, Glucose 103, Total Bilirubin 1.2 H, AST 9 L, ALT 11 L, Alkaline Phosphatase 78 03/15/22 00:35: WBC 10.60, Hgb 10.0 L, Hct 30.3 L, Plt Count 321 <Garrett Hardy - Last Filed: 03/15/22 02:57> - Studies Laboratory Data (last 24 hrs) 03/15/22 00:35: PT 12.0, INR 1.09, APTT 29.1 03/15/22 00:35: Sodium 138, Potassium 3.1 L, BUN 9, Creatinine 0.97, Glucose 103, Total Bilirubin 1.2 H, AST 9 L, ALT 11 L, Alkaline Phosphatase 78 03/15/22 00:35: WBC 10.60, Hgb 10.0 L, Hct 30.3 L, Plt Count 321 <Mando Quiñones - Last Filed: 03/15/22 21:04> Assessment and Plan - Plan Assessment: Sepsis secondary to pyelonephritis Plan: Sepsis secondary to pyelonephritis: Blood and urine cultures obtained, antibioticsRocephin 2 g IV daily ordered. Continue aggressive IV fluids, as needed pain medications and antiemetics. Await culture results. DVT PPX: Lovenox Code status: Full Discharge Plan: Home Plan to discharge in: 48 Hours - Advance Directives Does patient have a Living Will: No Does patient have a Durable POA for Healthcare: No - Code Status/Comfort Care Code Status Assessed: Yes (Full code) Critical Care: No Time Spent Managing Pts Care (In Minutes): 55 <Garrett Hardy - Last Filed: 03/15/22 02:57> - Plan Patient seen and examined on rounds this morning no significant change since admission just a few hours before no new/worsening symptoms no nausea/vomiting; requesting regular food <Mando Quiñones - Last Filed: 03/15/22 21:04>
[2022-03-15] MEDS ORDERED: POTASSIUM 25 MEQ EFFERV TAB ONE (03:15)
[2022-03-15] MEDS ORDERED: ACETAMINOPHEN 500 MG TAB PO PRN (03:18)
[2022-03-15] MEDS ORDERED: ONDANSETRON 4 MG (ODT) TAB PO PRN (03:18)
[2022-03-15] MEDS: Ringers Lactate 1,000 ML IV SCH ×4 (04:56→23:01)
[2022-03-15] MEDS: HYDROCODONE/APAP 7.5/325 MG TAB PO PRN ×4 (04:56→23:00)
[2022-03-15] MEDS: MORPHINE 2 MG/ML SYR IV PRN (08:32)
[2022-03-15] MEDS: CEFTRIAXONE 2,000 MG in NA CHLORIDE 0.9% 100 ML IV SCH (08:32)
[2022-03-15] MEDS: ENOXAPARIN 40 MG/0.4 ML SQ SCH (08:33)
--- NOTE | 2022-03-15 16:25 | EKG ---
Test Date: 2022-03-15 Test Time: 02:26:05 Hydraulic Oil Tool Operator: FELICIA MEASUREMENT RESULTS: Intervals: Rate: 84 KS: 156 QRSD: 86 QT: 374 QTc: 441 Whitt: P: 39 KS: 156 QRS: 81 T: 47 INTERPRETIVE STATEMENTS: Normal sinus rhythm Normal ECG Compared to ECG 02/23/2021 13:44:36 Left ventricular hypertrophy no longer present Electronically Signed On 03-15-22 16:24:35 INTRUSION ANALYST by Ric Dutta
[2022-03-16 04:13] LABS: Absolute Lymphocytes (CBC) 0.9 K/uL (0.7-4.9); Hematocrit 25.9 % (36.0-45.0); Lymphocytes % 13.1 % (15.3-44.8); MCV 82.4 fL (80-100); MPV 8.2 fL (7.6-11.3); RBC Red Blood Cell Count 3.15 M/uL (3.86-4.86)
[2022-03-16 04:19] LABS: Potassium 3.5 mmol/L (3.5-5.1)
[2022-03-16] MEDS: MORPHINE 2 MG/ML SYR IV PRN ×2 (04:30→19:33)
[2022-03-16] MEDS: Ringers Lactate 1,000 ML IV SCH ×4 (04:39→19:32)
[2022-03-16] MEDS ORDERED: POTASSIUM CL SA 10 MEQ TAB PO ONE (04:45)
[2022-03-16] MEDS: CEFTRIAXONE 2,000 MG in NA CHLORIDE 0.9% 100 ML IV SCH (08:33)
[2022-03-16] MEDS: ENOXAPARIN 40 MG/0.4 ML SQ SCH (08:33)
--- NOTE | 2022-03-16 10:59 | RAD REPORT ---
EXAM DESCRIPTION: RAD - Chest Single View - 03/15/2022 12:50 am CLINICAL HISTORY: 36 years Female sepsis COMPARISON: None FINDINGS: Lung volumes adequate. Cardiac silhouette is normal. No pneumothorax. No large pleural effusion. No focal consolidation. No acute bony finding. IMPRESSION: No acute cardiopulmonary findings. Electronically signed by: Alla Hwang MD 03/15/2022 1:02 AM METALLURGY TEACHER Due to temporary technical issues with the PACS/Fluency reporting system, reports are being signed by the in house radiologists without review as a courtesy to insure prompt reporting. The interpreting radiologist is fully responsible for the content of the report.
--- NOTE | 2022-03-16 11:03 | RAD REPORT ---
EXAM DESCRIPTION: CT - Abdomen Pelvis W Contrast - 03/15/2022 6:42 am CLINICAL HISTORY: 36 years Female Epigastric pain TECHNIQUE: Axial CT imaging of the abdomen and pelvis was performed following the administration of intravenous contrast.. Oral contrast was not administered. Sagittal and coronal reconstructed image s were then performed. The CT study is performed according to ALARA (as low as reasonably achievabl e) or ALARA/IMAGE GENTLY, with automatic adjustment of mA and/or kV according to patient size. Performed on: 03/15/2022 at 1:53 AM. COMPARISON: None FINDINGS: Lung bases: The lung bases are clear. Liver: The liver is normal in size and configuration. No focal hepatic abnormalities are identified. Liver attenuation is within normal limits. The hepatic and portal veins are patent. Spleen: The spleen is normal in size, configuration and attenuation. Gallbladder and bile duct: The gallbladder is well distended and unremarkable. There is no biliary ductal dilatation. Pancreas: The pancreas is grossly normal in size and configuration. Adrenal Glands: The adrenal glands are normal in size and configuration. Kidneys: The kidneys are normal in size and configuration. There is no evidence of hydronephrosis. Th ere is mild distention of the right renal pelvis and right ureter without evidence of ureteral obstru ction. There is no evidence of nephrolithiasis. No definite solid or cystic renal mass lesions are id entified. Stomach: The stomach is grossly normal. There is no definite hiatal hernia. Bowel: The bowel gas pattern is non specific and non obstructive. Appendix: The appendix is normal. Free air: There is no evidence of free air. Free fluid: There is no evidence of free fluid. Vasculature: The aorta is normal in caliber and contour. The inferior vena cava is grossly unremarkab le. Lymphadenopathy: No pathologic lymphadenopathy is identified. Bladder: The bladder is well distended and smooth in contour. Reproductive: The uterus is grossly within normal limits. Bones: No acute osseous abnormalities are identified. Soft tissues: No acute soft tissue abnormalities are identified. There is a small fat-containing vent ral umbilical hernia. IMPRESSION: 1. No evidence of acute intra-abdominal or intrapelvic pathology. 2. Mild distention of the right renal pelvis and right ureter without evidence of ureteral obstruct ion. 3. Small fat-containing ventral umbilical hernia. Electronically signed by: Tootie Aquino DO 03/15/2022 2:22 AM [employer] Due to temporary technical issues with the PACS/Fluency reporting system, reports are being signed by the in house radiologists without review as a courtesy to insure prompt reporting. The interpreting radiologist is fully responsible for the content of the report.
--- NOTE | 2022-03-16 15:54 | P.PN ---
Subjective Date of Service: 03/16/22 Chief Complaint: Pyelonephritis, sepsis Patient report persistent back pain. She reports improvement in the nausea. She has been experiencing intermittent fever. Physical Examination - Vital Signs Temperature: 98 F Blood Pressure: 161/85 Pulse: 84 Respirations: 18 Pulse Ox (%): 100 - Physical Exam General: Alert, In no apparent distress, Oriented x3 HEENT: Mucous membr. moist/pink Neck: Supple, JVD not distended Respiratory: Clear to auscultation bilaterally, Normal air movement Cardiovascular: No edema, Regular rate/rhythm, Normal S1 S2 Gastrointestinal: Soft and benign, Non-distended, Other (Bilateral costovertebral angle tenderness) Musculoskeletal: No swelling Integumentary: No rashes, No cyanosis Neurological: Normal strength at 5/5 x4 extr Lymphatics: No axilla or inguinal lymphadenopathy - Studies Microbiology Data (last 24 hrs): 03/15/22 00:35 Blood - Blood Gram Stain - Final Assessment And Plan - Current Problems (Diagnosis) (1) Acute pyelonephritis Current Visit: Yes Status: Acute (2) Gram negative sepsis Current Visit: Yes Status: Acute - Plan Blood culture and urine culture growing gram-negative rods. Continue IV Rocephin. Follow cultures for organism identification and sensitivity. Repeat blood culture Infectious disease consult. Diet as tolerated. Supportive measures with antipyretics for fever, and antiemetics.
[2022-03-17] MEDS: Ringers Lactate 1,000 ML IV SCH ×4 (01:37→22:49)
[2022-03-17] MEDS: MORPHINE 2 MG/ML SYR IV PRN ×4 (01:38→20:32)
[2022-03-17 03:36] LABS: Absolute Lymphocytes (CBC) 0.8 K/uL (0.7-4.9); Hematocrit 26.9 % (36.0-45.0); Lymphocytes % 15.3 % (15.3-44.8); MCV 81.9 fL (80-100); MPV 7.7 fL (7.6-11.3); RBC Red Blood Cell Count 3.28 M/uL (3.86-4.86)
[2022-03-17 03:58] LABS: Potassium 3.6 mmol/L (3.5-5.1)
[2022-03-17] MEDS: CEFTRIAXONE 2,000 MG in NA CHLORIDE 0.9% 100 ML IV SCH (07:59)
[2022-03-17] MEDS: ENOXAPARIN 40 MG/0.4 ML SQ SCH (08:00)
--- NOTE | 2022-03-17 08:55 | P.CNS ---
Chief Complaint: Pyelonephritis, sepsis History of Present Illness: 36-year-old otherwise healthy female presents emergency department for chills, back pain. She reports that she began having sensation of urinary retention on Tuesday, Tuesday felt better next couple days developed back pain on Tuesday followed by fever/chills today. She was evaluated here in the emergency department upon presentation to the emergency department she was febrile, tachypneic and tachycardic meeting SIRS criteria, suspected source infection was UTI. Patient meets criteria for sepsis without severe sepsis or septic shock. Blood culture and urine culture on 03/15 positive the E. Coli. ID is consulted for IV antibiotics recommendation and management. Allergies No Known Allergies Allergy (Verified 03/15/22 03:05) Home Medications: NK [No Home Meds] 03/15/22 - Past Medical/Surgical History -: None -: None Psychosocial/ Personal History: Patient is unemployed, lives at home with her children - Social History Alcohol use: Yes CD- Drugs: No Caffeine use: No Place of Residence: Home Review of Systems 10-point ROS is otherwise unremarkable General: Chills (at day), Sweats (at night) Gastrointestinal: Nausea, Constipation Neurological: Other (bilateral back pain) Physical Examination Temp Pulse Resp BP Pulse Ox 97.4 F 77 19 158/75 H 99 03/17/22 04:00 03/17/22 04:00 03/17/22 04:00 03/17/22 04:00 03/17/22 04:00 General: Alert, In no apparent distress, Oriented x3 Respiratory: Clear to auscultation bilaterally Cardiovascular: No edema, Normal pulses, Normal S1 S2 Gastrointestinal: Normal bowel sounds, Soft and benign, Non-distended Musculoskeletal: No swelling, No tenderness Integumentary: No rashes, No breakdown Neurological: Normal speech, Normal affect Urinary: Other (Bialteral costovertebral angle tenderness ) Current Medications: Acetaminophen (Acetaminophen 500 Mg Tab) 500 mg PO Q4HP PRN PRN Reason: TEMP > 100' F Hydrocodone Bitart/Acetaminophen (Hydrocodone/Apap 7.5/325 Mg Tab) 1 tab PO Q6H PRN PRN Reason: Pain scale 5-7 (Moderate) Last Admin: 03/15/22 23:00 Dose: 1 tab Enoxaparin Sodium (Enoxaparin 40 Mg/0.4 Ml) 40 mg SQ DAILY [facility] Last Admin: 03/17/22 08:00 Dose: 40 mg Lactated Ringer's (Lactated Ringers) 1,000 mls @ 150 mls/hr IV .Q6H40M [facility] Last Admin: 03/17/22 08:09 Dose: 1,000 mls Ceftriaxone Sodium 2,000 mg/ (Sodium Chloride) 100 mls @ 200 mls/hr IV DAILY [facility]; Protocol Last Admin: 03/17/22 07:59 Dose: 100 mls Morphine Sulfate (Morphine 2 Mg/Ml Syr) 2 mg IV Q4H PRN PRN Reason: Pain scale 5-7 (Moderate) Last Admin: 03/17/22 06:27 Dose: 2 mg Ondansetron HCl (Ondansetron 4 Mg (Odt) Tab) 4 mg PO Q6HP PRN PRN Reason: NAUSEA / VOMITING Potassium Chloride (Potassium Cl Sa 10 Meq Tab) 20 meq PO 1X ONE Stop: 03/17/22 09:01 Last Admin: 03/17/22 08:08 Dose: 20 meq Sodium Chloride (Flush Normal Saline 10 Ml) 10 ml IV BID [facility] Last Admin: 03/16/22 20:39 Dose: Not Given 03/15/22 01:05 Clean Catch Urine [place] Count - Final >100,000 CFU/ML. 03/15/22 01:05 Clean Catch Urine - Final Escherichia Coli Gram Neg Ar 03/15/22 00:35 Blood - Blood Aerobic Blood Culture - Preliminary Gram Neg Ar Escherichia Coli 03/15/22 00:35 Blood - Blood Anaerobic Blood Culture - Preliminary 03/15/22 00:35 Blood - Blood Gram Stain - Final 03/16: - Repeat BC: Negative Imagings Data: 03/15 Chest XRay: FINDINGS: Lung volumes adequate. Cardiac silhouette is normal. No pneumothorax. No large pleural effusion. No focal consolidation. No acute bony finding. IMPRESSION: No acute cardiopulmonary findings 03/15 CT-Abd/Pel: IMPRESSION: 1. No evidence of acute intra-abdominal or intrapelvic pathology. 2. Mild distention of the right renal pelvis and right ureter without evidence of ureteral obstruction. 3. Small fat-containing ventral umbilical hernia - Problems (1) Sepsis secondary to UTI Current Visit: Yes Status: Acute Plan: Cultures: 03/15: - BC: Positive with E. coli - UC: Positive with E. coli 03/16: - Repeat BC: Negative Antibiotics: - Recommend to switch IV Recephin (from 03/15 to 03/17) to PO Levofloxacin for 7-10 days. - WBC 5.0; B.9; PLT: 230 - BUN: 3; Cr: .76 ID will follow the patient closely to continue monitoring signs of infection with fever and WBC trends. (2) Acute pyelonephritis Current Visit: Yes Status: Acute Plan: Treatment plan same as UTI Conclusions/Impression: Sepsis secondary to UTI and Acute pyelonephritis - Recommend to switch IV Recephin (from 03/15 to 03/17) to PO Levofloxacin for 7-10 days. - ID will follow the patient closely to continue monitoring signs of infection with fever and WBC trends. Case has been discussed with Davi Luke. Thank you Dr. Mckenzie for consult
[2022-03-17] MEDS ORDERED: POTASSIUM CL SA 10 MEQ TAB PO ONE (09:00)
[2022-03-17] MEDS: levoFLOXacin 750 MG TAB PO SCH (14:22)
--- NOTE | 2022-03-17 15:56 | P.PN ---
Subjective Date of Service: 03/17/22 Chief Complaint: Pyelonephritis, sepsis Patient states she feels much better. She reports improvement in the nausea and tolerating her meals No fever over the past 24 hours. Physical Examination - Vital Signs Temperature: 97.8 F Blood Pressure: 149/83 Pulse: 72 Respirations: 16 Pulse Ox (%): 96 - Physical Exam General: In no apparent distress HEENT: Mucous membr. moist/pink Respiratory: Clear to auscultation bilaterally, Normal air movement Cardiovascular: No edema, Regular rate/rhythm, Normal S1 S2 Gastrointestinal: Normal bowel sounds, Soft and benign, Non-distended, No tenderness Musculoskeletal: No swelling Integumentary: No rashes Neurological: Normal strength at 5/5 x4 extr - Studies Microbiology Data (last 24 hrs): 03/15/22 01:05 Clean Catch Urine [place] Count - Final >100,000 CFU/ML. 03/15/22 01:05 Clean Catch Urine - Final Escherichia Coli Gram Neg Ar 03/15/22 00:35 Blood - Blood Gram Stain - Final Assessment And Plan - Current Problems (Diagnosis) (1) Acute pyelonephritis Current Visit: Yes Status: Acute (2) Gram negative sepsis Current Visit: Yes Status: Acute - Plan Blood culture and urine culture growing pansensitive E. coli. Repeat blood cultures negative. Continue IV Rocephin. Infectious disease consulted-recommended 2 to 3 days of IV Rocephin and then switched to oral antibiotics. Diet as tolerated.
[2022-03-18] MEDS: MORPHINE 2 MG/ML SYR IV PRN ×3 (00:14→08:21)
[2022-03-18 02:40] VITALS: O2SAT 99
[2022-03-18] MEDS: Ringers Lactate 1,000 ML IV SCH ×2 (04:40→10:25)
[2022-03-18 06:23] VITALS: BMI 30.6
[2022-03-18] MEDS: levoFLOXacin 750 MG TAB PO SCH (08:21)
[2022-03-18] MEDS: ENOXAPARIN 40 MG/0.4 ML SQ SCH (08:21)
--- NOTE | 2022-03-18 09:05 | P.PN ---
Subjective Date of Service: 03/18/22 Chief Complaint: Pyelonephritis, sepsis Patient was asleep while ID entering the room. Patient stated that she started having "yeast infection feeling down there and itching" yesterday after taking oral Levaquin. No other major events upon examination. Physical Examination - Vital Signs Temperature: 98.3 F Blood Pressure: 161/94 Pulse: 70 Respirations: 16 Pulse Ox (%): 100 - Physical Exam General: Alert, In no apparent distress Respiratory: Clear to auscultation bilaterally Cardiovascular: No edema, Normal pulses, Normal S1 S2 Gastrointestinal: Normal bowel sounds Musculoskeletal: No swelling, No tenderness Integumentary: No rashes, No breakdown Neurological: Normal speech, Normal affect Urinary: Other (Bilateral costovertebral angles tenderness getting better) - Studies Current Medications Acetaminophen (Acetaminophen 500 Mg Tab) 500 mg PO Q4HP PRN PRN Reason: TEMP > 100' F Hydrocodone Bitart/Acetaminophen (Hydrocodone/Apap 7.5/325 Mg Tab) 1 tab PO Q6H PRN PRN Reason: Pain scale 5-7 (Moderate) Last Admin: 03/15/22 23:00 Dose: 1 tab Enoxaparin Sodium (Enoxaparin 40 Mg/0.4 Ml) 40 mg SQ DAILY [facility] Last Admin: 03/18/22 08:21 Dose: 40 mg Lactated Ringer's (Lactated Ringers) 1,000 mls @ 150 mls/hr IV .Q6H40M [facility] Last Admin: 03/18/22 04:40 Dose: 1,000 mls Levofloxacin (Levofloxacin 750 Mg Tab) 750 mg PO DAILY [facility] Stop: 03/24/22 14:01 Last Admin: 03/18/22 08:21 Dose: 750 mg Ondansetron HCl (Ondansetron 4 Mg (Odt) Tab) 4 mg PO Q6HP PRN PRN Reason: NAUSEA / VOMITING Sodium Chloride (Flush Normal Saline 10 Ml) 10 ml IV BID [facility] Last Admin: 03/18/22 08:21 Dose: Not Given Microbiology Data (last 24 hrs): 03/15/22 00:35 Blood - Blood Gram Stain - Final 03/15/22 01:05 Clean Catch Urine [place] Count - Final >100,000 CFU/ML. 03/15/22 01:05 Clean Catch Urine - Final Escherichia Coli Gram Neg Ar 03/16 BC: Negative Assessment And Plan - Current Problems (Diagnosis) (1) Sepsis secondary to UTI Current Visit: Yes Status: Acute Plan: Cultures: 03/15: - BC: Positive with E. coli - UC: Positive with E. coli 03/16: - Repeat BC: Negative Antibiotics: - Received IV Recephin from 03/15 to 03/17 - Currently on PO Levofloxacin (03/17 to present) - Recommend to have PO Levofloxacin for 14 days and Fluconazole 100 mg daily for 14 days when discharge home ID will follow the patient closely to continue monitoring signs of infection with fever and WBC trends. (2) Acute pyelonephritis Current Visit: Yes Status: Acute Plan: Treatment plan same as UTI - Plan Sepsis secondary to UTI and Acute pyelonephritis - Recommend to have PO Levofloxacin and Fluconazole for 14 days when discharge home. - ID will follow the patient closely to continue monitoring signs of infection with fever and WBC trends. Case has been discussed with Ramona Luke
[2022-03-18 12:15] VITALS: BP 140/91; TEMP 97.3
--- NOTE | 2022-03-18 12:24 | P.DS ---
Admission Date: 03/15/22 Discharge Date: 03/18/22 Disposition: ROUTINE DISCHARGE Discharge Condition: FAIR Reason for Admission: Pyelonephritis, sepsis - Problems (1) Acute pyelonephritis Current Visit: Yes Status: Acute (2) Gram negative sepsis Current Visit: Yes Status: Acute Brief History of Present Illness: 36-year-old otherwise healthy female presents emergency department for chills, back pain. She reports that she began having sensation of urinary retention followed by back pain and later fever and chills. She was evaluated here in the emergency department and noted to be febrile, tachypneic and tachycardic meeting sepsis criteria without septic shock, suspected source infection was UTI. UA suggested UTI. She was placed on Rocephin, and admitted for further management of pyelonephritis and sepsis. Hospital Course: Patient admitted to the medical floor and treated with IV Rocephin. Her urine culture and blood cultures grew pansensitive E. coli. Repeat blood culture has yielded no growth for 48 hours. Sepsis resolved, patient's symptoms improved, fever resolved, she tolerated her meals and ambulatory. She was seen in consultation by infectious disease who recommended 14 days of oral ciprofloxacin. Patient also noted to have vaginal candidiasis for which infectious disease recommended Diflucan for 2 weeks. Overall patient has clinically improved and deemed stable for discharge. Vital Signs/Physical Exam: Temp Pulse Resp BP Pulse Ox 97.3 F 84 16 140/91 H 98 03/18/22 12:00 03/18/22 12:00 03/18/22 12:00 03/18/22 12:00 03/18/22 12:00 General: Alert, In no apparent distress, Oriented x3 HEENT: Mucous membr. moist/pink Neck: Supple, JVD not distended Respiratory: Clear to auscultation bilaterally, Normal air movement Cardiovascular: No edema, Regular rate/rhythm, Normal S1 S2 Gastrointestinal: Soft and benign, Non-distended, No tenderness Musculoskeletal: No swelling Integumentary: No rashes Neurological: Normal strength at 5/5 x4 extr Laboratory Data at Discharge: WBC 5.00 K/uL (4.3-10.9) 03/17/22 03:20 Hgb 8.9 g/dL (12.0-15.0) L 03/17/22 03:20 Hct 26.9 % (36.0-45.0) L 03/17/22 03:20 Plt Count 230 K/uL (152-406) 03/17/22 03:20 PT 12.0 SECONDS (9.5-12.5) 03/15/22 00:35 INR 1.09 03/15/22 00:35 APTT 29.1 SECONDS (24.3-36.9) 03/15/22 00:35 Sodium 137 mmol/L (136-145) 03/17/22 03:20 Potassium 3.6 mmol/L (3.5-5.1) 03/17/22 03:20 BUN 3 mg/dL (7-18) L 03/17/22 03:20 Creatinine 0.76 mg/dL (0.55-1.02) 03/17/22 03:20 Glucose 92 mg/dL (74-106) 03/17/22 03:20 Total Bilirubin 1.2 mg/dL (0.2-1.0) H 03/15/22 00:35 AST 9 U/L (15-37) L 03/15/22 00:35 ALT 11 U/L (13-56) L 03/15/22 00:35 Alkaline Phosphatase 78 U/L (45-117) 03/15/22 00:35 Home Medications: Ciprofloxacin HCl [Cipro] 500 mg PO BID #28 tab 03/18/22 Codeine/APAP [Tylenol W/Codeine #3 tab] 1 tab PO Q6HP PRN #20 tab 03/18/22 Fluconazole [Diflucan] 200 mg PO DAILY #14 tab 03/18/22 New Medications: Codeine/APAP [Tylenol W/Codeine #3 tab] 1 tab PO Q6HP PRN #20 tab PRN Reason: Pain Ciprofloxacin HCl [Cipro] 500 mg PO BID #28 tab Fluconazole [Diflucan] 200 mg PO DAILY #14 tab Diet: AHA Activity: Ad lilia Followup: NONE,NONE [Primary Care Provider] - 1-2 Weeks Time spent managing pt's care (in minutes): 36
== END 2022-03-18 13:45 | disposition home or self-care (01) | DRG 872 ==
LOC: ER 23:33 → ERHOLD 03-15 02:53 → 4TH 03-15 03:47
PROVIDERS: ADMIT Hospitalist; ATTEND Internal Medicine
DX: A41.51 Sepsis due to Escherichia coli [E. coli] (principal); N10 Acute pyelonephritis; Z56.0 Unemployment, unspecified; Z79.899 Other long term (current) drug therapy; Z28.310 Unvaccinated for COVID-19; Z20.822 Contact with and (suspected) exposure to COVID-19
CPT/HCPCS: 0240U; 36415; 71045; 74177; 80048; 80053; 81003; 81015; 82947; 83605; 84703; 85025; 85610; 85730; 87040; 87077; 87086; 87088; 87186; 87205; 93005; 96361; 96365; 96375; 99285; J0696; J1650; J2270; J2405; J7030; J7120; Q9967